=== PATIENT | female | born 1960 | race Caucasian/White ===

== ENCOUNTER → 2017-12-05 15:37 | Outpatient (CLI) | payer BC, SELFPAY ==
[2017-09-27 12:54] VITALS: BP 111/77; BMI 26.2
[2017-12-05 18:41] LABS: T3 Total - Triiodothyronine 1.01 ng/mL (0.6-1.81); Vitamin D,25 Hydroxy 21.2 ng/mL (19.95-100.01)
[2017-12-05 18:43] LABS: T4 Total, Thyroxin 11.2 ug/dL (4.8-13.9); Thyroid Stim Hormone (TSH) 2.17 uIU/mL (0.358-3.74)
== END ==
PROVIDERS: Family Provider Family Medicine; PCP Family Medicine; Visit Provider Family Medicine
DX: E03.9 Hypothyroidism, unspecified (principal); E55.9 Vitamin D deficiency, unspecified
CPT/HCPCS: 36415; 82306; 84436; 84443; 84480

== ENCOUNTER 2018-09-22 09:37 | Inpatient (IN) | payer BC, SELFPAY ==
[2018-09-22] VITALS (10 sets, daily range): BP systolic 108–120; BP diastolic 68–74; PULSE 106–125; RESP 16–23; TEMP 36.6–37.1; O2SAT 93–98; BMI 26.5; BMI 26.9
--- NOTE | 2018-09-22 09:51 | EKG12_ITS ---
Test Reason : SOB Blood Pressure : / mmHG Vent. Rate : 116 BPM Atrial Rate : 116 BPM P-R Int : 156 ms QRS Dur : 080 ms QT Int : 310 ms P-R-T Axes : 063 077 057 degrees QTc Int : 430 ms Sinus tachycardia Otherwise normal ECG Confirmed by LORENZA RAY, GUERRERO ([id number]), digital editor HERRERA DAVENPORT ([id number]) on 09/24/2018 4:19:20 PM Referred By: CHANTEL Confirmed By:GUERRERO BRITT MD
--- NOTE | 2018-09-22 09:55 | NURSING ---
NO OLD EKGS
--- NOTE | 2018-09-22 10:01 | ED.DCSUM_ITS ---
- ER Visit Summary Date of Service: 09/22/18 Chief Complaint: Cough shortness of breath and chest pain History of Present Illness: The patient is a 58 F presenting for evaluation secondary to cough shortness of breath and chest pain. Patient reports that over the course of the last 2 weeks she has been dealing with respiratory symptoms. She reports that she has had a nonproductive cough, and subjective fevers and chills. Patient states that over the course of the last 2 days however she has been chest pain associated with this. She states that it is a sharp type pain worse with taking a deep breath located in her chest and her back. It is caused her to have some shortness of breath. She denies any hemoptysis. She denies any nausea vomiting or diarrhea. Patient denies any history of DVT or PE, she did recently travel to and from [facility] which is a [address] She denies any leg pain or swelling associated with this. She is not on any sort of hormones, she is not a smoker. Physical Examination: Vital signs are notable for a heart rate of 125. Well-nou rished female no acute distress. No conjunctival pallor or scleral icterus. Moist mucous membranes. Neck supple. Heart tachycardic and regular no murmurs normal S1 and S2. Lungs sounds showed evidence of abnormally increased lung sounds at the left lower lung field without obvious rhonchi rales or wheezes. No respiratory distress or retractions. Abdomen soft nontender. No peripheral edema, peripheral pulses 2+ and symmetric x4. Skin normal color no rash. Remainder of physical otherwise unremarkable. Test Results: EKG shows sinus tachycardia with a rate of 116 no evidence of ischemic changes. CBC shows a leukocytosis of 20 with a neutrophilic predominance, chemistry negative troponin negative d-dimer positive lactic acid 2 chest x-ray shows left lower lobe infiltrate Emergency Department Course and Treatment: Patient presented with chest pain and subjective feelings of fever cough and shortness of breath. Patient's workup ends up showing her to have sepsis with a left lower lobe pneumonia. She did have positive d-dimer which I believe likely is secondary to the patient's infection and not secondary to a pulmonary embolism. I do not believe that CT angiogram is indicated. Patient does meet sepsis criteria, her heart rate is persistently fast, I believe that she would benefit from admission. Patient was given a dose of IV Levaquin after blood cultures were obtained and the patient will be admitted under the hospitalist. Disposition: Admission Impression: 1. Community-acquired pneumonia 2. Sepsis This note was generated with [employer] dictation software. It may contain incorrect words, spelling, and punctuation that were not noted in review of the chart prior to signing ED Disposition - Plan for ED Patient: Chief Complaint: Shortness of Breath Referrals: Eldon Proctor MD [Primary Care Provider] -
[2018-09-22 10:27] LABS: Absolute Lymphocyte Count 0.72 X10^3/ul (0.83-4.51); Absolute Neutrophil Count 18.8 X10^3/uL (2.0-7.7); Basophil# 0.03 X10^3/uL; Basophil% 0.1 % (0-1); Eosinophil# 0.01 X10^3/uL; Hematocrit 44.2 % (37-47); Hemoglobin 14.8 g/dl (12.0-15.0); Lymphocyte # 0.72 X10^3/ul (4.0); Lymphocyte % 3.5 % (19-41); Mean Corp Hgb Conc 33.5 g/gl (32-36); Mean Corpuscular Hgb 30.5 pg (27.0-32.0); Mean Corpuscular Volume 91.1 fL (81-99); Mean Platelet Vol. 9.4 fl (6.2-12.0); Monocyte% 4.4 % (0-10); Neutrophil # 18.77 X10^3/uL (2.7-7.7); Neutrophil % 91.5 % (47-70); POSITIVE COUNT NO; POSITIVE DIFFERENTIAL NO; POSITIVE MORPHOLOGY NO; Platelet Count 266 K/mm3 (150-450); RBC Distribution Width CV 13.9 % (11.6-14.6); RBC Distribution Width SD 46.1 fl (35.1-43.9); Red Blood Count 4.85 M/mm3 (4.2-5.4); White Blood Count 20.5 K/mm3 (4.4-11.0)
[2018-09-22 10:37] LABS: D-Dimer Quantitative (DVT/PE) 1.44 FEU/ug/m (0.27-0.49)
[2018-09-22] MEDS: Acetaminophen 500 MG Tablet 1000 MG PO (10:41)
[2018-09-22] MEDS: 0.9% Normal Saline 1,000 ML 999 ML IV (10:42)
[2018-09-22 10:46] LABS: Anion Gap 10 (5-15); BUN 17 mg/dL (7-18); BUN/Creat Ratio 15.2 RATIO (10-20); Calcium,Total 9.3 mg/dL (8.5-10.1); Chloride 104 mmol/L (98-107); Creatinine, Serum 1.12 mg/dL (0.55-1.02); EST Glomerular Filtration Rate 53 mL/min (>60); Est Glom Filt Rate - Afr Amer 64 mL/min (>60); Estimated Creatinine Clearance 45.29 ml/min; Glucose 165 mg/dL (74-106); Potassium 3.5 mmol/L (3.5-5.1); Sodium Level 138 mmol/L (136-145)
--- NOTE | 2018-09-22 10:55 | RAD_ITS ---
STUDY: X-RAY CHEST REASON FOR EXAM: Female, 58 years old. Cough TECHNIQUE: PA and lateral views of the chest. COMPARISON: None. FINDINGS: There is a patchy consolidation within the left lower lobe. There is no demonstrated pleural abnormality. Normal size heart. Normal mediastinum and kiya. Normal visualized pulmonary arteries. Normal visualized aortic arch and descending thoracic aorta. Normal visualized thoracic spine. Normal visualized ribs, clavicles, and shoulders. There is no demonstrated abnormality of the visualized soft tissue structures of the upper abdomen. RAD/Chest PA and Lateral IMPRESSION: Left lower lobe pneumonia. N.B. : The above information has been verbally conveyed by Fani Valente MD to Dr. Maravilla; [phone], on 09/22/2018 11:25:18 (ET). Electronically Signed: Fani Valente MD at 11:15 EST Tel , Service support ,
--- NOTE | 2018-09-22 11:20 | NURSING ---
DR HAMLET MCCABE
--- NOTE | 2018-09-22 11:21 | PCM.PN.HOSP ---
Vitals/I&O's: Vital Signs Temp Pulse Resp BP Pulse Ox 98 F 116 H 23 H 111/73 95 09/22/18 09:38 09/22/18 11:00 09/22/18 11:00 09/22/18 11:00 09/22/18 11:00 Oxygen Delivery Method Room Air Weight: 150 lb Body Mass Index (BMI) 26.5 Microbiology Past 72 Hours 09/22/18 10:30 Mucosa - Nasopharyngeal Influenza Types A,B Direct FA (ED) - Final Laboratory Results 09/22/18 10:15: WBC 20.5 H, RBC 4.85, Hgb 14.8, Hct 44.2, MCV 91.1, MCH 30.5, MCHC 33.5, RDW 13.9, RDW Differential 46.1 H, Plt Count 266, MPV 9.4, Immature Gran % (Auto) 0.500, Neut % (Auto) 91.5 H, Lymph % (Auto) 3.5 L, [place] % (Auto) 4.4, Eos % (Auto) 0.0, Baso % (Auto) 0.1, Absolute Neuts (auto) 18.8 H, Absolute Lymphs (auto) 0.72 L, Total Counted Not Reportable 09/22/18 10:15: D-Dimer Quant (PE/DVT) 1.44 H* 09/22/18 10:15: Sodium 138, Potassium 3.5, Chloride 104, Carbon Dioxide 24.0, Anion Gap 10, BUN 17, Creatinine 1.12 H, Estim Creat Clear Calc 45.29, Est GFR (MDRD) Af Amer 64, Est GFR (MDRD) Non-Af 53 L, BUN/Creatinine Ratio 15.2, Glucose 165 H, Calcium 9.3, Troponin I < 0.015 09/22/18 10:15: Lactic Acid 2.0 Current Medications Levofloxacin (Levaquin Iv) 750 mg in 150 mls @ 100 mls/hr IV X1 ONE Stop: 09/22/18 12:46 Medical Necessity - Tobacco Use Smoking Status: Never smoker
--- NOTE | 2018-09-22 11:25 | NURSING ---
PCU SEPSIS DUE TO CAP KORAM
[2018-09-22] MEDS: levoFLOXacin IV 750 MG/150 ML BAG 100 MG IV (11:26)
--- NOTE | 2018-09-22 12:01 | HP.PCM_ITS ---
History of Present Illness Date of Admission: 09/22/18 Chief Complaint: cough, fever The patient is a 58 year old F with a past medical history as listed below. She was admitted through the ED on 09/22/2018 with a complaint of left-sided chest pain and cough as well as subjective fever and chills. Symptoms have been going on for a few days but that the cough has been for over a week. She had previously gotten a cold and thought call for the result once the cold resolved. However symptoms persisted so she decided to come to the ED today. Left-sided chest pain was pleuritic in nature and was worsened by taking a deep breath and. She has no associated palpitations, abdominal pain, diarrhea vomiting. She did have any history of PE and on only had a recent long distance drive to which occurred about 3 hours. She had no assisted lower extremity swelling or pain. In the ED, vitals were significant for heart rate of 125, respiratory rate of 23 and temperature was 98 Fahrenheit. Chemistry was significant for creatinine of 1.12 and CBC showed white cell count of 20.5. Chest x-ray showed a left lower lobe infiltrate. She is been admitted to be managed for sepsis due to community acquired pneumonia. Past Medical History Past Medical History (Chronic Problems): Chronic Problems History of right breast cancer (Chronic) Allergies No Known Allergies Allergy (Verified 09/22/18 09:40) Home Medications: Ambulatory Orders Medication Instructions Recorded Acetaminophen [Tylenol] 325 mg PO TID PRN 03/28/17 Ibuprofen [Advil] 200 mg PO Q6H PRN 03/28/17 Levothyroxine [Synthroid] 100 mcg PO DAILY 03/28/17 Cholecalciferol (Vitamin D3) 2,000 unit PO DAILY 09/27/17 [Vitamin D3] Surgical History: - - right breast mastectomy Psychiatric History: No pertinent psych hx SITE MEDICAL DIRECTOR History: No pertinent SITE MEDICAL DIRECTOR history Smoking Status: Former smoker - quit 17 years ago Alcohol: None - *Family History Maternal History Items: Cancer, Diabetes, Heart Disease, Hypertension Paternal History Items: High Cholesterol, Heart Disease, Hypertension Review of Systems Constitutional: Reports: Chills, Fever, Malaise, Weakness, Fatigue. Denies: Anorexia, Night Sweats Eyes: Denies: Blurred vision HEENT: Denies: Head Aches, Sinus Congestion, Sinus Drainage Cardiovascular: Reports: Chest Pain - left sided pleuritic chest pain. Denies: Chest Tightness, Heaviness, Palpitations, Paroxysmal Noc. Dyspnea, Syncope Respiratory: Reports: Cough, Pleuritic Pain, Shortness of Breath, Sputum production. Denies: Shortness of breath at rest, Shortness of breath upon exertion, Wheezing Gastrointestinal: Denies: Abdominal Pain, Nausea, Vomiting Genitourinary: Denies: Dysuria Musculoskeletal: Denies: Joint Pain, Joint Tenderness Skin: Denies: Rash, Wounds Neurological: Denies: Numbness, Tingling, Focal weakness Psychiatric: Denies: Anxiety, Depression, Homicidal Ideations, Suicidal Ideat ions Hematologic/ Lymphatic: Denies: Easy Bruising, Easy Bleeding VTE Information - Inpt Only VTE Present on Admission: No VTE Pharm Prophylaxis ordered?: Yes - Physical Exam General: Alert, Oriented x3, Cooperative, - - mild distress HEENT: Atraumatic, PERRLA, EOMI, Normocephalic Neck: Supple, No JVD, Negative Carotid Bruits Lungs: - - Reduced breath sounds in left lower lung field with few fine crackles auscultated. Cardiovascular: Regular rate, Regular Rhythm, Normal S1, Normal S2, No murmurs Abdomen: Bowel Sounds Present, Soft, Non Tender, Non-Distended, No Hepato- splenomegaly Extremities: No clubbing, No cyanosis, No edema, Capillary Refill Less than 3 Seconds Skin: No rashes, No breakdown Musculoskeletal: No Tenderness to Palpation of Joints or Extremities Lymphatic: No Cervical, Supraclavicular, or Inguinal Adenopathy Neurological: Cranial nerves II-XII grossly intact, Neuro grossly intact, Motor Exam 5/5 strength throughout Psych/Mental Status: Normal Affect, Appropriate, Alert and oriented to time, place, person, mood and affect Vital Signs Temp Pulse Resp BP Pulse Ox 98 F 116 H 23 H 111/73 95 09/22/18 09:38 09/22/18 11:00 09/22/18 11:00 09/22/18 11:00 09/22/18 11:00 Oxygen Delivery Method Room Air Weight: 150 lb Body Mass Index (BMI) 26.5 Microbiology Past 72 Hours 09/22/18 10:30 Influenza Types A,B Direct FA (ED) - Final Mucosa - Nasopharyngeal Laboratory Tests Past 24 Hrs 09/22/18 09/22/18 09/22/18 10:15 10:15 10:15 WBC 20.5 H RBC 4.85 Hgb 14.8 Hct 44.2 MCV 91.1 MCH 30.5 MCHC 33.5 RDW 13.9 RDW Differential 46.1 H Plt Count 266 MPV 9.4 Immature Gran % (Auto) 0.500 Neut % (Auto) 91.5 H Lymph % (Auto) 3.5 L [place] % (Auto) 4.4 Eos % (Auto) 0.0 Baso % (Auto) 0.1 Absolute Neuts (auto) 18.8 H Absolute Lymphs (auto) 0.72 L Total Counted Not Reportable D-Dimer Quant (PE/DVT) 1.44 H* Sodium 138 Potassium 3.5 Chloride 104 Carbon Dioxide 24.0 Anion Gap 10 BUN 17 Creatinine 1.12 H Estim Creat Clear Calc 45.29 Est GFR (MDRD) Af Amer 64 Est GFR (MDRD) Non-Af 53 L BUN/Creatinine Ratio 15.2 Glucose 165 H Lactic Acid Calcium 9.3 Troponin I < 0.015 09/22/18 10:15 WBC RBC Hgb Hct MCV MCH MCHC RDW RDW Differential Plt Count MPV Immature Gran % (Auto) Neut % (Auto) Lymph % (Auto) [place] % (Auto) Eos % (Auto) Baso % (Auto) Absolute Neuts (auto) Absolute Lymphs (auto) Total Counted D-Dimer Quant (PE/DVT) Sodium Potassium Chloride Carbon Dioxide Anion Gap BUN Creatinine Estim Creat Clear Calc Est GFR (MDRD) Af Amer Est GFR (MDRD) Non-Af BUN/Creatinine Ratio Glucose Lactic Acid 2.0 Calcium Troponin I Diagnostic Data Chest X-Ray 09/22/18 10:55 IMPRESSION: Left lower lobe pneumonia. N.B. : The above information has been verbally conveyed by Fani Valente MD to Dr. Maravilla; [phone], on 09/22/2018 11:25:18 (ET). Electronically Signed: Fani Valente MD at 11:15 EST Tel , Service support , Assessment/Plan 58-year-old female admitted to the ED on 09/22/2018 with a complaint of left- sided pleuritic chest pain and subjective fever and chills as well as a productive cough. 1. Sepsis due to community acquired pneumonia * SIRS - 3/4 (tachyardia, tachypnea, leucocytosis) on admission. * CXR showed left lower lobe infiltrate * admit to PCU with telemetry * EKG showed sinus tachycardia * blood cultures x 2; urine for strep and legionella antigen * was give IV levaquin in the ED; will stop and give IV ceftriaxone and IV azithromycin * tyelenol for fever and pain * hydrate with IVF NS @ 150cc/hr * 2. ELevated Cr: Cr is 1.12; but doent meet criteria for NATHALY. Will hydrate and monitor 3.Hypothyroidism: on synthroid 4. Sinus tachycardia: likely due to sepsis. WIll monitor HR 5. History of breast ca s/p right mastectomy: stable. DVT prophylaxis: heparin Code Visit Inpatient E&M: 53533 Init Hosp L3
[2018-09-22] MEDS: Ceftriaxone 1 GM/50 ML BAG IV ×2 (13:00→21:36)
[2018-09-22] MEDS: 0.9% Normal Saline 1,000 ML 150 ML IV (13:53)
[2018-09-22 14:22] LABS: Reflex Lactate? Y
[2018-09-22 15:47] LABS: Lactic Acid 3.2 mmol/L (0.4-2.0)
[2018-09-22] MEDS: 0.9% Normal Saline 1,000 ML 250 ML IV (19:40)
[2018-09-22] MEDS: Acetaminophen 325 MG Tablet 650 MG PO (21:37)
[2018-09-23] MEDS: 0.9% Normal Saline 1,000 ML 250 ML IV (00:20)
[2018-09-23 02:18] LABS: Lactic Acid 1.1 mmol/L (0.4-2.0)
[2018-09-23 03:02] VITALS: PULSE 105
[2018-09-23 03:30] VITALS: BP 111/65; PULSE 106; RESP 16; TEMP 37; O2SAT 97
[2018-09-23 06:00] LABS: Absolute Neutrophil Count 10.7 X10^3/uL (2.0-7.7); Basophil# 0.02 X10^3/uL; Basophil% 0.2 % (0-1); Eosinophil# 0.13 X10^3/uL; Hemoglobin 12.3 g/dl (12.0-15.0); Lymphocyte % 10.7 % (19-41); Mean Corp Hgb Conc 33.2 g/gl (32-36); Mean Corpuscular Hgb 30.8 pg (27.0-32.0); Mean Corpuscular Volume 92.5 fL (81-99); Monocyte# 0.82 X10^3/uL; Monocyte% 6.2 % (0-10); Neutrophil # 10.72 X10^3/uL (2.7-7.7); Neutrophil % 81.6 % (47-70); Platelet Count 254 K/mm3 (150-450); RBC Distribution Width SD 46.4 fl (35.1-43.9); White Blood Count 13.1 K/mm3 (4.4-11.0)
[2018-09-23] MEDS: Levothyroxine 100 MCG Tablet PO (06:07)
[2018-09-23 06:35] LABS: Anion Gap 9 (5-15); BUN 10 mg/dL (7-18); BUN/Creat Ratio 11.5 RATIO (10-20); Calcium,Total 7.9 mg/dL (8.5-10.1); Chloride 114 mmol/L (98-107); Creatinine, Serum 0.87 mg/dL (0.55-1.02); EST Glomerular Filtration Rate 71 mL/min (>60); Est Glom Filt Rate - Afr Amer 86 mL/min (>60); Estimated Creatinine Clearance 58.31 ml/min; Glucose 98 mg/dL (74-106); Potassium 3.6 mmol/L (3.5-5.1); Sodium Level 144 mmol/L (136-145)
[2018-09-23 06:38] LABS: POSITIVE COUNT NO; POSITIVE DIFFERENTIAL NO; POSITIVE MORPHOLOGY NO
[2018-09-23] MEDS: Diphenoxylate/Atrop 1 Tablet 2 TABLET PO ×2 (06:50→12:49)
[2018-09-23 07:00] VITALS: PULSE 104
[2018-09-23 07:59] VITALS: BP 111/67; PULSE 104; RESP 16; TEMP 37; O2SAT 96
[2018-09-23] MEDS: Enoxaparin 40 MG/0.4 ML Syringe SC (09:23)
[2018-09-23] MEDS: Ceftriaxone 1 GM/50 ML BAG IV (09:24)
[2018-09-23] MEDS: 0.9% NaCl Peripheral Flush Adult/Peds IV ×2 (09:24→12:49)
[2018-09-23 10:59] VITALS: PULSE 121
--- NOTE | 2018-09-23 11:57 | CASEMGMT ---
Face to Face with patient for initial transition planning/care coordination assessment. RN CM introduced self and role at [facility], voices understanding. Care providers, pharmacy, and demographics verified. PCP: Dr. Proctor Preferred Pharmacy: [facility] Insurance: [employer] Living Will/HPOA: No. Is not interested in further information LNOK: Mother Dionne Cerna Living Arrangements: Pt lives alone in a two story home. Pt denies any difficulty with the stairs. Pt is independent with ADLs, driving, etc. States her son would be able to assist her if needed. Transportation: Drives independently DME/HHC: None Plan: Return home independently. No needs identified at this time (PT/OT evaluations pending). Pt without concerns.
--- NOTE | 2018-09-23 12:57 | DCINST_ITS ---
You will use the following diet at home:: Regular Your food should be the consistency of: Regular Your liquids should be the consistency of: Regular/Thin Discharge Activity: No Restrictions Call your doctor if you observe: Fever of 101 or Higher, Shortness of breath, Dizziness Allergies/Adverse Reactions: Allergies No Known Allergies Allergy (Verified 09/22/18 09:40) Medications to take at Discharge Acetaminophen [Tylenol] 325 mg PO TID PRN 03/28/17 Ibuprofen [Motrin] 200 mg PO Q6H PRN 03/28/17 Levothyroxine [Synthroid] 100 mcg PO DAILY 03/28/17 Cholecalciferol (Vitamin D3) [Vitamin D3] 2,000 unit PO DAILY 09/27/17 Amoxicillin/Potassium Clav [Augmentin 875-125 Tablet] 1 each PO BID #14 tablet 09/23/18 Azithromycin 500 mg PO DAILY #3 tablet 09/23/18 The following prescriptions were given: Azithromycin 500 mg PO DAILY #3 tablet Amoxicillin/Potassium Clav [Augmentin 875-125 Tablet] 1 each PO BID #14 tablet Primary Care Physician: Eldon Proctor MD [Primary Care Provider] - Please follow up with your Primary Care Physician in: In 3-5 days Test Results: Test results from this visit will be discussed in further detail at your follow- up appointment, if applicable.
--- NOTE | 2018-09-23 13:05 | DS.PCM_ITS ---
Discharge Date and Diagnosis Date of Admission: 09/22/18 Date of Discharge: 09/23/18 - Secondary Discharge Diagnosis Chronic Problems History of right breast cancer (Chronic) Hospital Course and Treatment Imaging Results: CXR: IMPRESSION: Left lower lobe pneumonia. Operations: None Procedures: None Summary of Care Provided: Per HPI: The patient is a 58 year old F with a past medical history as listed below. She was admitted through the ED on 09/22/2018 with a complaint of left- sided chest pain and cough as well as subjective fever and chills. Symptoms have been going on for a few days but that the cough has been for over a week. She had previously gotten a cold and thought call for the result once the cold resolved. However symptoms persisted so she decided to come to the ED today. Left-sided chest pain was pleuritic in nature and was worsened by taking a deep breath and. She has no associated palpitations, abdominal pain, diarrhea vomiting. She did have any history of PE and on only had a recent long distance drive to which occurred about 3 hours. She had no assisted lower extremity swelling or pain. In the ED, vitals were significant for heart rate of 125, respiratory rate of 23 and temperature was 98 Fahrenheit. Chemistry was significant for creatinine of 1.12 and CBC showed white cell count of 20.5. Chest x-ray showed a left lower lobe infiltrate. She is been admitted to be managed for sepsis due to community acquired pneumonia. Vital Signs - 24 hr Temp Pulse Resp BP Pulse Ox 09/23/18 07:59 98.6 F 104 H 16 111/67 96 09/23/18 07:00 104 H 09/23/18 03:30 98.6 F 106 H 16 111/65 97 09/23/18 03:02 105 H 09/22/18 23:00 112 H 09/22/18 21:39 98.3 F 117 H 18 114/68 97 09/22/18 19:00 120 H 09/22/18 17:09 98.1 F 113 H 18 120/69 96 09/22/18 15:48 106 H 09/22/18 13:12 119 H General: Alert, Oriented x3, Cooperative, No apparent distress HEENT: Atraumatic, PERRLA, EOMI, Normocephalic Oral: Moist Mucosa Neck: Supple, No JVD Lungs: Clear to auscultation, Normal air movement, No rhonchi, No wheeze, No rales, decreased LLL Cardiovascular: Regular rate, Regular Rhythm, Normal S1, Normal S2, No murmurs Abdomen: Soft, Non Tender, Non-Distended, No Hepato-splenomegaly Extremities: No edema, Capillary Refill Less than 3 Seconds Skin: No rashes, No breakdown Hospital Course: 1. Sepsis 2/2 LLL CAP - She was admitted with pneumonia and started on fluid and rocephin/azithromycin. She feels much better and her leukocytosis decreased from 20,000 to 13,000 and she has remained afebrile. She would like to go home today and continued with PO abx therapy with augmentin and azithromycin. Her heart rate was also improved this afternoon on exam. She will need outpatient monitoring with her PCP 2. Her other medical diagnoses were evaluated and her home medication regimen was continued where appropriate. - Physical Exam Vital Signs Temp Pulse Resp BP Pulse Ox 98.6 F 104 H 16 111/67 96 09/23/18 07:59 09/23/18 07:59 09/23/18 07:59 09/23/18 07:59 09/23/18 07:59 Oxygen Delivery Method Room Air Weight: 151 lb 10.848 oz Body Mass Index (BMI) 26.9 Intake and Output for Last 24 Hours 09/21/18 09/22/18 09/23/18 23:59 23:59 23:59 Intake Total 1281 / 1281 3066 / 3066 Balance 1281 / 1281 3066 / 3066 Microbiology Past 72 Hours 09/22/18 22:30 C. difficile DNA Amplification - Final Stool 09/22/18 10:30 Influenza Types A,B Direct FA (ED) - Final Mucosa - Nasopharyngeal Laboratory Tests Past 24 Hrs 09/22/18 09/23/18 09/23/18 14:55 01:41 05:12 WBC 13.1 H RBC 4.00 L Hgb 12.3 Hct 37.0 MCV 92.5 MCH 30.8 MCHC 33.2 RDW 14.0 RDW Differential 46.4 H Plt Count 254 MPV 10.0 Immature Gran % (Auto) 0.300 Neut % (Auto) 81.6 H Lymph % (Auto) 10.7 L [place] % (Auto) 6.2 Eos % (Auto) 1.0 Baso % (Auto) 0.2 Absolute Neuts (auto) 10.7 H Absolute Lymphs (auto) 1.40 Total Counted Not Reportable Sodium Potassium Chloride Carbon Dioxide Anion Gap BUN Creatinine Estim Creat Clear Calc Est GFR (MDRD) Af Amer Est GFR (MDRD) Non-Af BUN/Creatinine Ratio Glucose Lactic Acid 3.2 H 1.1 Calcium 09/23/18 09/23/18 05:12 05:12 WBC RBC Hgb Hct MCV MCH MCHC RDW RDW Differential Plt Count MPV Immature Gran % (Auto) Neut % (Auto) Lymph % (Auto) [place] % (Auto) Eos % (Auto) Baso % (Auto) Absolute Neuts (auto) Absolute Lymphs (auto) Total Counted Sodium 144 Potassium 3.6 Chloride 114 H Carbon Dioxide 21.0 Anion Gap 9 BUN 10 Creatinine 0.87 Estim Creat Clear Calc 58.31 Est GFR (MDRD) Af Amer 86 Est GFR (MDRD) Non-Af 71 BUN/Creatinine Ratio 11.5 Glucose 98 Lactic Acid 1.0 Calcium 7.9 L Discharge Activity: No Restrictions Call your doctor if you observe: Fever of 101 or Higher, Shortness of breath, Dizziness Home Medications: Medications to take at Discharge Acetaminophen [Tylenol] 325 mg PO TID PRN 03/28/17 Ibuprofen [Motrin] 200 mg PO Q6H PRN 03/28/17 Levothyroxine [Synthroid] 100 mcg PO DAILY 03/28/17 Cholecalciferol (Vitamin D3) [Vitamin D3] 2,000 unit PO DAILY 09/27/17 Amoxicillin/Potassium Clav [Augmentin 875-125 Tablet] 1 each PO BID #14 tablet 09/23/18 Azithromycin 500 mg PO DAILY #3 tablet 09/23/18 Following Prescrptions Were Given to Patient: Azithromycin 500 mg PO DAILY #3 tablet Amoxicillin/Potassium Clav [Augmentin 875-125 Tablet] 1 each PO BID #14 tablet Primary Care Physician: Eldon Proctor MD [Primary Care Provider] - Please follow up with your Primary Care Physician in: In 3-5 days Disposition: Home Minutes spent on discharge:: 35 Patient Condition:: Good Medical Necessity - Tobacco Use Smoking Status: Former smoker - quit 17 years ago Meaningful Use Info Meaningful Use Diagnoses (Choose all that apply): None applicable Code Visit Inpatient E&M: 81921 Disch Hosp
[2018-09-23 13:50] VITALS: BP 105/57; PULSE 108; RESP 18; TEMP 37.3; O2SAT 95
--- NOTE | 2018-09-25 10:19 | CASEMGMT ---
RN CM Discharge Follow-up Phone Call: BINA: Ricardo Strata: 3 Call Date: 09/25/18 Discharge Date: 09/23/18 Time of Call: 1019 Duration: 0 ? Admitting Diagnosis: Sepsis secondary to pneumonia This RN MELISSA attempted to contact pt via telephone for discharge follow-up. Voicemail received and message left requesting a return call if pt had any questions or concerns. Gigi Snyder RN
== END 2018-09-23 15:00 | disposition home or self-care (01) | DRG 871 ==
LOC: ED 11:02 → PCU 11:57
PROVIDERS: Family Medicine; Admitting Provider Student in an Organized Health Care Education/Training Program; Emergency Provider Emergency Medicine; Family Provider Family Medicine; PCP Family Medicine; Visit Provider Family Medicine
DX: A41.9 Sepsis, unspecified organism (principal); J18.9 Pneumonia, unspecified organism; E03.9 Hypothyroidism, unspecified; Z87.891 Personal history of nicotine dependence; Z85.3 Personal history of malignant neoplasm of breast; Z90.11 Acquired absence of right breast and nipple
CPT/HCPCS: 36415; 71046; 80048; 83605; 84484; 85025; 85379; 87040; 87493; 87804; 93005; 99285; J7030; A4216

== ENCOUNTER → 2018-11-18 08:01 | Outpatient (CLI) | payer BC, SELFPAY ==
[2018-09-30 12:58] VITALS: BMI 26.1
--- NOTE | 2018-11-18 08:03 | BI_ITS ---
MAMMOGRAPHY - UNILATERAL SCREENING: LEFT BREAST REASON FOR EXAM: Female, 58 years old. Routine annual screening examination (unilateral). PERTINENT HISTORY: Personal history of breast cancer. Prior right mastectomy with radiation and chemotherapy. TECHNIQUE: Digital unilateral breast soraya (3D mammographic acquisition) in the CC and MLO projections. 2-D mediolateral oblique (MLO) and craniocaudad (CC) views of both breasts were obtained. CAD: Full Field Digital Mammography with Computer Added Detection was performed. COMPARISON: Comparison is made with prior study dated March 21, 2017 and March 16, 2016. FINDINGS: Breast Composition: The breasts are heterogeneously dense, which may obscure small masses. There are no dominant masses or suspicious calcifications. Stable left axillary lymph nodes. No other significant abnormalities are identified. There has been no significant change since the prior study. BI/UNILAT LT SCRN W/CAD IMPRESSION: Stable unilateral screening mammogram. Yearly follow-up mammogram recommended. (A) ASSESSMENT CATEGORY: BIRADS Category 2: Benign. A letter regarding these results will be sent to the patient by the facility within 30 days. Approximately 10% of breast cancers are not detected by mammography. A normal mammogram should not delay biopsy of a clinically suspicious abnormality. [id number] Electronically Signed: Akshat Haro MD at 9:36 EST Tel [phone], Service support ,
--- OUTSIDE RECORDS SUMMARY | 2019-01-20 15:31 | XMS RPT_ITS ---
:1960 Author Organization OH[facility] Care Team Providers Name Role Phone MARYBETH YAP (SECURITIES ANALYST) Referring Unavailable Prah, Nahid Attending Unavailable Prah, Nahid Referring Unavailable Proctor, Eldon Primary Care Unavailable Shayy, Kim Attending Unavailable Eyad Silva Referring Unavailable Proctor, Eldon Primary Care Unavailable Proctor, Eldon Attending Unavailable Proctor, Eldon Referring Unavailable Proctor, Eldon Primary Care Unavailable ASSESSMENT, HEALTH RISK Attending Unavailable Proctor, Eldon Primary Care Unavailable Proctor, Eldon Primary Care Unavailable Koram, Sherita Hyun Admitting Unavailable KotsoniSonya youngs F Attending Unavailable Koram, Sherita Hyun Admitting Unavailable Koram, Sherita Hyun Attending Unavailable Proctor, Eldon Primary Care Unavailable Koram, Sherita Hyun Consulting Unavailable Koram, Sherita Hyun Admitting Unavailable KotsoniSonya youngs F Attending Unavailable Proctor, Eldon Primary Care Unavailable Harley Ford F Consulting Unavailable Prah, Nahid Attending Unavailable Proctor, Eldon Primary Care Unavailable Shayy, Kim Consulting Unavailable PROBLEMS PROBLEMS DATE TYPE CONDITION / CODE ATTENDING STATUS SOURCE 09/30/2018 Unknown D75.1 - Secondary Shayy, Kim Active [facility] polycythemia / Community D75.1(ICD-10) Hospital Repository 09/30/2018 Unknown Z85.3 - Personal Shayy, Kim Active [facility] history of Community malignant neoplasm Hospital of breast / Repository Z85.3(ICD-10) 09/30/2018 Unknown Z90.11 - Acquired Shayy, Kim Active [facility] absence of right Community breast and nipple Hospital / Z90.11(ICD-10) Repository 09/30/2018 Unknown Z12.31 - Encounter Shayy, Kim Active [facility] for screening Community mammogram for Hospital malignant neoplasm Repository of breast / Z12.31(ICD-10) 09/10/2018 Active Cough / NA Active [facility] R05(ICD-10) Main [place] Repository 12/05/2017 Unknown E03.9 - Eldon Proctor Active [facility] Hypothyroidism, Community unspecified / Hospital E03.9(ICD-10) Repository 12/05/2017 Unknown E55.9 - Vitamin D Eldon Proctor Active [facility] deficiency, Community unspecified / Hospital E55.9(ICD-10) Repository PROCEDURES PROCEDURES No Procedure Records FoundRESULTS RESULTS UNILAT LT SCRN Observed: 11/18/2018 Status: F Source: [facility] W/CAD 8:03 AM [facility] Imaging Services [address] [place] [address] UNILAT LT SCRN W/CAD MR#: [id number] Acct: [id number] Name: FARIBA GORE Rep #: [id number] : 1960 F 58 From: Akshat Haro MD PCP: Eldon Proctor MD Status: REG CLI Study: UNILAT LT SCRN W/CAD Date of Exam: 11/18/18 Exam# [id number] Ordering Dr: Nahid Salinas MD MAMMOGRAPHY - UNILATERAL SCREENING: LEFT BREAST REASON FOR EXAM: Female, 58 years old. Routine annual screening examination (unilateral). PERTINENT HISTORY: Personal history of breast cancer. Prior right mastectomy with radiation and chemotherapy. TECHNIQUE: Digital unilateral breast soraya (3D mammographic acquisition) in the CC and MLO projections. 2-D mediolateral oblique (MLO) and craniocaudad (CC) views of both breasts were obtained. CAD: Full Field Digital Mammography with Computer Added Detection was performed. COMPARISON: Comparison is made with prior study dated March 21, 2017 and March 16, 2016. FINDINGS: Breast Composition: The breasts are heterogeneously dense, which may obscure small masses. There are no dominant masses or suspicious calcifications. Stable left axillary lymph nodes. No other significant abnormalities are identified. There has been no significant change since the prior study. BI/UNILAT LT SCRN W/CAD IMPRESSION: Stable unilateral screening mammogram. Yearly follow-up mammogram recommended. (A) ASSESSMENT CATEGORY: BIRADS Category 2: Benign. A letter regarding these results will be sent to the patient by the facility within 30 days. Approximately 10% of breast cancers are not detected by mammography. A normal mammogram should not delay biopsy of a clinically suspicious abnormality. [id number] Electronically Signed: Akshat Haro MD at 9:36 EST Tel [phone], Service support , CC: Nahid Salinas MD; Eldon Proctor MD [employer] Erector: Signed ONCOLOGY VISIT REPORT Observed: 09/30/2018 Status: F Source: [place] 1:34 PM [facility] [place] [address] OFFICE VISIT Date of Service: 09/30/18 1330 MR#: [id number] Acct: [id number] Name: FARIBA GORE Rep #: [id number] : 1960 From: Nahid Salinas MD Age/Sex: 58/F Location: OMD Status: Signed Subjective - Date of Service Date of Service:: 09/30/18 - Chief Complaint F/u for breast cancer. - History of Present Illness Ms. Fariba Gore is a very pleasant 58 year old woman diagnosed with stage III (T3, N1, M0) ER MT positive, HER2 negative infiltrating lobular carcinoma of the right breast 10/18/2001. She received 4 cycles of AC followed by 4 cycles of Taxotere in the neoadjuvant setting completed 03/2002, followed by right MRM, followed by XRT to the mastectomy site. On tamoxifen May 2002 through 01/03/2005. On and off tamoxifen and Aromasin based on hormone levels 01/03/2005 to 07/16/2007. Back on Aromasin 07/16/2007 to 10/10/2008. On MURILLO from 10/28/2008 to 11/17/2009. On Aromasin 04/27/2010 through 04/27/2012. Noted to have mild erythrocytosis thus underwent BM BX 12/29/2015. Found to exhibit normocellular marrow, normal cytogenetics and negative for JAK2 V617F mutation. She is on observation, comes in for follow up. Was admitted for pneumonia last week. - Past Medical/Social History Past Medical History Other Past Medical History: polycythemia MINOR MITRAL VALVE PROLAPSE Cancer: Breast cancer Past Surgical History Other Surgical History: R modified radical Mastectomy Family History Paternal Past Medical History: Unknown Paternal History of Cancer Esophageal cancer Maternal Past Medical History: Unknown Social History Smoking Status Former smoker Review of Systems Constitutional:: Denies: Fever, Sweats, Weight loss, Appetite change, Chills Cardiovascular:: Denies: Chest pain, Palpitations, Dyspnea on exertion, Orthopnea, PND, Shortness of breath Respiratory: Denies: Cough, Hemoptysis, Shortness of Breath, Wheezing Gastrointestinal:: Denies: Abdominal pain, Nausea, Vomiting, Diarrhea, Constipation, Hematochezia Genitourinary: Denies: Dysuria, Hematuria, 15, Flank pain Musculoskeletal:: Denies: Back pain, Myalgia, Arthralgia Skin: Denies: Rash, Skin Changes, Wounds Neurological:: Denies: Headache, Dizziness, Visual changes, Tinnitus, Hearing loss Psychiatric: Denies: Anxiety, Depression, Homicidal Ideations, Suicidal Ideations Vital Signs Height 5 ft 4 in Weight: 68.946 kg Weight in Pounds 152.0 lbs Pulse Ox 97 - Physical Exam General: Alert, Oriented x3, No apparent distress HEENT: Atraumatic, PERRLA, EOMI, Normocephalic Oropharynx:: Dry mucosa Neck:: Supple, Trachea midline. Negative for: JVD, bilateral Cardiac:: Regular rate, Regular rhythm, Normal S1, Normal S2. Negative for: Murmur Lungs: Clear to auscultation, Excusion symmetrical. Negative for: Rhonchi, Wheezes Abdomen:: Bowel sounds x 4, Soft, Non-tender, Non-distended. Negative for: Hepatosplenomegaly Extremities:: Negative for: Cyanosis, Edema Neurological: Neuro grossly intact Skin:: Negative for: Lesions, Rash, Petechiae, Ecchymosis Psychiatric:: Appropriate affect, Euthymic Lymphatics:: Negative for: Cervical lymphadenopathy, Supraclavicular lymphadenopathy, Axillary lymphadenopathy Breast:: - - R MRM scar, L breast-no masses. Laboratory Data: Laboratory Tests WBC 8.1 (4.4-11.0) K/mm3 RBC 5.10 (4.2-5.4) M/mm3 Hgb 15.7 H (12.0-15.0) g/dl Assessment and Plan Right Breast Cancer III, no evidence of disease clinically. Discussed disease status with Pt. Pneumonia 1 wk ago. Plan is to continue observation. Mammogram in February 2019. RTC 9 wks with cxr. Medications: Prescriptions This Visit Medication Instructions Recorded Acetaminophen [Tylenol] 325 mg PO TID PRN 03/28/17 Primary Care Provider: Eyad Silva MD Referring Provider: - Problem List (1) History of right breast cancer Status: Chronic Code Visit Office Visits / Consults: [id number] OV L3 Est 09/30/18 1334 <Electronically signed by Nahid Salinas MD> Date Nahid Salinas MD Cosigner Signature: Date (if applicable) CC: CBC W/DIFF, AUTOMATED Collected: 09/30/2018 Status: F Source: [place] 12:39 PM [facility] Order Comment: Reason for Laboratory Test . TYPE CODE TESTS RESULT OUT OF RANGE REFERENCE UNITS LAB L100.1000 4.4-11.0 K/mm3 Normal WBC 8.1 LAB L100.1200 4.2-5.4 M/mm3 Normal RBC 5.10 LAB L100.1300 12.0-15.0 g/dl High HGB 15.7 LAB L100.1400 37-47 % Normal HCT 46.6 LAB L100.1500 81-99 fL Normal MCV 91.4 LAB L100.1600 27.0-32.0 pg Normal MCH 30.8 LAB L100.1700 32-36 g/gl Normal MCHC 33.7 LAB L100.1810 11.6-14.6 % Normal RDW CV 13.9 LAB L100.1820 35.1-43.9 fl High RDW SD 45.5 LAB L100.1900 150-450 K/mm3 Normal PLT 432 LAB L100.2000 6.2-12.0 fl Normal MPV 9.1 LAB L100.2100 47-70 % High NEUT% 70.3 LAB L100.2200 19-41 % Normal LY% 20.1 LAB L100.2300 0-10 % Normal MONO% 5.6 LAB L100.2400 0-5 % Normal EO% 2.4 LAB L100.2500 0-1 % Normal BASO% 0.7 LAB L100.2550 0.0-0.9 % Normal IM GRAN % 0.900 Result Comment: IG% - Immature Granulocytes (promyelocytes, myelocytes and metamyelocytes) > 1% indicates that a LEFT SHIFT is Present. LAB L100.2620 2.0-7.7 X10 3/uL Normal Absolute Neut 5.7 LAB L100.2720 0.83-4.51 X10 3/ul Normal Absolute Lymph 1.62 Performed By: #### L100.0100 #### [facility] [address] [place], [place], [address] COMPREHENSIVE METABOLIC Collected: 09/30/2018 Status: F Source: [facility] 12:39 PM [facility] Order Comment: Reason for Laboratory Test . TYPE CODE TESTS RESULT OUT OF RANGE REFERENCE UNITS LAB L501.0100 74-106 mg/dL Normal GLU 102 Result Comment: Fasting Glucose result from 100 to 125 mg/dL suggests IMPAIRED HOMEOSTASIS per A.D.A. criteria. Please note revised GLUCOSE reference range effective 2017. LAB L501.1000 7-18 mg/dL Normal BUN 14 LAB L501.1100 0.55-1.02 mg/dL Normal CREAT,SERUM 1.00 Result Comment: The validity of the calculated GFR AND GFRAA in patients over 70 years has not been determined. Clinical correlation is essential. LAB L501.1110 >60 mL/min Normal EST GFR 61 Result Comment: Non- GFR Calc LAB L501.1115 >60 mL/min Normal EST GFR - AA 73 Result Comment: GFR Calc LAB L501.1255 ml/min Normal Estimated CRCL 52.95 LAB L501.1300 10-20 RATIO Normal BUN/CRE 14.0 LAB L501.1500 6.4-8. g/dL Normal 2 T PROT 7.9 LAB L501.1800 3.2-5. g/dL Normal 0 ALB 3.6 LAB L501.1950 2.2-4. g/dL High 2 GLOB 4.3 LAB L501.2000 0.9-2. RATIO Low 4 A/G 0.8 LAB L501.2200 8.5-10 mg/dL Normal .1 CA 9.0 LAB L501.4100 15-37 U/L Normal AST 19 LAB L501.4305 45-117 U/L Normal ALK P 88 LAB L501.4405 13-56 U/L Normal ALT 30 LAB L501.4600 0.20-1 mg/dL Normal .00 T BILI 0.30 LAB L501.5300 136-14 mmol/L Normal 5 NA 140 LAB L501.5600 3.5-5. mmol/L Normal 1 K 4.2 LAB L501.5900 98-107 mmol/L Normal CL 105 LAB L501.6100 21.0-3 mmol/L Normal 2.0 CO2 30.0 LAB L501.6200 5-15 Normal GAP 5 Performed By: #### L500.4050 #### [facility] [address] [place], [address] 12 LEAD ELECTROCARDIOGRAM Observed: 09/27/2018 Status: F Source: [place] 9:25 AM [facility] Cardiovascular Services [address] [place] [address] 12 Lead EKG 09/22/18 0959 MR#: [id number] Acct: [id number] Name: FARIBA GORE Rep #: [id number] : 1960 58 From: Ed Schaefer MD Attending Dr: Harley Ford MD Status: DIS IN Ordering Dr: Kam Maravilla MD Date: 09/22/18 Location: [facility] Sex: F C Admitted: 09/22/18 Test Reason : SOB Blood Pressure : / mmHG Vent. Rate : 116 BPM Atrial Rate : 116 BPM P-R Int : 156 ms QRS Dur : 080 ms QT Int : 310 ms P-R-T Axes : 063 077 057 degrees QTc Int : 430 ms Sinus tachycardia Otherwise normal ECG Confirmed by LORENZA RAY, ED ([id number]), dictionary editor HERRERA DAVENPORT ([id number]) on 09/24/2018 4:19:20 PM Referred By: CHANTEL Confirmed By:ED SCHAEFER MD 09/24/18 4732 Date Ed Schaefer MD CC: Kam Maravilla; Harley Ford MD; Eldon Proctor MD Signed DISCHARGE SUMMARY Observed: 09/23/2018 Status: F Source: [place] 1:05 PM [facility] Medical Records Department [address] [place] [address] Discharge Summary 09/23/18 1257 MR#: [id number] Acct: [id number] Name: FARIBA GORE Rep #: [id number] : 1960 58 From: Harley Ford MD PCP: Eldon Proctor MD Status: ADM IN Y Location: [place] [address] Discharge Date and Diagnosis Date of Admission: 09/22/18 Date of Discharge: 09/23/18 - Secondary Discharge Diagnosis Chronic Problems History of right breast cancer (Chronic) Hospital Course and Treatment Imaging Results: CXR: IMPRESSION: Left lower lobe pneumonia. Operations: None Procedures: None Summary of Care Provided: Per HPI: The patient is a 58 year old F with a past medical history as listed below. She was admitted through the ED on 09/22/2018 with a complaint of left-sided chest pain and cough as well as subjective fever and chills. Symptoms have been going on for a few days but that the cough has been for over a week. She had previously gotten a cold and thought call for the result once the cold resolved. However symptoms persisted so she decided to come to the ED today. Left-sided chest pain was pleuritic in nature and was worsened by taking a deep breath and. She has no associated palpitations, abdominal pain, diarrhea vomiting. She did have any history of PE and on only had a recent long distance drive to which occurred about 3 hours. She had no assisted lower extremity swelling or pain. In the ED, vitals were significant for heart rate of 125, respiratory rate of 23 and temperature was 98 Fahrenheit. Chemistry was significant for creatinine of 1.12 and CBC showed white cell count of 20.5. Chest x-ray showed a left lower lobe infiltrate. She is been admitted to be managed for sepsis due to community acquired pneumonia. Vital Signs - 24 hr General: Alert, Oriented x3, Cooperative, No apparent distress HEENT: Atraumatic, PERRLA, EOMI, Normocephalic Oral: Moist Mucosa Neck: Supple, No JVD Lungs: Clear to auscultation, Normal air movement, No rhonchi, No wheeze, No rales, decreased LLL Cardiovascular: Regular rate, Regular Rhythm, Normal S1, Normal S2, No murmurs Abdomen: Soft, Non Tender, Non-Distended, No Hepato-splenomegaly Extremities: No edema, Capillary Refill Less than 3 Seconds Skin: No rashes, No breakdown Hospital Course: 1. Sepsis 2/2 LLL CAP - She was admitted with pneumonia and started on fluid and rocephin/azithromycin. She feels much better and her leukocytosis decreased from 20,000 to 13,000 and she has remained afebrile. She would like to go home today and continued with PO abx therapy with augmentin and azithromycin. Her heart rate was also improved this afternoon on exam. She will need outpatient monitoring with her PCP 2. Her other medical diagnoses were evaluated and her home medication regimen was continued where appropriate. - Physical Exam Vital Signs Temp Pulse Resp BP Pulse Ox 98.6 F 104 H 16 111/67 96 09/23/18 07:59 09/23/18 07:59 09/23/18 07:59 09/23/18 07:59 09/23/18 07:59 Oxygen Delivery Method Room Air Weight: 151 lb 10.848 oz Body Mass Index (BMI) 26.9 Intake and Output for Last 24 Hours Intake Total 1281 / 1281 3066 / 3066 Balance 1281 / 1281 3066 / 3066 Microbiology Past 72 Hours 09/22/18 22:30 C. difficile DNA Amplification - Final Stool 09/22/18 10:30 Influenza Types A,B Direct FA (ED) - Final Mucosa - Nasopharyngeal Laboratory Tests Past 24 Hrs WBC 13.1 H RBC 4.00 L Hgb 12.3 Hct 37.0 MCV 92.5 MCH 30.8 MCHC 33.2 Discharge Activity: No Restrictions Call your doctor if you observe: Fever of 101 or Higher, Shortness of breath, Dizziness Home Medications: Medications to take at Discharge Acetaminophen [Tylenol] 325 mg PO TID PRN 03/28/17 Ibuprofen [Motrin] 200 mg PO Q6H PRN 03/28/17 Levothyroxine [Synthroid] 100 mcg PO DAILY 03/28/17 Cholecalciferol (Vitamin D3) [Vitamin D3] 2,000 unit PO DAILY 09/27/17 Amoxicillin/Potassium Clav [Augmentin 875-125 Tablet] 1 each PO BID #14 tablet 09/23/18 Azithromycin 500 mg PO DAILY #3 tablet 09/23/18 Following Prescrptions Were Given to Patient: Azithromycin 500 mg PO DAILY #3 tablet Amoxicillin/Potassium Clav [Augmentin 875-125 Tablet] 1 each PO BID #14 tablet Primary Care Physician: Eldon Proctor MD [Primary Care Provider] - Please follow up with your Primary Care Physician in: In 3- 5 days Disposition: Home Minutes spent on discharge:: 35 Patient Condition:: Good Medical Necessity - Tobacco Use Smoking Status: Former smoker - quit 17 years ago Meaningful Use Info Meaningful Use Diagnoses (Choose all that apply): None applicable Code Visit Inpatient E AND M: 63376 Disch Hosp 09/23/18 1305 <Electronically signed by Harley Ford MD> Date Harley Ford MD Cosigner Signature (if applicable): Date CC: Harley Ford MD; Eldon Proctor MD Signed DISCHARGE INSTRUCTION Observed: 09/23/2018 Status: F Source: [place] 12:57 PM [facility] Medical Records Department [address] [place] [address] Instructions for Home/Discharge Instructions 09/23/18 1256 MR#: [id number] Acct: [id number] Name: FARIBA GORE Rep #: [id number] : 1960 58 From: Harley Ford MD PCP: Esthela RAY,Eldon Status: ADM IN You will use the following diet at home:: Regular Your food should be the consistency of: Regular Your liquids should be the consistency of: Regular/Thin Discharge Activity: No Restrictions Call your doctor if you observe: Fever of 101 or Higher, Shortness of breath, Dizziness Allergies/Adverse Reactions: Allergies No Known Allergies Allergy (Verified 09/22/18 09:40) Medications to take at Discharge Acetaminophen [Tylenol] 325 mg PO TID PRN 03/28/17 Ibuprofen [Motrin] 200 mg PO Q6H PRN 03/28/17 Levothyroxine [Synthroid] 100 mcg PO DAILY 03/28/17 Cholecalciferol (Vitamin D3) [Vitamin D3] 2,000 unit PO DAILY 09/27/17 Amoxicillin/Potassium Clav [Augmentin 875-125 Tablet] 1 each PO BID #14 tablet 09/23/18 Azithromycin 500 mg PO DAILY #3 tablet 09/23/18 The following prescriptions were given: Azithromycin 500 mg PO DAILY #3 tablet Amoxicillin/Potassium Clav [Augmentin 875-125 Tablet] 1 each PO BID #14 tablet Primary Care Physician: Eldon Proctor MD [Primary Care Provider] - Please follow up with your Primary Care Physician in: In 3- 5 days Test Results: Test results from this visit will be discussed in further detail at your follow-up appointment, if applicable. 09/23/18 1257 <Electronically signed by Harley Ford MD> Date Harley Ford MD CC: Eldon Proctor MD LACTIC ACID Collected: 09/23/2018 Status: F Source: [place] 5:12 AM [facility] Order Comment: Yes/No query for Sepsis Lactate Rule Y TYPE CODE TESTS RESULT OUT OF RANGE REFERENCE UNITS LAB L503.6005 0.4-2.0 mmol/L Normal LACTIC ACID 1.0 Performed By: #### L503.6005 #### [facility] [address] [place], [address] BASIC METABOLIC Collected: 09/23/2018 Status: F Source: [place] PROFILE (BMP) 5:12 AM [facility] TYPE CODE TESTS RESULT OUT OF RANGE REFERENCE UNITS LAB L501.0100 74-106 mg/dL Normal GLU 98 Result Comment: Please note revised GLUCOSE reference range effective 2017. LAB L501.1000 7-18 mg/dL Normal BUN 10 LAB L501.1100 0.55-1.02 mg/dL Normal CREAT,SERUM 0.87 Result Comment: The validity of the calculated GFR AND GFRAA in patients over 70 years has not been determined. Clinical correlation is essential. LAB L501.1110 >60 mL/min Normal EST GFR 71 Result Comment: Non- GFR Calc LAB L501.1115 >60 mL/min Normal EST GFR - AA 86 Result Comment: GFR Calc LAB L501.1255 ml/min Normal Estimated CRCL 58.31 LAB L501.1300 10-20 RATIO Normal BUN/CRE 11.5 LAB L501.2200 8.5-10 mg/dL Low .1 CA 7.9 LAB L501.5300 136-14 mmol/L Normal 5 NA 144 LAB L501.5600 3.5-5. mmol/L Normal 1 K 3.6 LAB L501.5900 98-107 mmol/L High CL 114 LAB L501.6100 21.0-3 mmol/L Normal 2.0 CO2 21.0 LAB L501.6200 5-15 Normal GAP 9 Performed By: #### L500.2500 #### [facility] [address] [place], [address] CBC W/DIFF, AUTOMATED Collected: 09/23/2018 Status: F Source: [place] 5:12 AM [facility] TYPE CODE TESTS RESULT OUT OF RANGE REFERENCE UNITS LAB L100.1000 4.4-11.0 K/mm3 High WBC 13.1 LAB L100.1200 4.2-5.4 M/mm3 Low RBC 4.00 LAB L100.1300 12.0-15.0 g/dl Normal HGB 12.3 LAB L100.1400 37-47 % Normal HCT 37.0 LAB L100.1500 81-99 fL Normal MCV 92.5 LAB L100.1600 27.0-32.0 pg Normal MCH 30.8 LAB L100.1700 32-36 g/gl Normal MCHC 33.2 LAB L100.1810 11.6-14.6 % Normal RDW CV 14.0 LAB L100.1820 35.1-43.9 fl High RDW SD 46.4 LAB L100.1900 150-450 K/mm3 Normal PLT 254 LAB L100.2000 6.2-12.0 fl Normal MPV 10.0 LAB L100.2100 47-70 % High NEUT% 81.6 LAB L100.2200 19-41 % Low LY% 10.7 LAB L100.2300 0-10 % Normal MONO% 6.2 LAB L100.2400 0-5 % Normal EO% 1.0 LAB L100.2500 0-1 % Normal BASO% 0.2 LAB L100.2550 0.0-0.9 % Normal IM GRAN % 0.300 Result Comment: IG% - Immature Granulocytes (promyelocytes, myelocytes and metamyelocytes) > 1% indicates that a LEFT SHIFT is Present. LAB L100.2620 2.0-7.7 X10 3/uL High Absolute Neut 10.7 LAB L100.2720 0.83-4.51 X10 3/ul Normal Absolute Lymph 1.40 Performed By: #### L100.0100 #### [facility] [address] LACTIC ACID Collected: 09/23/2018 Status: F Source: [place] 1:41 AM [facility] Order Comment: Yes/No query for Sepsis Lactate Rule Y TYPE CODE TESTS RESULT OUT OF RANGE REFERENCE UNITS LAB L503.6005 0.4-2.0 mmol/L Normal LACTIC ACID 1.1 Performed By: #### L503.6005 #### [facility] [address] Observed: 09/22/2018 Status: F Source: [place] CDIFF (MOLECULAR) 10:30 PM [facility] Is the patient receiving laxatives? N New/unexplained onset of 3 or more stools in past 24 hrs? Y Cdiff-Molecular Normal Reference Range = Negative C. Diff DNA Negative- No toxigenic C. Diff DNA Detected NAAT METHOD Testing was performed using nucleic acid amplification Performed By: #### M100.6796 #### [facility] [address] EMERGENCY DEPARTMENT Observed: 09/22/2018 Status: F Source: [place] SUMMARY 4:49 PM [facility] Medical Records Department [address] [place] [address] Emergency Department Summary 09/22/18 0959 MR#: [id number] Acct: [id number] Name: FARIBA GORE Rep #: [id number] : 1960 58 From: Kam Maravilla MD PCP: Eldon Proctor MD Status: ADM IN - ER Visit Summary Date of Service: 09/22/18 Chief Complaint: Cough shortness of breath and chest pain History of Present Illness: The patient is a 58 F presenting for evaluation secondary to cough shortness of breath and chest pain. Patient reports that over the course of the last 2 weeks she has been dealing with respiratory symptoms. She reports that she has had a nonproductive cough, and subjective fevers and chills. Patient states that over the course of the last 2 days however she has been chest pain associated with this. She states that it is a sharp type pain worse with taking a deep breath located in her chest and her back. It is caused her to have some shortness of breath. She denies any hemoptysis. She denies any nausea vomiting or diarrhea. Patient denies any history of DVT or PE, she did recently travel to and from [facility] which is a [address] She denies any leg pain or swelling associated with this. She is not on any sort of hormones, she is not a smoker. Physical Examination: Vital signs are notable for a heart rate of 125. Well-nourished female no acute distress. No conjunctival pallor or scleral icterus. Moist mucous membranes. Neck supple. Heart tachycardic and regular no murmurs normal S1 and S2. Lungs sounds showed evidence of abnormally increased lung sounds at the left lower lung field without obvious rhonchi rales or wheezes. No respiratory distress or retractions. Abdomen soft nontender. No peripheral edema, peripheral pulses 2+ and symmetric x4. Skin normal color no rash. Remainder of physical otherwise unremarkable. Test Results: EKG shows sinus tachycardia with a rate of 116 no evidence of ischemic changes. CBC shows a leukocytosis of 20 with a neutrophilic predominance, chemistry negative troponin negative d-dimer positive lactic acid 2 chest x-ray shows left lower lobe infiltrate Emergency Department Course and Treatment: Patient presented with chest pain and subjective feelings of fever cough and shortness of breath. Patient's workup ends up showing her to have sepsis with a left lower lobe pneumonia. She did have positive d-dimer which I believe likely is secondary to the patient's infection and not secondary to a pulmonary embolism. I do not believe that CT angiogram is indicated. Patient does meet sepsis criteria, her heart rate is persistently fast, I believe that she would benefit from admission. Patient was given a dose of IV Levaquin after blood cultures were obtained and the patient will be admitted under the hospitalist. Disposition: Admission Impression: 1. Community-acquired pneumonia 2. Sepsis This note was generated with [employer] dictation software. It may contain incorrect words, spelling, and punctuation that were not noted in review of the chart prior to signing ED Disposition - Plan for ED Patient: Chief Complaint: Shortness of Breath Referrals: Eldon Proctor MD [Primary Care Provider] - What to do if you have Problems For any increased pain, shortness of breath, bleeding, nausea or vomiting, chest pain, or any unexpected problems, contact your Primary Care Provider. Call [facility] ([phone]) or report to the closest Emergency Room. Call 911 if necessary. 09/22/18 1649 <Electronically signed by Kam Maravilla MD> Date Kam Maravilla MD Cosigner Signature (If Indicated): Date CC: Eldon Proctor MD LACTIC ACID Collected: 09/22/2018 Status: F Source: [place] 2:55 PM [facility] REPOSITORY TYPE CODE TESTS RESULT OUT OF REFERENCE UNITS RANGE LAB L503.6005 0.4-2.0 mmol/L High LACTIC ACID 3.2 Result Comment: Critical Result(s) Called Dilip CAVANAUGH at: 15:47:56 09/22/2018 by: FERNANDEZ TROY Performed By: #### L503.6005 #### [facility] [address] [place], [address] HISTORY AND PHYSICAL Observed: 09/22/2018 Status: F Source: [place] EXAM 1:11 PM [facility] REPOSITORY [facility] Medical Records Department [address] [place] [address] History and Physical 09/22/18 1201 MR#: [id number] Acct: [id number] Name: FARIBA GORE Rep #: [id number] : 1960 58 From: Sherita Martin MD PCP: Eldon Proctor MD Status: ADM IN Y Location: [place] [address] History of Present Illness Date of Admission: 09/22/18 Chief Complaint: cough, fever The patient is a 58 year old F with a past medical history as listed below. She was admitted through the ED on 09/22/2018 with a complaint of left-sided chest pain and cough as well as subjective fever and chills. Symptoms have been going on for a few days but that the cough has been for over a week. She had previously gotten a cold and thought call for the result once the cold resolved. However symptoms persisted so she decided to come to the ED today. Left-sided chest pain was pleuritic in nature and was worsened by taking a deep breath and. She has no associated palpitations, abdominal pain, diarrhea vomiting. She did have any history of PE and on only had a recent long distance drive to which occurred about 3 hours. She had no assisted lower extremity swelling or pain. In the ED, vitals were significant for heart rate of 125, respiratory rate of 23 and temperature was 98 Fahrenheit. Chemistry was significant for creatinine of 1.12 and CBC showed white cell count of 20.5. Chest x-ray showed a left lower lobe infiltrate. She is been admitted to be managed for sepsis due to community acquired pneumonia. Past Medical History Past Medical History (Chronic Problems): Chronic Problems History of right breast cancer (Chronic) Allergies No Known Allergies Allergy (Verified 09/22/18 09:40) Home Medications: Ambulatory Orders Medication Instructions Recorded Acetaminophen [Tylenol] 325 mg PO TID PRN 03/28/17 Surgical History: - - right breast mastectomy Psychiatric History: No pertinent psych hx TECHNICAL ASSOCIATE History: No pertinent TECHNICAL ASSOCIATE history Smoking Status: Former smoker - quit 17 years ago Alcohol: None - *Family History Maternal History Items: Cancer, Diabetes, Heart Disease, Hypertension Paternal History Items: High Cholesterol, Heart Disease, Hypertension Review of Systems Constitutional: Reports: Chills, Fever, Malaise, Weakness, Fatigue. Denies: Anorexia, Night Sweats Eyes: Denies: Blurred vision HEENT: Denies: Head Aches, Sinus Congestion, Sinus Drainage Cardiovascular: Reports: Chest Pain - left sided pleuritic chest pain. Denies: Chest Tightness, Heaviness, Palpitations, Paroxysmal Noc. Dyspnea, Syncope Respiratory: Reports: Cough, Pleuritic Pain, Shortness of Breath, Sputum production. Denies: Shortness of breath at rest, Shortness of breath upon exertion, Wheezing Gastrointestinal: Denies: Abdominal Pain, Nausea, Vomiting Genitourinary: Denies: Dysuria Musculoskeletal: Denies: Joint Pain, Joint Tenderness Skin: Denies: Rash, Wounds Neurological: Denies: Numbness, Tingling, Focal weakness Psychiatric: Denies: Anxiety, Depression, Homicidal Ideations, Suicidal Ideations Hematologic/ Lymphatic: Denies: Easy Bruising, Easy Bleeding VTE Information - Inpt Only VTE Present on Admission: No VTE Pharm Prophylaxis ordered?: Yes - Physical Exam General: Alert, Oriented x3, Cooperative, - - mild distress HEENT: Atraumatic, PERRLA, EOMI, Normocephalic Neck: Supple, No JVD, Negative Carotid Bruits Lungs: - - Reduced breath sounds in left lower lung field with few fine crackles auscultated. Cardiovascular: Regular rate, Regular Rhythm, Normal S1, Normal S2, No murmurs Abdomen: Bowel Sounds Present, Soft, Non Tender, Non-Distended, No Hepato-splenomegaly Extremities: No clubbing, No cyanosis, No edema, Capillary Refill Less than 3 Seconds Skin: No rashes, No breakdown Musculoskeletal: No Tenderness to Palpation of Joints or Extremities Lymphatic: No Cervical, Supraclavicular, or Inguinal Adenopathy Neurological: Cranial nerves II-XII grossly intact, Neuro grossly intact, Motor Exam 5/5 strength throughout Psych/Mental Status: Normal Affect, Appropriate, Alert and oriented to time, place, person, mood and affect Vital Signs Temp Pulse Resp BP Pulse Ox 98 F 116 H 23 H 111/73 95 09/22/18 09:38 09/22/18 11:00 09/22/18 11:00 09/22/18 11:00 09/22/18 11:00 Oxygen Delivery Method Room Air Weight: 150 lb Body Mass Index (BMI) 26.5 Microbiology Past 72 Hours 09/22/18 10:30 Influenza Types A,B Direct FA (ED) - Final Mucosa - Nasopharyngeal Laboratory Tests Past 24 Hrs WBC 20.5 H WBC RBC Hgb Hct MCV MCH MCHC RDW RDW Differential Plt Count MPV Immature Gran % (Auto) Neut % (Auto) Lymph % (Auto) Diagnostic Data Chest X-Ray 09/22/18 10:55 IMPRESSION: Left lower lobe pneumonia. N.B. : The above information has been verbally conveyed by Fani Valente MD to Dr. Maravilla; [phone], on 09/22/2018 11:25:18 (ET). Electronically Signed: Fani Valente MD at 11:15 EST Tel , Service support , Assessment/Plan 58-year-old female admitted to the ED on 09/22/2018 with a complaint of left-sided pleuritic chest pain and subjective fever and chills as well as a productive cough. 1. Sepsis due to community acquired pneumonia * SIRS - 3/4 (tachyardia, tachypnea, leucocytosis) on admission. * CXR showed left lower lobe infiltrate * admit to PCU with telemetry * EKG showed sinus tachycardia * blood cultures x 2; urine for strep and legionella antigen * was give IV levaquin in the ED; will stop and give IV ceftriaxone and IV azithromycin * tyelenol for fever and pain * hydrate with IVF NS @ 150cc/hr * 2. ELevated Cr: Cr is 1.12; but doent meet criteria for NATHALY. Will hydrate and monitor 3.Hypothyroidism: on synthroid 4. Sinus tachycardia: likely due to sepsis. WIll monitor HR 5. History of breast ca s/p right mastectomy: stable. DVT prophylaxis: heparin Code Visit Inpatient E AND M: [id number] Init Hosp L3 09/22/18 1311 <Electronically signed by Sherita Martin MD> Date Sherita Martin MD Cosigner Signature: Date (if applicable) CC: Sherita Martin MD; Eldon Proctor MD Signed Observed: 09/22/2018 Status: F Source: [place] CULTURE, BLOOD (WB) 11:20 AM [facility] REPOSITORY BC No growth in 5 days. Performed By: #### M200.1000 #### [facility] [address] [place], [place], [address] Observed: 09/22/2018 Status: F Source: [place] CULTURE, BLOOD (WB) 11:15 AM [facility] REPOSITORY BC No growth in 5 days. Performed By: #### M200.1000 #### [facility] [address] [place], [place], [address] Observed: 09/22/2018 Status: F Source: [place] INFLUENZA A+B (RAPID 10:30 AM [facility] REPOSITORY Order Date: 09/22/18 Has pt arrived? Y FLU A/B Rapid Negative test results should be confirmed by culture. Order Rapid Viral Culture for Influenzae A+B ([id number]) if clinically indicated. Influenza Ag, Direct Presumptive NEGATIVE for Influenza A/B Antigen (See Note) Performed By: #### M101.0101 #### [facility] [address] [place], [address] CBC W/DIFF, AUTOMATED Collected: 09/22/2018 Status: F Source: [place] 10:15 AM [facility] REPOSITORY TYPE CODE TESTS RESULT OUT OF RANGE REFERENCE UNITS LAB L100.1000 4.4-11.0 K/mm3 High WBC 20.5 LAB L100.1200 4.2-5.4 M/mm3 Normal RBC 4.85 LAB L100.1300 12.0-15.0 g/dl Normal HGB 14.8 LAB L100.1400 37-47 % Normal HCT 44.2 LAB L100.1500 81-99 fL Normal MCV 91.1 LAB L100.1600 27.0-32.0 pg Normal MCH 30.5 LAB L100.1700 32-36 g/gl Normal MCHC 33.5 LAB L100.1810 11.6-14.6 % Normal RDW CV 13.9 LAB L100.1820 35.1-43.9 fl High RDW SD 46.1 LAB L100.1900 150-450 K/mm3 Normal PLT 266 LAB L100.2000 6.2-12.0 fl Normal MPV 9.4 LAB L100.2100 47-70 % High NEUT% 91.5 LAB L100.2200 19-41 % Low LY% 3.5 LAB L100.2300 0-10 % Normal MONO% 4.4 LAB L100.2400 0-5 % Normal EO% 0.0 LAB L100.2500 0-1 % Normal BASO% 0.1 LAB L100.2550 0.0-0.9 % Normal IM GRAN % 0.500 Result Comment: IG% - Immature Granulocytes (promyelocytes, myelocytes and metamyelocytes) > 1% indicates that a LEFT SHIFT is Present. LAB L100.2620 2.0-7.7 X10 3/uL High Absolute Neut 18.8 LAB L100.2720 0.83-4.51 X10 3/ul Low Absolute Lymph 0.72 Performed By: #### L100.0100 #### [facility] [address] [place], [address] D-DIMER QUANTITATIVE Collected: 09/22/2018 Status: F Source: [place] (DVT/PE) 10:15 AM [facility] REPOSITORY TYPE CODE TESTS RESULT OUT OF RANGE REFERENCE UNITS LAB L300.8000 0.27-0.49 FEU/ug/m High alert D-DIMER 1.44 QUANT Result Comment: D-Dimer ELEVATED (>0.49): Additional studies and clinical assessments are indicated to conclude diagnosis of: Deep Vein Thrombosis (DVT) or Pulmonary Embolism (PE) CRITICAL VALUE VERIFIED. CALLED TO JOHN KIM 09/22/18 1037 Inga Gomez. RESULTS READ BACK BY SAME . Performed By: #### L300.8000 #### [facility] [address] [facility] [address] [place], [place], [address] BASIC METABOLIC Collected: 09/22/2018 Status: F Source: [place] PROFILE (BMP) 10:15 AM [facility] REPOSITORY TYPE CODE TESTS RESULT OUT OF RANGE REFERENCE UNITS LAB L501.0100 74-106 mg/dL High GLU 165 Result Comment: Fasting Glucose result greater than or equal to 126 mg/dL suggests DIABETES MELLITUS per A.D.A. criteria. Please note revised GLUCOSE reference range effective 2017. LAB L501.1000 7-18 mg/dL Normal BUN 17 LAB L501.1100 0.55-1.02 mg/dL High CREAT,SERUM 1.12 Result Comment: The validity of the calculated GFR AND GFRAA in patients over 70 years has not been determined. Clinical correlation is essential. LAB L501.1110 >60 mL/min Low EST GFR 53 Result Comment: Non- GFR Calc LAB L501.1115 >60 mL/min Normal EST GFR - AA 64 Result Comment: GFR Calc LAB L501.1255 ml/min Normal Estimated CRCL 45.29 LAB L501.1300 10-20 RATIO Normal BUN/CRE 15.2 LAB L501.2200 8.5-10 mg/dL Normal .1 CA 9.3 LAB L501.5300 136-14 mmol/L Normal 5 NA 138 LAB L501.5600 3.5-5. mmol/L Normal 1 K 3.5 LAB L501.5900 98-107 mmol/L Normal CL 104 LAB L501.6100 21.0-3 mmol/L Normal 2.0 CO2 24.0 LAB L501.6200 5-15 Normal GAP 10 Performed By: #### L500.2500, L501.4010 #### [facility] [address] [place], [place], [address] TROPONIN-I Collected: 09/22/2018 Status: F Source: [place] 10:15 AM [facility] REPOSITORY TYPE CODE TESTS RESULT OUT OF RANGE REFERENCE UNITS LAB L501.4010 <0.045 ng/mL Normal < 0.015 TROPONIN-I Result Comment: TROPONIN-I EXPECTED VALUES <0.045 Negative 0.045 - 0.590 Consistent with Cardiac Damage > OR = 0.600 Critical Value Not every elevated troponin is indicative of MT. These values should be used with clinical judgement in examining the patient's clinical picture for diagnosis. To establish a diagnosis of MT versus myocardial injury, there must be a demonstrated rise and/or fall in the troponin values, in addition to ischemic symptoms, EKG changes, new regional wall motion abnormality, and/or angiographical evidence. PLEASE NOTE: REFERENCE RANGES EDITED 18 Performed By: #### L500.2500, L501.4010 #### [facility] [address] [place], [address] LACTIC ACID Collected: 09/22/2018 Status: F Source: [place] 10:15 AM [facility] REPOSITORY Order Comment: Yes/No query for Sepsis Lactate Rule Y TYPE CODE TESTS RESULT OUT OF RANGE REFERENCE UNITS LAB L503.6005 0.4-2.0 mmol/L Normal LACTIC ACID 2.0 Result Comment: Critical Result(s) Called at: 11:07:30 09/22/2018 by: Christiano Mujica RN (ER). Performed By: #### L503.6005 #### [facility] [address] [place], [address] CHEST PA AND LATERAL Observed: 09/22/2018 Status: F Source: [place] 9:53 AM [facility] REPOSITORY [facility] Imaging Services [address] [address] Chest PA and Lateral MR#: [id number] Acct: [id number] Name: BAOFARIBA Maria Del Carmen Rep #: [id number] : 1960 F 58 From: Fani Valente MD PCP: Eldon Proctor MD Status: REG ER Study: Chest PA and Lateral Date of Exam: 09/22/18 Exam# [id number] Ordering Dr: Kam Maravilla MD STUDY: X-RAY CHEST REASON FOR EXAM: Female, 58 years old. Cough TECHNIQUE: PA and lateral views of the chest. COMPARISON: None. FINDINGS: There is a patchy consolidation within the left lower lobe. There is no demonstrated pleural abnormality. Normal size heart. Normal mediastinum and kiya. Normal visualized pulmonary arteries. Normal visualized aortic arch and descending thoracic aorta. Normal visualized thoracic spine. Normal visualized ribs, clavicles, and shoulders. There is no demonstrated abnormality of the visualized soft tissue structures of the upper abdomen. RAD/Chest PA and Lateral IMPRESSION: Left lower lobe pneumonia. N.B. : The above information has been verbally conveyed by Fani Valente MD to Dr. Maravilla; [phone], on 09/22/2018 11:25:18 (ET). Electronically Signed: Fani Valente MD at 11:15 EST Tel , Service support , CC: Kam Maravilla; Eldon Proctor MD Wooden Fence Erector: Signed PROGRESS Observed: 09/22/2018 Status: COMPLETED Source: [place] 9:31 AM [facility] REPOSITORY O ID: [id number] Author: Jennifer Aguilar Service: (none) Author Type: Nurse Practitioner Type: Progress Notes Filed: 09/22/2018 9:36 AM Note Text: ANIBAL Fariba Gore is a 58 year old female who presents today for CC of worsening cough and chest discomfort. [facility] with 24 hour onset of symptoms. She states that the cough and chest discomfort is worsening. Slightly short of breath and doesn't feel right. Advised due to previous xray and worsening symptoms with chest discomfort patient needs to be evaluated at the ER. Patient declines squad, appears stable for transporting self, will go to [place] [facility], report called., snapshot and xray report given to patient. ASSESSMENT/PLAN: 1. Chest discomfort - ICD9: 786.59, ICD10: R07.89 Jennifer Aguilar, TRAINING DIRECTOR.SECURITIES ANALYST CNOV Observed: 09/22/2018 Status: COMPLETED Source: [place] 9:15 AM [facility] REPOSITORY Office Visit (WSTR) FARIBA GORE ([id number]) 1960 F Date Time Provider Department 09/22/18 9:15 AM JENNIFER AGUILAR (DEZ) [facility] During your visit today, we recorded the following information about you: Temperature Pulse Respiration Blood pressure 98.2 degrees 128/minute 24/minute 100/64 Weight 68.2 kg Jennifer Aguilar APRN.CNP 09/22/2018 9:36 AM Signed HPI Fariba Joyce Bao is a 58 year old female who presents today for CC of worsening cough and chest discomfort. [facility] with 24 hour onset of symptoms. She states that the cough and chest discomfort is worsening. Slightly short of breath and doesn't feel right. Advised due to previous xray and worsening symptoms with chest discomfort patient needs to be evaluated at the ER. Patient declines squad, appears stable for transporting self, will go to [place] [facility], report called., snapshot and xray report given to patient. ASSESSMENT/PLAN: 1. Chest discomfort - ICD9: 786.59, ICD10: R07.89 Jennifer Aguilar APRN.CNP Referring Provider: SELF [200] Allergies As of Date: 09/22/2018 (No Known Allergies) Date Reviewed: 09/22/2018 Reviewed by: Bridget Cox Ma - Fully Assessed Reason for Visit: Cough [28] Cmt: with pain on left side of torso AND middle back AND SOB Primary Visit Diagnosis:Chest discomfort [R07.89] Prescriptions as of 09/22/2018 Sig: BROMPHENIRAMINE-PSEUDOEPHEDRI* Take 5 mL by mouth four times* LEVOTHYROXINE 100 MCG TABLET Take 1 tablet by mouth once d* AMMONIUM LACTATE 12 % TOPICAL* Apply to entire body to hydra* CALCIUM CARBONATE-VITAMIN D3 * Take by mouth. one daily THERAPEUTIC MULTIVITAMIN TABL* Take 1 tablet by mouth once d* Problem List As Of Date 09/22/2018 Noted Resolved Hypothyroidism [E03.9] INVALID FOR* Encounter Status:Closed by JENNIFER AGUILAR CNP on 09/22/18 XR CHEST 2V FRONTAL/LAT Observed: 09/10/2018 Status: F Source: [place] 6:44 PM [facility] REPOSITORY * * *Final Report* * * DATE OF EXAM: Sep 10 2018 6:44PM WOX [id number] - XR CHEST 2V FRONTAL/LAT / PROCEDURE REASON: Cough * * * * Physician Interpretation * * * * EXAMINATION: CHEST RADIOGRAPH (2 VIEW FRONTAL and LATERAL) CLINICAL HISTORY: Cough MQ: XC2_5 Comparison: None RESULT: Lines, tubes, and devices: None. Lungs and pleura: Relative lucency of the right lung compared to the left is felt to be related to prior right mastectomy. There is no focal pulmonary consolidation identified. No pleural effusion or pneumothorax. Cardiomediastinal silhouette: Normal cardiomediastinal silhouette. Other: Remote healed right sixth rib fracture deformity. There seems to also be mild deformity right fourth rib suspected to be related to remote healed fracture. IMPRESSION: No acute disease. If there are continued symptoms and need for better evaluation of the lungs CT could be used for further evaluation Wooden Fence Erector: JOHN Transcribe Date/Time: Sep 10 2018 6:47P Dictated by : JAIME MARIE MD This examination was interpreted and the report reviewed and electronically signed by: JAIME MARIE MD on Sep 10 2018 6:50PM EST [id number] PROGRESS Observed: 09/10/2018 Status: COMPLETED Source: [place] 6:38 PM [facility] REPOSITORY HNO ID: [id number] Author: [place] (Rt) Ad [place] Service: (none) Author Type: Trauma Doctor Type: Progress Notes Filed: 09/10/2018 6:44 PM Note Text: Radiology Service Progress Note PATIENT NAME: Fariba Gore DATE OF SERVICE: September 10, 2018 TIME: 6:38 PM PATIENT IDENTITY VERIFICATION COMPLETED USING TWO (2) METHODS: Patient confirmed name verbally and Date of . PATIENT GENDER DATA: Female. status: : No status: NO. PATIENT RELEVANT IMPLANT DATA REVIEWED: Not Applicable RADIOLOGY DEPARTMENT: General X-ray: Exam(s) Completed: Chest X-Ray PERIPHERAL IV DATA: Not applicable SIGNED BY: RT Dennise September 10, 2018 6:38 PM PROGRESS Observed: 09/10/2018 Status: COMPLETED Source: [place] 6:13 PM [facility] [place] REPOSITORY HNO ID: [id number] Author: Marybeth Yap Service: (none) Author Type: Nurse Practitioner Type: Progress Notes Filed: 09/10/2018 7:22 PM Note Text: Subjective The history is provided by the patient. Fariba Gore is a 58 year old female who presents with sinus and chest congestion and body aches for the past 24 hours. She has taken nasal decongestant and tylenol at home with minimal relief. Last dose 4 hours ago. No known sick contacts. Review of Systems Constitutional: Positive for malaise/fatigue. Negative for fever. HENT: Positive for congestion and sinus pain. Negative for sore throat. Respiratory: Positive for cough. Negative for sputum production and shortness of breath. Cardiovascular: Negative. Negative for chest pain. Gastrointestinal: Negative. Negative for nausea and vomiting. Musculoskeletal: Positive for myalgias. Neurological: Positive for headaches. BP 138/82 Pulse 77 Temp 37.6 ?C (99.7 ?F) (Tympanic) Resp 18 Wt 69.6 kg (153 lb 6.4 oz) LMP 08/01/2008 SpO2 98% BMI 26.96 kg/m? 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 Jewell ALLERGIES Patient has no known allergies. MEDICATIONS levothyroxine (SYNTHROID) 100 mcg tablet Take 1 tablet by mouth once daily. ammonium lactate (LAC-HYDRIN) 12 % cream Apply to entire body to hydrate and prevent symptoms of keratosis pilaris; dispense three tubes for 90 day supply Calcium-Cholecalciferol, D3, (CALCIUM 600 + D) 600-125 mg- unit ORAL Tab Take by mouth. one daily therapeutic multivitamin ORAL tablet Take 1 tablet by mouth once daily. FAMILY HISTORY Problem Relation Age of Onset - Breast Cancer Maternal Grandmother and also lung cancer - Diabetes Paternal Grandmother - Diabetes Paternal Grandfather - other (esophageal cancer [Other]) Father - Diabetes Mother Social History Substance Use Topics - Smoking status: Former Smoker - Smokeless tobacco: Never Used Comment: Quit Smoking in 2000 - Alcohol use No Objective Physical Exam Constitutional: She is well-developed, well-nourished, and in no distress. Cardiovascular: Normal rate, regular rhythm and normal heart sounds. Pulmonary/Chest: Effort normal. No respiratory distress. She has decreased breath sounds in the right lower field. She has no wheezes. She has no rales. Neurological: She is alert. Skin: Skin is warm and dry. No rash noted. Nursing note and vitals reviewed. ASSESSMENT/PLAN: 1. Cough - ICD9: 786.2, ICD10: R05 - XR CHEST 2V FRONTAL/LAT. My reading: negative. Radiologist RESULT: Lines, tubes, and devices: ?None. Lungs and pleura: ?Relative lucency of the right lung compared to the left is felt to be related to prior right mastectomy. ?There is no focal pulmonary consolidation identified. ?No pleural effusion or pneumothorax. Cardiomediastinal silhouette: ?Normal cardiomediastinal silhouette. Other: ?Remote healed right sixth rib fracture deformity. ?There seems to also be mild deformity right fourth rib suspected to be related to remote healed fracture. IMPRESSION: No acute disease. ?If there are continued symptoms and need for better evaluation of the lungs CT could be used for further evaluation Dictated by : JAIME MARIE MD This examination was interpreted and the report reviewed and electronically signed by: JAIME MARIE MD on Sep 10 2018 ?6:50PM ?EST - DSLMQXEQWPLYBQE-IKFEGZNGLDRRPDN-EW 2 MG-30 MG-10 MG/5 ML SYRUP - Follow-up with your PCP in 3-5 days if symptoms have not improved or sooner if symptoms worsen - Discussed red flags and need for immediate medical evaluation if any occur. - Discussed supportive care treatment with fluids, rest and analgesia. - Discussed expected course of illness Marybeth Yap APRN.CNP CNOV Observed: 09/10/2018 Status: COMPLETED Source: [place] 6:00 PM [facility] REPOSITORY Office Visit (WSTR) FARIBA GORE ([id number]) 1960 F Date Time Provider Department 09/10/18 6:00 PM MARYBETH YAP (DEZ) [facility] During your visit today, we recorded the following information about you: Temperature Pulse Respiration Blood pressure 99.7 degrees 112/minute 18/minute 138/82 Weight 69.6 kg Marybeth Yap APRN.CNP 09/10/2018 7:22 PM Signed Subjective The history is provided by the patient. Fariba Gore is a 58 year old female who presents with sinus and chest congestion and body aches for the past 24 hours. She has taken nasal decongestant and tylenol at home with minimal relief. Last dose 4 hours ago. No known sick contacts. Review of Systems Constitutional: Positive for malaise/fatigue. Negative for fever. HENT: Positive for congestion and sinus pain. Negative for sore throat. Respiratory: Positive for cough. Negative for sputum production and shortness of breath. Cardiovascular: Negative. Negative for chest pain. Gastrointestinal: Negative. Negative for nausea and vomiting. Musculoskeletal: Positive for myalgias. Neurological: Positive for headaches. BP 138/82 Pulse 77 Temp 37.6 ?C (99.7 ?F) (Tympanic) Resp 18 Wt 69.6 kg (153 lb 6.4 oz) LMP 08/01/2008 SpO2 98% BMI 26.96 kg/m? 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 Jewell ALLERGIES Patient has no known allergies. MEDICATIONS levothyroxine (SYNTHROID) 100 mcg tablet Take 1 tablet by mouth once daily. ammonium lactate (LAC-HYDRIN) 12 % cream Apply to entire body to hydrate and prevent symptoms of keratosis pilaris; dispense three tubes for 90 day supply Calcium-Cholecalciferol, D3, (CALCIUM 600 + D) 600-125 mg- unit ORAL Tab Take by mouth. one daily therapeutic multivitamin ORAL tablet Take 1 tablet by mouth once daily. FAMILY HISTORY Problem Relation Age of Onset - Breast Cancer Maternal Grandmother and also lung cancer - Diabetes Paternal Grandmother - Diabetes Paternal Grandfather - other (esophageal cancer [Other]) Father - Diabetes Mother Social History Substance Use Topics - Smoking status: Former Smoker - Smokeless tobacco: Never Used Comment: Quit Smoking in 2000 - Alcohol use No Objective Physical Exam Constitutional: She is well-developed, well-nourished, and in no distress. Cardiovascular: Normal rate, regular rhythm and normal heart sounds. Pulmonary/Chest: Effort normal. No respiratory distress. She has decreased breath sounds in the right lower field. She has no wheezes. She has no rales. Neurological: She is alert. Skin: Skin is warm and dry. No rash noted. Nursing note and vitals reviewed. ASSESSMENT/PLAN: 1. Cough - ICD9: 786.2, ICD10: R05 - XR CHEST 2V FRONTAL/LAT. My reading: negative. Radiologist RESULT: Lines, tubes, and devices: ?None. Lungs and pleura: ?Relative lucency of the right lung compared to the left is felt to be related to prior right mastectomy. ?There is no focal pulmonary consolidation identified. ?No pleural effusion or pneumothorax. Cardiomediastinal silhouette: ?Normal cardiomediastinal silhouette. Other: ?Remote healed right sixth rib fracture deformity. ?There seems to also be mild deformity right fourth rib suspected to be related to remote healed fracture. IMPRESSION: No acute disease. ?If there are continued symptoms and need for better evaluation of the lungs CT could be used for further evaluation Dictated by : JAIME MARIE MD This examination was interpreted and the report reviewed and electronically signed by: JAIME MARIE MD on Sep 10 2018 ?6:50PM ?EST - JLSHAULCKOTHCAA-MOCJDVSVYTPZZHG-HB 2 MG-30 MG-10 MG/5 ML SYRUP - Follow-up with your PCP in 3-5 days if symptoms have not improved or sooner if symptoms worsen - Discussed red flags and need for immediate medical evaluation if any occur. - Discussed supportive care treatment with fluids, rest and analgesia. - Discussed expected course of illness GILBERT Serra APRN.CNP 09/10/2018 7:08 PM Signed ASSESSMENT/PLAN: 1. Cough - ICD9: 786.2, ICD10: R05 - XR CHEST 2V FRONTAL/LAT. My reading: negative. Radiologist RESULT: Lines, tubes, and devices: ?None. Lungs and pleura: ?Relative lucency of the right lung compared to the left is felt to be related to prior right mastectomy. ?There is no focal pulmonary consolidation identified. ?No pleural effusion or pneumothorax. Cardiomediastinal silhouette: ?Normal cardiomediastinal silhouette. Other: ?Remote healed right sixth rib fracture deformity. ?There seems to also be mild deformity right fourth rib suspected to be related to remote healed fracture. IMPRESSION: No acute disease. ?If there are continued symptoms and need for better evaluation of the lungs CT could be used for further evaluation Dictated by : JAIME MARIE MD This examination was interpreted and the report reviewed and electronically signed by: JAIME MARIE MD on Sep 10 2018 ?6:50PM ?EST - VSKNAEQVWKYGICN-HQUWWFMIXMLCRUU-UP 2 MG-30 MG-10 MG/5 ML SYRUP Marybeth Yap APRN.CNP Referring Provider: SELF [200] Allergies As of Date: 09/10/2018 (No Known Allergies) Date Reviewed: 09/10/2018 Reviewed by: Marybeth (Dez) Fracisco - Fully Assessed Reason for Visit: sinus and chest congestion and body aches [Other] Cmt: x 2 days Primary Visit Diagnosis:Cough [R05] Order(s):XR CHEST 2V FRONTAL/LAT [[id number]] Order #: [id number] FUTURE Lulfzusxsmgipmr-Bmdcnfmby-YA (BROMFED DM) 2-30-10 mg/5 mL syrupTake 5 mL by mouth four times daily as needed.Disp: 118 mLRfl: 0 Prescriptions as of 09/10/2018 Sig: LEVOTHYROXINE 100 MCG TABLET Take 1 tablet by mouth once d* AMMONIUM LACTATE 12 % TOPICAL* Apply to entire body to hydra* CALCIUM CARBONATE-VITAMIN D3 * Take by mouth. one daily THERAPEUTIC MULTIVITAMIN TABL* Take 1 tablet by mouth once d* BROMPHENIRAMINE-PSEUDOEPHEDRI* Take 5 mL by mouth four times* Problem List As Of Date 09/10/2018 Noted Resolved Hypothyroidism [E03.9] INVALID FOR* Other instructions from your clinician: ASSESSMENT/PLAN: 1. Cough - ICD9: 786.2, ICD10: R05 - XR CHEST 2V FRONTAL/LAT. My reading: negative. Radiologist RESULT: Lines, tubes, and devices: ?None. Lungs and pleura: ?Relative lucency of the right lung compared to the left is felt to be related to prior right mastectomy. ?There is no focal pulmonary consolidation identified. ?No pleural effusion or pneumothorax. Cardiomediastinal silhouette: ?Normal cardiomediastinal silhouette. Other: ?Remote healed right sixth rib fracture deformity. ?There seems to also be mild deformity right fourth rib suspected to be related to remote healed fracture. IMPRESSION: No acute disease. ?If there are continued symptoms and need for better evaluation of the lungs CT could be used for further evaluation Dictated by : JAIME MARIE MD This examination was interpreted and the report reviewed and electronically signed by: JAIME MARIE MD on Sep 10 2018 ?6:50PM ?EST - AVUDKXRWWCYLWTU-VVOPPXUBWCWVJDI-SQ 2 MG-30 MG-10 MG/5 ML SYRUP Marybeth Yap APRN.SECURITIES ANALYST Prescriptions ordered this encounter Disp Refills Start End QPTVPFOBSZXFWLS-MMWJMRZMFBDAGZX-GQ 2* 118 * 0 09/10/2018 Route: ORAL Sig: Take 5 mL by mouth four times daily as needed. Encounter Status:Closed by MARYBETH YAP on 09/10/18 LIPID PROFILE Collected: 08/13/2018 Status: F Source: [place] 9:35 AM [facility] REPOSITORY TYPE CODE TESTS RESULT OUT OF RANGE REFERENCE UNITS LAB L501.4900 200 mg/dL Normal CHOL 182 Result Comment: <200 mg/dL Desirable 200-240 mg/dL Borderline >240 mg/dL High Risk LAB L501.5000 mg/dL Normal TRIG 140 Result Comment: The drugs N-Acetylcysteine and Metamizole may falsely depress this assay. Serum Triglycerides Reference Interval Normal <150 mg/dL Borderline high 150 - 199 mg/dL High 200 - 499 mg/dL Very High > or = 500 mg/dL LAB L501.6400 mg/dL Normal HDL 40 Result Comment: The drugs N-Acetylcysteine and Metamizole may falsely depress this assay. Reference Range HDL <40 mg/dL Low HDL Cholesterol HDL >or= 60 mg/dL High HDL Cholesterol LAB L501.6500 0-130 mg/dL Normal LDL 114 LAB L501.6600 5-40 mg/dL Normal VLDL 28 Performed By: #### L500.4100, L501.0100 #### [facility] [address] [place], [address] GLUCOSE Collected: 08/13/2018 Status: F Source: [place] 9:35 AM [facility] REPOSITORY TYPE CODE TESTS RESULT OUT OF RANGE REFERENCE UNITS LAB L501.0100 74-106 mg/dL Normal GLU 87 Result Comment: Please note revised GLUCOSE reference range effective 2017. Performed By: #### L500.4100, L501.0100 #### [facility] [address] [place], [address] T3 TOTAL - TRIIODOTHYRONINE Collected: 12/05/2017 Status: F Source: [place] 3:48 PM [facility] REPOSITORY TYPE CODE TESTS RESULT OUT OF RANGE REFERENCE UNITS LAB L501.9186 0.6-1.81 ng/mL Normal T3 Total 1.01 Performed By: #### L501.9186, L506.1000 #### [facility] [address] [place], [address] VITAMIN D,25 HYDROXY Collected: 12/05/2017 Status: F Source: [place] 3:48 PM [facility] REPOSITORY TYPE CODE TESTS RESULT OUT OF RANGE REFERENCE UNITS LAB L506.1000 19.95-100.01 ng/mL Normal Vitamin D 21.2 25-OH Result Comment: Vitamin D 25(OH) Status Range Deficiency <20 ng/mL (50nmol/L) Insuffciency 20 - 30 ng/mL (50 - 75 nmol/L) Sufficiency 30 - 100 ng/mL (75 - 250 nmol/L) Toxicity >100 ng/mL (>250 nmol/L) Performed By: #### L501.9186, L506.1000 #### [facility] [address] [place], [address] T4 TOTAL, THYROXIN Collected: 12/05/2017 Status: F Source: [place] 3:48 PM [facility] REPOSITORY TYPE CODE TESTS RESULT OUT OF RANGE REFERENCE UNITS LAB L501.9310 4.8-13.9 ug/dL T4 Normal THYROXIN 11.2 Performed By: #### L501.9310, L501.9520 #### [facility] [address] [place], [address] THYROID STIM HORMONE Collected: 12/05/2017 Status: F Source: [place] (TSH) 3:48 PM [facility] REPOSITORY TYPE CODE TESTS RESULT OUT OF RANGE REFERENCE UNITS LAB L501.9520 0.358-3.74 uIU/mL Normal TSH 2.17 Performed By: #### L501.9310, L501.9520 #### [facility] [address] [place], [address] ALLERGIES ALLERGIES DATE TYPE / CODE NAME / CODE REACTION SEVERITY SOURCE 09/22/2018 Drug No Known Unknown [facility] Allergy/416 Allergies/A87382 Hospital 034471(SNOM 0388(RXNORM) Repository ED CT) Drug NO KNOWN [facility] Class/83691 ALLERGIES Main [place] 1003(SNOMED Repository CT) ENCOUNTERS ENCOUNTERS ADMIT/DISCHARGE ACCOUNT ADMITTING ENCOUNTER LOCATION SOURCE NUMBER CLASS 11/18/2018 [id number] Ambulatory [facility] Hospital ing:OPBI Repository 09/30/2018 [id number] Ambulatory BMSBuilding:Renzo Patterson MS.CF.[facility] Repository 09/30/2018 [id number] Ambulatory [facility] ing:OMD Repository 09/22/2018/09/23/20 [id number] Sherita Martin Inpatient [facility] ing:PCURoom: Repository [id number]: 1 09/22/2018 [id number] Sherita Martin Ambulatory BMSBuilding:Renzo Purvis MS.[facility] Repository 09/22/2018 [id number] Sherita Martin Ambulatory BMSBuilding:Renzo Purvis MS.[facility] Repository 09/22/2018/09/22/20 [id number] Ambulatory [address] Repository 09/10/2018/09/10/20 [id number] Ambulatory [address] Repository 09/10/2018/09/11/20 [id number] Ambulatory [address] Repository 08/13/2018 [id number] Ambulatory [facility] ing:HW Repository 12/05/2017 [id number] Ambulatory [facility] ing:MTLAB Repository PAYERS PAYERS ENCOUNTER GUARANTOR PAYER SUBSCRIBER SOURCE 11/18/2018 FARIBA D Primary FARIBA D [place] [id number] Insurance:ANTHEMPolic MITCHELLDOB: [facility] y [place]: [id number] [id number] Repository 98834Yty: (330) Date:2311-43-02Su [phone] () [address] [place] [address]KV: 11/18/2018 Secondary NOT GIVENUNK [place] Insurance:SELF PAY [facility] Number: Effective Repository Date:2018-09-30 09/30/2018 FARIBA D Primary FARIBA D [place] [id number] Insurance:ANTHEMPolic MITCHELLDOB: [facility] y Number: [id number], [place] [id number] Repository [address]Fvb: (330) Date:6165-81-09Xc [phone] () 855564Xlcegyv, [place] [address]LS: 09/30/2018 Secondary NOT GIVENUNK [place] Insurance:SELF PAY [facility] Number: Effective Repository Date:2018-09-30 09/30/2018 FARIBA D Primary FARIBA D [place] [id number] Insurance:ANTHEMPolic MITCHELLDOB: [facility] DEE ortiz Number: [id number], [place] [id number] Repository [address]Auc: (330) Date:2747-54-23Bc [phone] () 8919[address]dem, [place] [address]DV: 09/30/2018 Secondary NOT GIVENUNK [place] Insurance:SELF PAY [facility] Number: Effective Repository Date:2017-02-21 09/22/2018 FARIBA D Primary FARIBA D [place] [id number] Insurance:ANTHEMPolic MITCHELLDOB: [facility] DEE ortiz Number: [id number], [place] [id number] Repository [address]Ika: (330) Date:5973-28-21LK [phone] () [id number] [place] [address]NL: 09/22/2018 Secondary NOT GIVENUNK [place] Insurance:SELF PAY [facility] Number: Effective Repository Date:2018-09-22 09/22/2018 FARIBA D Primary FARIBA D [place] [id number] Insurance:ANTHEMPolic MITCHELLDOB: [facility] DEE y Number: [id number], [place] [id number] Repository [address]Jho: (330) Date:3984-69-50EE [phone] () [address]62[address]BDWWAYA, [place] [address]OE: 09/22/2018 Secondary NOT GIVENUNK [place] Insurance:SELF PAY [facility] Number: Effective Repository Date:2018-09-22 09/22/2018 FARIBA D Primary FARIBA D [place] [id number] Insurance:ANTHEMPolic MITCHELLDOB: [facility] DEE ortiz Number: [id number], [place] [id number] Repository [address]Xcf: (330) Date:3518-94-94OE [phone] () 847508JRCGBRJ, [place] [address]IG: 09/22/2018 Secondary NOT GIVENUNK [place] Insurance:SELF PAY [facility] Number: Effective Repository Date:2018-09-22 08/13/2018 Fariba D Primary NOT GIVENUNK [place] [id number] Insurance:SELF PAY [place] Number: Effective Repository [id number]: (330) Date:2018-08-06 [phone] () 12/05/2017 Fariba D Primary Fariba D [place] [id number] Insurance:ANTHEMPolic MitchellDOB: [facility] Number: [id number] [id number] Repository [address]Nub: (330) Date:5382-09-26FL [phone] () 409[address]ZYFZTBQ, [place] [address]TW: 12/05/2017 Secondary NOT GIVENUNK [place] Insurance:SELF PAY [facility] Number: Effective Repository Date:2017-12-05
== END ==
PROVIDERS: Family Provider Family Medicine; PCP Family Medicine; Referring Provider Internal Medicine Medical Oncology; Visit Provider Internal Medicine Medical Oncology
DX: Z12.31 Encounter for screening mammogram for malignant neoplasm of breast (principal); Z85.3 Personal history of malignant neoplasm of breast
CPT/HCPCS: 77061; 77063; 77067; G0279

== ENCOUNTER → 2018-12-02 16:16 | Outpatient (CLI) | payer BC, SELFPAY ==
[2018-12-02 15:23] VITALS: BMI 25.4
--- NOTE | 2018-12-02 16:20 | RAD_ITS ---
STUDY: X-RAY CHEST REASON FOR EXAM: Female, 58 years old. History of pneumonia. History of right breast cancer. TECHNIQUE: PA and lateral views of the chest. COMPARISON: Comparison is made with prior study dated September 22, 2018. FINDINGS: The patient is status post right mastectomy and right axillary fab dissection. Stable elevation of the right hemidiaphragm. The previously seen left lower lobe consolidation has cleared. Minimal residual scarring persists. There is no demonstrated pleural abnormality. Normal size heart. Normal mediastinum and kiya. Normal visualized pulmonary arteries. Normal visualized aortic arch and descending thoracic aorta. Normal visualized thoracic spine. Normal visualized ribs, clavicles, and shoulders. There is no demonstrated abnormality of the visualized soft tissue structures of the upper abdomen. RAD/Chest PA and Lateral IMPRESSION: The left lower lobe pneumonia has cleared. Minimal residual scarring is present. Electronically Signed: Akshat Haro MD at 8:37 EST , Service support ,
== END ==
PROVIDERS: Family Provider Family Medicine; PCP Family Medicine; Referring Provider Internal Medicine Medical Oncology; Visit Provider Internal Medicine Medical Oncology
DX: Z85.3 Personal history of malignant neoplasm of breast (principal); Z87.01 Personal history of pneumonia (recurrent)
CPT/HCPCS: 71046

== ENCOUNTER → 2018-12-09 16:19 | Outpatient (CLI) | payer BC, SELFPAY ==
[2018-12-02 15:23] VITALS: BMI 25.4
[2018-12-09 18:01] LABS: Vitamin D,25 Hydroxy 36.4 ng/mL (29.95-100.01)
[2018-12-09 18:10] LABS: Cholesterol 167 mg/dL (200); High Density Lipoprotein 36 mg/dL; Thyroid Stim Hormone (TSH) 0.36 uIU/mL (0.358-3.74); Triglycerides 154 mg/dL; Very Low Density Lipoprotein 31 mg/dL (5-40)
== END ==
PROVIDERS: Family Provider Family Medicine; PCP Family Medicine; Referring Provider Family Medicine; Visit Provider Family Medicine
DX: Z00.00 Encounter for general adult medical examination without abnormal findings (principal); E03.9 Hypothyroidism, unspecified; E55.9 Vitamin D deficiency, unspecified
CPT/HCPCS: 36415; 80061; 82306; 84443

== ENCOUNTER → 2019-11-19 07:00 | Outpatient (CLI) | payer BC, SELFPAY ==
[2018-12-02 15:23] VITALS: BMI 25.4
--- NOTE | 2019-11-19 07:00 | BI_ITS ---
MAMMOGRAPHY - UNILATERAL SCREENING: LEFT BREAST REASON FOR EXAM: Female, 59 years old. Routine annual screening examination (unilateral). PERTINENT HISTORY: Personal history of breast cancer. Prior right mastectomy. Grandmother with breast cancer. TECHNIQUE: Digital unilateral breast brian (3D mammographic acquisition) in the CC and MLO projections. 2-D mediolateral oblique (MLO) and craniocaudad (CC) views of both breasts were obtained. CAD: Full Field Digital Mammography with Computer Added Detection was performed. COMPARISON: Comparison is made with prior study dated November 18, 2018 and March 21, 2017. FINDINGS: Breast Composition: The breasts are heterogeneously dense, which may obscure small masses. There are no dominant masses or suspicious calcifications. Stable benign-appearing left axillary lymph node. No other significant abnormalities are identified. There has been no significant change since the prior study. BI/SCREEN MAMM (CAD) W/BRIAN UNI L IMPRESSION: Stable unilateral screening mammogram. Yearly follow-up mammogram recommended. (A) ASSESSMENT CATEGORY: BIRADS Category 2: Benign. A letter regarding these results will be sent to the patient by the facility within 30 days. Approximately 10% of breast cancers are not detected by mammography. A normal mammogram should not delay biopsy of a clinically suspicious abnormality. [id number] Electronically Signed: Akshta Haro, at 8:48 EST , Service support ,
== END ==
PROVIDERS: Family Provider Family Medicine; PCP Family Medicine; Referring Provider Internal Medicine Medical Oncology; Visit Provider Internal Medicine Medical Oncology
DX: Z12.31 Encounter for screening mammogram for malignant neoplasm of breast (principal); Z85.3 Personal history of malignant neoplasm of breast
CPT/HCPCS: 77063; 77067

== ENCOUNTER → 2019-12-10 16:10 | Outpatient (CLI) | payer BC, SELFPAY ==
[2019-11-26 15:14] VITALS: BMI 26.9
[2019-12-10 17:49] LABS: Free T3 2.7 pg/mL (2.18-3.98); T4 Total, Thyroxin 13.8 ug/dL (4.8-13.9); Thyroid Stim Hormone (TSH) 0.31 uIU/mL (0.358-3.74)
== END ==
PROVIDERS: PCP Family Medicine; Referring Provider Family Medicine; Visit Provider Family Medicine
DX: E03.9 Hypothyroidism, unspecified (principal)
CPT/HCPCS: 36415; 84436; 84443; 84481

== ENCOUNTER → 2020-07-06 15:55 | Outpatient (CLI) | payer BC, SELFPAY ==
[2019-11-26 15:14] VITALS: BMI 26.9
--- NOTE | 2020-07-06 16:00 | BD_ITS ---
STUDY: DUAL ENERGY X-RAY ABSORPTIOMETRY / DXA REASON FOR EXAM: Female, 60 years old. 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 COMPARISON: Comparison is made with prior study dated 03/16/2016. FINDINGS: Lumbar Spine (L1-L4): g/cm2 (1.303) / T-score (1.1) / Z-score (2.3) Findings are suggestive of normal bone density with a low fracture risk. Left Femur Total: g/cm2 (1.079) / T-score (0.6) / Z-score (1.5) Left Femoral Neck: g/cm2 (1.074) / T-score (0.3) / Z-score (1.5) Right Femur Total: g/cm2 (1.017) / T-score (0.1) / Z-score (1.0) Right Femoral Neck: g/cm2 (0.976) / T-score (-0.4) / Z-score (0.8) The T-Scores on the most recent prior examination were: Lumbar Spine (L1-L4): There has been worsening of bone density since the previous examination. Left Femur Total: which represents a worsening of 2.1%. Right Femur Total: which represents a worsening of 2.7%. BD/Dexa Bone Density Study IMPRESSION: The patient is considered normal as outlined below according to World Charles Organization (WHO) criteria with a low fracture risk. There has been worsening of bone density since the previous examination. Reference Information: The T-score is the number of standard deviations above or below the standard which is normal for young adults at their peak bone mineral density. The World Health Organization (WHO) interprets the T-scores as follows: Above -1 Normal bone density Between -1 and -2.5 Osteopenia Equal to / or below -2.5 Osteoporosis As a practical clinical guideline, osteopenia may be graded as follows: Mild -1 through -1.5 Moderate -1.6 through -2.0 Severe -2.1 through -2.4 The Z-score is the number of standard deviations above or below age-matched controls. A Z-score of less than -1.5 would be considered abnormal. References: 1. NIH Osteoporosis and Related Bone Diseases http://www.osteo.org 2. International Society for Clinical Densitometry http://www.iscd.org 3. National Osteoporosis Foundation http://www.nof.org Electronically Signed: Akshta Haro, at 9:20 EDT , Service support ,
== END ==
PROVIDERS: PCP Family Medicine; Referring Provider Family Medicine; Visit Provider Family Medicine
DX: Z00.00 Encounter for general adult medical examination without abnormal findings (principal); Z78.0 Asymptomatic menopausal state
CPT/HCPCS: 77080

== ENCOUNTER → 2020-11-22 07:09 | Outpatient (CLI) | payer BC, SELFPAY ==
[2019-11-26 15:14] VITALS: BMI 26.9
--- NOTE | 2020-11-22 07:11 | BI_ITS ---
MAMMOGRAPHY - UNILATERAL SCREENING: LEFT BREAST REASON FOR EXAM: Female, 60 years old. Routine annual screening examination (unilateral). PERTINENT HISTORY: Personal history of breast cancer. Prior right mastectomy. Grandmother with breast cancer. TECHNIQUE: Digital unilateral breast brian (3D mammographic acquisition) in the CC and MLO projections. 2-D mediolateral oblique (MLO) and craniocaudad (CC) views of both breasts were obtained. CAD: Full Field Digital Mammography with Computer Added Detection was performed. COMPARISON: Comparison is made with prior study dated 11/19/2019 and 05/18/2019. FINDINGS: Breast Composition: The breasts are heterogeneously dense, which may obscure small masses. There are no dominant masses or suspicious calcifications. Stable small benign-appearing axillary lymph nodes. No other significant abnormalities are identified. There has been no significant change since the prior study. BI/SCREEN MAMM (CAD) W/BRIAN UNI L IMPRESSION: Stable unilateral screening mammogram. Yearly follow-up mammogram recommended. (A) ASSESSMENT CATEGORY: BIRADS Category 2: Benign. A letter regarding these results will be sent to the patient by the facility within 30 days. Approximately 10% of breast cancers are not detected by mammography. A normal mammogram should not delay biopsy of a clinically suspicious abnormality. [id number] Electronically Signed: Akshat Haro MD at 8:45 EST , Service support ,
== END ==
PROVIDERS: PCP Family Medicine; Referring Provider Internal Medicine Medical Oncology; Visit Provider Internal Medicine Medical Oncology
DX: Z12.31 Encounter for screening mammogram for malignant neoplasm of breast (principal); Z85.3 Personal history of malignant neoplasm of breast
CPT/HCPCS: 77063; 77067

== ENCOUNTER → 2021-04-18 15:20 | Outpatient (CLI) | payer BC, SELFPAY ==
[2019-11-26 15:14] VITALS: BMI 26.9
[2021-04-18 18:29] LABS: Vitamin D,25 Hydroxy 40.7 ng/mL
[2021-04-18 18:32] LABS: Thyroid Stim Hormone (TSH) 0.17 uIU/mL (0.358-3.74)
[2021-04-24 10:33] LABS: HPV APTIMA, High Risk Negative (Negative)
[2021-04-24 10:34] LABS: HPV Reflexed? YES, CHARGE PATIENT
== END ==
PROVIDERS: Nurse Practitioner Family; PCP Family Medicine; Visit Provider Family Medicine
DX: E03.9 Hypothyroidism, unspecified (principal); E55.9 Vitamin D deficiency, unspecified; Z01.419 Encounter for gynecological examination (general) (routine) without abnormal findings
CPT/HCPCS: 36415; 82306; 84443; 87624; 88175; G0145

== ENCOUNTER → 2021-06-13 09:42 | Outpatient (CLI) | payer BC, SELFPAY ==
[2019-11-26 15:14] VITALS: BMI 26.9
[2021-06-13 12:30] LABS: Thyroid Stim Hormone (TSH) 1.09 uIU/mL (0.358-3.74)
== END ==
PROVIDERS: PCP Family Medicine; Referring Provider Family Medicine; Visit Provider Nurse Practitioner Family
DX: E03.9 Hypothyroidism, unspecified (principal)
CPT/HCPCS: 36415; 84443

== ENCOUNTER → 2021-09-20 | Outpatient (CLI) | payer BC, SELFPAY | END | disposition home or self-care (01) | LOC: LABSPEC 13:20 | PROVIDERS: PCP Family Medicine; Referring Provider Physician Assistant Surgical; Visit Provider Physician Assistant Surgical | DX: U07.1 COVID-19 (principal) | CPT/HCPCS: 87635; U0005; U0003 ==

== ENCOUNTER 2021-11-10 06:40 | Outpatient (CLI) | payer BC, SELFPAY ==
[2021-11-10 07:11] LABS: Absolute Lymphocyte Count 1.63 X10^3/uL (0.83-4.51); Basophil# 0.07 X10^3/uL; Basophil% 1.1 % (0-1); Eosinophil# 0.22 X10^3/uL; Eosinophils% 3.4 % (0-5); Hematocrit 48.7 % (37-47); Lymphocyte # 1.63 X10^3/ul (0.83-4.51); Lymphocyte % 25.3 % (19-41); Mean Corp Hgb Conc 32.9 g/dL (32-36); Mean Corpuscular Hgb 30.3 pg (27.0-32.0); Mean Corpuscular Volume 92.2 fL (81-99); Monocyte# 0.54 X10^3/uL; Monocyte% 8.4 % (0-10); NRBC Flagged by Analyzer 0 % (0-5); Neutrophil # 3.96 X10^3/uL (2.7-7.7); Neutrophil % 61.6 % (47-70); Platelet Count 253 K/mm3 (150-450); RBC Distribution Width SD 47.4 fl (35.1-43.9); Red Blood Count 5.28 M/mm3 (4.2-5.4); White Blood Count 6.4 K/mm3 (4.4-11.0)
[2021-11-10 07:15] LABS: Carboxyhemoglobin Frac (CO) 2.2 % (0.0-1.5)
[2021-11-10 07:47] LABS: AST(SGOT) 24 U/L (15-37); Alanine Aminotransfer ALT/SGPT 54 U/L (13-56); Albumin, Serum 3.9 g/dL (3.2-5.0); Alkaline Phosphatase 90 U/L (45-117); Anion Gap 7 (5-15); BUN 18 mg/dL (7-18); BUN/Creat Ratio 17.8 RATIO (10-20); Calcium,Total 9.3 mg/dL (8.5-10.1); Chloride 104 mmol/L (98-107); Creatinine, Serum 1.01 mg/dL (0.55-1.02); EST Glomerular Filtration Rate 59 mL/min (>60); Est Glom Filt Rate - Afr Amer 72 mL/min (>60); Globulin 3.8 g/dL (2.2-4.2); Glucose 114 mg/dL (74-106); LDH 198 U/L (84-246); Potassium 4.5 mmol/L (3.5-5.1); Protein, Total 7.7 g/dL (6.4-8.2); Sodium Level 139 mmol/L (136-145)
[2021-11-10 07:51] LABS: Cholesterol 211 mg/dL (200); Free T3 2.5 pg/mL (2.18-3.98); High Density Lipoprotein 34 mg/dL; T4 Free Direct 1.24 ng/dL (0.76-1.46); Thyroid Stim Hormone (TSH) 7.25 uIU/mL (0.358-3.74); Triglycerides 165 mg/dL; Very Low Density Lipoprotein 33 mg/dL (5-40)
== END 2021-11-10 23:59 | disposition short-term general hospital (02) ==
LOC: LAB 06:42
PROVIDERS: Internal Medicine Medical Oncology; PCP Family Medicine; Referring Provider Family Medicine; Visit Provider Family Medicine
DX: D75.1 Secondary polycythemia (principal); E03.9 Hypothyroidism, unspecified; E78.5 Hyperlipidemia, unspecified; Z85.3 Personal history of malignant neoplasm of breast
CPT/HCPCS: 36415; 80053; 80061; 82375; 83615; 84439; 84443; 84481; 85025

== ENCOUNTER 2021-12-08 07:06 | Outpatient (CLI) | payer BC, SELFPAY ==
--- NOTE | 2021-12-08 07:13 | BI_ITS ---
MAMMOGRAPHY - UNILATERAL SCREENING: LEFT BREAST REASON FOR EXAM: Female, 61 years old. Routine annual screening examination (unilateral). PERTINENT HISTORY: Personal history of breast cancer. Prior right mastectomy with radiation and chemotherapy. Grandmother with breast cancer. TECHNIQUE: Digital unilateral breast brian (3D mammographic acquisition) in the CC and MLO projections. 2-D mediolateral oblique (MLO) and craniocaudad (CC) views of both breasts were obtained. CAD: Full Field Digital Mammography with Computer Added Detection was performed. COMPARISON: Comparison is made with prior study dated 05/22/2021 and 11/19/2019. FINDINGS: Breast Composition: The breasts are heterogeneously dense, which may obscure small masses. There are no dominant masses or suspicious calcifications. Stable benign-appearing left axillary lymph nodes. No other significant abnormalities are identified. There has been no significant change since the prior study. BI/SCREEN MAMM (CAD) W/BRIAN UNI L IMPRESSION: Stable unilateral screening mammogram. Yearly follow-up mammogram recommended. (A) ASSESSMENT CATEGORY: BIRADS Category 2: Benign. A letter regarding these results will be sent to the patient by the facility within 30 days. Approximately 10% of breast cancers are not detected by mammography. A normal mammogram should not delay biopsy of a clinically suspicious abnormality. [id number] Electronically Signed: Akshat Haro MD at 8:27 EST ,
== END 2021-12-08 23:59 | disposition home or self-care (01) ==
LOC: OPBI 07:06
PROVIDERS: PCP Family Medicine; Referring Provider Internal Medicine Medical Oncology; Visit Provider Internal Medicine Medical Oncology
DX: Z12.31 Encounter for screening mammogram for malignant neoplasm of breast (principal); Z90.11 Acquired absence of right breast and nipple; Z85.3 Personal history of malignant neoplasm of breast
CPT/HCPCS: 77063; 77067

== ENCOUNTER → 2022-02-23 | Outpatient (CLI) | payer BC, SELFPAY | END | disposition home or self-care (01) | LOC: LAB 07:09 | PROVIDERS: PCP Family Medicine; Referring Provider Family Medicine; Visit Provider Family Medicine | DX: E03.9 Hypothyroidism, unspecified (principal) | CPT/HCPCS: 36415; 84443 ==

== ENCOUNTER → 2022-08-25 | Outpatient (CLI) | payer BC, SELFPAY ==
[2022-08-25 08:50] LABS: Free T3 3.1 pg/mL (2.18-3.98); T4 Free Direct 1.43 ng/dL (0.76-1.46); Thyroid Stim Hormone (TSH) 0.26 uIU/mL (0.358-3.74)
== END | disposition home or self-care (01) ==
LOC: LAB 07:03
PROVIDERS: PCP Family Medicine; Referring Provider Family Medicine; Visit Provider Family Medicine
DX: E03.9 Hypothyroidism, unspecified (principal)
CPT/HCPCS: 36415; 84439; 84443; 84481

== ENCOUNTER → 2022-11-08 | Outpatient (CLI) | payer BC, SELFPAY ==
[2022-11-08 11:10] LABS: ALB/GLOB Ratio 1.1 RATIO (0.9-2.4); AST(SGOT) 20 U/L (15-37); Alanine Aminotransfer ALT/SGPT 36 U/L (13-56); Albumin, Serum 3.7 g/dL (3.2-5.0); Alkaline Phosphatase 85 U/L (45-117); Anion Gap 7 (5-15); BUN 16 mg/dL (7-18); BUN/Creat Ratio 16.9 RATIO (10-20); Calcium,Total 8.9 mg/dL (8.5-10.1); Chloride 106 mmol/L (98-107); Cholesterol 185 mg/dL (200); Creatinine, Serum 0.95 mg/dL (0.55-1.02); EST Glomerular Filtration Rate 64 mL/min (>60); Est Glom Filt Rate - Afr Amer 77 mL/min (>60); Free T3 2.6 pg/mL (2.18-3.98); Globulin 3.4 g/dL (2.2-4.2); Glucose 90 mg/dL (74-106); High Density Lipoprotein 37 mg/dL; Potassium 4.3 mmol/L (3.5-5.1); Protein, Total 7.1 g/dL (6.4-8.2); Sodium Level 140 mmol/L (136-145); T4 Free Direct 1.42 ng/dL (0.76-1.46); Triglycerides 105 mg/dL; Very Low Density Lipoprotein 21 mg/dL (5-40)
== END | disposition home or self-care (01) ==
LOC: MFPLAB 08:47
PROVIDERS: PCP Family Medicine; Visit Provider Family Medicine
DX: E03.9 Hypothyroidism, unspecified (principal); E78.5 Hyperlipidemia, unspecified
CPT/HCPCS: 36415; 80053; 80061; 84439; 84443; 84481

== ENCOUNTER → 2022-12-14 | Outpatient (CLI) | payer BC, SELFPAY ==
--- NOTE | 2022-12-14 07:45 | BI_ITS ---
MAMMOGRAPHY - UNILATERAL SCREENING: LEFT BREAST REASON FOR EXAM: Female, 62 years old. Routine annual screening examination (unilateral). PERTINENT HISTORY: Personal history of breast cancer. Prior right mastectomy with radiation treatment. Grandmother with breast cancer. TECHNIQUE: Digital unilateral breast brian (3D mammographic acquisition) in the CC and MLO projections. 2-D mediolateral oblique (MLO) and craniocaudad (CC) views of both breasts were obtained. CAD: Full Field Digital Mammography with Computer Added Detection was performed. COMPARISON: Comparison is made with prior study of 12/08/2021 and 11/22/2020. FINDINGS: Breast Composition: The breasts are heterogeneously dense, which may obscure small masses. There are no dominant masses or suspicious calcifications. Stable benign-appearing left axillary lymph node. No other significant abnormalities are identified. There has been no significant change since the prior study. BI/SCREEN MAMM (CAD) W/BRIAN UNI L IMPRESSION: Stable unilateral screening mammogram. Yearly follow-up mammogram recommended. (A) ASSESSMENT CATEGORY: BIRADS Category 2: Benign. A letter regarding these results will be sent to the patient by the facility within 30 days. Approximately 10% of breast cancers are not detected by mammography. A normal mammogram should not delay biopsy of a clinically suspicious abnormality. [id number] Electronically Signed: Akshat Haro MD at 8:50 EST ,
== END | disposition home or self-care (01) ==
LOC: OPBI 07:44
PROVIDERS: PCP Family Medicine; Visit Provider Internal Medicine Medical Oncology
DX: Z12.31 Encounter for screening mammogram for malignant neoplasm of breast (principal); Z85.3 Personal history of malignant neoplasm of breast; Z90.11 Acquired absence of right breast and nipple; Z80.3 Family history of malignant neoplasm of breast
CPT/HCPCS: 77063; 77067

== ENCOUNTER → 2023-05-09 | Outpatient (CLI) | payer BC, SELFPAY ==
[2023-05-09 10:40] LABS: Free T3 2.5 pg/mL (2.18-3.98); T4 Free Direct 1.47 ng/dL (0.76-1.46); Thyroid Stim Hormone (TSH) 2.37 uIU/mL (0.358-3.74)
== END | disposition home or self-care (01) ==
LOC: MTLAB 08:39
PROVIDERS: PCP Family Medicine; Referring Provider Family Medicine; Visit Provider Family Medicine
DX: E03.9 Hypothyroidism, unspecified (principal)
CPT/HCPCS: 36415; 84439; 84443; 84481

== ENCOUNTER → 2023-11-08 | Outpatient (CLI) | payer BC, SELFPAY ==
--- OUTSIDE RECORDS SUMMARY | 2023-11-08 08:49 | XMS RPT_ITS | CCD ---
Author Name Unknown Address [address] [place] [address] Organization [facility] Results Test Name Value Interpretation Reference Range Facil ity Summary Purpose Family History No Family History Records Found Advance Directives No Advanced Directives Records Found Additional Source Comments INFORMATION SOURCE (unrecogn ized section and content) FOR RECORDS PERTAINING TO PATIENTS WHO ARE OR HAVE BEEN ENROLLED IN A CHEMICAL DEPENDENCY/SUBSTANCEABUSE PROGRAM, SOME INFORMATION MAY BE OMITTED. This clinical summary was aggregated from multiple sources. Caution should be exercised in using it in the provision of clinical care. This summary normalizes information from multiple sources, and as a consequence, information in this document may materially change the coding, format and clinical context of patient data. In addition, data may be omitted in some cases. CLINICAL DECISIONS SHOULD BE BASED ON THE PRIMARY CLINICAL RECORDS. [employer] provides no warranty or guarantee of the accuracy or completeness of information in this document.
[2023-11-08 11:02] LABS: AST(SGOT) 33 U/L (15-37); Alanine Aminotransfer ALT/SGPT 52 U/L (13-56); Albumin, Serum 3.7 g/dL (3.2-5.0); Alkaline Phosphatase 86 U/L (45-117); Anion Gap 4 (5-15); BUN 25 mg/dL (7-18); BUN/Creat Ratio 23.8 RATIO (10-20); Calcium,Total 8.9 mg/dL (8.5-10.1); Chloride 108 mmol/L (98-107); Cholesterol 195 mg/dL (200); Creatinine, Serum 1.05 mg/dL (0.55-1.02); EST Glomerular Filtration Rate 56 mL/min (>60); Est Glom Filt Rate - Afr Amer 68 mL/min (>60); Free T3 2.5 pg/mL (2.18-3.98); Globulin 3.8 g/dL (2.2-4.2); Glucose 100 mg/dL (74-106); High Density Lipoprotein 38 mg/dL; Potassium 4.5 mmol/L (3.5-5.1); Protein, Total 7.5 g/dL (6.4-8.2); Sodium Level 138 mmol/L (136-145); T4 Free Direct 1.32 ng/dL (0.76-1.46); Thyroid Stim Hormone (TSH) 2.96 uIU/mL (0.358-3.74); Triglycerides 118 mg/dL; Very Low Density Lipoprotein 24 mg/dL (5-40)
== END | disposition home or self-care (01) ==
LOC: MFPLAB 08:26
PROVIDERS: PCP Family Medicine; Visit Provider Family Medicine
DX: E78.5 Hyperlipidemia, unspecified (principal); E03.9 Hypothyroidism, unspecified
CPT/HCPCS: 36415; 80053; 80061; 84439; 84443; 84481

== ENCOUNTER → 2023-12-17 | Outpatient (CLI) | payer BC, SELFPAY ==
--- NOTE | 2023-12-17 10:24 | BI_ITS ---
MAMMOGRAPHY - UNILATERAL SCREENING: LEFT BREAST REASON FOR EXAM: Female, 63 years old. Routine annual screening examination (unilateral). PERTINENT HISTORY: Personal history of breast cancer. Prior right mastectomy with radiation treatment. Grandmother with breast cancer. TECHNIQUE: Digital unilateral breast brian (3D mammographic acquisition) in the CC and MLO projections. 2-D mediolateral oblique (MLO) and craniocaudad (CC) views of both breasts were obtained. CAD: Full Field Digital Mammography with Computer Added Detection was performed. COMPARISON: Comparison is made with prior study dated December 14, 2022 and December 08, 2021. FINDINGS: Breast Composition: The breasts are heterogeneously dense, which may obscure small masses. There are no dominant masses or suspicious calcifications. No other significant abnormalities are identified. There has been no significant change since the prior study. BI/SCREEN MAMM (CAD) W/BRIAN UNI L IMPRESSION: Stable unilateral screening mammogram. Yearly follow-up mammogram recommended. (A) ASSESSMENT CATEGORY: BIRADS Category 1: Negative. A letter regarding these results will be sent to the patient by the facility within 30 days. Approximately 10% of breast cancers are not detected by mammography. A normal mammogram should not delay biopsy of a clinically suspicious abnormality. [id number] Electronically Signed: Akshat Haro MD at 11:17 EST ,
--- OUTSIDE RECORDS SUMMARY | 2023-12-17 10:57 | XMS RPT_ITS | CCD ---
Author Name Unknown Address [address] [place] [address] Organization [facility] Results Test Name Value Interpretation [...] BE BASED ON THE PRIMARY CLINICAL RECORDS. [employer] provides no warranty or guarantee of the accuracy or completeness of information in this document.
== END | disposition home or self-care (01) ==
LOC: OPBI 10:24
PROVIDERS: PCP Family Medicine; Referring Provider Internal Medicine Medical Oncology; Visit Provider Internal Medicine Medical Oncology
DX: Z12.31 Encounter for screening mammogram for malignant neoplasm of breast (principal); Z90.11 Acquired absence of right breast and nipple; Z85.3 Personal history of malignant neoplasm of breast
CPT/HCPCS: 77063; 77067

== ENCOUNTER 2024-02-18 08:29 | Day surgery (SDC) | payer BC, SELFPAY ==
[2024-02-18 08:47] VITALS: BP 133/77; PULSE 114; RESP 16; TEMP 36.1; O2SAT 98; BMI 28.7
[2024-02-18] MEDS: Lactated Ringers 1,000 ML 15 ML IV (08:54)
--- NOTE | 2024-02-18 09:29 | PCM.HP.STD ---
HPI - General General Date of Admission: 02/18/24 Date of Service: 02/18/24 Chief Complaint: Screening colonoscopy HPI Narrative RADHA VAZQUEZ, is a 63 F who presents today for screening colonoscopy. She has a past medical care of breast cancer, polycythemia. She is in remission. She also has a past medical history hypothyroidism. She denies any abdominal pain, cramping, bloating or bleeding. FOR[facility]LY [facility], [facility] Medical History (Updated 02/12/24 @ 14:23 by Ziggy Gonzalez) Cancer screening Former smoker History of echocardiogram History of stress test MVP (mitral valve prolapse) Polycythemia Screening for breast cancer Thyroid disease Wears glasses Home Medications acetaminophen 325 mg tablet (Tylenol) 325 mg PO TID PRN Headache 03/28/17 [History Last Taken Unknown] ibuprofen 200 mg tablet 200 mg PO Q6H PRN Fever 03/28/17 [History Last Taken Unknown] cholecalciferol (vitamin D3) 50 mcg (2,000 unit) capsule (Vitamin D3) 2,000 unit PO DAILY Supplement 09/27/17 [History Last Taken Unknown] multivitamin 1 tab PO DAILY 01/03/24 [History Last Taken Unknown] omega-3 fatty acids-fish oil 360 mg-1,200 mg capsule (Fish Oil) 1 cap PO DAILY 01/03/24 [History Last Taken 02/12/24] levothyroxine 50 mcg tablet 50 mcg PO DAILY 02/12/24 [History Last Taken 02/18/24 06:00] Allergy/AdvReac Type Severity Reaction Status Date / Time No Known Allergies Allergy Verified 02/18/24 08:46 Family History Father Esophageal cancer Surgical History History of bone marrow biopsy History of right mastectomy Hx of colonoscopy Social History Smoking Status: Former smoker ROS ROS Narrative Negative except as documented in the interval HPI Review of Systems ROS Unobtainable: other Constitutional Constitutional: Denies fatigue, fever(s), poor appetite, weight gain or weight loss ENT HEENT: Denies mouth lesions Cardiovascular Cardiovascular: Denies abdominal bloating, abdominal edema or abdominal pain Respiratory/Chest Respiratory/Chest: Denies change in mental status, change in phlegm color, chest congestion or chest tightness Gastrointestinal Gastrointestinal: Denies belching, bloating, change in bowel habits, change in stool character, chewing difficulty, coffee ground emesis, constipation, cramping, diarrhea, dyspepsia, dysphagia, early satiety, excessive flatus, fecal incontinence, heartburn, hematemesis, hematochezia, hemorrhoids, loose stools, melena, nausea, odynophagia, rectal bleeding, tenesmus, vomiting or weight changes Genitourinary Genitourinary: Denies abdominal discomfort, burning urination or itching Musculoskeletal Musculoskeletal: Reports as per HPI; Denies muscle weakness or myalgias Integumentary Integumentary: Denies jaundice Neurologic Neurologic: Denies lack of coordination or weakness Psychiatric Psychiatric: Denies confusion, depression, memory loss, mood swings, paranoia or suicidal ideation Endocrine Endocrinology: Denies systems reviewed and no addt'l complaints, except as documented Hematologic/Lymphatic Hematologic/Lymphatic: Denies anemia, easy bleeding, easy bruising or lymphadenopathy Allergic/Immunologic Allergic/Immunologic: Denies systems reviewed and no addt'l complaints, except as documented Vital Signs Vital Signs Vital Signs: 02/18/24 08:47 02/18/24 08:47 Temperature 97 F L Temperature Source Temporal Pulse Rate 114 H Respiratory Rate 16 Respiratory Pattern Normal Blood Pressure 133/77 H Blood Pressure Mean 95 Blood Pressure Source Monitor Blood Pressure Position Sitting Blood Pressure Location Left Arm Pulse Ox 98 Oxygen Delivery Method Room Air Weight Weight: 162 lb Body Mass Index (BMI) 28.7 Physical Exam Const alert General Appearance: cooperative Orientation / Consciousness: oriented to person HEENT hearing grossly normal bilaterally Head and Scalp: normal to inspection Face and Sinus: face symmetric Nose: external nose normal Mouth: oral and palatal mucosa normal Eyes conjunctivae normal General Eye: normal appearance of both eyes Neck full ROM General: normal visual inspection Lymph Lymphatic: no lymphadenopathy noted Chest inspection of chest normal and palpation of chest normal Chest: symmetrical chest wall rise Resp normal respiratory effort Effort and Inspection: able to speak in complete sentences Cardio regular rate GI non-distended Percussion: normal to percussion Rectal Exam: deferred Neuro Speech: speech normal Gait (Neuro): normal gait Assessment & Plan Assessment/Plan (1) Encounter for screening for malignant neoplasm of colon: PLAN: She was Splane alternatives, risk, benefits including not withstanding bleeding, infection, sepsis, perforation, need for emergent surgery and . She will have an ASA of 3.
--- NOTE | 2024-02-18 10:05 | COL_PTH ---
PATIENT: RADHA VAZQUEZ LOC: EN U#:[id number] AGE/SX: 63/F ROOM: RE02/18/[address]: Dr. Lincoln Rodriguez DO : 1960 BED: DIS: 02/18/2024 SPEC #: [id number] RECD: 02/18/24 13:16 STATUS: BONITA TOM #: [id number] ANTONIA: 02/18/24 10:[address]: Lincoln Rodriguez DEPT: SURGICAL PATHOLOGY RECD BY: Paulette Tolliver ENTERED: 02/18/24 13:41 SP TYPE: COLON OTHR DR: Dr. Eldon Proctor MD Tissues: Colon, NOS Procedures: Surgery Specimen Level V HEADER OPERATION: Colonoscopy PRE-OP DIAGNOSIS: Screening for malignant neoplasm of colon TISSUE SUBMITTED: Sigmoid colon polyp biopsy MICROSCOPIC DIAGNOSIS Sigmoid colon polyp, biopsy: Fragments of colonic mucosa, no pathologic diagnosis. ANITA/ 02/19/2024 MICROSCOPIC DESCRIPTION Slides are reviewed. GROSS DESCRIPTION Received in fixative is one container labeled with the patient's name and designated Sigmoid colon polyp biopsy. The specimen consists of two irregular fragments of light corbett soft tissue that in aggregate measure 0.6 x 0.3 x 0.1 cm. The specimen is totally submitted in one cassette. ANITA/ 02/18/2024 TC:4 CPT:01302
--- NOTE | 2024-02-18 10:29 | OP.COLON_ITS ---
Patient Name: Fariba Gore Procedure Date: 02/18/2024 9:57 AM Date of : 1960 Age: 63 Procedure: Colonoscopy Indications: Screening for colorectal malignant neoplasm Providers: Lincoln Rodriguez DO Medicines: Monitored Anesthesia Care Patient Profile: This is a 63 year old female. Refer to note in patient chart for documentation of history and physical. Last Colonoscopy: 10 years ago. Complications: No immediate complications. Procedure: Pre-Anesthesia Assessment: - Prior to the procedure, a History and Physical was performed, and patient medications and allergies were reviewed. The patient is competent. The risks and benefits of the procedure and the sedation options and risks were discussed with the patient. All questions were answered and informed consent was obtained. Patient identification and proposed procedure were verified by the physician in the pre-procedure area. Mental Status Examination: alert and oriented. Airway Examination: normal oropharyngeal airway and neck mobility. Respiratory Examination: clear to auscultation. CV Examination: normal. Prophylactic Antibiotics: The patient does not require prophylactic antibiotics. Prior Anticoagulants: The patient has taken no anticoagulant or antiplatelet agents. ASA Grade Assessment: II - A patient with mild systemic disease. After reviewing the risks and benefits, the patient was deemed in satisfactory condition to undergo the procedure. The anesthesia plan was to use monitored anesthesia care (MAC). Immediately prior to administration of medications, the patient was re-assessed for adequacy to receive sedatives. The heart rate, respiratory rate, oxygen saturations, blood pressure, adequacy of pulmonary ventilation, and response to care were monitored throughout the procedure. The physical status of the patient was re-assessed after the procedure. After I obtained informed consent, the scope was passed under direct vision. Throughout the procedure, the patient's blood pressure, pulse, and oxygen saturations were monitored continuously. The pediatric colonoscope was introduced through the anus and advanced to the cecum, identified by appendiceal orifice and ileocecal valve. The colonoscopy was performed without difficulty. The patient tolerated the procedure well. The quality of the bowel preparation was adequate. The ileocecal valve, appendiceal orifice, and rectum were photographed. Scope In: 10:10:19 AM Scope Withdrawal Time 0 hours 8 minutes 49 seconds Scope Out: 10:24:15 AM Total Procedure Duration Time 0 hours 13 minutes 56 seconds Findings: The perianal and digital rectal examinations were normal. A few small-mouthed diverticula were found in the recto-sigmoid colon and sigmoid colon. A 5 mm polyp was found in the sigmoid colon. The polyp was sessile. The polyp was removed with a jumbo cold forceps. Resection and retrieval were complete. Verification of patient identification for the specimen was done. Estimated blood loss was minimal. Impression: - Diverticulosis in the recto-sigmoid colon and in the sigmoid colon. - One 5 mm polyp in the sigmoid colon, removed with a jumbo cold forceps. Resected and retrieved. Recommendation: - Repeat colonoscopy in 5 years for surveillance. - Continue present medications. Procedure Code(s): --- Professional --- 08694, Colonoscopy, flexible; with biopsy, single or multiple CPT copyright 2021 [employer]. All rights reserved. The codes documented in this report are preliminary and upon medical coder review may be revised to meet current compliance requirements. Lincoln Rodriguez DO 02/18/2024 10:28:41 AM This report has been signed electronically. Number of Addenda: 0 Note Initiated On: 02/18/2024 9:57 AM
--- NOTE | 2024-02-18 10:29 | OP.CCLET_ITS ---
02/18/2024 Eldon Proctor MD [address] [id number] Re : Colonoscopy procedure for Fariba Bao Dear Dr. Proctor This procedure was performed on Sunday, February 18, 2024. My impressions and recommendations are as follows: Impressions : - Diverticulosis in the recto-sigmoid colon and in the sigmoid colon. - One 5 mm polyp in the sigmoid colon, removed with a jumbo cold forceps. Resected and retrieved. Recommendations : - Repeat colonoscopy in 5 years for surveillance. - Continue present medications. My findings are described in the full procedure note, which is enclosed. If I can be of further assistance, please feel free to contact me at . Sincerely, Lincoln Rodriguez, 02/18/2024 10:28:41 AM This report has been signed electronically.
[2024-02-18 10:30] VITALS: BP 125/80; BP 133/77; PULSE 98; RESP 18; TEMP 36.3; O2SAT 95
[2024-02-18 10:35] VITALS: BP 133/77; BP 140/72; PULSE 98; RESP 16; O2SAT 96
[2024-02-18 10:40] VITALS: BP 130/84; BP 133/77; PULSE 96; RESP 16; O2SAT 97
[2024-02-18 10:45] VITALS: BP 133/77; BP 137/82; PULSE 91; RESP 16; TEMP 36.5; O2SAT 98
[2024-02-18 11:03] VITALS: BP 133/77
== END 2024-02-18 11:48 | disposition home or self-care (01) ==
LOC: EN 08:30 → AC 08:31
PROVIDERS: PCP Family Medicine; Referring Provider Family Medicine; Visit Provider Internal Medicine Gastroenterology
PROC: 0DJD8ZZ Inspection of Lower Intestinal Tract, Via Natural or Artificial Opening Endoscopic (ICD-10-PCS; CPT 45378; principal; 2024-02-18 10:00)
DX: Z12.11 Encounter for screening for malignant neoplasm of colon (principal); K57.30 Diverticulosis of large intestine without perforation or abscess without bleeding; K63.5 Polyp of colon; E03.9 Hypothyroidism, unspecified; Z79.899 Other long term (current) drug therapy; Z87.891 Personal history of nicotine dependence
CPT/HCPCS: 45380; 88307; J7120; J2405

== ENCOUNTER → 2024-04-03 | Outpatient (CLI) | payer BC, SELFPAY ==
[2024-04-03 17:52] LABS: Absolute Lymphocyte Count 1.51 X10^3/uL (0.83-4.51); Absolute Neutrophil Count 4.9 X10^3/uL (2.0-7.7); Basophil# 0.12 X10^3/uL; Basophil% 1.5 % (0-1); Eosinophil# 0.71 X10^3/uL; Eosinophils% 8.8 % (0-5); Hematocrit 46.5 % (37-47); Hemoglobin 14.8 g/dL (12.0-15.0); Lymphocyte # 1.51 X10^3/ul (0.83-4.51); Lymphocyte % 18.6 % (19-41); Mean Corp Hgb Conc 31.8 g/dL (32-36); Mean Corpuscular Hgb 29.5 pg (27.0-32.0); Mean Corpuscular Volume 92.8 fL (81-99); Mean Platelet Vol. 10.4 fl (6.2-12.0); Monocyte# 0.84 X10^3/uL; Monocyte% 10.4 % (0-10); NRBC Flagged by Analyzer 0 % (0-5); Neutrophil # 4.91 X10^3/uL (2.7-7.7); Neutrophil % 60.5 % (47-70); Platelet Count 352 K/mm3 (150-450); RBC Distribution Width CV 13.4 % (11.6-14.6); RBC Distribution Width SD 45.1 fl (35.1-43.9); Red Blood Count 5.01 M/mm3 (4.2-5.4); White Blood Count 8.1 K/mm3 (4.4-11.0)
[2024-04-03 18:18] LABS: ALB/GLOB Ratio 0.9 RATIO (0.9-2.4); AST(SGOT) 30 U/L (15-37); Alanine Aminotransfer ALT/SGPT 37 U/L (13-56); Albumin, Serum 3.6 g/dL (3.2-5.0); Alkaline Phosphatase 110 U/L (45-117); Anion Gap 5 (5-15); BUN 14 mg/dL (7-18); BUN/Creat Ratio 12.1 RATIO (10-20); Calcium,Total 9.4 mg/dL (8.5-10.1); Chloride 104 mmol/L (98-107); Creatinine, Serum 1.16 mg/dL (0.55-1.02); EST Glomerular Filtration Rate 50 mL/min (>60); Est Glom Filt Rate - Afr Amer 61 mL/min (>60); Globulin 3.9 g/dL (2.2-4.2); Glucose 84 mg/dL (74-106); Lipase 53 U/L (13-75); Potassium 4.8 mmol/L (3.5-5.1); Protein, Total 7.5 g/dL (6.4-8.2); Sodium Level 136 mmol/L (136-145)
== END | disposition home or self-care (01) ==
LOC: MFPLAB 15:39
PROVIDERS: PCP Family Medicine; Visit Provider Family Medicine
DX: R10.9 Unspecified abdominal pain (principal)
CPT/HCPCS: 36415; 80053; 83690; 85025

== ENCOUNTER → 2024-04-04 | Outpatient (CLI) | payer BC, SELFPAY ==
--- NOTE | 2024-04-04 07:13 | US_ITS ---
STUDY: ABDOMINAL ULTRASOUND - RIGHT UPPER QUADRANT REASON FOR VISIT: Female, 63 years old ABD PAIN TECHNIQUE: Ultrasound evaluation of the right upper quadrant was performed with real-time and static serra-scale imaging. TECHNICAL QUALITY: Adequate. COMPARISON: None. FINDINGS: Liver: The liver measures 13.6 cm. There is increased echogenicity consistent with fatty infiltration. The bile ducts are within normal limits. There is hepatic color flow. The direction of portal flow is hepatopetal. There are 1.0 x 0.9 and 1.1 x 0.9 cm hypoechoic masses in the right lobe. There is adjacent right pleural effusion seen. Gallbladder: There is a contracted gallbladder. The gallbladder wall measures 2 mm. There is a negative sonographic Julian''s sign. There is no pericholecystic fluid. There are no gallstones. Common Bile Duct (C.B.D.): The common bile duct measures 5 mm. Pancreas: Normal size of the head, body and tail of the pancreas. There is normal echogenicity of the pancreas. There is no demonstrated pancreatic mass or cyst. Right Kidney: Normal size of the right kidney. The right kidney measures 9.7 cm. Normal renal cortex. The right cortex measures 1.0 cm. There is no demonstrated renal mass or cyst. There is no right hydronephrosis. US/Abdomen Limited IMPRESSION: Fatty infiltration of the liver. Small nonspecific masses in the right lobe. Recommend pre and postcontrast CT and/or MRI for further characterization. No gallstones or biliary dilatation. Electronically Signed: Reinaldo Webb MD at 9:36 EDT ,
--- NOTE | 2024-04-04 12:05 | CT_ITS ---
STUDY: CT ABDOMEN WITH AND WITHOUT CONTRAST REASON FOR EXAM: Female, 63 years old. Abd pain, history of breast cancer. Abnormal ultrasound. RADIATION DOSAGE (If Supplied By Facility): CTDIvol = ( 11.66 ) mGy, DLP = ( 1118.31 ) mGycm TECHNIQUE: Transaxial images were obtained pre and post I.V. administration of IV 100mL Isovue-300, and without oral contrast. Sagittal and coronal images were reconstructed. Individualized dose optimization techniques were used for this CT. COMPARISON: None. FINDINGS: The visualized lung bases are unremarkable. There is small right pleural effusion. The visualized portions of the heart are within normal limits. There is right mastectomy. There are 1.1 and 1.0 cm nodular mass at the periphery of the right lobe of the liver. There are multiple abdominal masses in the right upper quadrant measuring up to 1.6 cm consistent with peritoneal implants. Normal gallbladder and extrahepatic biliary system. Normal spleen. Normal pancreas. Normal bilateral adrenal glands. Normal right kidney. Normal left kidney. Normal visualized stomach. Normal small intestine. Normal colon. There is non-visualization of the appendix. Normal abdominal aorta. Normal inferior vena cava. Normal retroperitoneum. There is no free fluid in the abdomen. Normal abdominal wall. There is healing right anterior fourth rib fracture. CT/Abdomen W/WO IV Contrast IMPRESSION: Right upper abdominal masses including at the periphery of the liver compatible with peritoneal implants and progression of malignancy. Right pleural effusion. Electronically Signed: Reinaldo Webb MD at 13:45 EDT ,
== END | disposition home or self-care (01) ==
PROVIDERS: PCP Family Medicine; Referring Provider Family Medicine; Visit Provider Family Medicine
DX: R10.9 Unspecified abdominal pain (principal)
CPT/HCPCS: 74170; 76705; Q9967

== ENCOUNTER → 2024-04-15 | Outpatient (CLI) | payer BC, SELFPAY ==
[2024-04-15] VITALS (11 sets, daily range): BP systolic 89–136; BP diastolic 59–75; PULSE 81–92; RESP 15–18; TEMP 36.4; O2SAT 92–98; BMI 28.3
--- NOTE | 2024-04-15 | IMM_PTH ---
PATIENT: RADHA VAZQUEZ LOC: CT U#:[id number] AGE/SX: 63/F ROOM: RE04/15/[address]: Dr. Eldon Proctor MD : 1960 BED: DIS: 04/15/2024 SPEC #: [id number] RECD: 04/16/24 12:36 STATUS: BONITA REQ #: [id number] ANTONIA: 04/15/24 00:[address]: Eldon Proctor DEPT: IMMUNOHISTOCHEMISTRY RECD BY: Brady Ibrahim ENTERED: 04/16/24 12:38 SP TYPE: IMMUNO OTHR DR: Sandi Gross, SPEAR FISHER-C Tissues: Mesentery, NOS Procedures: RCC (add) NAPSIN A (add) CK20 (add) CK5-6 (add) CK7 (add) CK8 (add) E-CAD (add) HEP PAR (add) HER2 BAR (add) KI-67 (add) MAMM (add) P53 (add) TN (add) TTF1 (add) Pankeratin (add) GATA3 (add) P40 (add) ER (initial) S-100 (add) PHYSICIAN & INSTITUTION [place] [id number] SPECIMEN INFORMATION: Tissue Source: Mesenteric biopsy Clinical Info: Mass- mesenteric - right side Specimen Number: [id number] CPT code: 20836,[id number] METHODOLOGY: Deparaffinized sections of prefer/formalin-fixed tissue or PAP/DQ stained slides are incubated with monoclonal/polyclonal antibodies/oligonucleotide probes. Localization is made via biotin free immunoperoxidase method. Appropriate controls are performed and reacted as expected. Results on target cell population are indicated in the following table: RESULTS: ANTIBODY / CLONE RESULT E-Cad (ECH-6) positive Mammaglobin (31A5) negative GATA3 (L50-823) negative AE1-3 (AE1/AE3/PCK26) positive CK7 (OV-TL12/30) positive CK8 (63yautL94) positive CK20 (KS20.8) negative S-100 (4C4.9) negative TTF-1 (8G7G3/1) negative Napsin A (Rabbit Polyclonal) negative HepPar (OCh1E5) negative RCC (PN-15) negative CK5-6 (D5 & 1684) negative P40 (BC28) negative P53 (DO-7) positive, missense pattern Ki-67 (30-9) positive, >90% MORPHOMETRIC ANALYSIS ER (clone 6F11) 90%, strong intensity TN (clone 16/1E2) 0% Her-2Neu (clone CB11) 0-1+ INTERPRETATION: Mesenteric, CT guided core biopsy: Metastatic non-small cell carcinoma. Positive for estrogen receptors (favorable prognostic indicator). Negative for progesterone receptors (favorable prognostic indicator). Negative for overexpression of FOV6zgs. COMMENT: A breast primary is favored. RJ/ 04/17/2024
--- NOTE | 2024-04-15 08:50 | CT_ITS ---
PROCEDURE: CT GUIDED biopsy of the right upper quadrant peritoneal metastasis. DATE: April 15, 2024. INDICATION: Female, 63 years old. Omental metastasis. PHYSICIAN: Akshat Haro M.D. RADIATION DOSAGE (If Supplied By Facility): CTDIvol = ( 16 ) mGy, DLP = ( 781.71 ) mGycm. Individualized dose optimization techniques were utilized. PROCEDURE: The risks, benefits, and alternatives to the procedure were explained to the patient. The specific risk of hemorrhage requiring further treatment or intervention was detailed and accepted. Follow-up instructions were discussed with the patient as well. Written informed consent was obtained. The patient was brought into the CT suite and placed in the right side up.. . An appropriate entry site was identified. The overlying skin was prepped and draped in the usual sterile fashion. 1% lidocaine was administered subcutaneously for local anesthesia. Conscious sedation was performed. The patient received 2 mg of Versed and 50 mcg of fentanyl intravenously. Conscious sedation was started at 9:45 AM and terminated at 10:00 AM. The patient was independently monitored by the department nurse. Under CT guidance, a total of 5 passes were performed utilizing an 18-gauge core biopsy needle The specimens were then placed in the appropriate fluid and transported to the laboratory for analysis. Hemostasis was obtained. The patient tolerated the procedure well without immediate complications. CT/Biopsy/Inj or Needle Placement IMPRESSION: Successful CT guided core biopsies of the right upper quadrant omental metastasis, as described above. The conscious sedation protocol was followed. The patient tolerated the procedure well. Electronically Signed: Akshat Haro MD at 10:30 EDT ,
[2024-04-15 09:02] LABS: Platelet Count 320 K/mm3 (150-450)
[2024-04-15 09:10] LABS: International Normalized Ratio 1.1; Prothrombin Time (Protime)PT. 14.2 SECONDS (11.7-14.9)
[2024-04-15 09:11] LABS: Partial Thromboplast Time 27.6 Seconds (24.1-36.2)
[2024-04-15] MEDS: 0.9% Normal Saline (250mL Bag) 250 ML 15 ML IV (09:35)
[2024-04-15] MEDS: fentaNYL 100 MCG/2 ML Ampul IV (09:45)
[2024-04-15] MEDS: Midazolam 2 MG/2 ML Syringe IV (09:45)
[2024-04-15] MEDS: Lidocaine 2% (20 ml mdv) 20 ML Vial INFILT (09:48)
--- NOTE | 2024-04-15 09:55 | TISS_PTH ---
PATIENT: RADHA VAZQUEZ LOC: CT U#:[id number] AGE/SX: 63/F ROOM: RE04/15/[address]: Dr. Eldon Proctor MD : 1960 BED: DIS: 04/15/2024 SPEC #: [id number] RECD: 04/15/24 10:10 STATUS: BONITA TOM #: [id number] ANTONIA: 04/15/24 09:[address]: Eldon Proctor DEPT: SURGICAL PATHOLOGY RECD BY: Paulette Tolliver ENTERED: 04/15/24 10:11 SP TYPE: Tissue Bx EDITH DR: Sandi Gross, HELP DESK ASSISTANT-C Tissues: Mesentery, NOS Procedures: Surgery Specimen Level IV HEADER OPERATION: CT guided mesenteric biopsy PRE-OP DIAGNOSIS: Mass-mesenteric- right side TISSUE SUBMITTED: 18 gauge core x5 MICROSCOPIC DIAGNOSIS Mesenteric mass, CT guided biopsy: Metastatic non-small cell carcinoma. See comment. RJ/ 04/16/2024 COMMENT Immunohistochemistry ([id number]) supports the above diagnosis and favors a breast primary. Small portion of hepatic paranchyma is present showing macrovesicular and microvesicular steatosis. Clinical correlation is suggested. MICROSCOPIC DESCRIPTION Slides are reviewed. GROSS DESCRIPTION Received in fixative is one container labeled with the patient's name and designated Mesenteric biopsy. The specimen consists of multiple irregular and elongated fragments of corbett tissue measuring in aggregate 1.2 x <0.1 x <0.1cm. The specimen is submitted in its entirety in one cassette. AM/mr 04/15/2024 TC:0 CPT:18356
== END | disposition home or self-care (01) ==
PROVIDERS: Nurse Practitioner Acute Care; PCP Family Medicine; Referring Provider Family Medicine; Visit Provider Family Medicine
DX: Z01.818 Encounter for other preprocedural examination (principal); R16.0 Hepatomegaly, not elsewhere classified; R10.9 Unspecified abdominal pain
CPT/HCPCS: 49180; 36415; 77012; 85049; 85610; 85730; 88305; 88341; 88342; 99156

== ENCOUNTER → 2024-05-07 | Outpatient (CLI) | payer BC, SELFPAY ==
[2024-05-07 10:42] LABS: ALB/GLOB Ratio 0.9 RATIO (0.9-2.4); AST(SGOT) 28 U/L (15-37); Alanine Aminotransfer ALT/SGPT 38 U/L (13-56); Albumin, Serum 3.4 g/dL (3.2-5.0); Alkaline Phosphatase 116 U/L (45-117); Anion Gap 7 (5-15); BUN 20 mg/dL (7-18); BUN/Creat Ratio 18.2 RATIO (10-20); Calcium,Total 9.1 mg/dL (8.5-10.1); Chloride 106 mmol/L (98-107); Cholesterol 172 mg/dL (200); EST Glomerular Filtration Rate 53 mL/min (>60); Est Glom Filt Rate - Afr Amer 64 mL/min (>60); Globulin 3.9 g/dL (2.2-4.2); Glucose 102 mg/dL (74-106); High Density Lipoprotein 32 mg/dL; Potassium 4.3 mmol/L (3.5-5.1); Protein, Total 7.3 g/dL (6.4-8.2); Sodium Level 138 mmol/L (136-145); T4 Free Direct 1.12 ng/dL (0.76-1.46); Triglycerides 120 mg/dL; Very Low Density Lipoprotein 24 mg/dL (5-40)
== END | disposition home or self-care (01) ==
LOC: MFPLAB 08:23
PROVIDERS: PCP Family Medicine; Visit Provider Family Medicine
DX: E03.9 Hypothyroidism, unspecified (principal); E78.5 Hyperlipidemia, unspecified
CPT/HCPCS: 36415; 80053; 80061; 84439; 84443; 84481

== ENCOUNTER → 2024-05-12 | Outpatient (CLI) | payer BC, SELFPAY ==
--- NOTE | 2024-05-12 07:19 | MRI_ITS ---
STUDY: MRI BRAIN WITH AND WITHOUT CONTRAST REASON FOR EXAM: Female, 63 years old. RECURRENT BREAST CANCER RESTAGE TECHNIQUE: Standardized multiplanar fat and water weighted pulse sequences were obtained. IV 14ml Clariscan was administered for the contrast portion of the examination. COMPARISON: None. FINDINGS: Normal size of the ventricles and extra-axial spaces for the patient''s age. Normal white matter tracts of the supratentorial brain. There is no evidence for recent intracranial ischemia or other cause of cytotoxic edema on diffusion weighted imaging (DWI). Normal T2* images of the brain without demonstrated susceptibility artifact. There is no demonstrated hemosiderin stain. Normal bilateral basal ganglia. Normal thalami. There is no extra-axial fluid accumulation. Normal flow voids within the major intracranial circulation suggesting patency by spin echo criteria. Normal venous enhancement. There is no enhancing intra-axial or extra-axial abnormality. Normal sella turcica, pituitary gland, infundibular stalk, optic chiasm and hypothalamus. Normal tectal plate and pineal gland. Normal midbrain, venancio and medulla. Normal cerebellum. Normal basal cisterns. Normal bilateral temporal bones. Normal bilateral internal auditory canals. There are bilateral ocular lens implants with otherwise normal intraorbital contents. Normal visualized paranasal sinuses. Normal calvarium and skull base. Normal visualized soft tissue structures. Normal visualized upper cervical spine. MRI/Brain W/WO Contrast IMPRESSION: Normal unenhanced and enhanced MRI of the brain. No MR evidence of metastatic disease. Electronically Signed: Codey Bernabe MD at 8:48 EDT ,
== END | disposition home or self-care (01) ==
LOC: MRI 07:16
PROVIDERS: PCP Family Medicine; Referring Provider Internal Medicine Hematology & Oncology; Visit Provider Internal Medicine Hematology & Oncology
DX: C50.911 Malignant neoplasm of unspecified site of right female breast (principal); C78.6 Secondary malignant neoplasm of retroperitoneum and peritoneum; C78.7 Secondary malignant neoplasm of liver and intrahepatic bile duct; Z17.0 Estrogen receptor positive status [ER+]
CPT/HCPCS: 70553; A9575

== ENCOUNTER → 2024-05-15 | Outpatient (CLI) | payer BC, SELFPAY ==
--- NOTE | 2024-05-15 07:29 | NM_ITS ---
CLINICAL: C3-year-old female with history of primary breast carcinoma. WHOLE BODY 99m Tc MDP RADIONUCLIDE BONE SCINTIGRAPHY COMPARISON: None available FINDINGS: Following the intravenous administration of 26.7 mCi of 99m Tc MDP, whole body bone images reveal: 1. Increased radiopharmaceutical is defined in the right posterior 10th rib. 2. Facilitated uptake is noted in the acromioclavicular compartments of both shoulders, sternoclavicular compartment of the left shoulder, the bilateral knees, the posterior compartment of the right ankle, posterior midline sacrum. 3. The remaining skeletal structures are scintigraphically unremarkable with normal-appearing renal images and urinary bladder activity identified. NM/Bone Scan Whole Body IMPRESSION: 1. The increase in radiopharmaceutical concentration identified in the right posterior 10th rib is commensurate with trauma-fracture. Plain film radiography correlation may be of benefit in the setting of known breast carcinoma. 2. 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 3. There is no definitive typical scintigraphic evidence of diffuse skeletal metastatic disease on the present examination. Electronically Signed: Codey Harvey DO at 10:39 EDT ,
== END | disposition home or self-care (01) ==
LOC: NM 07:29
PROVIDERS: PCP Family Medicine; Referring Provider Internal Medicine Hematology & Oncology; Visit Provider Internal Medicine Hematology & Oncology
DX: C50.911 Malignant neoplasm of unspecified site of right female breast (principal); C78.6 Secondary malignant neoplasm of retroperitoneum and peritoneum; C78.7 Secondary malignant neoplasm of liver and intrahepatic bile duct; Z17.0 Estrogen receptor positive status [ER+]
CPT/HCPCS: 78306; A9503

== ENCOUNTER → 2024-05-19 | Outpatient (CLI) | payer BC, SELFPAY ==
--- NOTE | 2024-05-19 06:49 | CT_ITS ---
STUDY: CT CHEST, ABDOMEN T PELVIS WITH CONTRAST REASON FOR EXAM: Female, 63 years old. Remote history of right breast cancer with right mastectomy and radiation treatment. History of omental metastasis. RADIATION DOSAGE (If Supplied By Facility): CTDIvol = ( 9.7 ) mGy, DLP = ( 1117.32 ) mGycm TECHNIQUE: Transaxial imaging was performed following intravenous administration of IV 100mL Isovue-300. Multiplanar coronal and sagittal images were reformatted. Individualized dose optimization techniques were used for this CT. COMPARISON: Comparison is made with prior CT scan of the abdomen dated April 04, 2024. FINDINGS: CHEST The patient is status post right mastectomy. Small right pleural effusion with bibasilar atelectasis. Mild increased markings in the anterior lateral aspect of the right lower lobe suggestive of a atelectasis. Normal heart and pericardium. No significant coronary artery calcification is seen. Normal mediastinum. Normal hilar regions. Normal unenhanced pulmonary arteries. Normal aorta arch and descending thoracic aorta. There are multi-level degenerative changes of the thoracic spine. ABDOMEN Since prior study, there has been progressive soft tissue density in the subcutaneous diaphragmatic fat on the right side overlying the liver. Small amount of fluid is seen in the superior aspect of the liver. There is elevation of the right hemidiaphragm. There is decreased attenuation of the liver consistent with steatosis. Normal gallbladder and extrahepatic biliary system. Normal spleen. Small amount of perisplenic fluid. Normal pancreas. Normal bilateral adrenal glands. Normal right kidney. Normal left kidney. There is a small hiatal hernia. Normal small intestine. Normal colon. The appendix is visualized and appears normal. There is scattered atherosclerotic calcification of the abdominal aorta, without a demonstrated aneurysm. Normal inferior vena cava. Since prior study, there has been a progression of multiple nodular densities within the mesenteric fat as well as the root of the mesentery and omentum. There has been a progression of omental metastasis. Normal abdominal wall. There are mild degenerative changes of the visualized lumbar spine. PELVIS Normal urinary bladder. There is thickening of the endometrium for the patient''s postmenopausal state. There is evidence of fluid in the pelvis in keeping with the ascites. Normal visualized pelvic arteries. CT/CT Chest, Abd, Pel w/Contrast IMPRESSION: Small right pleural effusion with mild increased markings in the right lower lobe suggestive of atelectasis. Progressive omental metastasis with the ascites. Electronically Signed: Akshat Haro MD at 10:24 EDT ,
== END | disposition home or self-care (01) ==
LOC: CT 06:48
PROVIDERS: PCP Family Medicine; Referring Provider Internal Medicine Hematology & Oncology; Visit Provider Internal Medicine Hematology & Oncology
DX: C50.911 Malignant neoplasm of unspecified site of right female breast (principal); C78.6 Secondary malignant neoplasm of retroperitoneum and peritoneum; C78.7 Secondary malignant neoplasm of liver and intrahepatic bile duct; Z17.0 Estrogen receptor positive status [ER+]
CPT/HCPCS: 71260; 74177; Q9967

== ENCOUNTER → 2024-06-05 | Outpatient (CLI) | payer BC, SELFPAY ==
--- NOTE | 2024-06-05 10:19 | BD_ITS ---
STUDY: DUAL ENERGY X-RAY ABSORPTIOMETRY / DXA REASON FOR EXAM: Female, 64 years old. Osteoporosis screening TECHNIQUE: Bone Mineral Density (BMD) measurements of lumbar spine and bilateral hips were obtained. COMPARISON: Comparison is made with prior study of July 06, 2020. FINDINGS: Lumbar Spine (L1-L4): g/cm2 (1.044) / T-score (0.2) / Z-score (1.9) Findings are suggestive of normal bone density with a fracture risk. Left Femur Total: g/cm2 (0.975) / T-score (0.3) / Z-score (1.4) Left Femoral Neck: g/cm2 (0.804) / T-score (-0.4) / Z-score (1.1) Right Femur Total: g/cm2 (0.974) / T-score (0.3) / Z-score (1.4) Right Femoral Neck: g/cm2 (0.832) / T-score (-0.2) / Z-score (1.3) The T-Scores on the most recent prior examination were: Lumbar Spine (L1-L4): There has been worsening of bone density since the previous examination. Left Femur Total: which represents a worsening of 3.5%. Right Femur Total: which represents an improvement of 2.5%. BD/Dexa Bone Density Study IMPRESSION: The patient is considered normal as outlined below according to World Charles Organization (WHO) criteria with a low fracture risk. Reference Information: The T-score is the number of standard deviations above or below the standard which is normal for young adults at their peak bone mineral density. The World Health Organization (WHO) interprets the T-scores as follows: Above -1 Normal bone density Between -1 and -2.5 Osteopenia Equal to / or below -2.5 Osteoporosis As a practical clinical guideline, osteopenia may be graded as follows: Mild -1 through -1.5 Moderate -1.6 through -2.0 Severe -2.1 through -2.4 The Z-score is the number of standard deviations above or below age-matched controls. A Z-score of less than -1.5 would be considered abnormal. References: 1. NIH Osteoporosis and Related Bone Diseases www osteo.org 2. International Society for Clinical Densitometry www iscd.org 3. National Osteoporosis Foundation www nof.org Electronically Signed: Akshat Haro MD at 9:00 EDT ,
== END | disposition home or self-care (01) ==
LOC: OPBD 10:18
PROVIDERS: PCP Family Medicine; Referring Provider Nurse Practitioner Family; Visit Provider Nurse Practitioner Family
DX: Z78.0 Asymptomatic menopausal state (principal)
CPT/HCPCS: 77080

== ENCOUNTER → 2024-08-22 | Outpatient (CLI) | payer BC, SELFPAY ==
--- OUTSIDE RECORDS SUMMARY | 2024-08-22 17:42 | XMS RPT_ITS | CCD ---
Author Organization [place] [employer] [facility] [employer]ING [employer] Results Test Name Value Interpretation Reference Range Facil ity CNOVon 10-29-2019 CNOV Office Visit (UCWSTR ) RADHA GORE ([id number]) 1960 F Date Time Provider Department 10/29/19 8:45 AM STEF FINCH [facility] During your visit today, we recorded the following information about you: Temperature Pulse Respiration Blood pressure 97.1 degrees 88/minute 16/minute 110/66 Weight 68.5 kg Stef Finch MD 10/29/2019 9:29 AM Signed Patient presents with: Cough: chills and fever x couple weeks HPI: Feeling sick for a couple weeks. Most URI symptoms are improved but cough is persistent and felt chilled yesterday. Positive symptoms: fever, chills, Cough, Chest tightness, Nasal Congestion, Negative symptoms: Resolved headache and scratchy throat OTC: Mucinex, Cold Medicine Had pneumonia last August, current symptoms concern her. MEDICATIONS: Current Outpatient Medications Medication Sig - levothyroxine (SYNTHROID) 100 mcg tablet Take 1 tablet by mouth once daily. - ammonium lactate (LAC-HYDRIN) 12 % cream Apply to entire body to hydrate and prevent symptoms of keratosis pilaris; dispense three tubes for 90 day supply - Calcium-Cholecalciferol , D3, (CALCIUM 600 + D) 600-125 mg-unit ORAL Tab Take by mouth. one daily - therapeutic multivitamin ORAL tablet Take 1 tablet by mouth once daily. No current facility-administered medications for this visit. ALLERGIES: ALLERGIES No Known Allergies VITALS: BP 110/66 Pulse 88 Temp 36.2 ?C (97.1 ?F) (Tympanic) Resp 16 Wt 68.5 kg (151 lb) LMP 08/01/2008 SpO2 95% BMI 26.54 kg/m? PHYSICAL EXAM: GEN: mildly ill appearing HEENT: PERRL, EOMI, conjunctiva clear Ears: canals clear. TMs without erythema, bulge, or effusion Sinuses: non-tender frontal sinus, non-tender maxillary sinuses Throat: moist mucous membranes, no erythema, no exudate Neck: supple, no thyromegaly, no lymphadenopathy HEART: regular rate and rhythm, no murmurs LUNGS: clear to auscultation, no wheezes or crackles, no increased WOB ASSESSMENT/PLAN: 1. Cough - ICD9: 786.2, ICD10: R05 - XR CHEST 2V FRONTAL/LAT- BENZONATATE 100 MG CAPSULE Stef Finch MD ASSESSMENT/PLAN: 1. Left lower lobe consolidation (HCC) - ICD9: 481, ICD10: J18.1 (primary diagnosis) 2. Cough - ICD9: 786.2, ICD10: R05 - XR CHEST 2V FRONTAL/LAT - right hemidiaphragm elevation and mastectomy present on 09/10/18. Radiology interpretation is retrocardiac left lower lobe consolidation suggesting pneumonia. - BENZONATATE 100 MG CAPSULE - DOXYCYCLINE MONOHYDRATE 100 MG CAPSULE F/u with PCP in a few weeks. Stef Finch MD Referring Provider: SELF [[id number]] Allergies As of Date: 10/29/2019 (No Known Allergies) Date Reviewed: 10/29/2019 Reviewed by: Bonnie Romo Ma - Fully Assessed Reason for Visit: Cough [28] Cmt: chills and fever x couple weeks Primary Visit Diagnosis:Left lower lobe consolidation (HCC) [J18.1] Other Visit Diagnosis:Cough [R05] Order(s):XR CHEST 2V FRONTAL/LAT [[id number]] Order #: [id number] FUTURE benzonatate (TESSALON PERLE) 100 mg capsuleTake 1 capsule by mouth every 8 hours as needed for Cough for up to 15 days.Disp: 30 capsuleRfl: 0 doxycycline monohydrate (MONODOX) 100 mg capsuleTake 1 capsule by mouth twice daily for 7 days.Disp: 14 capsuleRfl: 0 Prescriptions as of 10/29/2019 Sig: LEVOTHYROXINE 100 MCG TABLET Take 1 tablet by mouth once d* AMMONIUM LACTATE 12 % TOPICAL* Apply to entire body to hydra* CALCIUM CARBONATE-VITAMIN D3 * Take by mouth. one daily THERAPEUTIC MULTIVITAMIN TABL* Take 1 tablet by mouth once d* BENZONATATE 100 MG CAPSULE Take 1 capsule by mouth every* DOXYCYCLINE MONOHYDRATE 100 M* Take 1 capsule by mouth twice* Problem List As Of Date 10/29/2019 Noted Resolved Hypothyroidism [E03.9] 01/17/2006 Prescriptions ordered this encounter Disp Refills Start End BENZONATATE 100 MG CAPSULE 30 c* 0 10/29/2019 11/13/2019 Route: ORAL Sig: Take 1 capsule by mouth every 8 hours as needed for Cough for up to 15 days. DOXYCYCLINE MONOHYDRATE 100 MG CAPSU* 14 c* 0 10/29/2019 11/05/2019 Route: ORAL Sig: Take 1 capsule by mouth twice daily for 7 days. Medications Discontinued During This Encounter Brompheniramine-Pseudoe ph-DM (BROMFE* 118 * 0 09/10/2018 10/29/2019 Route: ORAL Sig: Take 5 mL by mouth four times daily as needed. Patient not taking: Reported on 10/29/2019 Disc: Reason for discontinue is not on file. Encounter Status:Closed by STEF FINCH MD on 10/29/19 [facility] PROGRESSon 10-29-2019 PROGRESS HNO ID: [id number] Author: Ad Zimmer (Rt) Service: ? Author Type: Physical Sciences Instructor Type: Progress Notes Filed: 10/29/2019 9:06 AM Note Text: Radiology Service Progress Note PATIENT NAME: Radha Gore DATE OF SERVICE: October 29, 2019 TIME: 9:01 AM PATIENT IDENTITY VERIFICATION COMPLETED USING TWO (2) IDENTIFIERS: Name and Date of confirmed by patient verbally. PATIENT GENDER DATA: Female. status: : No status: NO. PATIENT RELEVANT IMPLANT DATA REVIEWED: Not Applicable RADIOLOGY DEPARTMENT: General X-ray: Exam(s) Completed: Chest X-Ray PERIPHERAL IV DATA: Not applicable SIGNED BY: RT Goran October 29, 2019 9:01 AM Normal [facility] PROGRESS HNO ID: [id number] Author: Stef Finch Service: ? Author Type: Physician Type: Progress Notes Filed: 10/29/2019 9:29 AM Note Text: Patient presents with: Cough: chills and fever x couple weeks HPI: Feeling sick for a couple weeks. Most URI symptoms are improved but cough is persistent and felt chilled yesterday. Positive symptoms: fever, chills, Cough, Chest tightness, Nasal Congestion, Negative symptoms: Resolved headache and scratchy throat OTC: Mucinex, Cold Medicine Had pneumonia last August, current symptoms concern her. MEDICATIONS: Current Outpatient Medications Medication Sig - levothyroxine (SYNTHROID) 100 mcg tablet Take 1 tablet by mouth once daily. - ammonium lactate (LAC-HYDRIN) 12 % cream Apply to entire body to hydrate and prevent symptoms of keratosis pilaris; dispense three tubes for 90 day supply - Calcium-Cholecalciferol , D3, (CALCIUM 600 + D) 600-125 mg-unit ORAL Tab Take by mouth. one daily - therapeutic multivitamin ORAL tablet Take 1 tablet by mouth once daily. No current facility-administered medications for this visit. ALLERGIES: ALLERGIES No Known Allergies VITALS: BP 110/66 Pulse 88 Temp 36.2 ?C (97.1 ?F) (Tympanic) Resp 16 Wt 68.5 kg (151 lb) LMP 08/01/2008 SpO2 95% BMI 26.54 kg/m? PHYSICAL EXAM: GEN: mildly ill appearing HEENT: PERRL, EOMI, conjunctiva clear Ears: canals clear. TMs without erythema, bulge, or effusion Sinuses: non-tender frontal sinus, non-tender maxillary sinuses Throat: moist mucous membranes, no erythema, no exudate Neck: supple, no thyromegaly, no lymphadenopathy HEART: regular rate and rhythm, no murmurs LUNGS: clear to auscultation, no wheezes or crackles, no increased WOB ASSESSMENT/PLAN: 1. Cough - ICD9: 786.2, ICD10: R05 - XR CHEST 2V FRONTAL/LAT- BENZONATATE 100 MG CAPSULE Stef Finch MD ASSESSMENT/PLAN: 1. Left lower lobe consolidation (HCC) - ICD9: 481, ICD10: J18.1 (primary diagnosis) 2. Cough - ICD9: 786.2, ICD10: R05 - XR CHEST 2V FRONTAL/LAT - right hemidiaphragm elevation and mastectomy present on 09/10/18. Radiology interpretation is retrocardiac left lower lobe consolidation suggesting pneumonia. - BENZONATATE 100 MG CAPSULE - DOXYCYCLINE MONOHYDRATE 100 MG CAPSULE F/u with PCP in a few weeks. Stef Finch MD Normal [facility] XR CHEST 2V FRONTAL/LATon XR CHEST 2V FRONTAL/LAT * * *Final Report* * * DATE OF EXAM: Oct 29 2019 9:06AM WOX [id number] - XR CHEST 2V FRONTAL/LAT / PROCEDURE REASON: Cough * * * * Physician Interpretation * * * * EXAMINATION: CHEST RADIOGRAPH (2 VIEW FRONTAL and LATERAL) CLINICAL HISTORY: Cough MQ: XC2_5 Comparison: 09/10/2018 RESULT: Lines, tubes, and devices: None. Lungs and pleura: Left lower lobe, retrocardiac consolidation suggesting pneumonia. No pleural effusion or pneumothorax. Cardiomediastinal silhouette: Normal cardiomediastinal silhouette. Other: Right mastectomy. Healed anterior right 4th rib fracture. IMPRESSION: Left lower lobe infiltrate Ironworker Apprentice: PSCRenzo Transcribe Date/Time: Oct 29 2019 9:14A Dictated by : NICOLE SHARPE MD This examination was interpreted and the report reviewed and electronically signed by: NICOLE SHARPE MD on Oct 29 2019 9:16AM EST [id number] Normal [facility] Summary Purpose Family History No Family History Records Found Advance Directives No Advanced Directives Records Found Additional Source Comments INFORMATION SOURCE (unrecogn ized section and content) DATE CREATED AUTHOR 10/29/2019 [facility] FOR RECORDS PERTAINING TO PATIENTS WHO ARE [...] BE BASED ON THE PRIMARY CLINICAL RECORDS. [employer] [facility]. provides no warranty or guarantee of the accuracy or completeness of information in this document.
[2024-08-22 18:01] LABS: T3 Total - Triiodothyronine 1.54 ng/mL (0.6-1.81)
[2024-08-22 18:08] LABS: AST(SGOT) 39 U/L (15-37); Alanine Aminotransfer ALT/SGPT 61 U/L (13-56); Albumin, Serum 3.5 g/dL (3.2-5.0); Alkaline Phosphatase 63 U/L (45-117); Anion Gap 5 (5-15); BUN 17 mg/dL (7-18); BUN/Creat Ratio 14.4 RATIO (10-20); Calcium,Total 8.9 mg/dL (8.5-10.1); Chloride 110 mmol/L (98-107); Cholesterol 146 mg/dL (200); Creatinine, Serum 1.18 mg/dL (0.55-1.02); EST Glomerular Filtration Rate 49 mL/min (>60); Est Glom Filt Rate - Afr Amer 59 mL/min (>60); Globulin 3.5 g/dL (2.2-4.2); Glucose 69 mg/dL (74-106); High Density Lipoprotein 41 mg/dL; Potassium 3.4 mmol/L (3.5-5.1); Sodium Level 142 mmol/L (136-145); T4 Total, Thyroxin 21.5 ug/dL (4.8-13.9); Thyroid Stim Hormone (TSH) 0.039 uIU/mL (0.358-3.740); Triglycerides 142 mg/dL; Very Low Density Lipoprotein 28 mg/dL (5-40)
[2024-08-22 19:47] LABS: T4 Free Direct 1.83 ng/dL (0.76-1.46)
== END | disposition home or self-care (01) ==
LOC: MFPLAB 16:47
PROVIDERS: PCP Family Medicine; Referring Provider Family Medicine; Visit Provider Family Medicine
DX: E03.9 Hypothyroidism, unspecified (principal); E78.5 Hyperlipidemia, unspecified
CPT/HCPCS: 36415; 80053; 80061; 84436; 84439; 84443; 84480; 84481

== ENCOUNTER → 2024-10-06 | Outpatient (CLI) | payer BC, SELFPAY ==
--- NOTE | 2024-10-06 17:52 | CT_ITS ---
INDICATION: metastatic breast ca; assess response to treatment EXAMINATION: CT Chest Abdomen And Pelvis W/ Contrast Injection TECHNIQUE: Helically acquired axial images were obtained of the chest, abdomen, and pelvis with sagittal and coronal reconstructed images. Individualized dose optimization techniques were used for this CT. IV contrast dosage and agent: 100 mL of Isovue-370. Oral contrast: None. COMPARISON: 05/19/2024 CT. FINDINGS: ---Chest: LUNGS, PLEURA AND LARGE AIRWAYS: No consolidation or edema. No pulmonary nodule. Stable small right pleural effusion. No pneumothorax. THYROID: Unremarkable. HEART AND PERICARDIUM: No evidence of coronary artery calcification. No pericardial effusion. MEDIASTINUM AND PEDRO LUIS: No mediastinal or hilar adenopathy. Esophagus is unremarkable. No hiatal hernia. VESSELS: No thoracic aortic aneurysm or dissection. No obvious central pulmonary embolism although this study was not performed with pulmonary embolism protocol. BONES: No acute abnormality. ---Abdomen/Pelvis: VESSELS: No abdominal aortic aneurysm or dissection. LIVER: No evidence of a mass. No intrahepatic or extrahepatic biliary duct dilation. GALLBLADDER: No calcified stones. No evidence of cholecystitis. PANCREAS: No focal solid or cystic mass. No evidence of pancreatitis. SPLEEN: Normal. ADRENAL GLANDS: Normal. KIDNEYS AND URETERS: No urinary tract stone. No hydronephrosis or hydroureter. No significant asymmetric perinephric stranding. URINARY BLADDER: Unremarkable. BOWEL: Diverticulosis. Appendix not identified. No evidence of bowel obstruction. REPRODUCTIVE ORGANS: No evidence of a pelvic mass. PERITONEUM: There appears to be a slight decrease in the amount of nodular mesenteric densities compared to the prior CT. There is diffuse mesenteric stranding with a large amount of ascites, increased as compared to the prior exam. No free air. LYMPH NODES: No pathologically enlarged mesenteric or retroperitoneal lymph nodes. ABDOMINAL WALL: No abdominal or pelvic wall hernia. BONES: No acute abnormality. CT/CT Chest, Abd, Pel w/Contrast IMPRESSION: 1. Large amount ascites, increased as compared to the prior exam. 2. Again seen is mesenteric stranding and multiple scattered nodular mesenteric densities which overall appear improved in number and size, however direct comparison is difficult secondary to the the increase in ascites. 3. Stable small right pleural effusion. Electronically Signed: Guille Alvarez DO at 2:02 EST ,
== END | disposition home or self-care (01) ==
LOC: CT 17:50
PROVIDERS: PCP Family Medicine; Visit Provider Nurse Practitioner Family
DX: C50.911 Malignant neoplasm of unspecified site of right female breast (principal); C78.6 Secondary malignant neoplasm of retroperitoneum and peritoneum; C78.7 Secondary malignant neoplasm of liver and intrahepatic bile duct; Z17.0 Estrogen receptor positive status [ER+]
CPT/HCPCS: 71260; 74177; Q9967; A4216

== ENCOUNTER → 2024-10-23 | Outpatient (CLI) | payer BC, SELFPAY ==
[2024-10-23 08:00] VITALS: BP 122/82; PULSE 90; RESP 16; TEMP 36.3; O2SAT 100
[2024-10-23] MEDS: Lidocaine 2% (20 ml mdv) 20 ML Vial INFILT (08:07)
[2024-10-23 08:15] VITALS: BP 124/79; PULSE 86; RESP 16; O2SAT 100
[2024-10-23 08:28] VITALS: BP 110/70; PULSE 92; RESP 16; O2SAT 100
--- NOTE | 2024-10-23 09:03 | OP.PCM_ITS ---
Problems Associated Problem List Diagnoses (1) Malignant ascites: Operative Report (Standard) Operative Information Date of Procedure: 10/23/24 Pre-Operative Diagnosis: malignant ascites Post-Operative Diagnosis: malignant ascites Surgery/Procedure Performed: ultrasound guided paracentesis research program manager: No Type of Anesthesia: Local Procedure Start Time: 08:10 Procedure Stop Time: 08:40 Select all DRAINS/GRAFTS/IMPLANTS that apply: None Estimated Blood Loss: minimal Specimen collected: No Surgical Findings: successful paracentesis Complications Complications: No
--- NOTE | 2024-10-23 09:03 | PCM.OPRPT ---
Problems Associated Problem List Diagnoses (1) Malignant ascites: Procedures Radiology Radiology US Procedures: 38709 Paracentesis Operative Report (Standard) Operative Information Date of Procedure: 10/23/24 Pre-Operative Diagnosis: malignant ascites Post-Operative Diagnosis: malignant ascites Surgery/Procedure Performed: ultrasound guided paracentesis pumpman: No Type of Anesthesia: Local Procedure Start Time: 08:10 Procedure Stop Time: 08:40 Select all DRAINS/GRAFTS/IMPLANTS that apply: None Estimated Blood Loss: minimal Specimen collected: No Description of surgery: PROCEDURE: Ultrasound guided paracentesis ORDERING PROVIDER: Dr. Hyde INDICATION: Female, 64 years old. Malignant ascites. PROVIDER: DENISE Mullins TECHNIQUE: The risks, benefits, and alternatives to the procedure were explained to the patient. The specific risks of bleeding, infection, and damage to bowel were detailed and accepted. Witnessed informed consent was obtained. The abdomen was ultrasonographically surveyed. An appropriate pocket of fluid was identified in the right upper quadrant. The skin was prepped with chlorhexidine and sterile field established. 2% lidocaine was used for local anesthetic. Using ultrasound guidance, the peritoneal cavity was accessed with a 5-Jamaican paracentesis needle/catheter system. The trocar was removed. A total of 4150 ml of clear yellow colored fluid was removed from the peritoneal cavity. The catheter was removed and a sterile dressing was applied. The procedure was well tolerated. IMPRESSION: Successful ultrasound guided paracentesis with right upper quadrant access site. Surgical Findings: successful paracentesis Complications Complications: No
== END | disposition home or self-care (01) ==
LOC: US 07:48
PROVIDERS: PCP Family Medicine; Referring Provider Internal Medicine Hematology & Oncology; Visit Provider Internal Medicine Hematology & Oncology
DX: R18.8 Other ascites (principal)
CPT/HCPCS: 49083

== ENCOUNTER → 2024-11-05 | Outpatient (CLI) | payer BC, SELFPAY ==
[2024-11-05 11:00] LABS: ALB/GLOB Ratio 0.7 RATIO (0.9-2.4); AST(SGOT) 27 U/L (15-37); Alanine Aminotransfer ALT/SGPT 20 U/L (13-56); Albumin, Serum 2.7 g/dL (3.2-5.0); Alkaline Phosphatase 72 U/L (45-117); Anion Gap 6 (5-15); BUN 20 mg/dL (7-18); BUN/Creat Ratio 16.3 RATIO (10-20); Calcium,Total 8.7 mg/dL (8.5-10.1); Chloride 105 mmol/L (98-107); Cholesterol 166 mg/dL (200); Creatinine, Serum 1.23 mg/dL (0.55-1.02); EST Glomerular Filtration Rate 47 mL/min (>60); Est Glom Filt Rate - Afr Amer 57 mL/min (>60); Free T3 2.1 pg/mL (2.18-3.98); Globulin 3.9 g/dL (2.2-4.2); Glucose 97 mg/dL (74-106); High Density Lipoprotein 50 mg/dL; Potassium 4.1 mmol/L (3.5-5.1); Protein, Total 6.6 g/dL (6.4-8.2); Sodium Level 137 mmol/L (136-145); Triglycerides 118 mg/dL; Very Low Density Lipoprotein 24 mg/dL (5-40)
== END | disposition home or self-care (01) ==
LOC: MFPLAB 08:51
PROVIDERS: PCP Family Medicine; Referring Provider Family Medicine; Visit Provider Family Medicine
DX: E03.9 Hypothyroidism, unspecified (principal); E78.5 Hyperlipidemia, unspecified
CPT/HCPCS: 36415; 80053; 80061; 84439; 84443; 84481

== ENCOUNTER 2024-11-14 07:51 | Outpatient (CLI) | payer BC, SELFPAY ==
--- NOTE | 2024-11-14 | IMM_PTH ---
PATIENT: RADHA VAZQUEZ LOC: U#:[id number] AGE/SX: 64/F ROOM: RE11/14/[address]: Dr. Dilan Hyde MD : 1960 BED: DIS: 11/14/2024 SPEC #: [id number] RECD: 11/17/24 10:38 STATUS: SOUFortunato REQ #: [id number] ANTONIA: 11/14/24 00:[address]: Dilan Hyde DEPT: IMMUNOHISTOCHEMISTRY RECD BY: Brady Ibrahim ENTERED: 11/17/24 10:39 SP TYPE: IMMUNO OTHR DR: Dr. Eldon Proctor MD Tissues: PARACENTESIS FLUID Procedures: RCC (add) NAPSIN A (add) CA-125 (add) Ritesh Ret (add) CK20 (add) CK7 (add) E-CAD (add) HBME (add) HEP PAR (add) MAMM (add) TTF1 (add) GATA3 (add) CD68 (ADD) MOC-31 (add) ER (initial) PHYSICIAN & INSTITUTION [address] [address] SPECIMEN INFORMATION: Tissue Source: Paracentesis fluid Clinical Info: Ascites Specimen Number: [id number] CPT code: 00684,24266y74 METHODOLOGY: Deparaffinized sections of prefer/formalin-fixed tissue or PAP/DQ stained slides are incubated with monoclonal/polyclonal antibodies/oligonucleotide probes. Localization is made via biotin free immunoperoxidase method. Appropriate controls are performed and reacted as expected. Results on target cell population are indicated in the following table: RESULTS: ANTIBODY / CLONE RESULT ER (6F11) negative E-Cad (ECH-6) positive GATA3 (L50-823) negative CD68 (KP-1) histocytes positive CALRET (polyclonal) rare mesothelial cell, positive Mammaglobin (31A5) negative CK7 (OV-TL12/30) positive CK20 (KS20.8) negative MOC-31 (4561) positive HBME1 (HBME-1) rare mesothelial cells, positive TTF-1 (8G7G3/1) negative CA125 (OC125) positive Napsin A (Rabbit Polyclonal) negative HepPar (OCh1E5) negative RCC (PN-15) negative These tests were developed and their performance characteristics determined by [facility]. They may not have been cleared or approved by the U.S. Food and Drug Administration. The FDA has determined that such clearance or approval is not necessary. The above immunohistochemical/dualISH markers are ordered and reviewed by the Pathologist. INTERPRETATION: Paracentesis fluid for cytology (cytospin and cellblock): Malignant cells present, staining pattern not suggestive of primary site. Clinical correlation and follow up recommended. Case has been reviewed in consultation with Dr. Byrnes who concurs with the above diagnosis. IDC:[email or web address] 11/19/2024
--- NOTE | 2024-11-14 | FLU_PTH ---
PATIENT: RADHA VAZQUEZ LOC: [facility]#:[id number] AGE/SX: 64/F ROOM: RE11/14/[address]: Dr. Dilan Hyde MD : 1960 BED: DIS: 11/14/2024 SPEC #: [id number] RECD: 11/14/24 08:59 STATUS: BONITA TOM #: [id number] ANTONIA: 11/14/24 00:[address]: Dilan Hyde DEPT: CYTOLOGY RECD BY: Chaparrita Jaffe ENTERED: 11/14/24 11:29 SP TYPE: Fluid OTHR DR: Dr. Eldon Proctor MD Tissues: PARACENTESIS FLUID Procedures: Special Stain Group II Surgery Specimen Level IV Cytospin Fluid HEADER OPERATION: Ultrasound guided paracentesis PRE-OP DIAGNOSIS: Ascites TISSUE SUBMITTED: Paracentesis fluid for cytology DIAGNOSIS CYTOLOGY Paracentesis fluid for cytology (cytospins and cellblock): Positive for malignant cells. See comment. [email or web address].mr 11/19/2024 COMMENT Immunohistochemistry ([id number]) supports the above diagnosis. Special studies not indicative of definitive primary site. Clinical history reviewed. Clinical correlation and appropriate follow up is recommened. Case has been reviewed in consultation with Dr. Byrnes who concurs with the above diagnosis. IDC:SJ CYTOLOGY STUDY Slides are reviewed. CYTOLOGY GROSS Received is 100 ml of hazy-yellow fluid labeled with the patient's name and and designated per the requisition as Paracentesis fluid. Submitted for cytology preparation including cell block. Mr 11/14/2024 TC:0 CPT: 93189,38470
[2024-11-14 08:18] VITALS: BP 130/75; PULSE 89; RESP 18; TEMP 36.4; O2SAT 100
[2024-11-14] MEDS: Lidocaine 2% (20 ml mdv) 20 ML Vial INFILT (08:28)
[2024-11-14 08:30] VITALS: BP 137/94; PULSE 92; RESP 18; O2SAT 100
[2024-11-14 08:45] VITALS: BP 139/86; PULSE 89; RESP 18; O2SAT 100
--- NOTE | 2024-11-14 09:04 | OP.PCM_ITS ---
Problems Associated Problem List Diagnoses (1) Abdominal ascites: Multi Select Codes Radiology Radiology US Procedures: 24801 Paracentesis Operative Report (Standard) Operative Information Date of Procedure: 11/14/24 Pre-Operative Diagnosis: Abdominal ascites Post-Operative Diagnosis: Abdominal ascites Surgery/Procedure Performed: Ultrasound-guided paracentesis cross tie turner: No Type of Anesthesia: Local Procedure Start Time: 08:20 Procedure Stop Time: 08:43 Select all DRAINS/GRAFTS/IMPLANTS that apply: None Estimated Blood Loss: 0 Specimen collected: Yes Description of specimen(s) removed: 100 cc sent to lab Description of surgery: PROCEDURE: Ultrasound guided paracentesis ORDERING PROVIDER: Dr. Hyde INDICATION: Female, 64 years old. Abdominal ascites. PROVIDER: Michelle Smith CNP TECHNIQUE: The risks, benefits, and alternatives to the procedure were explained to the patient. The specific risks of bleeding, infection, and damage to bowel were detailed and accepted. Witnessed informed consent was obtained. The abdomen was ultrasonographically surveyed. An appropriate pocket of fluid was identified in the left lower quadrant. The skin was prepped with chlorhexidine and sterile field established. 2% lidocaine was used for local anesthetic. Using ultrasound guidance, the peritoneal cavity was accessed with a 5-Upper Sorbian paracentesis needle/catheter system. The trocar was removed. A total of 4400 ml of clear yellow colored fluid was removed from the peritoneal cavity. The catheter was removed and a sterile dressing was applied. The procedure was well tolerated. IMPRESSION: Successful ultrasound guided paracentesis with left access site. Surgical Findings: none Complications Complications: No
== END 2024-11-14 23:59 | disposition home or self-care (01) ==
LOC: US 07:52
PROVIDERS: PCP Family Medicine; Referring Provider Internal Medicine Hematology & Oncology; Visit Provider Internal Medicine Hematology & Oncology
DX: C50.911 Malignant neoplasm of unspecified site of right female breast (principal); C78.7 Secondary malignant neoplasm of liver and intrahepatic bile duct; R18.0 Malignant ascites; C79.89 Secondary malignant neoplasm of other specified sites
CPT/HCPCS: 49083; 81002; 88108; 88305; 88313; 88341; 88342

== ENCOUNTER → 2024-12-02 | Outpatient (CLI) | payer BC, SELFPAY ==
--- NOTE | 2024-12-02 07:54 | US_ITS ---
PROCEDURE: PARACENTESIS WITH US REASON FOR EXAM: Ascites. TECHNIQUE: The procedure as well as the benefits and possible complications including infection and bleeding were explained to the patient. Informed consent was obtained. The overlying skin in the left lower quadrant was prepped and draped in usual sterile fashion. Following local anesthetic application, a 5 Gambian catheter was placed into the abdomen. Fluid was drained. A total of 4400 mL of marc colored fluid was aspirated. The catheter was removed. The patient tolerated the procedure well. The procedure was performed with the nurse practitioner Prashanth GARCES COMPARISON: Comparison is made with prior study dated November 14, 2024. FINDINGS: Successful ultrasound-guided paracentesis. US/Paracentesis with US IMPRESSION: Successful ultrasound-guided paracentesis. The patient tolerated the procedure well. Reading Location: [place] [address]
[2024-12-02 08:11] VITALS: BP 147/91; PULSE 106; RESP 18; TEMP 36.3; O2SAT 98
[2024-12-02] MEDS: Lidocaine 2% (20 ml mdv) 20 ML Vial INFILT (08:13)
[2024-12-02 08:16] VITALS: BP 142/86; PULSE 107; RESP 18; O2SAT 99
[2024-12-02 08:29] VITALS: BP 135/91; PULSE 102; RESP 18; O2SAT 100
[2024-12-02 08:32] VITALS: BP 147/78; PULSE 103; RESP 18; O2SAT 100
== END | disposition home or self-care (01) ==
PROVIDERS: PCP Family Medicine; Referring Provider Internal Medicine Hematology & Oncology; Visit Provider Internal Medicine Hematology & Oncology
DX: C79.81 Secondary malignant neoplasm of breast (principal); R18.0 Malignant ascites
CPT/HCPCS: 49083

== ENCOUNTER → 2024-12-08 | Outpatient (CLI) | payer BC, SELFPAY ==
--- NOTE | 2024-12-08 12:29 | CT_ITS ---
EXAM: CT Chest, Abdomen and Pelvis With Intravenous Contrast CLINICAL INDICATION: TECHNIQUE: Axial computed tomography images of the chest, abdomen and pelvis with intravenous contrast. This CT exam was performed using one or more of the following dose reduction techniques: automated exposure control, adjustment of the mA and/or kV according to patient size, and/or use of iterative reconstruction technique. COMPARISON: CT Chest Abdomen Pelvis dated 10/06/2024 FINDINGS: CHEST: LUNGS AND PLEURAL SPACES: Lung emphysema. Bilateral apical scarring. No consolidation. No significant effusion. No pneumothorax. HEART: Unremarkable. No cardiomegaly. No significant pericardial effusion. No significant coronary artery calcifications. MEDIASTINUM: A few prominent mediastinal lymph nodes measuring up to 5 mm. ABDOMEN: LIVER: Fatty liver with irregular hepatic surface could be early cirrhosis. Ascites. These are unchanged from the prior exam. GALLBLADDER AND BILE DUCTS: Unremarkable. No calcified stones. No ductal dilation. PANCREAS: Unremarkable. No ductal dilation. No mass. SPLEEN: Unremarkable. No splenomegaly. ADRENALS: Unremarkable. No mass. KIDNEYS AND URETERS: Unremarkable. No hydronephrosis. No solid mass. STOMACH AND BOWEL: Unremarkable. No obstruction. No mucosal thickening. PELVIS: APPENDIX: No findings to suggest acute appendicitis. BLADDER: Unremarkable. No mass. REPRODUCTIVE: Unremarkable as visualized. CHEST, ABDOMEN and PELVIS: INTRAPERITONEAL SPACE: See above. BONES/JOINTS: Unremarkable. No acute fracture. No dislocation. SOFT TISSUES: Status post right mastectomy. VASCULATURE: Unremarkable. No aortic aneurysm. LYMPH NODES: See above. CT/CT Chest, Abd, Pel w/Contrast IMPRESSION: 1. Status post right mastectomy. 2. No significant change from the prior exam. Reading Location: [facility]
== END | disposition home or self-care (01) ==
LOC: CT 12:29
PROVIDERS: PCP Family Medicine; Referring Provider Internal Medicine Hematology & Oncology; Visit Provider Internal Medicine Hematology & Oncology
DX: C50.911 Malignant neoplasm of unspecified site of right female breast (principal); C78.7 Secondary malignant neoplasm of liver and intrahepatic bile duct; C78.6 Secondary malignant neoplasm of retroperitoneum and peritoneum; Z17.0 Estrogen receptor positive status [ER+]
CPT/HCPCS: 71260; 74177; Q9967

== ENCOUNTER → 2024-12-16 | Outpatient (CLI) | payer BC, SELFPAY ==
[2024-12-16 14:30] VITALS: BP 122/82; PULSE 110; RESP 16; TEMP 36.2; O2SAT 100
[2024-12-16] MEDS: Lidocaine 2% (20 ml mdv) 20 ML Vial INFILT (14:35)
[2024-12-16 14:45] VITALS: BP 122/83; PULSE 110; RESP 16; O2SAT 100
[2024-12-16 14:52] VITALS: BP 114/78; PULSE 106; RESP 16; O2SAT 100
--- NOTE | 2024-12-16 14:58 | PCM.OPRPT ---
Problems Associated Problem List Diagnoses (1) Malignant ascites: Procedures Radiology Radiology US Procedures: 04825 Paracentesis Operative Report (Standard) Operative Information Date of Procedure: 12/16/24 Pre-Operative Diagnosis: Abdominal ascites Post-Operative Diagnosis: Abdominal ascites Surgery/Procedure Performed: Ultrasound-guided paracentesis pharmacy technician program director: No Type of Anesthesia: Local Procedure Start Time: 14:35 Procedure Stop Time: 14:52 Select all DRAINS/GRAFTS/IMPLANTS that apply: None Estimated Blood Loss: 0 Specimen collected: No Description of surgery: PROCEDURE: Ultrasound guided paracentesis ORDERING PROVIDER: : Dr. Hyde INDICATION: Female, 64 years old. Abdominal ascites. PROVIDER: DENIES Kurtz TECHNIQUE: The risks, benefits, and alternatives to the procedure were explained to the patient. The specific risks of bleeding, infection, and damage to bowel were detailed and accepted. Witnessed informed consent was obtained. The abdomen was ultrasonographically surveyed. An appropriate pocket of fluid was identified in the left lower quadrant. The skin was prepped with chlorhexidine and sterile field established. 2% lidocaine was used for local anesthetic. Using ultrasound guidance, the peritoneal cavity was accessed with a 5-Peruvian paracentesis needle/catheter system. The trocar was removed. A total of 3650 ml of clear yellow colored fluid was removed from the peritoneal cavity. The catheter was removed and a sterile dressing was applied. The procedure was well tolerated. IMPRESSION: Successful ultrasound guided paracentesis with a left lower quadrant access site. Surgical Findings: None Complications Complications: No
== END | disposition home or self-care (01) ==
LOC: US 14:10
PROVIDERS: PCP Family Medicine; Referring Provider Internal Medicine Hematology & Oncology; Visit Provider Internal Medicine Hematology & Oncology
DX: C50.919 Malignant neoplasm of unspecified site of unspecified female breast (principal); R18.0 Malignant ascites; C79.9 Secondary malignant neoplasm of unspecified site
CPT/HCPCS: 49083

== ENCOUNTER → 2024-12-30 | Outpatient (CLI) | payer BC, SELFPAY ==
[2024-12-30] MEDS: Lidocaine 2% (20 ml mdv) 20 ML Vial INFILT (14:40)
--- NOTE | 2024-12-30 15:02 | PCM.OPRPT ---
Problems Associated Problem List Diagnoses (1) Malignant ascites: Multi Select Codes Radiology Radiology US Procedures: 61220 Paracentesis Operative Report (Standard) Operative Information Date of Procedure: 12/30/24 Pre-Operative Diagnosis: Abdominal ascites Post-Operative Diagnosis: Abdominal ascites Surgery/Procedure Performed: Ultrasound-guided paracentesis scholastic aptitude test grader: No Type of Anesthesia: Local Procedure Start Time: 14:36 Procedure Stop Time: 15:05 Select all DRAINS/GRAFTS/IMPLANTS that apply: None Estimated Blood Loss: 0 Specimen collected: No Description of surgery: PROCEDURE: Ultrasound guided Paracentesis ORDERING PROVIDER: Dr. Hyde INDICATION: Female, 64 years old. Abdominal ascites. PROVIDER: DENISE Kurtz TECHNIQUE: The risks, benefits, and alternatives to the procedure were explained to the patient. The specific risks of bleeding, infection, and damage to bowel were detailed and accepted. Witnessed informed consent was obtained. The abdomen was ultrasonographically surveyed. An appropriate pocket of fluid was identified in the left lower quadrant of the abdomen. The skin was prepped with chlorhexidine and sterile field established. 2% lidocaine was used for local anesthetic. Using ultrasound guidance, the peritoneal cavity was accessed with a 5-Mohawk paracentesis needle/catheter system. The trocar was removed. A total of 3500 ml of clear yellow colored fluid was removed from the peritoneal cavity. The catheter was removed and a sterile dressing was applied. The procedure was well tolerated. IMPRESSION: Successful ultrasound guided paracentesis with left lower quadrant access site. Surgical Findings: None Complications Complications: No
[2024-12-30 15:10] VITALS: BP 116/68; PULSE 94; RESP 18; O2SAT 95
[2024-12-30 15:11] VITALS: BP 121/76; PULSE 94; RESP 18; O2SAT 100
[2024-12-30 15:12] VITALS: BP 114/72; PULSE 103; RESP 18; O2SAT 100
== END | disposition home or self-care (01) ==
PROVIDERS: PCP Family Medicine; Referring Provider Internal Medicine Hematology & Oncology; Visit Provider Internal Medicine Hematology & Oncology
DX: C50.919 Malignant neoplasm of unspecified site of unspecified female breast (principal); R18.0 Malignant ascites; C79.9 Secondary malignant neoplasm of unspecified site
CPT/HCPCS: 49083

== ENCOUNTER → 2025-01-01 | Outpatient (CLI) | payer BC, SELFPAY ==
--- NOTE | 2025-01-01 11:19 | VDLE_ITS ---
Reason For Study Reason For Study: Bilateral leg swelling RIGHT LEFT GSV is normal. GSV is normal. CFV is compressible, spontaneous, phasic, competent CFV is compressible, spontaneous, phasic, competent, and demonstrates normal augmentation. and demonstrates normal augmentation. FV is compressible, spontaneous, phasic, competent FV is compressible, spontaneous, phasic, competent and demonstrates normal augmentation. and demonstrates normal augmentation. POP V is compressible, spontaneous, phasic, competent POP V is compressible, spontaneous, phasic, competent and demonstrates normal augmentation. and demonstrates normal augmentation. T/P Trunk is compressible. T/P Trunk is compressible. PTV is compressible. PTV is compressible. RT PerV is compressible. LT PerV is compressible. Procedure This is a venous duplex using B-mode, color flow and spectral Doppler. Exam performed in department. A preliminary report was called and/or faxed to [facility]. VL/Venous Duplex US - Kelechi Extrem Interpretation Summary Deep veins of the bilateral lower extremities are patent and compressible segme ntally. There is no evidence of bilateral lower extremity deep vein thrombosis. The bilateral great saphenous veins appea r patent and compressible segmentally. Ordering Physician: Kim Lucas Referring Physician: Eldon Proctor Performed By: Lauryn Weaver RVT
== END | disposition home or self-care (01) ==
LOC: CVS 11:18
PROVIDERS: PCP Family Medicine; Referring Provider Nurse Practitioner Family; Visit Provider Nurse Practitioner Family
DX: R60.0 Localized edema (principal); Z91.89 Other specified personal risk factors, not elsewhere classified
CPT/HCPCS: 93970

== ENCOUNTER 2025-01-12 21:11 | Emergency (ER) | payer BC, SELFPAY ==
[2025-01-12 21:12] VITALS: BP 98/62; PULSE 122; RESP 18; TEMP 36.6; O2SAT 100
[2025-01-12 21:15] VITALS: BP 98/62; PULSE 122; RESP 18; TEMP 36.6; O2SAT 100
[2025-01-12 22:12] VITALS: BP 126/81
[2025-01-12 22:15] VITALS: BP 126/81; PULSE 115; RESP 19; TEMP 36.6; O2SAT 100
--- NOTE | 2025-01-12 22:41 | ED.VIS.GI ---
HPI HPI - GI History of Present Illness Chief Complaint: Nausea/Vomiting/Diarrhea Narrative Narrative: 64-year-old female past medical history of peritoneal carcinoma presents with nausea, vomiting, and diarrhea. She states that she has had weeks worth of diarrhea. She had a checkup by her oncologist and was sent to the infusion center last and Sunday where she received a liter of fluids each day. Over the weekend, she was doing okay, but yesterday evening developed nausea and vomiting. She vomited twice within the last 24 hours, then once again on arrival. Feels weak and dehydrated. She denies any recent fevers or chills. The diarrhea has not improved and now she feels constipated. She is supposed to have paracentesis and fluid drained from her abdomen tomorrow. She states she gets a special procedure every 2 weeks. She presents because she feels more like she is dehydrated with her generalized weakness. 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 Breast cancer Wears glasses Thyroid disease Former smoker History of stress test History of echocardiogram Cancer screening MVP (mitral valve prolapse) Polycythemia Home Medications ?Medication ?Instructions ?Recorded ?Last Taken ?Type acetaminophen 325 mg tablet 325 mg PO TID PRN Headache 03/28/17 Unknown History (Tylenol) ibuprofen 200 mg tablet 200 mg PO Q6H PRN Fever 03/28/17 Unknown History cholecalciferol (vitamin D3) 50 2,000 unit PO DAILY Supplement 09/27/17 Unknown History mcg (2,000 unit) capsule (Vitamin D3) multivitamin 1 tab PO DAILY 01/03/24 Unknown History omega-3 fatty acids-fish oil 360 1 cap PO DAILY 01/03/24 04/13/24 History mg-1,200 mg capsule (Fish Oil) ondansetron 4 mg disintegrating 4 mg PO Q8H PRN nausea and 05/28/24 Unknown Rx tablet vomiting #30 tabs abemaciclib 150 mg tablet 150 mg PO BID 30 days #60 tabs 06/17/24 Unknown Rx levothyroxine 125 mcg tablet 125 mcg PO QDAY 09/16/24 Unknown History fulvestrant 250 mg/5 mL 500 mg (10 mL) IM .COMPLEX #10 mL 12/29/24 Unknown Rx intramuscular syringe (Faslodex) Allergy/AdvReac Type Severity Reaction Status Date / Time No Known Allergies Allergy Verified 01/08/25 11:55 Family History Father Esophageal cancer Surgical History Hx of colonoscopy History of right mastectomy History of bone marrow biopsy Social History Smoking Status: Former smoker ROS ROS ED ROS Narrative Constitutional: No fever, no chills. Generalized weakness. HEENT: No sore throat. No neck pain. No loss of vision. No rhinorrhea. Cardiovascular: No chest pain. No palpitations. No pedal edema. Respiratory: No cough, no shortness of breath. Abdominal: No abdominal pain. Positive nausea and vomiting. No gross hematemesis. Diarrhea has resolved and turned to constipation. Genitourinary: No dysuria. Makes little urine. Musculoskeletal: No myalgias. No arthralgias. Neurologic: No headaches. No dizziness. No lightheadedness. Skin: No rash. No change in color. EXAM Physical Exam Narrative Exam Narrative: Afebrile. Vital signs noted. Nontoxic-appearing. HEENT examination grossly unremarkable with moist mucous membranes, tacky. Cardiovascular examination reveals mild tachycardia. Lungs are clear to auscultation bilaterally. Abdomen is soft, but distended without guarding or rebound. No peritoneal signs. Positive bowel sounds. Neurological examination is nonfocal, nonlateralizing. Const Vital Signs: 01/12/25 21:12 01/12/25 21:15 01/12/25 22:12 Temperature 97.9 F 97.9 F Temperature Source Temporal Oral Pulse Rate 122 H 122 H Respiratory Rate 18 18 Blood Pressure 98/62 98/62 126/81 H Blood Pressure Mean 74 74 96 Pulse Ox 100 100 Oxygen Delivery Method Room Air Room Air 01/12/25 22:15 01/12/25 22:53 01/12/25 22:53 Temperature 97.9 F 97.9 F Temperature Source Oral Oral Pulse Rate 115 H 103 H 103 H Respiratory Rate 19 H 18 Blood Pressure 126/81 H 107/81 H Blood Pressure Mean 96 89 Pulse Ox 100 100 100 Oxygen Delivery Method Room Air Room Air Room Air 01/13/25 00:00 01/13/25 01:00 Temperature 98 F Temperature Source Pulse Rate 75 68 Respiratory Rate 12 12 Blood Pressure 111/60 112/80 Blood Pressure Mean 77 90 Pulse Ox 100 99 Oxygen Delivery Method Room Air MDM MDM MDM Narrative Medical decision making narrative: I reviewed her problem list. She has had prerenal acute renal failure as well as hypokalemia in the past. She has had elevated serum creatinine as well. She has breast cancer listed as primary source with malignant ascites and metastasis to the peritoneal cavity into the liver. With a concern for dehydration or electrolyte imbalance versus intravascular volume depletion given her tachycardia, she was bolused normal saline 1 L intravenously and administered Zofran. CBC, BMP were checked as well as magnesium. I reviewed her laboratory work and she has normal white count of 5.4 with hemoglobin stable 11.5, platelet count 197. Electrolyte panel is significant for chloride low at 97 with a BUN of 69 and creatinine 2.94. This is slightly higher than what it was a few days ago. Glucose elevated at 115 with normal anion gap of 14. Magnesium normal at 2.0. After one half a liter, she is feeling mildly improved. She will be bolused the rest of her 1 L, and discharged to follow-up with special procedures for her paracentesis tomorrow. She states she has antinausea medication at home. Return instructions to the emergency department reviewed. Disposition is discharged home in stable condition. History & Record Review Discussion w/independent historian: Patient Lab Data Attestation: I reviewed the patient's lab results. Labs: Laboratory Results - last 24 hr 01/12/25 20:40 WBC 5.4 RBC 3.25 L Hgb 11.5 L Hct 32.5 L MCV 100.0 H MCH 35.4 H MCHC 35.4 RDW Std Deviation 62.2 H RDW Coeff of Dominic 17.5 H Plt Count 197 MPV 9.7 Immature Gran % (Auto) 0.700 Neut % (Auto) 87.0 H Lymph % (Auto) 7.9 L [place] % (Auto) 4.0 Eos % (Auto) 0.2 Baso % (Auto) 0.2 Absolute Neuts (auto) 4.7 Absolute Lymphs (auto) 0.43 L Nucleated RBC % 0 Sodium 133 Potassium 3.5 Chloride 97 L Carbon Dioxide 22.9 Anion Gap 14 BUN 69 H Creatinine 2.94 H Est GFR (MDRD) Non-Af 17 L BUN/Creatinine Ratio 23.4 H Glucose 115 H Calcium 9.0 Magnesium 2.0 Discharge Plan Triage Chief Complaint: Nausea/Vomiting/Diarrhea Other Complaint: Edema ED Provider: Wallace Griffin Dx/Rx/DC Orders Clinical Impression: Nausea and vomiting, 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, Elevated serum creatinine, Dehydration Instructions: ED Dehydration (Adult), ED Vomiting (Adult) Prescriptions: No Action omega-3 fatty acids-fish oil [Fish Oil] 360-1,200 mg capsule 1 cap PO DAILY multivitamin Tablet 1 tab PO DAILY ondansetron 4 mg tablet,disintegrating 4 mg PO Q8H PRN (Reason: nausea and vomiting) Qty: 30 1RF levothyroxine 125 mcg tablet 125 mcg PO QDAY fulvestrant [Faslodex] 250 mg/5 mL syringe 500 mg IM .COMPLEX Qty: 10 12RF Rx Instructions: 500 mg intramuscularly; may divide dose into 2 equally divided injections; one into each buttock, days 1, 15 (cycle 1 loading) then every 4 weeks acetaminophen [Tylenol] 325 MG tablet 325 mg PO TID PRN (Reason: Headache) ibuprofen 200 MG tablet 200 mg PO Q6H PRN (Reason: Fever) cholecalciferol (vitamin D3) [Vitamin D3] 2,000 UNIT capsule 2,000 unit PO DAILY abemaciclib 150 mg tablet 150 mg PO BID 30 Days Qty: 60 12RF Primary Care Provider: Eldon Proctor Referrals: Eldon Proctor MD [Primary Care Provider] - Activity Restrictions/Additional Instructions: Continue to drink plenty of oral fluids. Take your antinausea medication at home. Follow-up tomorrow for your paracentesis and fluid removal from your abdomen. Return to the emergency department with new or worsening symptoms. Print Language: Brazilian Disposition Disposition: Home, Self Care Discharge Date/Time: 01/13/25 01:00
[2025-01-12] MEDS: Ondansetron 4 MG/2 ML Vial IV (22:52)
[2025-01-12] MEDS: 0.9% Normal Saline (1000mL) 1,000 ML 1000 ML IV (22:52)
[2025-01-12 22:53] VITALS: BP 107/81; PULSE 103; RESP 18; TEMP 36.6; O2SAT 100
[2025-01-12 22:57] LABS: Absolute Lymphocyte Count 0.43 X10^3/uL (0.83-4.51); Absolute Neutrophil Count 4.7 X10^3/uL (2.0-7.7); Basophil# 0.01 X10^3/uL; Basophil% 0.2 % (0-1); Eosinophil# 0.01 X10^3/uL; Eosinophils% 0.2 % (0-5); Hematocrit 32.5 % (37-47); Hemoglobin 11.5 g/dL (12.0-15.0); Lymphocyte # 0.43 X10^3/ul (0.83-4.51); Lymphocyte % 7.9 % (19-41); Mean Corp Hgb Conc 35.4 g/dL (32-36); Mean Corpuscular Hgb 35.4 pg (27.0-32.0); Mean Platelet Vol. 9.7 fl (6.2-12.0); Monocyte# 0.22 X10^3/uL; NRBC Flagged by Analyzer 0 % (0-5); Neutrophil # 4.73 X10^3/uL (2.7-7.7); POSITIVE DIFFERENTIAL YES; Platelet Count 197 K/mm3 (150-450); RBC Distribution Width CV 17.5 % (11.6-14.6); RBC Distribution Width SD 62.2 fl (35.1-43.9); Red Blood Count 3.25 M/mm3 (4.2-5.4); White Blood Count 5.4 K/mm3 (4.4-11.0)
[2025-01-12 23:14] LABS: Anion Gap 14 (5-15); BUN 69 mg/dL (4-19); BUN/Creat Ratio 23.4 RATIO (10-20); Carbon Dioxide 22.9 mmol/L (21.0-32.0); Chloride 97 mmol/L (98-108); Creatinine, Serum 2.94 mg/dL (0.70-1.20); EST Glomerular Filtration Rate 17 (>60); Glucose 115 mg/dL (70-99); Potassium 3.5 mmol/L (3.3-5.1); Sodium Level 133 mmol/L (133-145)
[2025-01-13] VITALS: BP 111/60; PULSE 75; RESP 12; TEMP 36.6; O2SAT 100
[2025-01-13 01:00] VITALS: BP 112/80; PULSE 68; RESP 12; O2SAT 99
== END 2025-01-13 01:00 | disposition home or self-care (01) ==
PROVIDERS: Emergency Provider Emergency Medicine; PCP Family Medicine; Visit Provider Emergency Medicine
DX: R11.2 Nausea with vomiting, unspecified (principal); C78.6 Secondary malignant neoplasm of retroperitoneum and peritoneum; R19.7 Diarrhea, unspecified; E86.0 Dehydration; Z87.891 Personal history of nicotine dependence; R79.89 Other specified abnormal findings of blood chemistry; Z85.3 Personal history of malignant neoplasm of breast; Z85.05 Personal history of malignant neoplasm of liver; Z90.11 Acquired absence of right breast and nipple
CPT/HCPCS: 80048; 83735; 85025; 96361; 96374; 99283; A4216; J2405

== ENCOUNTER 2025-01-14 10:18 | Inpatient (IN) | payer BC, SELFPAY ==
[2025-01-14] VITALS (10 sets, daily range): BP systolic 83–108; BP diastolic 55–77; PULSE 94–106; RESP 14–17; TEMP 36.3–37.1; O2SAT 92–100; BMI 24.7; BMI 22.0
--- NOTE | 2025-01-14 10:41 | EKG12_ITS ---
Test Reason : Blood Pressure : */* mmHG Vent. Rate : 94 BPM Atrial Rate : 94 BPM P-R Int : 186 ms QRS Dur : 68 ms QT Int : 354 ms P-R-T Axes : 65 81 65 degrees QTcB Int : 442 ms Normal sinus rhythm Septal infarct , age undetermined Abnormal ECG When compared with ECG of 22-Sep-2018 09:59, No significant change was found Confirmed by LORENZA RAY, GUERRERO ([id number]), subeditor MERLINE GUERRA ([id number]) on 01/19/2025 7:35:41 AM Referred By: Confirmed By: GUERRERO BRITT MD
[2025-01-14] MEDS: 0.9% Normal Saline (1000mL) 1,000 ML 999 ML IV ×2 (10:54→12:14)
--- NOTE | 2025-01-14 11:00 | EDS_ITS ---
HPI History of Present Illness Chief Complaint: Abn Labs Narrative Narrative: Patient is a 64-year-old female past medical history of peritoneal cancer with metastases, polycythemia, mitral valve prolapse, thyroid disease who presented to the emergency department the chief complaint of abnormal blood work by her oncologist. States that she was followed up with her oncologist today and was ultimately sent here for further evaluation management. Patient states that she feels extremely weak but has no other complaints at this point time. 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 Metastasis to liver Breast cancer Wears glasses Thyroid disease Former smoker History of stress test History of echocardiogram Cancer screening MVP (mitral valve prolapse) Polycythemia Home Medications ?Medication ?Instructions ?Recorded ?Last Taken ?Type acetaminophen 325 mg tablet 325 mg PO TID PRN Headache 03/28/17 Unknown History (Tylenol) ibuprofen 200 mg tablet 200 mg PO Q6H PRN Fever 02/28 11/14 Unknown History cholecalciferol (vitamin D3) 50 2,000 unit PO DAILY Lopez pplement 09/27/17 Unknown History mcg (2,000 unit) capsule (Vitamin D3) multivitamin 1 tab PO DAILY 01/03/24 Unkn own History omega-3 fatty acids-fish oil 360 1 cap PO DAILY 04/13/24 History mg-1,200 mg capsule (Fish Oil) ondansetron 4 mg disintegrating 4 mg PO Q8H PRN nausea and 05/28/24 Unknown Rx tablet vomiting #30 tabs abemaciclib 150 mg tablet 150 mg PO BID 30 days #60 ta bs 06/17/24 01/13/25 Rx levothyroxine 125 mcg tablet 125 mcg PO DAILY 09/16/24 01/14/25 History fulvestrant 250 mg/5 mL 500 mg (10 mL) IM .COMPLEX # 10 mL 12/29/24 01/08/25 Rx intramuscular syringe (Faslodex) Allergy/AdvReac Type Severity Reaction Status Date / Time No Known Allergies Allergy Verified 01/08/25 11:55 Family History Father Esophageal cancer Surgical History Hx of colonoscopy History of right mastectomy History of bone marrow biopsy Social History Smoking Status: Former smoker ROS ROS ED ROS Narrative Constitutional: Denies any fevers, chills, headaches Eyes: Denies changes double vision blurry vision Cardiovascular: Denies chest pain or palpitations Respiratory: Complains of shortness of breath Abdomen: Complains of abdominal tension states that she is due for paracentesis today, denies nausea vomit diarrhea : Denies urinary symptoms Neurological: Denies numbness, weakness, tingling Musculoskeletal: Complains of bilateral lower extremity swelling up to her knees states this has been going on for few weeks now has been getting worse Skin: Denies rashes or lesions EXAM Physical Exam Narrative Exam Narrative: General: Patient was lying in bed rest comfortably did not appear to be in acute distress Head: Atraumatic, normocephalic Eyes: PERRL bilaterally, EOMI bladder, no conjunctival injection noted Neck: Soft, supple and trachea midline Cardiovascular: Patient tachycardic with a regular rhythm no murmurs gallops rubs noted Respiratory: Clear to auscultation bilaterally Abdomen: Soft, distended, mild tenderness palpation throughout her entire abdomen no rebound or guarding on exam Extremities: Patient has 2+ pitting edema in the bilateral lower extremities, +4/5 strength noted in the bilateral upper and lower extremities Neurological: Patient following commands and that she was at [facility] year is 2024 Skin: Warm, dry, intact Const Vital Signs: 01/14/25 10:19 01/14/25 10:23 01/14/25 11:46 Temperature 97.4 F L 97.4 F L Temperature Source Oral Oral Pulse Rate 106 H 106 H Respiratory Rate 15 15 Blood Pressure 83/61 L 83/61 L Blood Pressure Mean 68 68 Pulse Ox 92 92 Oxygen Delivery Method Room Air Room Air Room Air 01/14/25 11:56 Temperature 97.6 F L Temperature Source Oral Pulse Rate 99 Respiratory Rate 14 Blood Pressure 108/77 Blood Pressure Mean 87 Pulse Ox Oxygen Delivery Method MDM MDM MDM Narrative Medical decision making narrative: Patient is a 64-year-old female who presented to the emerged part with a chief complaint of abnormal blood work obtained by her oncologist today. On the differential diagnose includes but not limited to CHF, worsening metastatic disease,, UTI, pneumonia. Once workup is obtained reviewed she will be reevaluated. Will not give the patient a full 30 cc/kg bolus of IV fluids based on concern for hypervolemic state with pitting edema in the bilateral extremities as well as dyspnea on exertion. Patient's CBC was reviewed showed no evidence leukocytosis white blood count normal 5.3, hemoglobin 0.8, plate count was noted be 179. Patient's absolute l neutrophil count was noted be normal at 4.6. Patient INR normal at 1.1, PT of 14.4. Patient sodium was 135, potassium normal at 4, creatinine was noted to be 3.48 which is elevated from her baseline but she does have underlying chronic kidney disease noted based on previous blood draws patient does have an anion gap of 18 as well but glucose noted be 92. Patient AST and ALT are 48 and 41 respectively with a alk phosphatase of 116 these have been chronically elevated in the past. Patient proBNP elevated 1191. Patient's chest x-ray reviewed by myself by radiology which showed no acute cardiopulmonary processes. Patient CT abdomen pelvis without contrast showed redemonstration of peritoneal carcinomatosis including increasing large volume presumed malignant ascites with redemonstrated omental nodularity/caking, poorly delineated notable in the absence of IV contrast. Notable ill-defined soft tissue prominence in the bilateral adnexa difficult to delineate from adjacent bowel loops. Recommended clinical/oncological follow-up. Similar slitlike appearance of the IVC could relate to relative and persistent hypovolemia. Patient has scattered tiny bony sclerotic foci grossly similar and may reflect bone islands however recommend clinical follow-up. Will discuss case with hospitalist for admission for her worsening renal function, increasing bilateral lower extremity swelling with dyspnea on exertion, need for paracentesis Discussed case with hospitalist Dr. Szymanski who accept patient for admission. We will hold off on any diuretics right now as she is likely intravascular depleted with evidence of third spacing. Did discuss the results with the patient and family at bedside they are agreeable spinal cord concerns answered. Lab Data Labs: Laboratory Results - last 24 hr 01/14/25 10:45 WBC 5.3 RBC 3.31 L Hgb 11.8 L Hct 33.7 L MCV 101.8 H MCH 35.6 H MCHC 35.0 RDW Std Deviation 66.4 H RDW Coeff of Dominic 18.3 H Plt Count 179 MPV 9.8 Immature Gran % (Auto) 0.400 Neut % (Auto) 85.3 H Lymph % (Auto) 9.0 L [place] % (Auto) 4.7 Eos % (Auto) 0.4 Baso % (Auto) 0.2 Absolute Neuts (auto) 4.6 Absolute Lymphs (auto) 0.48 L Nucleated RBC % 0 Anisocytosis RARE PT 14.4 INR 1.1 APTT 24.4 Lactic Acid 2.0 Total Bilirubin 0.48 Direct Bilirubin 0.27 AST 48 H ALT 41 H Alkaline Phosphatase 116 H NT pro BNP II 1191 H Total Protein 5.9 Albumin 2.6 L Globulin 3.3 Radiography Diagnostic Testing: Clinical Impression(s) from Imaging Studies Chest X-Ray 01/14/25 11:15 IMPRESSION: No acute cardiopulmonary process. Reading Location: [facility] Abdomen/Pelvis CT 01/14/25 11:37 IMPRESSION: 1. Redemonstrated peritoneal carcinomatosis including increasing large volume presumed malignant ascites with redemonstrated omental nodularity/caking, poorly delineated notably in the absence of IV contrast. Notably, ill-defined soft tissue prominence in the bilateral adnexa is difficult to delineate from adjacent bowel loops. Recommend clinical/oncologic follow-up. 2. Similar slit-like appearance of the IVC. Although this could be related to relative and persistent hypovolemia, correlate for clinical evidence of abdominal compartment syndrome as can occur with large volu me free fluid. 3. Scattered tiny bony sclerotic foci are grossly similar and may reflect bone islands however recommend clinical follow-up to ensure stability, given the context. 4. Additional description as above. Reading Location: [facility] Discharge Plan Triage Chief Complaint: Abn Labs ED Provider: Isai Eli Dx/Rx/DC Orders Clinical Impression: Dyspnea on exertion, Localized swelling of both lower legs, Abdominal ascites, Carcinoma of peritoneum Prescriptions: No Action omega-3 fatty acids-fish oil [Fish Oil] 360-1,200 mg capsule 1 cap PO DAILY multivitamin Tablet 1 tab PO DAILY ondansetron 4 mg tablet,disintegrating 4 mg PO Q8H PRN (Reason: nausea and vomiting) Qty: 30 1RF levothyroxine 125 mcg tablet 125 mcg PO DAILY fulvestrant [Faslodex] 250 mg/5 mL syringe 500 mg IM .COMPLEX Qty: 10 12RF Patient Comments: pt takes on Rx Instructions: 500 mg intramuscularly; may divide dose into 2 equally divided injections; one into each buttock, days 1, 15 (cycle 1 loading) then every 4 weeks acetaminophen [Tylenol] 325 MG tablet 325 mg PO TID PRN (Reason: Headache) ibuprofen 200 MG tablet 200 mg PO Q6H PRN (Reason: Fever) cholecalciferol (vitamin D3) [Vitamin D3] 2,000 UNIT capsule 2,000 unit PO DAILY abemaciclib 150 mg tablet 150 mg PO BID 30 Days Qty: 60 12RF Primary Care Provider: Eldon Proctor Referrals: Eldon Proctor MD [Primary Care Provider] - Print Language: Palauan Disposition Disposition: Acute Care Hospital [facility]
[2025-01-14 11:08] LABS: Absolute Lymphocyte Count 0.48 X10^3/uL (0.83-4.51); Absolute Neutrophil Count 4.6 X10^3/uL (2.0-7.7); Basophil# 0.01 X10^3/uL; Basophil% 0.2 % (0-1); Eosinophil# 0.02 X10^3/uL; Eosinophils% 0.4 % (0-5); Hematocrit 33.7 % (37-47); Hemoglobin 11.8 g/dL (12.0-15.0); Lymphocyte # 0.48 X10^3/ul (0.83-4.51); Mean Corpuscular Hgb 35.6 pg (27.0-32.0); Mean Corpuscular Volume 101.8 fL (81-99); Mean Platelet Vol. 9.8 fl (6.2-12.0); Monocyte# 0.25 X10^3/uL; Monocyte% 4.7 % (0-10); NRBC Flagged by Analyzer 0 % (0-5); Neutrophil # 4.55 X10^3/uL (2.7-7.7); Neutrophil % 85.3 % (47-70); POSITIVE DIFFERENTIAL YES; POSITIVE MORPHOLOGY YES; Platelet Count 179 K/mm3 (150-450); RBC Distribution Width CV 18.3 % (11.6-14.6); RBC Distribution Width SD 66.4 fl (35.1-43.9); Red Blood Count 3.31 M/mm3 (4.2-5.4); White Blood Count 5.3 K/mm3 (4.4-11.0)
--- NOTE | 2025-01-14 11:15 | RAD_ITS ---
EXAM: XR Chest, 2 Views CLINICAL INDICATION: COUGH TECHNIQUE: Frontal and lateral views of the chest. COMPARISON: No relevant prior studies available. FINDINGS: LUNGS AND PLEURAL SPACES: Unremarkable. No consolidation. No pneumothorax. HEART: Unremarkable. No cardiomegaly. MEDIASTINUM: Unremarkable. Normal mediastinal contour. BONES/JOINTS: Unremarkable. No acute fracture. RAD/Chest PA and Lateral IMPRESSION: No acute cardiopulmonary process. Reading Location: [facility]
[2025-01-14 11:17] LABS: Differential Indicated SCAN CRITERIA MET
[2025-01-14 11:22] LABS: International Normalized Ratio 1.1; Prothrombin Time (Protime)PT. 14.4 SECONDS (11.7-14.9)
[2025-01-14 11:27] LABS: Partial Thromboplast Time 24.4 Seconds (24.1-36.2)
[2025-01-14 11:37] LABS: AST(SGOT) 48 U/L (<=31); Alanine Aminotransfer ALT/SGPT 41 U/L (<=34); Albumin, Serum 2.6 g/dL (3.4-4.8); Alkaline Phosphatase 116 U/L (35-104); Bilirubin, Direct 0.27 mg/dL (0.00-0.30); Globulin 3.3 g/dL (2.2-4.2); Protein, Total 5.9 g/dL (5.9-8.4); Total Bilirubin 0.48 mg/dL (0.00-1.30)
--- NOTE | 2025-01-14 11:37 | CT_ITS ---
PROCEDURE: ABDOMEN/PELVIS WITHOUT CONT 01/14/2025 REASON FOR EXAM: ABD PAIN , HX OF ASCITES AND PERITONEAL CANCER TECHNIQUE: CT abdomen and pelvis was performed without IV contrast. Multiplanar reformats were generated. PATIENT PREPARATION: Per protocol ORAL CONTRAST TYPE: None. CONTRAST: None. One or more dose reduction techniques were used (e.g., Automated exposure control, adjustment of the mA and/or kV according to patient size, use of iterative reconstruction technique. RADIATION DOSE SUMMARY: CTDlvol: 6.52 mGy DLP: 334.13 mGycm COMPARISON: 12/08/2024 FINDINGS: Note that evaluation of the abdominopelvic viscera, vasculature, and remaining soft tissues is limited in the absence of IV contrast. Lung bases: RIGHT mastectomy. At least trace aortic annular calcification. Small hiatal hernia. Similar slight elevation of the RIGHT hemidiaphragm. Liver: Mild scalloping of the surface of the liver, presumably related to peritoneal carcinomatosis, slightly increased along the posterior RIGHT lobe. Spleen: Unremarkable. Gallbladder: Grossly unremarkable, poorly visualized due to surrounding free fluid. Pancreas: Unremarkable. Adrenals: Unremarkable. Kidneys: Slightly increased RIGHT and new LEFT fullness of the largely extrarenal pelvis without dimas caliectasis/hydronephrosis. Bowel: Suboptimally evaluated given surrounding free fluid in the absence of IV contrast. No bowel dilatation. The sigmoid and some distal ileal loops are difficult to delineate from bilateral adnexal soft tissue prominence as below. Diverticulosis. Appendix is not identified. Lymph nodes: Grossly unremarkable. Vasculature: Atherosclerosis. Similar slit-like appearance of the IVC. Peritoneum: Increasing large volume free intraperitoneal fluid. Redemonstrated omental nodularity/caking. Bladder: Underdistended and suboptimally evaluated particularly in the absence of IV contrast, grossly unremarkable. Reproductive Organs: Poorly delineated in the absence of IV contrast and given surrounding free fluid. Grossly similar ill-defined adnexal soft tissue prominence which is difficult to delineate from adjacent bowel loops. Body Wall: Mild body wall edema has increased. Tiny fat containing umbilical/periumbilical hernia. Bones: Demineralization. Multilevel spondylosis. Scattered tiny bony sclerotic foci are grossly similar.. CT/Abdomen/Pelvis without Cont IMPRESSION: 1. Redemonstrated peritoneal carcinomatosis including increasing large volume p resumed malignant ascites with redemonstrated omental nodularity/caking, poorly delineated notably in the absence of IV contr ast. Notably, ill-defined soft tissue prominence in the bilateral adnexa is difficult to delineate from adjacent bowel loops. R ecommend clinical/oncologic follow-up. 2. Similar slit-like appearance of the IVC. Although this could be related to relative and persistent hypovolemia, correlate for clinical evidence of abdominal compartment syndrome as can occur with large vol ume free fluid. 3. Scattered tiny bony sclerotic foci are grossly similar and may reflect bone islands however recommend clinical follow-up to ensure stability, given the context. 4. Additional description as above. Reading Location: [facility]
[2025-01-14 11:42] LABS: Anisocytosis RARE
[2025-01-14 12:11] LABS: Pro- Brain NATRIURETIC PEPTIDE 1191 pg/mL (<=900)
[2025-01-14 12:40] LABS: Mucous, Urine 0 SEEN /hpf (<or=2+); Squamous Epithelial Cells - UA 0 SEEN /hpf (5-10)
--- NOTE | 2025-01-14 12:53 | US_ITS ---
PROCEDURE: KIDNEY AND BLADDER (USKI), 01/14/2025 REASON FOR EXAM: ELEVATED CREATININE TECHNIQUE: Grayscale and color/spectral doppler ultrasound of the kidneys and bladder was performed. COMPARISON: None FINDINGS: Exam reportedly limited by patient condition. Right kidney: 9.4 cm in length. Fullness of the extrarenal pelvis without dimas caliectasis/hydronephrosis. No visualized mass or calculus.. Left kidney: 9.1 cm in length. Fullness of the extrarenal pelvis without dimas caliectasis/hydronephrosis. No visualized mass or calculus.. Bladder: Underdistended and suboptimally evaluated; grossly unremarkable. Estimated volume 87 mL. Other: None. US/Kidney and Bladder IMPRESSION: 1. Fullness of the renal pelvis bilaterally, [id number], without c onvincing/dimas hydronephrosis. This has again new/increased from a prior CT 12/08/2024. If concern persists, consider a foll ow-up exam. 2. Additional description as above. Reading Location: [id number]
--- NOTE | 2025-01-14 12:53 | US_ITS ---
PROCEDURE: PARACENTESIS WITH US REASON FOR EXAM: MALIGNANT ASCITES Paracentesis. TECHNIQUE: The procedure as well as the benefits and possible complications including infection and bleeding were explained to the patient. Informed consent was obtained. The patient was in the supine position. The skin overlying the left lower quadrant was prepped and draped in the usual sterile fashion. Following local anesthetic application, a 5 [place] catheter was placed into the peritoneal cavity. Marc colored fluid was removed. A total of 3650 mL of fluid was withdrawn. The patient tolerated the procedure well. COMPARISON: None. FINDINGS: Successful paracentesis in the left lower quadrant as described. US/Paracentesis with US IMPRESSION: Successful paracentesis with removal of 3650 mL of marc colored fluid. The patient tolerated the procedure well. Reading Location: [place] [id number]
[2025-01-14 12:59] LABS: Color, Urine Yellow (Yellow); Glucose, Dipstick Normal (Normal); Ketone-Dipstick Negative (Negative); Leukocyte Esterase-Dipstick 25 /ul (Negative); Nitrite-Dipstick Negative (Negative); Occult Blood-Urine 10 /ul (Negative); Protein-Dipstick 30 mg/dl (Negative); Urine Bilirubin Dipstick Negative (Negative); Urine Clarity Sl. Cloudy (Clear); Urine Urobilinogen Normal (Normal)
[2025-01-14 13:08] LABS: Red Blood Cells-Urine 0 SEEN /hpf (0-5); White Blood Cells 0-5 SEEN /hpf (0-5)
[2025-01-14 13:09] LABS: Fine Granular Cast- Urine 0-5 SEEN /lpf (0-5)
[2025-01-14 13:10] LABS: Hyaline Cast 0-5 SEEN /lpf (0-5)
[2025-01-14 13:11] LABS: Bacteria 1+ /hpf (None Seen); Transitional Epithelial - Ur 0-5 SEEN /hpf (0-5)
[2025-01-14] MEDS: Lidocaine 2% (20 ml mdv) 20 ML Vial INFILT (14:03)
[2025-01-14] MEDS: Ondansetron 4 MG/2 ML Vial IV (14:52)
[2025-01-14] MEDS: 0.9% Saline Lock 10 ML Syringe IV ×2 (15:57→21:17)
[2025-01-14] MEDS: 0.9% Normal Saline (1000mL) 1,000 ML 125 ML IV (15:57)
--- NOTE | 2025-01-14 16:02 | PCM.HP.STD ---
HPI - General General Date of Admission: 01/14/25 Date of Service: 01/14/25 Chief Complaint: Abnormal outpatient lab HPI Narrative RADHA VAZQUEZ, is a 64 F who presents to the emergency room at [facility] after having labs drawn today which were abnormal showing an elevated creatinine and BUN. Patient had diarrhea over the weekend probably secondary to her medication for her breast cancer, her creatinine was noted to be elevated at 3.48 and BUN was 80. Patient's beta natruretic peptide was elevated at 1191, chest x-ray however did not show any evidence of congestive heart failure and the patient was not hypoxic. CBC showed a slightly low hemoglobin at 11.8, white blood cell count and platelet count were normal. Urinalysis was unremarkable. Patient had a CT of the abdomen and pelvis which showed peritoneal carcinomatosis including an increasing large volume presumed to be malignant ascites. Patient will be admitted to [place] [id number] for acute kidney injury and ascites from metastatic breast cancer, she will undergo a paracentesis today, I have also written for a renal ultrasound to make sure that the patient has no hydronephrosis. 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 Breast cancer Wears glasses Thyroid disease Former smoker History of stress test History of echocardiogram Cancer screening MVP (mitral valve prolapse) Polycythemia Home Medications ?Medication ?Instructions ?Recorded ?Last Taken ?Type acetaminophen 325 mg tablet 325 mg PO TID PRN Headache 03/28/17 Unknown History (Tylenol) ibuprofen 200 mg tablet 200 mg PO Q6H PRN Fever 03/28/17 Unknown History cholecalciferol (vitamin D3) 50 2,000 unit PO DAILY Supplement 09/27/17 Unknown History mcg (2,000 unit) capsule (Vitamin D3) multivitamin 1 tab PO DAILY 01/03/24 Unknown History omega-3 fatty acids-fish oil 360 1 cap PO DAILY 01/03/24 04/13/24 History mg-1,200 mg capsule (Fish Oil) ondansetron 4 mg disintegrating 4 mg PO Q8H PRN nausea and 05/28/24 Unknown Rx tablet vomiting #30 tabs abemaciclib 150 mg tablet 150 mg PO BID 30 days #60 tabs 06/17/24 01/13/25 Rx levothyroxine 125 mcg tablet 125 mcg PO DAILY 09/16/24 01/14/25 History fulvestrant 250 mg/5 mL 500 mg (10 mL) IM .COMPLEX #10 mL 12/29/24 01/08/25 Rx intramuscular syringe (Faslodex) Allergy/AdvReac Type Severity Reaction Status Date / Time No Known Allergies Allergy Verified 01/14/25 13:29 Family History Father Esophageal cancer Surgical History Hx of colonoscopy History of right mastectomy History of bone marrow biopsy Social History Smoking Status: Former smoker ROS Constitutional Constitutional: Denies anorexia, change in weight, chills, fatigue, fever(s), night sweats or weakness Eyes Eyes: Denies blurry vision, change in vision, discharge from eye(s) or eye pain Cardiovascular Cardiovascular: Denies chest pain, claudication, edema or palpitations Respiratory/Chest Respiratory/Chest: Denies cough, dyspnea, excessive phlegm production, hemoptysis, shortness of breath at rest or shortness of breath with exertion Gastrointestinal Gastrointestinal: Denies abdominal pain, coffee ground emesis, constipation, diarrhea, dyspepsia, hematemesis, hematochezia, melena, nausea or vomiting Genitourinary Genitourinary: Denies dysuria, hematuria, urinary frequency, urinary hesitancy, urinary incontinence or urinary urgency Musculoskeletal Musculoskeletal: Denies back pain, joint pain, joint stiffness, joint swelling, myalgias or neck pain Neurologic Neurologic: Denies abnormal gait, abnormal speech, dizziness, focal weakness, headache(s), loss of vision, numbness, other visual disturbances, paresthesias, syncope or tingling Psychiatric Psychiatric: Denies anxiety, cognitive impairment, depression, irritability, mood swings or suicidal ideation Endocrine Endocrinology: Denies change in body appearance, cold intolerance, excessive sweating, heat intolerance, polydipsia or polyuria Hematologic/Lymphatic Hematologic/Lymphatic: Denies none, anemia, easy bleeding, easy bruising or lymphadenopathy Allergic/Immunologic Allergic/Immunologic: Denies rhinitis, urticaria, eczemia or asthma Vital Signs Vital Signs Vital Signs: 01/14/25 10:19 01/14/25 10:23 01/14/25 11:46 Temperature 97.4 F L 97.4 F L Temperature Source Oral Oral Pulse Rate 106 H 106 H Respiratory Rate 15 15 Respiratory Effort Respiratory Depth Respiratory Pattern Blood Pressure 83/61 L 83/61 L Blood Pressure Mean 68 68 Blood Pressure Source Blood Pressure Position Blood Pressure Location Pulse Ox 92 92 Oxygen Delivery Method Room Air Room Air Room Air 01/14/25 11:56 01/14/25 13:29 01/14/25 14:00 Temperature 97.6 F L Temperature Source Oral Pulse Rate 99 101 H 97 Respiratory Rate 14 17 16 Respiratory Effort Respiratory Depth Respiratory Pattern Blood Pressure 108/77 103/72 107/76 Blood Pressure Mean 87 82 Blood Pressure Source Blood Pressure Position Blood Pressure Location Pulse Ox Oxygen Delivery Method Room Air 01/14/25 14:15 01/14/25 14:22 01/14/25 14:54 Temperature 98.7 F Temperature Source Pulse Rate 98 99 101 H Respiratory Rate 16 15 16 Respiratory Effort Respiratory Depth Respiratory Pattern Blood Pressure 98/63 92/67 99/77 Blood Pressure Mean 84 Blood Pressure Source Blood Pressure Position Blood Pressure Location Pulse Ox 94 Oxygen Delivery Method Room Air Room Air 01/14/25 15:23 01/14/25 15:37 Temperature 97.5 F L Temperature Source Oral Pulse Rate 94 Respiratory Rate 16 Respiratory Effort Normal Respiratory Depth Normal Respiratory Pattern Normal Blood Pressure 92/55 L Blood Pressure Mean 67 Blood Pressure Source Monitor Blood Pressure Position Semi-Fowlers Blood Pressure Location Left Arm Pulse Ox 98 Oxygen Delivery Method Room Air Room Air Weight Weight: 54.658 kg Body Mass Index (BMI) 22.0 Physical Exam Const alert, oriented x3 and no apparent distress Constitutional Narrative: Patient appears frail and tired General Appearance: cooperative, well kempt and well developed Orientation / Consciousness: awake, oriented to person, oriented to place and oriented to time HEENT normocephalic, head/scalp atraumatic, hearing grossly normal bilaterally and moist oral mucous membranes Eyes PERRL, EOMs intact bilaterally and conjunctivae normal Neck supple, no JVD, thyroid normal and no carotid bruits General: trachea midline Resp normal respiratory effort, no retractions, no use of accessory muscles and clear to auscultation bilaterally Auscultation: Negative for rales, rhonchi or wheezes Cardio regular rate, regular rhythm, S1 normal heart sound, S2 normal heart sound, no murmurs, no rub and no gallops GI normal to inspection, nondistended, normoactive bowel sounds, soft to palpation, non-tender and non-distended Extremity Extremity Narrative: Pitting edema is noted to be present in the lower legs bilaterally Skin no rashes or lesions noted General Skin Exam: no breakdown Neuro oriented x3, CN's II-XII intact bilaterally, no focal motor deficits and no sensory deficits noted Sensorium / Orientation: awake and alert Speech: speech normal Psych affect normal Results Lab / Micro Data 01/14/25 10:45 Labs: Laboratory Results - last 24 hr 01/14/25 10:45: WBC 5.3, RBC 3.31 L, Hgb 11.8 L, Hct 33.7 L, MCV 101.8 H, MCH 35.6 H, MCHC 35.0, RDW Std Deviation 66.4 H, RDW Coeff of Dominic 18.3 H, Plt Count 179, MPV 9.8, Immature Gran % (Auto) 0.400, Neut % (Auto) 85.3 H, Lymph % (Auto) 9.0 L, [place] % (Auto) 4.7, Eos % (Auto) 0.4, Baso % (Auto) 0.2, Absolute Neuts (auto) 4.6, Absolute Lymphs (auto) 0.48 L, Nucleated RBC % 0, Anisocytosis RARE, PT 14.4, INR 1.1, APTT 24.4, Lactic Acid 2.0, Total Bilirubin 0.48, Direct Bilirubin 0.27, AST 48 H, ALT 41 H, Alkaline Phosphatase 116 H, NT pro BNP II 1191 H, Total Protein 5.9, Albumin 2.6 L, Globulin 3.3 01/14/25 12:35: Urine Color Yellow, Urine Clarity Sl. Cloudy, Urine pH 5.0, Ur Specific [place] 1.020, Urine Protein 30 H, Urine Glucose (UA) Normal, Urine Ketones Negative, Urine Occult Blood 10 H, Urine Nitrite Negative, Urine Bilirubin Negative, Urine Urobilinogen Normal, Ur Leukocyte Esterase 25 H, Urine RBC 0 SEEN, Urine WBC 0-5 SEEN, Ur Squamous Epith Cells 0 SEEN, Ur Transition Epith Cell 0-5 SEEN, Urine Bacteria 1+, Hyaline Casts 0-5 SEEN, Fine Granular Casts 0-5 SEEN, Urine Mucus 0 SEEN Micro: Microbiology 01/14/25 11:04 Mucosa - Nose SARS-CoV-2, Influenza & RSV (PCR) - Final Imaging Radiology Impression Chest X-Ray 01/14/25 11:15 IMPRESSION: No acute cardiopulmonary process. Reading Location: [facility] Abdomen/Pelvis CT 01/14/25 11:37 IMPRESSION: 1. Redemonstrated peritoneal carcinomatosis including increasing large volume presumed malignant ascites with redemonstrated omental nodularity/caking, poorly delineated notably in the absence of IV contrast. Notably, ill-defined soft tissue prominence in the bilateral adnexa is difficult to delineate from adjacent bowel loops. Recommend clinical/oncologic follow-up. 2. Similar slit-like appearance of the IVC. Although this could be related to relative and persistent hypovolemia, correlate for clinical evidence of abdominal compartment syndrome as can occur with large volume free fluid. 3. Scattered tiny bony sclerotic foci are grossly similar and may reflect bone islands however recommend clinical follow-up to ensure stability, given the context. 4. Additional description as above. Reading Location: [id number] Paracentesis Ultrasound 01/14/25 12:53 IMPRESSION: Successful paracentesis with removal of 3650 mL of marc colored fluid. The patient tolerated the procedure well. Reading Location: [facility] Renal Ultrasound 01/14/25 12:53 IMPRESSION: 1. Fullness of the renal pelvis bilaterally, [id number], without convincing/dimas hydronephrosis. This has again new/increased from a prior CT 12/08/2024. If concern persists, consider a follow-up exam. 2. Additional description as above. Reading Location: [id number] Assessment & Plan Assessment/Plan (1) Prerenal acute renal failure: PLAN: Plan 1. Acute kidney injury-secondary to diarrhea from patient's antineoplastic medication (kinase inhibitor) and also secondary to poor oral intake at home-patient will will be admitted to [facility] 3, she will receive IV fluids and labs will be monitored. Patient will have an ultrasound of her kidneys to rule out hydronephrosis. #2 metastatic breast cancer with malignant ascites-patient will undergo a paracentesis today, her oncologist told me that she undergoes a paracentesis about every 2 weeks. #3 hypothyroidism-patient is on Synthroid Total clinical time spent by myself addressing the patient's medical issues, reviewing all of her data, and collaborating with patient's care team: 75 minutes Charges/Coding Visit Charges Inpatient E&M: 04054 Init Hosp L3
[2025-01-14] MEDS: Heparin Injection (Vial) 5,000 UNIT/ML VIAL 5000 UNIT SC (21:17)
[2025-01-15] MEDS: 0.9% Normal Saline (1000mL) 1,000 ML 125 ML IV ×2 (00:03→08:17)
[2025-01-15 02:10] VITALS: BP 98/58; PULSE 92; RESP 16; TEMP 36.6; O2SAT 100
[2025-01-15] MEDS: Levothyroxine 125 MCG Tablet PO (06:12)
[2025-01-15] MEDS: Menthol/Lanolin/Calamine/Znox 113 GM Tube 1 APPLIC TOPICAL ×3 (06:12→19:55)
[2025-01-15] MEDS: Phenylephrine 0.25%/Cocoa Btr 1 Rectal Supp 1 SUPP RC ×3 (06:12→22:03)
[2025-01-15 07:00] LABS: Anion Gap 14 (5-15); BUN 69 mg/dL (4-19); BUN/Creat Ratio 24.1 RATIO (10-20); Calcium,Total 7.4 mg/dL (7.6-11.0); Chloride 107 mmol/L (98-108); Creatinine, Serum 2.88 mg/dL (0.70-1.20); EST Glomerular Filtration Rate 18 (>60); Estimated Creatinine Clearance 15.61 ml/min (50-250); Glucose 91 mg/dL (70-99); Sodium Level 137 mmol/L (133-145)
[2025-01-15] MEDS: Heparin Injection (Vial) 5,000 UNIT/ML VIAL 5000 UNIT SC ×2 (08:17→22:03)
[2025-01-15] MEDS: Potassium Chloride Oral Tablet 20 MEQ 40 MEQ PO (08:17)
[2025-01-15 08:26] VITALS: BP 90/61; PULSE 96; RESP 16; TEMP 36.8; O2SAT 99
--- NOTE | 2025-01-15 09:15 | PCM.PN.HOSP ---
Reason for Visit Reason for Visit: Diagnoses Acute kidney failure, unspecified (01/14/25) Subjective Subjective Patient was seen and examined today, she has no complaints to this examiner, patient's creatinine today was 2.88 and BUN was 69, patient's potassium was low at 3. Objective Data Objective Data Vital Signs: Vital Signs Temp Pulse Resp BP Pulse Ox O2 Del Method 98.2 F 96 16 90/61 99 Room Air 01/15/25 08:26 01/15/25 08:26 01/15/25 08:26 01/15/25 08:26 01/15/25 08:26 01/15/25 08:26 Oxygen Delivery Method Room Air Weight: 54.658 kg Body Mass Index (BMI) 22.0 Intake & Output: Intake and Output for Last 24 Hours 01/13/25 01/14/25 01/15/25 23:59 23:59 23:59 Intake Total 3000 / 3000 1000 / 1000 Output Total 3650 / 3650 Balance -650 / -650 1000 / 1000 Lab / Micro Data 01/14/25 10:45 01/15/25 04:45 Labs: Laboratory Results - last 24 hr 01/14/25 10:45: WBC 5.3, RBC 3.31 L, Hgb 11.8 L, Hct 33.7 L, MCV 101.8 H, MCH 35.6 H, MCHC 35.0, RDW Std Deviation 66.4 H, RDW Coeff of Dominic 18.3 H, Plt Count 179, MPV 9.8, Immature Gran % (Auto) 0.400, Neut % (Auto) 85.3 H, Lymph % (Auto) 9.0 L, [place] % (Auto) 4.7, Eos % (Auto) 0.4, Baso % (Auto) 0.2, Absolute Neuts (auto) 4.6, Absolute Lymphs (auto) 0.48 L, Nucleated RBC % 0, Anisocytosis RARE, PT 14.4, INR 1.1, APTT 24.4, Lactic Acid 2.0, Total Bilirubin 0.48, Direct Bilirubin 0.27, AST 48 H, ALT 41 H, Alkaline Phosphatase 116 H, NT pro BNP II 1191 H, Total Protein 5.9, Albumin 2.6 L, Globulin 3.3 01/14/25 12:35: Urine Color Yellow, Urine Clarity Sl. Cloudy, Urine pH 5.0, Ur Specific [place] 1.020, Urine Protein 30 H, Urine Glucose (UA) Normal, Urine Ketones Negative, Urine Occult Blood 10 H, Urine Nitrite Negative, Urine Bilirubin Negative, Urine Urobilinogen Normal, Ur Leukocyte Esterase 25 H, Urine RBC 0 SEEN, Urine WBC 0-5 SEEN, Ur Squamous Epith Cells 0 SEEN, Ur Transition Epith Cell 0-5 SEEN, Urine Bacteria 1+, Hyaline Casts 0-5 SEEN, Fine Granular Casts 0-5 SEEN, Urine Mucus 0 SEEN 01/15/25 04:45: Sodium 137, Potassium 3.0 L, Chloride 107, Carbon Dioxide 16.0 L, Anion Gap 14, BUN 69 H, Creatinine 2.88 H, Estim Creat Clear Calc 15.61 L, Est GFR (MDRD) Non-Af 18 L, BUN/Creatinine Ratio 24.1 H, Glucose 91, Calcium 7.4 L Micro: Microbiology 01/14/25 11:04 Mucosa - Nose SARS-CoV-2, Influenza & RSV (PCR) - Final Radiography Diagnostic Testing: Radiology Impression Chest X-Ray 01/14/25 11:15 IMPRESSION: No acute cardiopulmonary process. Reading Location: [facility] Abdomen/Pelvis CT 01/14/25 11:37 IMPRESSION: 1. Redemonstrated peritoneal carcinomatosis including increasing large volume presumed malignant ascites with redemonstrated omental nodularity/caking, poorly delineated notably in the absence of IV contrast. Notably, ill-defined soft tissue prominence in the bilateral adnexa is difficult to delineate from adjacent bowel loops. Recommend clinical/oncologic follow-up. 2. Similar slit-like appearance of the IVC. Although this could be related to relative and persistent hypovolemia, correlate for clinical evidence of abdominal compartment syndrome as can occur with large volume free fluid. 3. Scattered tiny bony sclerotic foci are grossly similar and may reflect bone islands however recommend clinical follow-up to ensure stability, given the context. 4. Additional description as above. Reading Location: [id number] Paracentesis Ultrasound 01/14/25 12:53 IMPRESSION: Successful paracentesis with removal of 3650 mL of marc colored fluid. The patient tolerated the procedure well. [facility] 01/14/25 12:53 IMPRESSION: 1. Fullness of the renal pelvis bilaterally, [id number], without convincing/dimas hydronephrosis. This has again new/increased from a prior CT 12/08/2024. If concern persists, consider a follow-up exam. 2. Additional description as above. Reading Location: [facility] Physical Exam Narrative alert, oriented x3 and no apparent distress Constitutional Narrative: Patient appears frail and tired General Appearance: cooperative, well kempt and well developed Orientation / Consciousness: awake, oriented to person, oriented to place and oriented to time HEENT normocephalic, head/scalp atraumatic, hearing grossly normal bilaterally and moist oral mucous membranes Eyes PERRL, EOMs intact bilaterally and conjunctivae normal Neck supple, no JVD, thyroid normal and no carotid bruits General: trachea midline Resp normal respiratory effort, no retractions, no use of accessory muscles and clear to auscultation bilaterally Auscultation: Negative for rales, rhonchi or wheezes Cardio regular rate, regular rhythm, S1 normal heart sound, S2 normal heart sound, no murmurs, no rub and no gallops GI normal to inspection, nondistended, normoactive bowel sounds, soft to palpation, non-tender and non-distended Extremity Extremity Narrative: Pitting edema is noted to be present in the lower legs bilaterally Skin no rashes or lesions noted General Skin Exam: no breakdown Neuro oriented x3, CN's II-XII intact bilaterally, no focal motor deficits and no sensory deficits noted Sensorium / Orientation: awake and alert Speech: speech normal Psych affect normal Assessment & Plan Assessment/Plan (1) Elevated serum creatinine: (2) Prerenal acute renal failure: PLAN: Plan 1. Acute kidney injury-secondary to diarrhea from patient's antineoplastic medication (kinase inhibitor) and also secondary to poor oral intake at home-patient's creatinine is improved, I will continue IV fluids and repeat labs tomorrow #2 metastatic breast cancer with malignant ascites-patient will undergo a paracentesis today, her oncologist told me that she undergoes a paracentesis about every 2 weeks. #3 hypothyroidism-patient is on Synthroid #4 hypokalemia-patient was given oral potassium chloride, BMP will be repeated tomorrow Total clinical time spent by myself addressing the patient's medical issues, reviewing all of her data, and collaborating with patient's care team: 35 minutes Charges/Coding Visit Charges Inpatient E&M: 49470 Subs Hosp L2
[2025-01-15 11:05] VITALS: BP 92/53; PULSE 90; RESP 16; TEMP 36.8; O2SAT 99
--- NOTE | 2025-01-15 12:24 | CASEMGMT ---
RN CM NOTE: RN CM to room to complete initial RN CM assessment. Introduced self. Pt sitting up in chair. 3 visitors in room, pt requests RN CM to return @ a later time. Aren LOPEZ CM
--- NOTE | 2025-01-15 12:39 | CASEMGMT ---
Discharge Planning A list of?SNF providers including quality and resource use data and consistent with the patient's preferred geographic region, medical needs, and insurance network was created in [employer] Guide.? This list was provided to the SW. Jana Downs Discharge Planning Asst.
--- NOTE | 2025-01-15 15:23 | CASEMGMT ---
Addendum entered by Tyler Cox 01/15/25 16:25: Per pt, [facility] is her 1st choice. 2nd choice is [facility]. 3rd choice is [facility]. FRANTZ Bates dam tender assistant, to send referrals. Per Dr Szymanski, he anticipates pt will be medically ready to dc tomorrow. Original Note: RN CM GEOTHERMAL OPERATIONS ENGINEER CM?to room to meet with patient for initial transition planning/care coordination assessment. RN CM?introduced self and role at [facility]. Pt voices understanding and consents to assessment?at this time. Pt resting in bed in no distress at this time. Pt is A/O at this time and answers all questions appropriately. Care providers, pharmacy, and demographics verified/updated at this time. Strata:?3 PCP: Dr Proctor Specialists: Dr Hyde and Kim Lucas, T[facility]NER--oncology [facility]acy: [facility] Insurance: [place] Prescription Benefit: Yes LNOK: 2 sons, Colin and Steven Living Arrangements: Lives alone in 2-story home w/3 steps to enter. Bedroom is upstairs. No bathroom upstairs. Bathroom is on main floor. Pt states has had to mostly sleep on the couch since Sat/Sun d/t weakness/difficulty navigating stairs. States also started having difficulty managing @ home the past couple weeks d/t weakness and poor appetite/intake. Transportation:?Pt drives. DME: Denies using any DME. Does not have a walker @ home. HHC/SNF: No hx of either. Discussed discharge planning. Pt states would like to go to SNF @ dc to regain her strength before returning home. SNF list that was prepared by frantz Bates dam tender assistant, provided to pt. She would like to review the list w/her son. JOHN TORRES will f/u with pt for preferences. Pt voices no further concerns/needs at this time. Advised pt to ask for CM?if any further questions/concerns/needs arise. Voices understanding. PLAN: SNF Aren PATELN [facility]
[2025-01-15] MEDS: KCL 20MEQ in D5.45NS 20 MEQ/1,000 ML IV.SOLN. 100 MEQ IV (16:18)
[2025-01-15 16:40] VITALS: BP 88/60; PULSE 90; RESP 16; TEMP 36.6; O2SAT 97
[2025-01-15] MEDS: Diphenoxylate/Atrop 1 Tablet 2 TABLET PO (19:51)
[2025-01-15 20:00] VITALS: BP 100/60; PULSE 95; RESP 16; TEMP 36.7; O2SAT 98
[2025-01-16] MEDS: KCL 20MEQ in D5.45NS 20 MEQ/1,000 ML IV.SOLN. 100 MEQ IV (02:25)
[2025-01-16] MEDS: Diphenoxylate/Atrop 1 Tablet 2 TABLET PO (02:30)
[2025-01-16 02:43] VITALS: BP 98/56; PULSE 83; RESP 16; TEMP 37.1; O2SAT 100
[2025-01-16 05:07] LABS: Anion Gap 9 (5-15); BUN 53 mg/dL (4-19); BUN/Creat Ratio 22.5 RATIO (10-20); Calcium,Total 7.2 mg/dL (7.6-11.0); Carbon Dioxide 15.6 mmol/L (21.0-32.0); Chloride 111 mmol/L (98-108); Creatinine, Serum 2.35 mg/dL (0.70-1.20); EST Glomerular Filtration Rate 23 (>60); Estimated Creatinine Clearance 19.13 ml/min (50-250); Glucose 128 mg/dL (70-99); Potassium 3.8 mmol/L (3.3-5.1); Sodium Level 136 mmol/L (133-145)
[2025-01-16] MEDS: Menthol/Lanolin/Calamine/Znox 113 GM Tube 1 APPLIC TOPICAL ×3 (05:56→21:46)
[2025-01-16] MEDS: Levothyroxine 125 MCG Tablet PO (05:56)
[2025-01-16 10:00] VITALS: BP 101/65; PULSE 85; PULSE 86; RESP 18; TEMP 36.9; O2SAT 100
[2025-01-16] MEDS: Heparin Injection (Vial) 5,000 UNIT/ML VIAL 5000 UNIT SC ×2 (10:11→21:44)
--- NOTE | 2025-01-16 12:40 | CASEMGMT ---
JOHN TORRES NOTE: Per pt, she takes oral abemaciclib 2 x's/day (currently on hold) and she has that @ home and can take them to the SNF, if it is resumed. She states she is due to get her next Faslodex injection [facility] and after that it will be due monthly. margarette Bates geriatric assistant, made aware. Aren CAUSEY RN CM
--- NOTE | 2025-01-16 13:52 | CASEMGMT ---
Discharge Planning Referral sent to [facility], and [facility]. [facility] and [facility] declined. [facility] has accepted. SW updated. Jana Downs DC Planning Asst.
[2025-01-16] MEDS: KCL 20MEQ in D5.45NS 20 MEQ/1,000 ML IV.SOLN. 75 MEQ IV (13:56)
--- NOTE | 2025-01-16 14:04 | CASEMGMT ---
[facility] has accepted and will submit for precert. Jana Downs DC Planning Asst.
[2025-01-16 14:11] VITALS: PULSE 94; RESP 18; O2SAT 96
--- NOTE | 2025-01-16 14:19 | CASEMGMT ---
Social Work [facility] are not able to accept pt but [facility] is. SW met with pt and informed of this. Pt is agreeable to discharge to [facility]. Precert will be needed and pt will be here through the weekend until this is obtained. Precert started at this time. Plan: [facility], pending precert JANETTE Huang
[2025-01-16 14:33] VITALS: BP 101/60; PULSE 94; RESP 18; TEMP 36.7; O2SAT 96
--- NOTE | 2025-01-16 15:13 | PN.HOSP_ITS ---
Reason for Visit Reason for Visit: Diagnoses Acute kidney failure, unspecified (01/14/25) Other specified abnormal findings of blood chemistry (01/14/25) Subjective Subjective Patient was seen and examined today, she has decided to go to residential facility for short-term rehab. Patient's creatinine today was 2.35 and BUN was 53. Potassium was normal. I have elected to give the patient fluids for 1 more day. BMP will be rechecked tomorrow Objective Data Objective Data Vital Signs: Vital Signs Temp Pulse Resp BP Pulse Ox O2 Del Method 98.1 F 94 18 101/60 96 Room Air 01/16/25 14:33 01/16/25 14:33 01/16/25 14:33 01/16/25 14:33 01/16/25 14:33 01/16/25 14:33 Oxygen Delivery Method Room Air Weight: 54.658 kg Body Mass Index (BMI) 22.0 Intake & Output: Intake and Output for Last 24 Hours 01/14/25 01/15/25 01/16/25 23:59 23:59 23:59 Intake Total 3000 / 3000 1999 1854 / 1854 Output Total 3650 / 3650 Balance -650 / -650 1999 Medical Nutrition Assessment Dietitian: Malnutrition Criteria Met Start: 01/15/25 10:53 Freq: Status: Active Protocol: Document 01/15/25 10:53 LO (Rec: 01/15/25 10:53 LO [id number]) Nutrition Malnutrition Evidence of Yes Malnutrition Exists Malnutrition (severe Chronic ): Evidenced By Suboptimal Energy Intake (Severe),Weight Loss (Severe) Clinical Problem Chronic Disease or Condition Related Malnutrition Etiology relate to breast cancer with mets to peritoneium and liver Signs/Symptoms as evidenced by PO intakes <75% of estimated nutrition needs for >1 month and 46.1lbs (27.6%) unintentional weight loss in 1 year Status Active Problem Recommendation Dietitian Continue Regular diet to optimize oral intakes. Recommendations/ Will order orange cream magic cup TID with meals to Changes provide supplemental energy Lab / Micro Data 01/14/25 10:45 01/16/25 03:55 Labs: Laboratory Results - last 24 hr 01/16/25 03:55: Sodium 136, Potassium 3.8, Chloride 111 H, Carbon Dioxide 15.6 L , Anion Gap 9, BUN 53 H, Creatinine 2.35 H, Estim Creat Clear Calc 19.13 L, Est GFR (MDRD) Non-Af 23 L, BUN/Creatinine Ratio 22.5 H, Glucose 128 H, Calcium 7.2 L Micro: Microbiology 01/14/25 11:53 Blood Culture (Wb) - Arm Left Blood Culture - Preliminary No growth in 48 hours. 01/14/25 10:45 Blood Culture (Wb) - Anticubital Left Blood Culture - Preliminary No growth in 48 hours. 01/14/25 12:35 Urine, Clean Catch Urine Culture - Final Streptococcus group B 01/14/25 11:04 Mucosa - Nose SARS-CoV-2, Influenza & RSV (PCR) - Final Physical Exam Narrative alert, oriented x3 and no apparent distress Constitutional Narrative: Patient appears frail and tired General Appearance: cooperative, well kempt and well developed Orientation / Consciousness: awake, oriented to person, oriented to place and oriented to time HEENT normocephalic, head/scalp atraumatic, hearing grossly normal bilaterally and moist oral mucous membranes Eyes PERRL, EOMs intact bilaterally and conjunctivae normal Neck supple, no JVD, thyroid normal and no carotid bruits General: trachea midline Resp normal respiratory effort, no retractions, no use of accessory muscles and clear to auscultation bilaterally Auscultation: Negative for rales, rhonchi or wheezes Cardio regular rate, regular rhythm, S1 normal heart sound, S2 normal heart sound, no murmurs, no rub and no gallops GI normal to inspection, nondistended, normoactive bowel sounds, soft to palpation, non-tender and non-distended Extremity Extremity Narrative: Pitting edema is noted to be present in the lower legs bilaterally Skin no rashes or lesions noted General Skin Exam: no breakdown Neuro oriented x3, CN's II-XII intact bilaterally, no focal motor deficits and no sensory deficits noted Sensorium / Orientation: awake and alert Speech: speech normal Psych affect normal Assessment & Plan Assessment/Plan (1) Elevated serum creatinine: (2) Prerenal acute renal failure: PLAN: Plan 1. Acute kidney injury-secondary to diarrhea from patient's antineoplastic medication (kinase inhibitor) and also secondary to poor oral intake at home- patient's creatinine is improved, I will continue IV fluids and repeat labs tomorrow #2 metastatic breast cancer with malignant ascites-patient had 3650 mL of ascites removed by paracentesis on 01/15/2025 #3 hypothyroidism-patient is on Synthroid #4 hypokalemia-resolved at this time, BMP will be rechecked tomorrow Total clinical time spent by myself addressing the patient's medical issues, reviewing all of her data, and collaborating with patient's care team: 35 minutes Charges/Coding Visit Charges Inpatient E&M: 63145 Subs Hosp L2
--- NOTE | 2025-01-16 15:14 | CASEMGMT ---
RN MELISSA NOTE: Call placed to Bridget, Oncology Nurse Patient Navigator @ [facility], to provide update on pt and dc plan. No answer. VM left. She was made aware to f/u with MS3 RN MELISSA on Sunday w/any questions. Aren PATELN RN CM
[2025-01-16] MEDS: Phenylephrine 0.25%/Cocoa Btr 1 Rectal Supp 1 SUPP RC (21:46)
[2025-01-16 21:51] VITALS: BP 98/58; PULSE 90; RESP 16; TEMP 36.7; O2SAT 100
[2025-01-16 21:53] VITALS: O2SAT 100
[2025-01-17] MEDS: Ondansetron 4 MG/2 ML Vial IV ×2 (03:40→15:26)
[2025-01-17] MEDS: Menthol/Lanolin/Calamine/Znox 113 GM Tube 1 APPLIC TOPICAL ×3 (03:43→22:26)
[2025-01-17] MEDS: KCL 20MEQ in D5.45NS 20 MEQ/1,000 ML IV.SOLN. 75 MEQ IV (03:45)
[2025-01-17 03:50] VITALS: BP 110/78; PULSE 107; RESP 16; TEMP 36.7; O2SAT 100
[2025-01-17] MEDS: Levothyroxine 125 MCG Tablet PO (05:46)
[2025-01-17 06:18] LABS: Anion Gap 9 (5-15); BUN 48 mg/dL (4-19); BUN/Creat Ratio 22.1 RATIO (10-20); Calcium,Total 7.4 mg/dL (7.6-11.0); Carbon Dioxide 15.7 mmol/L (21.0-32.0); Chloride 109 mmol/L (98-108); Creatinine, Serum 2.19 mg/dL (0.70-1.20); EST Glomerular Filtration Rate 25 (>60); Estimated Creatinine Clearance 20.53 ml/min (50-250); Glucose 111 mg/dL (70-99); Potassium 4.4 mmol/L (3.3-5.1); Sodium Level 134 mmol/L (133-145)
[2025-01-17 08:15] VITALS: BP 80/55; PULSE 95; RESP 16; TEMP 36.9; O2SAT 99
--- NOTE | 2025-01-17 09:53 | PN.HOSP_ITS ---
Reason for Visit Reason for Visit: Diagnoses Acute kidney failure, unspecified (01/14/25) Other specified abnormal findings of blood chemistry (01/14/25) Subjective Subjective Patient was seen and examined today, creatinine is marginally better, I have decided not to give the patient any more fluid at this time. Objective Data Objective Data Vital Signs: Vital Signs Temp Pulse Resp BP Pulse Ox O2 Del Method 98.5 F 95 16 80/55 L 99 Room Air 01/17/25 08:15 01/17/25 08:15 01/17/25 08:15 01/17/25 08:15 01/17/25 08:15 01/17/25 08:15 Oxygen Delivery Method Room Air Weight: 54.658 kg Body Mass Index (BMI) 22.0 Intake & Output: Intake and Output for Last 24 Hours 01/15/25 01/16/25 01/17/25 23:59 23:59 23:59 Intake Total 1999 1854 / 1854 2400 / 2400 Balance 1999 1854 / 1854 2400 / 2400 Medical Nutrition Assessment Dietitian: Malnutrition Criteria Met Start: 01/15/25 10:53 Freq: Status: Active Protocol: Document 01/15/25 10:53 LO (Rec: 01/15/25 10:53 LO [id number]) Nutrition Malnutrition Evidence of Yes Malnutrition Exists Malnutrition (severe Chronic ): Evidenced By Suboptimal Energy Intake (Severe),Weight Loss (Severe) Clinical Problem Chronic Disease or Condition Related Malnutrition Etiology relate to breast cancer with mets to peritoneium and liver Signs/Symptoms as evidenced by PO intakes <75% of estimated nutrition needs for >1 month and 46.1lbs (27.6%) unintentional weight loss in 1 year Status Active Problem Recommendation Dietitian Continue Regular diet to optimize oral intakes. Recommendations/ Will order orange cream magic cup TID with meals to Changes provide supplemental energy Lab / Micro Data 01/14/25 10:45 01/17/25 05:41 Labs: Laboratory Results - last 24 hr 01/17/25 05:41: Sodium 134, Potassium 4.4, Chloride 109 H, Carbon Dioxide 15.7 L , Anion Gap 9, BUN 48 H, Creatinine 2.19 H, Estim Creat Clear Calc 20.53 L, Est GFR (MDRD) Non-Af 25 L, BUN/Creatinine Ratio 22.1 H, Glucose 111 H, Calcium 7.4 L Micro: Microbiology 01/14/25 11:53 Blood Culture (Wb) - Arm Left Blood Culture - Preliminary No growth in 48 hours. 01/14/25 10:45 Blood Culture (Wb) - Anticubital Left Blood Culture - Preliminary No growth in 48 hours. 01/14/25 12:35 Urine, Clean Catch Urine Culture - Final Streptococcus group B 01/14/25 11:04 Mucosa - Nose SARS-CoV-2, Influenza & RSV (PCR) - Final Physical Exam Narrative alert, oriented x3 and no apparent distress Constitutional Narrative: Patient appears frail and tired General Appearance: cooperative, well kempt and well developed Orientation / Consciousness: awake, oriented to person, oriented to place and oriented to time HEENT normocephalic, head/scalp atraumatic, hearing grossly normal bilaterally and moist oral mucous membranes Eyes PERRL, EOMs intact bilaterally and conjunctivae normal Neck supple, no JVD, thyroid normal and no carotid bruits General: trachea midline Resp normal respiratory effort, no retractions, no use of accessory muscles and clear to auscultation bilaterally Auscultation: Negative for rales, rhonchi or wheezes Cardio regular rate, regular rhythm, S1 normal heart sound, S2 normal heart sound, no murmurs, no rub and no gallops GI normal to inspection, nondistended, normoactive bowel sounds, soft to palpation, non-tender and non-distended Extremity Extremity Narrative: Pitting edema is noted to be present in the lower legs bilaterally Skin no rashes or lesions noted General Skin Exam: no breakdown Neuro oriented x3, CN's II-XII intact bilaterally, no focal motor deficits and no sensory deficits noted Sensorium / Orientation: awake and alert Speech: speech normal Psych affect normal Assessment & Plan Assessment/Plan (1) Prerenal acute renal failure: (2) Elevated serum creatinine: PLAN: Plan 1. Acute kidney injury-secondary to diarrhea from patient's antineoplastic medication (kinase inhibitor) and also secondary to poor oral intake at home- patient's creatinine is improved #2 metastatic breast cancer with malignant ascites-patient had 3650 mL of ascites removed by paracentesis on 01/15/2025 #3 hypothyroidism-patient is on Synthroid #4 hypokalemia-resolved at this time Total clinical time spent by myself addressing the patient's medical issues, reviewing all of her data, and collaborating with patient's care team: 35 minutes Charges/Coding Visit Charges Inpatient E&M: 99820 Subs Hosp L2
[2025-01-17 14:37] VITALS: BP 95/60; PULSE 98; RESP 18; TEMP 37.2; O2SAT 99
[2025-01-17] MEDS: 0.9% Saline Lock 10 ML Syringe IV ×2 (15:25→22:27)
[2025-01-17] MEDS: Phenylephrine 0.25%/Cocoa Btr 1 Rectal Supp 1 SUPP RC ×2 (15:27→22:28)
[2025-01-17 19:45] VITALS: BP 104/66; PULSE 102; RESP 16; TEMP 36.6; O2SAT 99
[2025-01-17] MEDS: Diphenoxylate/Atrop 1 Tablet 2 TABLET PO (19:47)
[2025-01-17 22:19] VITALS: BP 98/62; PULSE 98; RESP 16; TEMP 36.8; O2SAT 96
[2025-01-17] MEDS: proCHLORPERazine 10 MG/2 ML Vial 5 MG IV (22:21)
[2025-01-17] MEDS: Heparin Injection (Vial) 5,000 UNIT/ML VIAL 5000 UNIT SC (22:28)
[2025-01-18 04:14] VITALS: BP 96/60; PULSE 94; RESP 16; TEMP 36.9; O2SAT 100
[2025-01-18] MEDS: Menthol/Lanolin/Calamine/Znox 113 GM Tube 1 APPLIC TOPICAL ×3 (06:40→21:43)
[2025-01-18] MEDS: Levothyroxine 125 MCG Tablet PO (06:40)
[2025-01-18] MEDS: Heparin Injection (Vial) 5,000 UNIT/ML VIAL 5000 UNIT SC (08:44)
[2025-01-18 08:50] VITALS: BP 98/67; PULSE 91; RESP 16; TEMP 36.3; O2SAT 99
--- NOTE | 2025-01-18 10:27 | PN.HOSP_ITS ---
Reason for Visit Reason for Visit: Diagnoses Acute kidney failure, unspecified (01/14/25) Other specified abnormal findings of blood chemistry (01/14/25) Subjective Subjective Patient was seen and examined today, she voices no complaints to this examiner. Objective Data Objective Data Vital Signs: Vital Signs Temp Pulse Resp BP Pulse Ox O2 Del Method 97.4 F L 91 16 98/67 99 Room Air 01/18/25 08:50 01/18/25 08:50 01/18/25 08:50 01/18/25 08:50 01/18/25 08:50 01/18/25 08:50 Oxygen Delivery Method Room Air Weight: 54.658 kg Body Mass Index (BMI) 22.0 Intake & Output: Intake and Output for Last 24 Hours 01/16/25 01/17/25 01/18/25 23:59 23:59 23:59 Intake Total 1854 / 1854 4550 / 4550 400 / 400 Output Total 3970 / 3970 Balance 1854 / 1854 580 / 580 400 / 400 Medical Nutrition Assessment Dietitian: Malnutrition Criteria Met Start: 01/15/25 10:53 Freq: Status: Active Protocol: Document 01/15/25 10:53 LO (Rec: 01/15/25 10:53 LO [id number]) Nutrition Malnutrition Evidence of Yes Malnutrition Exists Malnutrition (severe Chronic ): Evidenced By Suboptimal Energy Intake (Severe),Weight Loss (Severe) Clinical Problem Chronic Disease or Condition Related Malnutrition Etiology relate to breast cancer with mets to peritoneium and liver Signs/Symptoms as evidenced by PO intakes <75% of estimated nutrition needs for >1 month and 46.1lbs (27.6%) unintentional weight loss in 1 year Status Active Problem Recommendation Dietitian Continue Regular diet to optimize oral intakes. Recommendations/ Will order orange cream magic cup TID with meals to Changes provide supplemental energy Lab / Micro Data 01/14/25 10:45 01/17/25 05:41 Micro: Microbiology 01/14/25 11:53 Blood Culture (Wb) - Arm Left Blood Culture - Preliminary No growth in 48 hours. 01/14/25 10:45 Blood Culture (Wb) - Anticubital Left Blood Culture - Preliminary No growth in 48 hours. 01/14/25 12:35 Urine, Clean Catch Urine Culture - Final Streptococcus group B 01/14/25 11:04 Mucosa - Nose SARS-CoV-2, Influenza & RSV (PCR) - Final Physical Exam Narrative alert, oriented x3 and no apparent distress Constitutional Narrative: Patient appears frail and tired General Appearance: cooperative, well kempt and well developed Orientation / Consciousness: awake, oriented to person, oriented to place and oriented to time HEENT normocephalic, head/scalp atraumatic, hearing grossly normal bilaterally and moist oral mucous membranes Eyes PERRL, EOMs intact bilaterally and conjunctivae normal Neck supple, no JVD, thyroid normal and no carotid bruits General: trachea midline Resp normal respiratory effort, no retractions, no use of accessory muscles and clear to auscultation bilaterally Auscultation: Negative for rales, rhonchi or wheezes Cardio regular rate, regular rhythm, S1 normal heart sound, S2 normal heart sound, no murmurs, no rub and no gallops GI normal to inspection, nondistended, normoactive bowel sounds, soft to palpation, non-tender and non-distended Extremity Extremity Narrative: Pitting edema is noted to be present in the lower legs bilaterally Skin no rashes or lesions noted General Skin Exam: no breakdown Neuro oriented x3, CN's II-XII intact bilaterally, no focal motor deficits and no sensory deficits noted Sensorium / Orientation: awake and alert Speech: speech normal Psych affect normal Assessment & Plan Assessment/Plan (1) Elevated serum creatinine: (2) Prerenal acute renal failure: PLAN: Plan 1. Acute kidney injury-secondary to diarrhea from patient's antineoplastic medication (kinase inhibitor) and also secondary to poor oral intake at home- patient's creatinine is improved #2 metastatic breast cancer with malignant ascites-patient had 3650 mL of ascites removed by paracentesis on 01/15/2025 #3 hypothyroidism-patient is on Synthroid #4 hypokalemia-resolved at this time #5 severe chronic protein and caloric malnutrition-as evidenced by p.o. intake less than 75% of estimated nutritional needs for more than a month and a 46.1 pound unintentional weight loss x 1 year-regular diet will be continued, Magic cup 3 times daily with meals will be provided, nutritional services will follow patient Total clinical time spent by myself addressing the patient's medical issues, reviewing all of her data, and collaborating with patient's care team: 35 minutes Charges/Coding Visit Charges Inpatient E&M: 55443 Subs Hosp L2
[2025-01-18 21:37] VITALS: BP 98/64; PULSE 97; RESP 16; TEMP 37.1; O2SAT 100
[2025-01-19] MEDS: 0.9% Saline Lock 10 ML Syringe IV ×2 (00:18→11:50)
[2025-01-19] MEDS: Ondansetron 4 MG/2 ML Vial IV (00:18)
[2025-01-19 03:34] VITALS: BP 98/67; PULSE 84; RESP 14; TEMP 36.9; O2SAT 100
[2025-01-19] MEDS: Levothyroxine 125 MCG Tablet PO (06:19)
[2025-01-19] MEDS: Menthol/Lanolin/Calamine/Znox 113 GM Tube 1 APPLIC TOPICAL (06:20)
[2025-01-19 07:50] LABS: Anion Gap 11 (5-15); BUN 52 mg/dL (4-19); BUN/Creat Ratio 21.1 RATIO (10-20); Carbon Dioxide 16.9 mmol/L (21.0-32.0); Chloride 107 mmol/L (98-108); Creatinine, Serum 2.47 mg/dL (0.70-1.20); EST Glomerular Filtration Rate 21 (>60); Glucose 95 mg/dL (70-99); Potassium 4.8 mmol/L (3.3-5.1); Sodium Level 135 mmol/L (133-145)
[2025-01-19 09:20] VITALS: BP 109/69; PULSE 81; RESP 18; TEMP 36.5; O2SAT 96
[2025-01-19] MEDS: Heparin Injection (Vial) 5,000 UNIT/ML VIAL 5000 UNIT SC (09:24)
[2025-01-19] MEDS: proCHLORPERazine 10 MG/2 ML Vial 5 MG IV (11:50)
--- NOTE | 2025-01-19 11:58 | CASEMGMT ---
Yennifer has obtained auth to admit. SW updated. Jana Downs DC Planning Asst.
--- NOTE | 2025-01-19 12:56 | CON.PCM.RE_ITS ---
Assessment & Plan Assessment/Plan (1) NATHALY (acute kidney injury): (2) Breast cancer: QUALIFIERS: Breast location: unspecified site of breast Estrogen receptor status: positive Patient sex: female Laterality: right Qualified Code(s): C50.911 - Malignant neoplasm of unspecified site of right female breast; Z17.0 - Estrogen receptor positive status [ER+] PLAN: Plan This is a pleasant 64-year-old female with past medical history significant for breast cancer with metastasis who was admitted to the hospital for NATHALY. Baseline creatinine is around 1.3 mg/dL. Creatinine peak was on January 14, her creatinine is 3.48 mg/dL. On January 17 creatinine 2.19 and today creatinine 2.47 mg/dL. Likely NATHALY multifactorial from poor renal perfusion from hypotension (patient has had low blood pressure since admission), likely component from intravascular volume depletion with poor oral solute intake. With IV fluids serum creatinine improved. The patient is also having diarrhea. She does have some significant lower extremity edema, third spacing of fluids, albumin is 2.6. Renal ultrasound no visualized mass or calculus, fullness of extrarenal pelvis without dimas hydronephrosis. Patient has not had any JODY inhibitors, ARBs or diuretics. 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 Encouraged patient to try and increase solute and fluid intake as best as she can. No recent NSAIDs and reviewed with patient importance of avoiding NSAIDs in outpatient setting. Quite possibly patient to be discharged to ECF. We can monitor labs on outpatient basis and follow-up in office. Nephrology plan reviewed with Dr. Szymanski. Assessment and plan reviewed with Dr. Nicolas. Thank you for allowing us to participate in the care of Ms. Gore. HPI Consult Data Date of Consult: 01/19/25 HPI Narrative HPI Narrative: RADHA GORE, is a 64 F who presented emergency room due to abnormal lab work, elevated BUN and creatinine on January 14. Patient was admitted for NATHALY. Patient has history of metastatic breast cancer with malignant ascites. Nephrology consulted in view of NAHTALY. Today patient states that appetite is poor, she has been having diarrhea. Not much of an appetite as food taste like sawdust. Denies any issues with urinating. On admission 01/14 creatinine was 3.48, since then creatinine has slowly been improving, on 01/17 creatinine 2.19, today creatinine is 2.47 mg/dL. 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 Metastasis to liver Breast cancer Wears glasses Thyroid disease Former smoker History of stress test History of echocardiogram Cancer screening MVP (mitral valve prolapse) Polycythemia Home Medications ?Medication ?Instructions ?Recorded ?Last Taken ?Type acetaminophen 325 mg tablet 325 mg PO TID PRN Headache 03/28/17 Unknown History (Tylenol) ibuprofen 200 mg tablet 200 mg PO Q6H PRN Fever 02/28 11/14 Unknown History cholecalciferol (vitamin D3) 50 2,000 unit PO DAILY Lopez pplement 09/27/17 Unknown History mcg (2,000 unit) capsule (Vitamin D3) multivitamin 1 tab PO DAILY 01/03/24 Unkn own History omega-3 fatty acids-fish oil 360 1 cap PO DAILY 04/13/24 History mg-1,200 mg capsule (Fish Oil) ondansetron 4 mg disintegrating 4 mg PO Q8H PRN nausea and 05/28/24 Unknown Rx tablet vomiting #30 tabs abemaciclib 150 mg tablet 150 mg PO BID 30 days #60 ta bs 06/17/24 01/13/25 Rx levothyroxine 125 mcg tablet 125 mcg PO DAILY 09/16/24 01/14/25 History fulvestrant 250 mg/5 mL 500 mg (10 mL) IM .COMPLEX # 10 mL 12/29/24 01/08/25 Rx intramuscular syringe (Faslodex) Allergy/AdvReac Type Severity Reaction Status Date / Time No Known Allergies Allergy Verified 01/14/25 13:29 Family History Father Esophageal cancer Surgical History Hx of colonoscopy History of right mastectomy History of bone marrow biopsy Social History Smoking Status: Former smoker ROS ROS Narrative As in HPI Physical Exam Narrative Alert and oriented x 3, no apparent distress S1, S2, RRR Lung sounds clear anteriorly and posteriorly. No wheezes, rhonchi or rales. On room air Abdomen soft, nontender Pitting edema bilateral lower legs Medical Records Data Medical Nutrition Assessment Dietitian: Malnutrition Criteria Met Start: 01/15/25 10:53 Freq: Status: Active Protocol: Document 01/19/25 12:28 SLA (Rec: 01/19/25 12:28 SLA [id number]) Nutrition Malnutrition Evidence of Yes Malnutrition Exists Malnutrition (severe Chronic ): Evidenced By Suboptimal Energy Intake (Severe),Weight Loss (Severe) Clinical Problem Chronic Disease or Condition Related Malnutrition Etiology relate to breast cancer with mets to peritoneium and liver Signs/Symptoms as evidenced by PO intakes <75% of estimated nutrition needs for >1 month and 46.1lbs (27.6%) unintentional weight loss in 1 year Status Active Problem Recommendation Dietitian Continue Regular diet to optimize oral intakes. Recommendations/ Will change magic cup to 4 oz varghese ensure clear TID Changes with meals to provide supplemental energy if consumed. Lab / Micro Data 01/14/25 10:45 01/19/25 06:41 Labs: Laboratory Results - last 24 hr 01/19/25 06:41: Sodium 135, Potassium 4.8, Chloride 107, Carbon Dioxide 16.9 L, Anion Gap 11, BUN 52 H, Creatinine 2.47 H, Estim Creat Clear Calc 18.20 L, Est GFR (MDRD) Non-Af 21 L, BUN/Creatinine Ratio 21.1 H, Glucose 95, Calcium 8.0 Micro: Microbiology 01/14/25 11:53 Blood Culture (Wb) - Arm Left Blood Culture - Final No growth in 5 days. 01/14/25 10:45 Blood Culture (Wb) - Anticubital Left Blood Culture - Final No growth in 5 days.
--- NOTE | 2025-01-19 13:33 | PCM.TXEXTCAR ---
Diet Diet Order/Speech Therapy: 01/14/25 15:22 Diet: Regular - General Food consistency:: Regular Liquid Consistency:: Regular/Thin Type of Dietary Supplement:: Ensure Clear Diet Comments: 120 ml ensure clear TID Routine Orders/Code Status Routine Lab Work: BMP (on 01/22/25) Code Status: Full Code DC O2, CPAP, BIPAP needs Home O2 Discharge instructions: No Wound(s) L abdomen: Wound Type: Puncture Therapies Weight Bearing: Full weight bearing Physical Therapy: Eval and Treat Occupational Therapy: Eval and Treat Problem/Diagnosis (1) NATHALY (acute kidney injury): Status: Acute Code(s): N17.9 - Acute kidney failure, unspecified (2) Breast cancer: Status: Chronic Code(s): C50.919 - Malignant neoplasm of unspecified site of unspecified female breast Plan 1. Acute kidney injury-secondary to diarrhea from patient's antineoplastic medication (kinase inhibitor) and also secondary to poor oral intake at home-patient's creatinine is improved #2 metastatic breast cancer with malignant ascites-patient had 3650 mL of ascites removed by paracentesis on 01/15/2025 #3 hypothyroidism-patient is on Synthroid #4 hypokalemia-resolved at this time #5 severe chronic protein and caloric malnutrition-as evidenced by p.o. intake less than 75% of estimated nutritional needs for more than a month and a 46.1 pound unintentional weight loss x 1 year-regular diet will be continued, Magic cup 3 times daily with meals will be provided, nutritional services will follow patient Total clinical time spent by myself addressing the patient's medical issues, reviewing all of her data, and collaborating with patient's care team: 35 minutes Allergies/Procedures Done in Hospital Allergies No Known Allergies Allergy (Verified 01/14/25 13:29) Procedures: None Type of Care/Length of Stay Estimated LOS: Convalescent Care Less Than 30 days Type of Care Needed: Skilled Rehab Potential: Good Prognosis: Good Additional Orders/Day of Discharge H&P will serve as current which was dated: 01/14/25 Day of Discharge: 01/19/25 Dietary and Speech Recommendations Dietitian Recommendations/Changes: Continue Regular diet to optimize oral intakes. Will change magic cup to 4 oz varghese ensure clear TID with meals to provide supplemental energy if consumed. Discharge Plan Admission Admit Date/Time: 01/14/25 12:35 Primary Reason for Your Visit: Acute kidney injury Attending Provider: James Szymanski Primary Care Provider: Eldon Proctor Consulting Providers: Cornelius Parkinson Discharge Orders/Prescriptions Prescriptions: Continued omega-3 fatty acids-fish oil [Fish Oil] 360-1,200 mg capsule 1 cap PO DAILY multivitamin Tablet 1 tab PO DAILY ondansetron 4 mg tablet,disintegrating 4 mg PO Q8H PRN (Reason: nausea and vomiting) Qty: 30 1RF levothyroxine 125 mcg tablet 125 mcg PO DAILY acetaminophen [Tylenol] 325 MG tablet 325 mg PO TID PRN (Reason: Headache) ibuprofen 200 MG tablet 200 mg PO Q6H PRN (Reason: Fever) cholecalciferol (vitamin D3) [Vitamin D3] 2,000 UNIT capsule 2,000 unit PO DAILY abemaciclib 150 mg tablet 150 mg PO BID 30 Days Qty: 60 12RF Changed fulvestrant [Faslodex] 250 mg/5 mL syringe 500 mg IM .COMPLEX Qty: 10 12RF Patient Comments: pt takes on Rx Instructions: Check with the patient's oncologist (Dr. Hyde) when the patient is to receive this medication again Referrals / Follow Up: Dilan Hyde MD [Med Staff - Active Staff] - See Referral Note (Call office for follow-up appointment-patient will need another hormonal injection) Eldon Proctor MD [Primary Care Provider] - Disposition Disposition (needs filled in before D/C Order can be placed): [facility] (2) Breast cancer Qualifiers: Breast location: unspecified site of breast Estrogen receptor status: positive Laterality: right Patient sex: female Qualified Code(s): C50.911 - Malignant neoplasm of unspecified site of right female breast; Z17.0 - Estrogen receptor positive status [ER+]
[2025-01-19 13:59] VITALS: BP 104/66; PULSE 105; RESP 16; TEMP 36.7; O2SAT 95
--- NOTE | 2025-01-19 14:28 | PCM.DC.SUM ---
Providers Date of Admission: 01/14/25 Date of Discharge: 01/19/25 Primary Care Physician: Dr. Eldon Proctor MD Consultations 01/19/25 10:29 Consult: Nephrology Routine Consulting Provider: Cornelius Parkinson Reason for Consult: Renal insufficiency EMERGENT Consult: No MD Notified: Yes Date Notified: 01/19/25 Time Notified: 10:29 Method of Notification: Verbal Reason For Visit: ACUTE KIDNEY INJURY, ASCITES Diagnosis Discharge Diagnosis (1) NATHALY (acute kidney injury): Status: Acute Code(s): N17.9 - Acute kidney failure, unspecified (2) Breast cancer: Status: Chronic Code(s): C50.919 - Malignant neoplasm of unspecified site of unspecified female breast Qualifiers: Breast location: unspecified site of breast Estrogen receptor status: positive Laterality: right Patient sex: female Qualified Code(s): C50.911 - Malignant neoplasm of unspecified site of right female breast; Z17.0 - Estrogen receptor positive status [ER+] Plan 1. Acute kidney injury-secondary to diarrhea from patient's antineoplastic medication (kinase inhibitor) and also secondary to poor oral intake at home-patient's creatinine is improved #2 metastatic breast cancer with malignant ascites-patient had 3650 mL of ascites removed by paracentesis on 01/15/2025 #3 hypothyroidism-patient is on Synthroid #4 hypokalemia-resolved at this time #5 severe chronic protein and caloric malnutrition-as evidenced by p.o. intake less than 75% of estimated nutritional needs for more than a month and a 46.1 pound unintentional weight loss x 1 year-regular diet will be continued, Magic cup 3 times daily with meals will be provided, nutritional services will follow patient Total clinical time spent by myself addressing the patient's medical issues, reviewing all of her data, and collaborating with patient's care team: 35 minutes Medications at Discharge Home Medications acetaminophen 325 mg tablet (Tylenol) 325 mg PO TID PRN Headache 03/28/17 ibuprofen 200 mg tablet 200 mg PO Q6H PRN Fever 03/28/17 cholecalciferol (vitamin D3) 50 mcg (2,000 unit) capsule (Vitamin D3) 2,000 unit PO DAILY Supplement 09/27/17 multivitamin 1 tab PO DAILY 01/03/24 omega-3 fatty acids-fish oil 360 mg-1,200 mg capsule (Fish Oil) 1 cap PO DAILY 01/03/24 ondansetron 4 mg disintegrating tablet 4 mg PO Q8H PRN nausea and vomiting #30 tabs 05/28/24 abemaciclib 150 mg tablet 150 mg PO BID 30 days #60 tabs 06/17/24 levothyroxine 125 mcg tablet 125 mcg PO DAILY 09/16/24 fulvestrant 250 mg/5 mL intramuscular syringe (Faslodex) 500 mg (10 mL) IM .COMPLEX #10 mL 01/19/25 Hospital Course Operations None Procedures None Summary of Care Provided Minutes Spent on Discharge: 32 Hospital Course: This 64-year-old white female was seen in the emergency room at [facility] after having labs drawn which showed an elevated creatinine and BUN. Patient had diarrhea over the weekend which was felt to be secondary to her breast cancer treatment. Other labs in the emergency room showed a beta natruretic peptide elevated at 1191, chest x-ray did not show any evidence of congestive heart failure and the patient was not hypoxic. CBC showed a slightly low hemoglobin at 11.8, white blood cell count and platelet count are normal. Urinalysis was unremarkable. Patient had a CT of the abdomen and pelvis which showed peritoneal carcinomatosis including an increased large volume presumed to be malignant ascites. Patient was admitted to [place] [address] for acute kidney injury, she underwent a paracentesis with removal of over 3000 cc of fluid, patient was given IV fluids and labs were monitored. Patient's creatinine dropped slowly during her hospitalization. Patient decided that she would like to go to a detention facility for inpatient short-term skilled services and arrangements were made for her to go to [facility]. On 01/19/2025, I noted that the patient's creatinine had bumped up slightly and decided to have nephrology see her, she will follow-up with nephrology as an outpatient. I also called her oncologist office to notify them that she was going to [facility] because she was due to get a hormonal injection for her breast cancer. On 01/19/2025, patient was seen and examined: On examination she appeared in good health and spirits, she does not appear to be in any distress. Vital signs as documented. Skin warm and dry and without overt rashes. Neck without JVD, thyroid appears normal, trachea is midline, neck is supple. Lungs clear, normal air movement was noted. Heart exam notable for regular rhythm, normal sounds and absence of murmurs, rubs or gallops. Abdomen unremarkable and without evidence of organomegaly, masses, or abdominal aortic enlargement, bowel sounds are present in all 4 quadrants, no abdominal tenderness was noted. Extremities nonedematous, no cyanosis was noted, no clubbing was noted. Neuro: Cranial nerves II through XII are grossly intact, no focal motor deficits were noted, sensation to light touch and pinprick is intact, motor exam 5/5 throughout. Psych: Patient is alert and oriented x3, she does not appear anxious or depressed, she does not appear agitated. Patient appears stable for discharge to her skilled facility on 01/19/2025. Medical Records Data Medical Nutrition Assessment Dietitian: Malnutrition Criteria Met Start: 01/15/25 10:53 Freq: Status: Active Protocol: Document 01/19/25 12:28 SLA (Rec: 01/19/25 12:28 SLA [id number]) Nutrition Malnutrition Evidence of Yes Malnutrition Exists Malnutrition (severe Chronic ): Evidenced By Suboptimal Energy Intake (Severe),Weight Loss (Severe) Clinical Problem Chronic Disease or Condition Related Malnutrition Etiology relate to breast cancer with mets to peritoneium and liver Signs/Symptoms as evidenced by PO intakes <75% of estimated nutrition needs for >1 month and 46.1lbs (27.6%) unintentional weight loss in 1 year Status Active Problem Recommendation Dietitian Continue Regular diet to optimize oral intakes. Recommendations/ Will change magic cup to 4 oz varghese ensure clear TID Changes with meals to provide supplemental energy if consumed. Weight / BMI Weight Weight: 54.658 kg Body Mass Index (BMI) 22.0 ABG / Lab / Microbiology Data 01/14/25 10:45 01/19/25 06:41 Laboratory: Laboratory Results - last 24 hr 01/19/25 06:41: Sodium 135, Potassium 4.8, Chloride 107, Carbon Dioxide 16.9 L, Anion Gap 11, BUN 52 H, Creatinine 2.47 H, Estim Creat Clear Calc 18.20 L, Est GFR (MDRD) Non-Af 21 L, BUN/Creatinine Ratio 21.1 H, Glucose 95, Calcium 8.0 Microbiology: Microbiology 01/14/25 11:53 Blood Culture (Wb) - Arm Left Blood Culture - Final No growth in 5 days. 01/14/25 10:45 Blood Culture (Wb) - Anticubital Left Blood Culture - Final No growth in 5 days. 01/14/25 12:35 Urine, Clean Catch Urine Culture - Final Streptococcus group B 01/14/25 11:04 Mucosa - Nose SARS-CoV-2, Influenza & RSV (PCR) - Final D/C Instructions DC O2, CPAP, BIPAP Needs Home O2 Discharge instructions: No Meaningful Use Info Meaningful Use Meaningful Use Diagnoses (Choose all that apply): None applicable Ischemic Stroke Statin Dosing Therapy Reference: STATIN DOSE THERAPY REFERENCE: * Patients > 75 years receive moderate or high dose statin therapy. * Patients 75 years or YOUNGER should receive HIGH intensity statin dose unless contraindicated. You will be required to document reason for non-treatment if statin daily dose does not meet guidelines. HIGH DOSE STATIN THERAPY DAILY Atorvastatin > than or = to 40 mg Rosuvastatin > than or = to 20 mg Amlodipine + Atorvastatin > than or = to 2.5/40 mg Ezetimibe + Simvastatin 10/80 mg Simvastatin 80mg Discharge Plan Admission Admit Date/Time: 01/14/25 12:35 Primary Reason for Your Visit: Acute kidney injury Attending Provider: James Szymanski Primary Care Provider: Eldon Proctor Consulting Providers: Cornelius Parkinson Instructions Additional Instructions / Restrictions: Additional note: Patient is set up to have scheduled paracentesis due to recurrent ascites, this paracentesis is done at [facility], patient will have to be monitored to see when she next needs a paracentesis. It is usually every 2 to 3 weeks, patient had the last paracentesis performed on 01/14/2025 Discharge Orders/Prescriptions Prescriptions: Continued omega-3 fatty acids-fish oil [Fish Oil] 360-1,200 mg capsule 1 cap PO DAILY multivitamin Tablet 1 tab PO DAILY ondansetron 4 mg tablet,disintegrating 4 mg PO Q8H PRN (Reason: nausea and vomiting) Qty: 30 1RF levothyroxine 125 mcg tablet 125 mcg PO DAILY acetaminophen [Tylenol] 325 MG tablet 325 mg PO TID PRN (Reason: Headache) ibuprofen 200 MG tablet 200 mg PO Q6H PRN (Reason: Fever) cholecalciferol (vitamin D3) [Vitamin D3] 2,000 UNIT capsule 2,000 unit PO DAILY abemaciclib 150 mg tablet 150 mg PO BID 30 Days Qty: 60 12RF Changed fulvestrant [Faslodex] 250 mg/5 mL syringe 500 mg IM .COMPLEX Qty: 10 12RF Patient Comments: pt takes on Rx Instructions: Check with the patient's oncologist (Dr. Hyde) when the patient is to receive this medication again Referrals / Follow Up: Dilan Hyde MD [Med Staff - Active Staff] - See Referral Note (Call office for follow-up appointment-patient will need another hormonal injection) Cornelius Parkinson MD [Med Staff - Consulting] - In 1 Week (Call office to schedule an appointment) Eldon Proctor MD [Primary Care Provider] - Disposition Disposition (needs filled in before D/C Order can be placed): Group Home Facility Charges/Coding Visit Charges Inpatient E&M: 52563 Disch Hosp >30min
--- NOTE | 2025-01-19 14:33 | PHA.DC.MR.R ---
Pharmacy [place] Med Reconciliation Pharmacy Service has performed discharge medication reconciliation for this patient. The patient's discharge medication list was reviewed for discrepancies and discrepancies were resolved. Medications at Discharge Home Medications acetaminophen 325 mg tablet (Tylenol) 325 mg PO TID PRN Headache 03/28/17 ibuprofen 200 mg tablet 200 mg PO Q6H PRN Fever 03/28/17 cholecalciferol (vitamin D3) 50 mcg (2,000 unit) capsule (Vitamin D3) 2,000 unit PO DAILY Supplement 09/27/17 multivitamin 1 tab PO DAILY 01/03/24 omega-3 fatty acids-fish oil 360 mg-1,200 mg capsule (Fish Oil) 1 cap PO DAILY 01/03/24 ondansetron 4 mg disintegrating tablet 4 mg PO Q8H PRN nausea and vomiting #30 tabs 05/28/24 abemaciclib 150 mg tablet 150 mg PO BID 30 days #60 tabs 06/17/24 levothyroxine 125 mcg tablet 125 mcg PO DAILY 09/16/24 fulvestrant 250 mg/5 mL intramuscular syringe (Faslodex) 500 mg (10 mL) IM .COMPLEX #10 mL 01/19/25
--- NOTE | 2025-01-19 14:34 | CASEMGMT ---
Social Work- Physician reports that pt is medically ready for discharge. SW completed PASRR and placed on chart. DCA notified of discharge. Final discharge arrangements and notification to patient/family as per discharge financial planning advisor.?Green sheet and transport placed on chart. Plan: [facility], skilled level of care JANETTE Lopez
--- NOTE | 2025-01-19 14:38 | CASEMGMT ---
Discharge Planning Discharge orders, med list, and transport time sent to [facility]. Physicians will transport pt by wheelchair at 6:30p. Nursing, SW, pt, and her son (Steven) updated. Jana Downs DC Planning Asst.
[2025-01-19] MEDS: Pantoprazole Sodium 40 MG Tablet PO (17:04)
[2025-01-19] MEDS: proCHLORPERazine 5 MG Tablet 10 MG PO (17:04)
[2025-01-19] MEDS: Acetaminophen 325 MG Tablet PO (17:04)
[2025-01-19] MEDS: oxyCODONE 5 MG Tablet PO (17:53)
== END 2025-01-19 19:00 | disposition skilled nursing facility (03) | DRG 682 ==
LOC: ED 12:33 → MS3 13:40
PROVIDERS: Admitting Provider Internal Medicine; Emergency Provider Emergency Medicine; PCP Family Medicine; Visit Provider Internal Medicine
DX: N17.9 Acute kidney failure, unspecified (principal); E43 Unspecified severe protein-calorie malnutrition; C78.6 Secondary malignant neoplasm of retroperitoneum and peritoneum; R18.0 Malignant ascites; C78.7 Secondary malignant neoplasm of liver and intrahepatic bile duct; C50.911 Malignant neoplasm of unspecified site of right female breast; D75.1 Secondary polycythemia; D72.829 Elevated white blood cell count, unspecified; E03.9 Hypothyroidism, unspecified; K76.0 Fatty (change of) liver, not elsewhere classified; E87.6 Hypokalemia; R19.7 Diarrhea, unspecified; Z80.0 Family history of malignant neoplasm of digestive organs; Z87.891 Personal history of nicotine dependence; R22.43 Localized swelling, mass and lump, lower limb, bilateral; R79.89 Other specified abnormal findings of blood chemistry; R63.4 Abnormal weight loss; T45.1X5A Adverse effect of antineoplastic and immunosuppressive drugs, initial encounter; Z68.22 Body mass index [BMI] 22.0-22.9, adult; Z17.0 Estrogen receptor positive status [ER+]; Z79.890 Hormone replacement therapy; Z79.899 Other long term (current) drug therapy; Z79.1 Long term (current) use of non-steroidal anti-inflammatories (NSAID)
CPT/HCPCS: 36415; 49083; 71046; 74176; 76770; 80048; 80076; 81001; 83605; 83880; 85025; 85610; 85730; 87040; 87086; 87088; 87631; 93005; 97116; 97162; 97166; 97530; 97535; 97802; 99285; A4216; J2405

== ENCOUNTER → 2025-01-26 | Outpatient (CLI) | payer BC, SELFPAY ==
[2025-01-26 08:03] VITALS: BP 108/63; PULSE 115; RESP 18; TEMP 36.3; O2SAT 98
[2025-01-26] MEDS: Lidocaine 2% (20 ml mdv) 20 ML Vial INFILT (08:10)
[2025-01-26 08:15] VITALS: BP 102/66; PULSE 112; RESP 18; O2SAT 100
[2025-01-26 08:30] VITALS: BP 98/63; PULSE 112; RESP 18; O2SAT 100
--- NOTE | 2025-01-26 08:33 | OP.PCM_ITS ---
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 Hyde INDICATION: Female, 64 years old. Malignant ascites. PROVIDER: DENISE Kurtz TECHNIQUE: The risks, benefits, and alternatives to the procedure were explained to the patient. The specific risks of bleeding, infection, and damage to bowel were detailed and accepted. Witnessed informed consent was obtained. Visual inspection of the abdomen revealed moderate ecchymosis throughout, predominantly on the right side. Her abdomen was distended but soft; there was no palpable hematoma. Of note, the patient was recently hospitalized and treated with systemic heparin. She was discharged 01/19/2025 to a [facility] facility. She is not currently on anticoagulation. The abdomen was then ultrasonographically surveyed. An appropriate pocket of fluid was identified in the left lower quadrant. The skin was prepped with chlorhexidine and sterile field established. 2% lidocaine was used for local anesthetic. Using ultrasound guidance, the peritoneal cavity was accessed with a 5-Cymraes paracentesis needle/catheter system. The trocar was removed. A total of 3500 ml of clear yellow colored fluid was removed from the peritoneal cavity. The catheter was removed and a sterile dressing was applied. The procedure was well tolerated. There were no immediate complications. The procedure was proctored by interventional radiologist Dr. Haro. IMPRESSION: Successful ultrasound guided paracentesis with left lower quadrant access site. Surgical Findings: None Complications Complications: No
== END | disposition home or self-care (01) ==
LOC: US 07:46
PROVIDERS: PCP Family Medicine; Referring Provider Internal Medicine Hematology & Oncology; Visit Provider Internal Medicine Hematology & Oncology
DX: C50.919 Malignant neoplasm of unspecified site of unspecified female breast (principal); R18.0 Malignant ascites; C79.9 Secondary malignant neoplasm of unspecified site
CPT/HCPCS: 49083

== ENCOUNTER 2025-02-02 16:49 | Inpatient (IN) | payer BC, SELFPAY ==
[2025-02-02] VITALS (10 sets, daily range): BP systolic 83–100; BP diastolic 55–77; PULSE 95–115; RESP 16–23; TEMP 35.9–36.7; O2SAT 95–100; BMI 25.8; BMI 22.8
[2025-02-02 17:34] LABS: Absolute Lymphocyte Count 0.47 X10^3/uL (0.83-4.51); Absolute Neutrophil Count 10.4 X10^3/uL (2.0-7.7); Basophil# 0.06 X10^3/uL; Basophil% 0.5 % (0-1); Eosinophil# 0.01 X10^3/uL; Eosinophils% 0.1 % (0-5); Hemoglobin 9.9 g/dL (12.0-15.0); Lymphocyte # 0.47 X10^3/ul (0.83-4.51); Lymphocyte % 3.9 % (19-41); Mean Corpuscular Hgb 35.6 pg (27.0-32.0); Mean Corpuscular Volume 107.9 fL (81-99); Mean Platelet Vol. 10.1 fl (6.2-12.0); Monocyte% 5.8 % (0-10); NRBC Flagged by Analyzer 0.7 % (0-5); Neutrophil # 10.41 X10^3/uL (2.7-7.7); Neutrophil % 85.5 % (47-70); POSITIVE DIFFERENTIAL YES; POSITIVE MORPHOLOGY YES; Platelet Count 144 K/mm3 (150-450); RBC Distribution Width CV 18.6 % (11.6-14.6); RBC Distribution Width SD 73.8 fl (35.1-43.9); Red Blood Count 2.78 M/mm3 (4.2-5.4); White Blood Count 12.2 K/mm3 (4.4-11.0)
[2025-02-02 17:41] LABS: Differential Indicated SCAN CRITERIA MET
--- NOTE | 2025-02-02 17:55 | EX.ED.DYSGE1 ---
HPI <JOSH Gutierrez - Last Filed: 02/02/25 21:30> History of Present Illness Chief Complaint: GI Bleed Narrative Narrative: 64-year-old female with PMH of peritoneal cancer with metastasis on estrogen luh therapy, paracentesis for metastatic ascites, polycythemia, mitral valve prolapse presents from [facility] for increased rectal bleeding. Patient states she has had frequent soft stools multiple times a day and rectal bleeding for 4 to 6 weeks. The nursing staff are concerned the bright red/dark red rectal bleeding was heavier today and her heart rate was elevated prompting them to call EMS. Patient reports feeling intermittently lightheaded and did feel lightheaded with position changes today. No syncope. No chest pain or shortness of breath. She reports chronic abdominal pain from her peritoneal cancer. PFS <JOSH Gutierrez - Last Filed: 02/02/25 21:30> [facility] Medical History NATHALY (acute kidney injury) Carcinoma of peritoneum Abdominal ascites Localized swelling of both lower legs Dyspnea on exertion Prerenal acute renal failure High risk factor score for venous thromboembolism Bilateral lower extremity edema Rash Elevated serum creatinine Post-menopausal 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 Metastasis to liver Breast cancer Wears glasses Thyroid disease Former smoker History of stress test History of echocardiogram Cancer screening MVP (mitral valve prolapse) Polycythemia Home Medications ?Medication ?Instructions ?Recorded ?Last Taken ?Type multivitamin 1 tab PO DAILY 01/03/24 02/02/25 History ondansetron 4 mg disintegrating 4 mg PO Q8H PRN nausea and 05/28/24 Unknown Rx tablet vomiting #30 tabs abemaciclib 150 mg tablet 150 mg PO BID 30 days #60 tabs 06/17/24 01/13/25 Rx Held on 02/02/25. Instructions: MD Ordered levothyroxine 125 mcg tablet 125 mcg PO DAILY 09/16/24 02/02/25 History fulvestrant 250 mg/5 mL 500 mg (10 mL) IM .COMPLEX #10 mL 01/19/25 01/08/25 Rx intramuscular syringe (Faslodex) cholecalciferol (vitamin D3) 25 2,000 unit PO DAILY 02/02/25 02/02/25 History mcg (1,000 unit) capsule hydrocortisone 1 % topical cream 1 applic topical DAILY 02/02/25 Unknown History (Preparation H Hydrocortisone) pantoprazole 40 mg tablet,delayed 40 mg PO DAILY 02/02/25 Unknown History release prochlorperazine maleate 10 mg 10 mg PO Q6H PRN anxiety 02/02/25 Unknown History tablet Allergy/AdvReac Type Severity Reaction Status Date / Time No Known Allergies Allergy Verified 02/02/25 16:58 Family History Father Esophageal cancer Surgical History Hx of colonoscopy History of right mastectomy History of bone marrow biopsy Social History Smoking Status: Former smoker ROS <JOSH Gutierrez - Last Filed: 02/02/25 21:30> ROS ED ROS Narrative Constitutional: Negative for fever, chills, malaise. CVS: Negative for chest pain. Respiratory: Negative for shortness of breath. GI: Positive for abdominal pain. EXAM <JOSH Gutierrez - Last Filed: 02/02/25 21:30> Physical Exam Narrative Exam Narrative: CONST: Cachectic female sitting in no acute distress. EYES: Normal inspection. NECK: Normal inspection. RESP: No respiratory distress, CTAB. CVS: Regular rate and rhythm, no murmur, no gallop. ABD: Soft with generalized tenderness and mild distention consistent with her history of ascites. No guarding or rebound. DONNA: Medium brown soft stool in depends. SKIN: Color normal, no rash, warm, dry, intact. EXTREMITIES: Normal appearance, no pedal edema. NEURO: Alert and answering questions appropriately. PSYCH: Normal affect. Const Vital Signs: 02/02/25 16:50 02/02/25 17:21 02/02/25 17:30 Temperature 98.1 F Temperature Source Oral Pulse Rate 109 H 115 H 108 H Respiratory Rate 18 21 H 20 H Blood Pressure 100/77 89/68 L Blood Pressure Mean 84 75 Pulse Ox 95 100 100 Oxygen Delivery Method Room Air Room Air 02/02/25 17:45 02/02/25 18:00 02/02/25 20:03 Temperature Temperature Source Pulse Rate 110 H 106 H Respiratory Rate 23 H 19 H Blood Pressure 87/56 L 86/60 L 100/69 Blood Pressure Mean 67 69 79 Pulse Ox 100 100 Oxygen Delivery Method Room Air 02/02/25 20:58 02/02/25 21:13 Temperature 97.9 F Temperature Source Pulse Rate 101 H 95 Respiratory Rate 18 16 Blood Pressure 97/60 97/60 Blood Pressure Mean 72 72 Pulse Ox 100 100 Oxygen Delivery Method Room Air <Dr. Asher Wiley DO - Last Filed: 02/03/25 00:13> Physical Exam Const Vital Signs: 02/02/25 16:50 02/02/25 17:21 02/02/25 17:30 Temperature 98.1 F Temperature Source Oral Pulse Rate 109 H 115 H 108 H Respiratory Rate 18 21 H 20 H Blood Pressure 100/77 89/68 L Blood Pressure Mean 84 75 Pulse Ox 95 100 100 Oxygen Delivery Method Room Air Room Air 02/02/25 17:45 02/02/25 18:00 02/02/25 20:03 Temperature Temperature Source Pulse Rate 110 H 106 H Respiratory Rate 23 H 19 H Blood Pressure 87/56 L 86/60 L 100/69 Blood Pressure Mean 67 69 79 Pulse Ox 100 100 Oxygen Delivery Method Room Air 02/02/25 20:58 02/02/25 21:13 Temperature 97.9 F Temperature Source Pulse Rate 101 H 95 Respiratory Rate 18 16 Blood Pressure 97/60 97/60 Blood Pressure Mean 72 72 Pulse Ox 100 100 Oxygen Delivery Method Room Air [facility] <JOSH Gutierrez - Last Filed: 02/02/25 21:30> [facility] Narrative Medical decision making narrative: History gathered from: Patient and son Differential: Upper or lower GI bleeding, anemia, infection Consults: GI, hospitalist 64-year-old female presents with 6 weeks of frequent loose stools and rectal bleeding. Today she felt weaker and was hypotensive and tachycardic and was sent in from the skilled nursing. She is awake and alert no distress. Cachectic appearing. BP was 89/68, heart rate 108, otherwise normal vital signs. MAP is 66. She has generalized abdominal tenderness with no peritoneal signs. She has a history of recurrent malignant ascites and gets paracentesis. Medium brown stool is Hemoccult positive. There is no impaction. Labs show WBC of 12.2. Hemoglobin is 9.9 (down from 11.9 recently). Sodium 129, potassium 5.4, BUN 74, creatinine 3.04 (creatinine previously 52/2.47 so this is consistent with an acute kidney injury). She has mildly elevated liver enzymes which is chronic. Lipase is 208. CT shows stable extensive abdominal pelvic ascites and peritoneal carcinomatosis similar to prior scan on 01/14/2025. There is a large amount of school with rectal wall thickening suggestive of stercoral colitis. Patient was given 2 L of IV fluids and her blood pressure improved to 97/60 with heart rate of 101 which is around her baseline. She was also given albumin. She will require admission for GI bleed and constipation and would benefit from an enema inpatient. I will discuss the case with the hospitalist for admission. Hospitalist requested a consult GI. I spoke with Dr. Rodriguez who recommended giving the patient enemas and he will evaluate tomorrow and possibly do flexible sigmoidoscopy or biopsy to rule out cancer spread. I relayed this plan to the hospitalist and she was admitted in stable condition. Lab Data Attestation: I reviewed the patient's lab results. Labs: Laboratory Results - last 24 hr 02/02/25 02/02/25 02/02/25 17:20 17:23 19:00 WBC 12.2 H RBC 2.78 L Hgb 9.9 L Hct 30.0 L MCV 107.9 H MCH 35.6 H MCHC 33.0 RDW Std Deviation 73.8 H RDW Coeff of Dominic 18.6 H Plt Count 144 L MPV 10.1 Immature Gran % (Auto) 4.200 H Neut % (Auto) 85.5 H Lymph % (Auto) 3.9 L [place] % (Auto) 5.8 Eos % (Auto) 0.1 Baso % (Auto) 0.5 Absolute Neuts (auto) 10.4 H Absolute Lymphs (auto) 0.47 L Nucleated RBC % 0.7 Differential Comment SCANNED Anisocytosis 1+ Sodium 129 L Potassium 5.4 H Chloride 102 Carbon Dioxide 15.4 L Anion Gap 12 BUN 74 H Creatinine 3.04 H Estim Creat Clear Calc 16.44 L Est GFR (MDRD) Non-Af 17 L BUN/Creatinine Ratio 24.5 H Glucose 111 H Lactic Acid 1.8 Calcium 7.7 Magnesium 2.2 Total Bilirubin 0.56 AST 60 H ALT 36 H Alkaline Phosphatase 261 H Total Protein 4.2 L Albumin 1.7 L Globulin 2.5 Albumin/Globulin Ratio 0.7 L Lipase 204 H Vitamin B12 1043 H Serum Folate 17.90 TSH 0.678 Urine Color Urine Clarity Urine pH Ur Specific [place] Urine Protein Urine Glucose (UA) Urine Ketones Urine Occult Blood Urine Nitrite Urine Bilirubin Urine Urobilinogen Ur Leukocyte Esterase Urine RBC Urine WBC Ur Squamous Epith Cells Urine Bacteria Urine Mucus Blood Type B POSITIVE Antibody Screen NEGATIVE 02/02/25 19:30 WBC RBC Hgb Hct MCV MCH MCHC RDW Std Deviation RDW Coeff of Dominic Plt Count MPV Immature Gran % (Auto) Neut % (Auto) Lymph % (Auto) [place] % (Auto) Eos % (Auto) Baso % (Auto) Absolute Neuts (auto) Absolute Lymphs (auto) Nucleated RBC % Differential Comment Anisocytosis Sodium Potassium Chloride Carbon Dioxide Anion Gap BUN Creatinine Estim Creat Clear Calc Est GFR (MDRD) Non-Af BUN/Creatinine Ratio Glucose Lactic Acid Calcium Magnesium Total Bilirubin AST ALT Alkaline Phosphatase Total Protein Albumin Globulin Albumin/Globulin Ratio Lipase Vitamin B12 Serum Folate TSH Urine Color Yellow Urine Clarity Clear Urine pH 6.0 Ur Specific [place] 1.015 Urine Protein 15 H Urine Glucose (UA) Normal Urine Ketones Negative Urine Occult Blood Negative Urine Nitrite Negative Urine Bilirubin 1 H Urine Urobilinogen Normal Ur Leukocyte Esterase Negative Urine RBC 0 SEEN Urine WBC 0 SEEN Ur Squamous Epith Cells 0 SEEN Urine Bacteria 0 SEEN Urine Mucus 0 SEEN Blood Type Antibody Screen Radiography Diagnostic Testing: Clinical Impression(s) from Imaging Studies Abdomen/Pelvis CT 02/02/25 18:35 IMPRESSION: 1. Stable extensive abdominopelvic ascites and peritoneal carcinomatosis, similar to the CT from 01/14/2025. 2. Large amount of stool within dilated rectum with circumferential wall thickening. Findings suggestive of stercoral colitis. 3. Other stable findings as described above. Reading Location: [facility] <Dr. Asher Wiley, DO - Last Filed: 02/03/25 00:13> [facility] Narrative Medical decision making narrative: History gathered from: Patient and son Differential: Upper or lower GI bleeding, anemia, infection Consults: GI, hospitalist 64-year-old female presents with 6 weeks of frequent loose stools and rectal bleeding. Today she felt weaker and was hypotensive and tachycardic and was sent in from the skilled nursing. She is awake and alert no distress. Cachectic appearing. BP was 89/68, heart rate 108, otherwise normal vital signs. MAP is 66. She has generalized abdominal tenderness with no peritoneal signs. She has a history of recurrent malignant ascites and gets paracentesis. Medium brown stool is Hemoccult positive. There is no impaction. Labs show WBC of 12.2. Hemoglobin is 9.9 (down from 11.9 recently). Sodium 129, potassium 5.4, BUN 74, creatinine 3.04 (creatinine previously 52/2.47 so this is consistent with an acute kidney injury). She has mildly elevated liver enzymes which is chronic. Lipase is 208. CT shows stable extensive abdominal pelvic ascites and peritoneal carcinomatosis similar to prior scan on 01/14/2025. There is a large amount of school with rectal wall thickening suggestive of stercoral colitis. Patient was given 2 L of IV fluids and her blood pressure improved to 97/60 with heart rate of 101 which is around her baseline. She was also given albumin. She will require admission for GI bleed and constipation and would benefit from an enema inpatient. I will discuss the case with the hospitalist for admission. Hospitalist requested a consult GI. I spoke with Dr. Rodriguez who recommended giving the patient enemas and he will evaluate tomorrow and possibly do flexible sigmoidoscopy or biopsy to rule out cancer spread. I relayed this plan to the hospitalist and she was admitted in stable condition. ED attending note: I evaluated the patient in conjunction with the [facility]. I agree with his/her statements and above findings. I have personally performed a face to face assessment of the patient and have reviewed the [facility] Note. I performed a substantive portion of the visit including all aspects of the following. I personally saw the patient performed chart review, physical exam, reviewed labs, imaging (if obtained), and formulated a treatment and management plan. This note was generated with [employer] dictation software. It may contain incorrect words, spelling, and punctuation that were not noted in review of the chart prior to signing. Lab Data Labs: Laboratory Results - last 24 hr 02/02/25 02/02/25 02/02/25 17:20 17:23 19:00 WBC 12.2 H RBC 2.78 L Hgb 9.9 L Hct 30.0 L MCV 107.9 H MCH 35.6 H MCHC 33.0 RDW Std Deviation 73.8 H RDW Coeff of Dominic 18.6 H Plt Count 144 L MPV 10.1 Immature Gran % (Auto) 4.200 H Neut % (Auto) 85.5 H Lymph % (Auto) 3.9 L [place] % (Auto) 5.8 Eos % (Auto) 0.1 Baso % (Auto) 0.5 Absolute Neuts (auto) 10.4 H Absolute Lymphs (auto) 0.47 L Nucleated RBC % 0.7 Differential Comment SCANNED Anisocytosis 1+ Sodium 129 L Potassium 5.4 H Chloride 102 Carbon Dioxide 15.4 L Anion Gap 12 BUN 74 H Creatinine 3.04 H Estim Creat Clear Calc 16.44 L Est GFR (MDRD) Non-Af 17 L BUN/Creatinine Ratio 24.5 H Glucose 111 H Lactic Acid 1.8 Calcium 7.7 Magnesium 2.2 Total Bilirubin 0.56 AST 60 H ALT 36 H Alkaline Phosphatase 261 H Total Protein 4.2 L Albumin 1.7 L Globulin 2.5 Albumin/Globulin Ratio 0.7 L Lipase 204 H Vitamin B12 1043 H Serum Folate 17.90 TSH 0.678 Urine Color Urine Clarity Urine pH Ur Specific [place] Urine Protein Urine Glucose (UA) Urine Ketones Urine Occult Blood Urine Nitrite Urine Bilirubin Urine Urobilinogen Ur Leukocyte Esterase Urine RBC Urine WBC Ur Squamous Epith Cells Urine Bacteria Urine Mucus Blood Type B POSITIVE Antibody Screen NEGATIVE 02/02/25 19:30 WBC RBC Hgb Hct MCV MCH MCHC RDW Std Deviation RDW Coeff of Dominic Plt Count MPV Immature Gran % (Auto) Neut % (Auto) Lymph % (Auto) [place] % (Auto) Eos % (Auto) Baso % (Auto) Absolute Neuts (auto) Absolute Lymphs (auto) Nucleated RBC % Differential Comment Anisocytosis Sodium Potassium Chloride Carbon Dioxide Anion Gap BUN Creatinine Estim Creat Clear Calc Est GFR (MDRD) Non-Af BUN/Creatinine Ratio Glucose Lactic Acid Calcium Magnesium Total Bilirubin AST ALT Alkaline Phosphatase Total Protein Albumin Globulin Albumin/Globulin Ratio Lipase Vitamin B12 Serum Folate TSH Urine Color Yellow Urine Clarity Clear Urine pH 6.0 Ur Specific [place] 1.015 Urine Protein 15 H Urine Glucose (UA) Normal Urine Ketones Negative Urine Occult Blood Negative Urine Nitrite Negative Urine Bilirubin 1 H Urine Urobilinogen Normal Ur Leukocyte Esterase Negative Urine RBC 0 SEEN Urine WBC 0 SEEN Ur Squamous Epith Cells 0 SEEN Urine Bacteria 0 SEEN Urine Mucus 0 SEEN Blood Type Antibody Screen Radiography Diagnostic Testing: Clinical Impression(s) from Imaging Studies Abdomen/Pelvis CT 02/02/25 18:35 IMPRESSION: 1. Stable extensive abdominopelvic ascites and peritoneal carcinomatosis, similar to the CT from 01/14/2025. 2. Large amount of stool within dilated rectum with circumferential wall thickening. Findings suggestive of stercoral colitis. 3. Other stable findings as described above. [facility] Plan Dx/Rx/DC Orders Clinical Impression: Colitis with rectal bleeding, Acute kidney injury, Anemia, Acute hypotension, Acute hyperkalemia Disposition Disposition: Acute Care Hospital [facility] Discharge Date/Time: 02/02/25 22:08
[2025-02-02] MEDS: 0.9% Normal Saline (1000mL) 1,000 ML 999 ML IV ×2 (18:05→19:14)
[2025-02-02 18:07] LABS: ALB/GLOB Ratio 0.7 RATIO (0.9-2.4); AST(SGOT) 60 U/L (<=31); Alanine Aminotransfer ALT/SGPT 36 U/L (<=34); Albumin, Serum 1.7 g/dL (3.4-4.8); Alkaline Phosphatase 261 U/L (35-104); Anion Gap 12 (5-15); BUN 74 mg/dL (4-19); BUN/Creat Ratio 24.5 RATIO (10-20); Calcium,Total 7.7 mg/dL (7.6-11.0); Carbon Dioxide 15.4 mmol/L (21.0-32.0); Chloride 102 mmol/L (98-108); Creatinine, Serum 3.04 mg/dL (0.70-1.20); EST Glomerular Filtration Rate 17 (>60); Estimated Creatinine Clearance 16.44 ml/min (50-250); Globulin 2.5 g/dL (2.2-4.2); Glucose 111 mg/dL (70-99); Lipase 204 U/L (13-75); Potassium 5.4 mmol/L (3.3-5.1); Protein, Total 4.2 g/dL (5.9-8.4); Sodium Level 129 mmol/L (133-145); Total Bilirubin 0.56 mg/dL (0.00-1.30)
[2025-02-02 18:14] LABS: Anisocytosis 1+; Differential Comment SCANNED
--- NOTE | 2025-02-02 18:35 | CT_ITS ---
PROCEDURE: ABDOMEN/PELVIS WITHOUT CONT 02/02/2025 REASON FOR EXAM: PAIN, DIARRHEA TECHNIQUE: Abdomen and pelvis CT without intravenous contrast. Noncontrast technique limits evaluation of the abdominal and pelvic viscera. Coronal and Sagittal reconstruction series were provided. One or more dose reduction techniques were used (e.g., Automated exposure control, adjustment of the mA and/or kV according to patient size, use of iterative reconstruction technique). PATIENT PREPARATION: Per protocol ORAL CONTRAST TYPE: None. AMOUNT: mL COMPARISON: CT abdomen and pelvis 01/14/2025 FINDINGS: Lung bases: No focal consolidation. Status post right mastectomy. Small hiatal hernia. Liver: Stable mild scalloping of the hepatic margins. Unchanged 24 mm posterior right hepatic lobe lesion. Gallbladder: Gallbladder is not well visualized. Spleen: No splenomegaly. Pancreas: Normal size. No surrounding inflammation. Adrenals: Unremarkable. Kidneys: [id number]-left pelvic fullness, similar to the prior examination. No calculi or dimas hydronephrosis. Bladder: Urinary bladder is unremarkable. Reproductive Organs: No pelvic mass. Bowel: Small hiatal hernia. Stomach is nondilated. No significant wall thickening. Large amount of stool within the dilated rectum, measuring up to 7.9 cm. There is mild wall thickening. Scattered colonic diverticuli. No evidence of diverticulitis. Appendix: The appendix is not identified. There is no inflammatory process identified in the right lower quadrant to suggest appendicitis. Lymph nodes: Unremarkable. Vasculature: Mild diffuse atherosclerotic calcifications are noted. Peritoneum / Retroperitoneum: Redemonstration large abdominopelvic ascites. Findings not significantly changed since prior. There is also confluence mesenteric soft tissue thickening and nodularity, compatible with known peritoneal carcinomatosis. Findings are also not significantly changed since prior. No pneumoperitoneum. Bones: Multiple punctate sclerotic lesions scattered masses scattered throughout the lumbar spine and sacrum. Soft tissue: Stable diffuse anasarca. CT/Abdomen/Pelvis without Cont IMPRESSION: 1. Stable extensive abdominopelvic ascites and peritoneal carcinomatosis, simil ar to the CT from 01/14/2025. 2. Large amount of stool within dilated rectum with circumferential wall thicke claudia. Findings suggestive of stercoral colitis. 3. Other stable findings as described above. Reading [facility]
[2025-02-02] MEDS: Albumin Human 25% (100 mL) 25 GM/100 ML BAG IV (19:14)
[2025-02-02 19:43] LABS: Bacteria 0 SEEN /hpf (None Seen); Mucous, Urine 0 SEEN /hpf (<or=2+); Red Blood Cells-Urine 0 SEEN /hpf (0-5); Squamous Epithelial Cells - UA 0 SEEN /hpf (5-10); White Blood Cells 0 SEEN /hpf (0-5)
[2025-02-02 19:46] LABS: Lactic Acid 1.8 mmol/L (0.0-2.0)
[2025-02-02] MEDS: Lidocaine 2% Viscous15 ML UDC 15 ML PO (19:52)
[2025-02-02 19:55] LABS: Color, Urine Yellow (Yellow); Glucose, Dipstick Normal (Normal); Ketone-Dipstick Negative (Negative); Leukocyte Esterase-Dipstick Negative /ul (Negative); Nitrite-Dipstick Negative (Negative); Occult Blood-Urine Negative /ul (Negative); Protein-Dipstick 15 mg/dl (Negative); Specific Gravity, Urine 1.015 (1.002-1.030); Urine Clarity Clear (Clear); Urine Urobilinogen Normal (Normal)
[2025-02-02 19:58] LABS: Urine Bilirubin Dipstick 1 mg/dL (Negative)
--- NOTE | 2025-02-02 21:15 | PCM.HP.STD ---
[facility] - General General Date of Admission: 02/02/25 Date of Service: 02/02/25 Chief Complaint: GI Bleed. 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 Ms. Vazquez reports her symptoms began ~4-6 weeks prior to admission with multiple soft stools daily and occasional rectal bleeding. The nursing staff noted bright red and dark rectal blood that was heavier today than usual accompanied by moderate generalized abdominal pain with mild distention typical of her previous ascites prompting them to activate EMS. She admits to feeling intermittently lightheaded with position changes but she denies near-syncope or syncope. She also denies associated fever, chills, nausea, vomiting, constipation, chest pain, shortness of breath or headache. In the ER she was noted to be mildly hypotensive at 89/68 mmHg noted shortly after admission consistent with mild hemorrhagic shock in the setting of GI bleed with Hemoccult positive stools noted in ER with hemoglobin of 9.9 g/dL present on admission (down from 11.8 g deciliter on January 14, 2025) with macrocytic MCV of 107.9 fL present on admission with CT abdomen/pelvis on admission revealing evidence of stercoral colitis with a large amount of stool within dilated rectum and circumferential wall thickening in addition to stable extensive abdominal pelvic ascites and peritoneal carcinomatosis similar to CT on January 14, 2025 complicated by NATHALY; with elevated serum creatinine of 3.04 mg/dL and BUN of 74 mg/dL (up from recent baseline of 2.47 mg/dL and 52 mg/dL on January 19, 2025) compounded by mild Hyponatremia of 129 mmol/L and mild Hypokalemia of 5.4 mmol/L both present on admission along with severe hypoalbuminemia of 1.7 g/dL consistent with suspected chronic severe protein-calorie malnutrition in the setting of known ER+ breast cancer with metastases causing peritoneal carcinomatosis and she was then admitted to the PCU for ongoing care for stay that is expected to extend beyond 2 midnights. [facility] Medical History NATHALY (acute kidney injury) Carcinoma of peritoneum Abdominal ascites Localized swelling of both lower legs Dyspnea on exertion Prerenal acute renal failure High risk factor score for venous thromboembolism Bilateral lower extremity edema Rash Elevated serum creatinine Post-menopausal 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 Metastasis to liver Breast cancer Wears glasses Thyroid disease Former smoker History of stress test History of echocardiogram Cancer screening MVP (mitral valve prolapse) Polycythemia Home Medications ?Medication ?Instructions ?Recorded ?Last Taken ?Type multivitamin 1 tab PO DAILY 01/03/24 02/02/25 History ondansetron 4 mg disintegrating 4 mg PO Q8H PRN nausea and 05/28/24 Unknown Rx tablet vomiting #30 tabs abemaciclib 150 mg tablet 150 mg PO BID 30 days #60 tabs 06/17/24 01/13/25 Rx Held on 02/02/25. Instructions: Ordered levothyroxine 125 mcg tablet 125 mcg PO DAILY 09/16/24 02/02/25 History fulvestrant 250 mg/5 mL 500 mg (10 mL) IM .COMPLEX #10 mL 01/19/25 01/08/25 Rx intramuscular syringe (Faslodex) cholecalciferol (vitamin D3) 25 2,000 unit PO DAILY 02/02/25 02/02/25 History mcg (1,000 unit) capsule hydrocortisone 1 % topical cream 1 applic topical DAILY 02/02/25 Unknown History (Preparation H Hydrocortisone) pantoprazole 40 mg tablet,delayed 40 mg PO DAILY 02/02/25 Unknown History release prochlorperazine maleate 10 mg 10 mg PO Q6H PRN anxiety 02/02/25 Unknown History tablet Allergy/AdvReac Type Severity Reaction Status Date / Time No Known Allergies Allergy Verified 02/02/25 16:58 Family History Father Esophageal cancer Surgical History Hx of colonoscopy History of right mastectomy History of bone marrow biopsy Social History Smoking Status: Former smoker ROS ROS Narrative Review of Systems: Constitutional: Patient denies fever or chills. Eyes: Patient denies changes in vision or discharge from eyes. ENT: Patient denies runny nose, sore throat or ear pain. Resp: Patient denies shortness of breath or cough. CV: Patient denies chest pain, palpitations, heart racing or lower extremity edema. GI: Patient admits to abdominal pain but she denies nausea, vomiting or constipation. : Patient denies dysuria, hematuria or urinary frequency. MSK: Patient denies arthralgias or myalgias. Skin: Patient denies rash, abscess, wounds or jaundice. Psych: Patient denies symptoms of uncontrolled depression or anxiety. Allergy: Patient denies lip swelling, tongue swelling or urticaria. Hematology: Patient admits to dark and bright red blood per rectum as per HPI. Endocrinology: Patient denies polyuria, polydipsia, polyphagia or heat/cold intolerance. 14 point ROS otherwise negative except for positives noted above in HPI. Vital Signs Vital Signs Vital Signs: 02/02/25 16:50 02/02/25 17:21 02/02/25 17:30 Temperature 98.1 F Temperature Source Oral Pulse Rate 109 H 115 H 108 H Respiratory Rate 18 21 H 20 H Blood Pressure 100/77 89/68 L Blood Pressure Mean 84 75 Pulse Ox 95 100 100 Oxygen Delivery Method Room Air Room Air 02/02/25 17:45 02/02/25 18:00 02/02/25 20:03 Temperature Temperature Source Pulse Rate 110 H 106 H Respiratory Rate 23 H 19 H Blood Pressure 87/56 L 86/60 L 100/69 Blood Pressure Mean 67 69 79 Pulse Ox 100 100 Oxygen Delivery Method Room Air 02/02/25 20:58 02/02/25 21:13 Temperature 97.9 F Temperature Source Pulse Rate 101 H 95 Respiratory Rate 18 16 Blood Pressure 97/60 97/60 Blood Pressure Mean 72 72 Pulse Ox 100 100 Oxygen Delivery Method Room Air Weight Weight: 141 lb 5.061 oz Body Mass Index (BMI) 25.8 Physical Exam Const alert, oriented x3, no apparent distress and average body habitus Constitutional Narrative: Patient appears cachectic and chronically ill but in no acute distress. General Appearance: cooperative HEENT normocephalic, head/scalp atraumatic, hearing grossly normal bilaterally and moist oral mucous membranes Eyes PERRL and EOMs intact bilaterally Neck no lymphadenopathy, supple and no JVD Resp normal respiratory effort, no retractions, no use of accessory muscles and clear to auscultation bilaterally Cardio regular rate and regular rhythm GI GI Narrative: Mild distention with positive fluid wave consistent with ascites in addition to generalized tenderness to palpation. There was no evidence of guarding or rebound. Extremity normal to inspection, full ROM and no clubbing, cyanosis or edema Skin Skin Narrative: Patient has no evidence of rash, abscess, wounds or jaundice. Neuro oriented x3, CN's II-XII intact bilaterally, moves all extremities and no focal motor deficits Sensorium / Orientation: awake, alert, oriented to person, oriented to place and oriented to time Speech: speech normal Psych affect normal Results Medical Records Data Attestation: I reviewed the patient's medical records Lab / Micro Data Attestation: I reviewed the patient's lab results. 02/02/25 17:20 02/02/25 17:20 Labs: Laboratory Results - last 24 hr 02/02/25 17:20: WBC 12.2 H, RBC 2.78 L, Hgb 9.9 L, Hct 30.0 L, MCV 107.9 H, MCH 35.6 H, MCHC 33.0, RDW Std Deviation 73.8 H, RDW Coeff of Dominic 18.6 H, Plt Count 144 L, MPV 10.1, Immature Gran % (Auto) 4.200 H, Neut % (Auto) 85.5 H, Lymph % (Auto) 3.9 L, [place] % (Auto) 5.8, Eos % (Auto) 0.1, Baso % (Auto) 0.5, Absolute Neuts (auto) 10.4 H, Absolute Lymphs (auto) 0.47 L, Nucleated RBC % 0.7, Differential Comment SCANNED, Anisocytosis 1+, Sodium 129 L, Potassium 5.4 H, Chloride 102, Carbon Dioxide 15.4 L, Anion Gap 12, BUN 74 H, Creatinine 3.04 H, Estim Creat Clear Calc 16.44 L, Est GFR (MDRD) Non-Af 17 L, BUN/Creatinine Ratio 24.5 H, Glucose 111 H, Calcium 7.7, Total Bilirubin 0.56, AST 60 H, ALT 36 H, Alkaline Phosphatase 261 H, Total Protein 4.2 L, Albumin 1.7 L, Globulin 2.5, Albumin/Globulin Ratio 0.7 L, Lipase 204 H, Blood Type B POSITIVE, Antibody Screen NEGATIVE 02/02/25 19:00: Lactic Acid 1.8 02/02/25 19:30: Urine Color Yellow, Urine Clarity Clear, Urine pH 6.0, Ur Specific [place] 1.015, Urine Protein 15 H, Urine Glucose (UA) Normal, Urine Ketones Negative, Urine Occult Blood Negative, Urine Nitrite Negative, Urine Bilirubin 1 H, Urine Urobilinogen Normal, Ur Leukocyte Esterase Negative, Urine RBC 0 SEEN, Urine WBC 0 SEEN, Ur Squamous Epith Cells 0 SEEN, Urine Bacteria 0 SEEN, Urine Mucus 0 SEEN Micro: Microbiology 02/02/25 19:30 Stool Stool Occult Blood (ED) - Final Occult Blood Positive Imaging Radiology Impression Abdomen/Pelvis CT 02/02/25 18:35 IMPRESSION: 1. Stable extensive abdominopelvic ascites and peritoneal carcinomatosis, similar to the CT from 01/14/2025. 2. Large amount of stool within dilated rectum with circumferential wall thickening. Findings suggestive of stercoral colitis. 3. Other stable findings as described above. Reading Location: [facility] Assessment & Plan Assessment/Plan (1) GI bleed: QUALIFIERS: GI bleed type/associated pathology: unspecified gastrointestinal hemorrhage type Qualified Code(s): K92.2 - Gastrointestinal hemorrhage, unspecified (2) Hemorrhagic shock: (3) Stercoral colitis: (4) NATHALY (acute kidney injury): (5) Hyponatremia: (6) Hyperkalemia: (7) Severe protein-calorie malnutrition: PLAN: Plan 1. GI bleed; with Hemoccult positive stools and early hemorrhagic shock noted in ER with hemoglobin of 9.9 g/dL present on admission (down from 11.8 g deciliter on January 14, 2025) with macrocytic MCV of 107.9 fL present on admission with CT abdomen/pelvis on admission revealing evidence of stercoral colitis with a large amount of stool within dilated rectum and circumferential wall thickening in addition to stable extensive abdominal pelvic ascites and peritoneal carcinomatosis similar to CT on January 14, 2025 - Admit to PCU. Keep strict NPO. Start pantoprazole infusion IV. Type and screen blood and transfuse for hemoglobin less than 7 g/dL. Finally, gastroenterology was contacted by the ER with formal consultation pending in the a.m. and appreciated in advance. 2. NATHALY; with elevated serum creatinine of 3.04 mg/dL and BUN of 74 mg/dL (up from recent baseline of 2.47 mg/dL and 52 mg/dL on January 19, 2025) complicating #1 - 3. Hyponatremia of 129 mmol/L present on admission compounding #1 & #2 - 4. Hypokalemia of 5.4 mmol/L present on admission adding to the medical complexity of #1 - #3 - 5. Severe hypoalbuminemia of 1.7 g/dL consistent with suspected chronic severe protein-calorie malnutrition in the setting of known ER+ breast cancer with metastases causing peritoneal carcinomatosis; s/p radical Right mastectomy on estrogen luh therapy (Faslodex); with recent admission here from January 14, 2025 to January 19, 2025 for treatment of abnormal labs complicated by elevated NT pro-BNP II of 1,191 pg/mL and NATHALY; with elevated serum creatinine of 3.48 mg/dL with BUN of 80 mg/dL compounded by malignant ascites; s/p paracentesis with removal of of ~3L fluid with severe chronic protein-calorie malnutrition adding to the burden of disease outlined from #1 - #4 - 6. GERD; on pantoprazole - Continue PPI IV as outlined in #1. 7. Hypothyroidism; on levothyroxine - Restart levothyroxine when patient resumes oral intake. Check TSH. 8. Former tobacco abuse - Noted. 9. History of mitral valve prolapse - Noted. 10. History of anxiety on as needed prochlorperazine - Stable. 11. DVT prophylaxis - SCD's only in light of GI bleeding outlined in #1. Total time: Approximately (but not less than) 75 minutes. Charges/Coding Visit Charges Inpatient E&M: 92858 Init Hosp L3
[2025-02-02 22:48] LABS: Magnesium 2.2 mg/dL (1.5-2.2); Thyroid Stim Hormone (TSH) 0.678 uIU/mL (0.300-4.200)
[2025-02-02] MEDS: Pantoprazole Sodium 80 MG in 0.9% Normal Saline (100mL Bag) 80 ML 10 MG CONT INF (23:16)
[2025-02-02 23:52] LABS: Vitamin B12 1043 pg/mL (180-914)
[2025-02-03] VITALS (9 sets, daily range): BP systolic 86–106; BP diastolic 49–74; PULSE 91–109; RESP 16–19; TEMP 35.7–36.7; O2SAT 95–99; BMI 24.8
[2025-02-03] MEDS: Albumin Human 25% (100 mL) 25 GM/100 ML BAG IV ×2 (02:02→23:46)
[2025-02-03] MEDS: 0.9% Normal Saline (1000mL) 1,000 ML 100 ML IV ×2 (07:52)
[2025-02-03] MEDS: Pantoprazole Sodium 80 MG in 0.9% Normal Saline (100mL Bag) 80 ML 10 MG CONT INF ×2 (07:53→18:27)
[2025-02-03] MEDS: Hydrocortisone 2.5% Ointment 20 gm tube 1 APPLIC TOPICAL (07:53)
[2025-02-03 07:58] LABS: Absolute Lymphocyte Count 0.34 X10^3/uL (0.83-4.51); Absolute Neutrophil Count 8.4 X10^3/uL (2.0-7.7); Basophil# 0.04 X10^3/uL; Basophil% 0.4 % (0-1); Eosinophil# 0.01 X10^3/uL; Eosinophils% 0.1 % (0-5); Hematocrit 25.3 % (37-47); Hemoglobin 8.4 g/dL (12.0-15.0); Lymphocyte # 0.34 X10^3/ul (0.83-4.51); Lymphocyte % 3.5 % (19-41); Mean Corp Hgb Conc 33.2 g/dL (32-36); Mean Corpuscular Hgb 36.1 pg (27.0-32.0); Mean Corpuscular Volume 108.6 fL (81-99); Monocyte# 0.44 X10^3/uL; Monocyte% 4.6 % (0-10); NRBC Flagged by Analyzer 0.3 % (0-5); Neutrophil # 8.36 X10^3/uL (2.7-7.7); POSITIVE DIFFERENTIAL YES; POSITIVE MORPHOLOGY YES; Platelet Count 115 K/mm3 (150-450); RBC Distribution Width CV 18.8 % (11.6-14.6); RBC Distribution Width SD 74.1 fl (35.1-43.9); Red Blood Count 2.33 M/mm3 (4.2-5.4); White Blood Count 9.6 K/mm3 (4.4-11.0)
[2025-02-03 07:59] LABS: Differential Indicated SCAN CRITERIA MET
[2025-02-03 08:28] LABS: Anisocytosis 2+; Differential Comment SCANNED; Polychromasia RARE
[2025-02-03 08:31] LABS: ALB/GLOB Ratio 1.7 RATIO (0.9-2.4); AST(SGOT) 44 U/L (<=31); Alanine Aminotransfer ALT/SGPT 25 U/L (<=34); Albumin, Serum 2.7 g/dL (3.4-4.8); Alkaline Phosphatase 183 U/L (35-104); Anion Gap 13 (5-15); BUN 62 mg/dL (4-19); BUN/Creat Ratio 25.2 RATIO (10-20); Calcium,Total 7.6 mg/dL (7.6-11.0); Carbon Dioxide 15.7 mmol/L (21.0-32.0); Chloride 107 mmol/L (98-108); Creatinine, Serum 2.46 mg/dL (0.70-1.20); EST Glomerular Filtration Rate 21 (>60); Estimated Creatinine Clearance 20.76 ml/min (50-250); Globulin 1.6 g/dL (2.2-4.2); Glucose 76 mg/dL (70-99); Phosphorus 3.6 mg/dL (2.7-4.5); Potassium 4.6 mmol/L (3.3-5.1); Protein, Total 4.3 g/dL (5.9-8.4); Sodium Level 135 mmol/L (133-145); Total Bilirubin 1.23 mg/dL (0.00-1.30)
[2025-02-03] MEDS: Ondansetron 4 MG/2 ML Vial IV ×2 (08:40→14:16)
[2025-02-03 08:58] LABS: Thyroid Stim Hormone (TSH) 0.678 uIU/mL (0.300-4.200)
[2025-02-03 09:06] LABS: International Normalized Ratio 1.2; Partial Thromboplast Time 31.9 Seconds (24.1-36.2); Prothrombin Time (Protime)PT. 15.9 SECONDS (11.7-14.9)
--- NOTE | 2025-02-03 09:59 | CASEMGMT ---
Patient is from [facility]. SW met with patient. Introduced self and role at [facility]. Patient said she is considering not going back to [facility]. Patient would like a SNF list. Mariela EDDY
--- NOTE | 2025-02-03 10:07 | CASEMGMT ---
Discharge Planning A list of?SNF providers including quality and resource use data and consistent with the patient's preferred geographic region, medical needs, and insurance network were printed and provided to the patient from the [employer] Guide. Pt asks that a referral be made to [facility]. SW updated. Jana Downs, Discharge Planning Asst.
[2025-02-03] MEDS: Midodrine HCl 5 MG Tablet PO ×2 (11:51→16:20)
[2025-02-03] MEDS: Menthol/Lanolin/Calamine/Znox 113 GM Tube 1 APPLIC TOPICAL ×2 (11:52→23:47)
--- NOTE | 2025-02-03 12:31 | CON.PCM.RE_ITS ---
Assessment & Plan Assessment/Plan (1) NATHALY (acute kidney injury): PLAN: baseline cr was normal previously. during last admit, cr fluctuated between 2-3 this admit came in with cr 3.0 better at 2.4 today Bp is ok UA is relatively benign CT abd without hydronephrosis. changes in cr are likely hemodynamic. Ascitis. malignant. she gets paracentesis about every 2 weeks. last one was about 10 days ago as per her. HPI Consult Data Date of Consult: 02/03/25 HPI Narrative Reason for Consultation: NATHALY HPI Narrative: RADHA VAZQUEZ, is a 64 F who presents to the hospital with suspected GI bleed. nephrology on consultation due to NATHALY. Baseline cr was normal previously. during recent admission she had NATHALY which improved by end of hospitalization. she says she has been feeling weak recently. currently has external urine catheter. has about 200-300 urine output. [facility] Medical History NATHALY (acute kidney injury) Carcinoma of peritoneum Abdominal ascites Localized swelling of both lower legs Dyspnea on exertion Prerenal acute renal failure High risk factor score for venous thromboembolism Bilateral lower extremity edema Rash Elevated serum creatinine Post-menopausal 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 Metastasis to liver Breast cancer Wears glasses Thyroid disease Former smoker History of stress test History of echocardiogram Cancer screening MVP (mitral valve prolapse) Polycythemia Home Medications ?Medication ?Instructions ?Recorded ?Last Taken ?Type multivitamin 1 tab PO DAILY 01/03/2405/22 History ondansetron 4 mg disintegrating 4 mg PO Q8H PRN nausea and 05/28/24 Unknown Rx tablet vomiting #30 tabs abemaciclib 150 mg tablet 150 mg PO BID 30 days #60 ta bs 06/17/24 01/13/25 Rx Held on 02/02/25. Instructions: MD Ordered levothyroxine 125 mcg tablet 125 mcg PO DAILY 09/16/24 02/02/25 History fulvestrant 250 mg/5 mL 500 mg (10 mL) IM .COMPLEX # 10 mL 01/19/25 01/08/25 Rx intramuscular syringe (Faslodex) cholecalciferol (vitamin D3) 25 2,000 unit PO DAILY 02/02/25 History mcg (1,000 unit) capsule hydrocortisone 1 % topical cream 1 applic topical ALTAF Y 02/02/25 Unknown History (Preparation H Hydrocortisone) pantoprazole 40 mg tablet,delayed 40 mg PO DAILY 02/02 Unknown History release prochlorperazine maleate 10 mg 10 mg PO Q6H PRN anxiet y 02/02/25 Unknown History tablet Allergy/AdvReac Type Severity Reaction Status Date / Time No Known Allergies Allergy Verified 02/02/25 16:58 Family History Father Esophageal cancer Surgical History Hx of colonoscopy History of right mastectomy History of bone marrow biopsy Social History Smoking Status: Former smoker ROS ROS Narrative negative except above Physical Exam Narrative Alert awake oriented x 3 no obvious distress no pallor no icterus no JVD s1s2 no murmurs lungs clear abdomen soft no organomegaly no edema Medical Records Data Medical Nutrition Assessment Dietitian: Malnutrition Criteria Met Start: 02/03/25 11:03 Freq: Status: Active Protocol: Document 02/03/25 11:03 LO (Rec: 02/03/25 11:03 [id number]) Nutrition Malnutrition Evidence of Yes Malnutrition Exists Malnutrition (severe Chronic ): Evidenced By Suboptimal Energy Intake (Severe),Physical Changes ( Severe) Clinical Problem Chronic Disease or Condition Related Malnutrition Etiology severe related to breast cancer with mets to peritoneum and liver Signs/Symptoms as evidenced by PO intakes <75% of estimated nutrition needs for >1 month and severe temporal/orbital fat and muscle loss Status Active Problem Recommendation Dietitian Advance diet as tolerated to Regular as medically able Recommendations/ to optimize oral intakes. Changes Recommend 120ml ensure plus high protein 4x daily when diet advances. Lab / Micro Data 02/03/25 07:36 02/03/25 07:36 Labs: Laboratory Results - last 24 hr 02/02/25 17:20: WBC 12.2 H, RBC 2.78 L, Hgb 9.9 L, Hct 30.0 L, MCV 107.9 H, MCH 35.6 H, MCHC 33.0, RDW Std Deviation 73.8 H, RDW Coeff of Dominic 18.6 H, Plt Count 144 L, MPV 10.1, Immature Gran % (Auto) 4.200 H, Neut % (Auto) 85.5 H, Lymph % (Auto) 3.9 L, [place] % (Auto) 5.8, Eos % (Auto) 0.1, Baso % (Auto) 0.5, Absolute Neuts (auto) 10.4 H, Absolute Lymphs (auto) 0.47 L, Nucleated RBC % 0.7, Differential Comment SCANNED, Anisocytosis 1+, Sodium 129 L, Potassium 5.4 H, Chloride 102, Carbon Dioxide 15.4 L, Anion Gap 12, BUN 74 H, Creatinine 3.04 H, Estim Creat Clear Calc 16.44 L, Est GFR (MDRD) Non-Af 17 L, BUN/Creatinine Ratio 24.5 H, Glucose 111 H, Calcium 7.7, Total Bilirubin 0.56, AST 60 H, ALT 36 H, A lkaline Phosphatase 261 H, Total Protein 4.2 L, Albumin 1.7 L, Globulin 2.5, A lbumin/Globulin Ratio 0.7 L, Lipase 204 H, Blood Type B POSITIVE, Antibody Screen NEGATIVE 02/02/25 17:23: Magnesium 2.2, Vitamin B12 1043 H, Serum Folate 17.90, TSH 0.678 02/02/25 19:00: Lactic Acid 1.8 02/02/25 19:30: Urine Color Yellow, Urine Clarity Clear, Urine pH 6.0, Ur Specific [place] 1.015, Urine Protein 15 H, Urine Glucose (UA) Normal, Urine Ketones Negative, Urine Occult Blood Negative, Urine Nitrite Negative, Urine Bilirubin 1 H, Urine Urobilinogen Normal, Ur Leukocyte Esterase Negative, Urine RBC 0 SEEN, Urine WBC 0 SEEN, Ur Squamous Epith Cells 0 SEEN, Urine Bacteria 0 SEEN, Urine Mucus 0 SEEN 02/03/25 07:36: WBC 9.6, RBC 2.33 L, Hgb 8.4 L, Hct 25.3 L, MCV 108.6 H, MCH 36.1 H, MCHC 33.2, RDW Std Deviation 74.1 H, RDW Coeff of Dominic 18.8 H, Plt Count 115 L, MPV 10.0, Immature Gran % (Auto) 4.400 H, Neut % (Auto) 87.0 H, Lymph % (Auto) 3.5 L, [place] % (Auto) 4.6, Eos % (Auto) 0.1, Baso % (Auto) 0.4, Absolute Neuts (auto) 8.4 H, Absolute Lymphs (auto) 0.34 L, Nucleated RBC % 0.3, Differential Comment SCANNED, Polychromasia RARE, Anisocytosis 2+, PT 15.9 H, INR 1.2, APTT 31.9, Sodium 135, Potassium 4.6, Chloride 107, Carbon Dioxide 15.7 L, Anion Gap 13, BUN 62 H, Creatinine 2.46 H, Estim Creat Clear Calc 20.76 L, E st GFR (MDRD) Non-Af 21 L, BUN/Creatinine Ratio 25.2 H, Glucose 76, Calcium 7.6, Phosphorus 3.6, Total Bilirubin 1.23, AST 44 H, ALT 25, Alkaline Phosphatase 183 H, Total Protein 4.3 L, Albumin 2.7 L, Globulin 1.6 L, Albumin/Globulin Ratio 1.7, TSH 0.678 Micro: Microbiology 02/02/25 19:30 Stool Stool Occult Blood (ED) - Final Occult Blood Positive Imaging Radiology Impression Abdomen/Pelvis CT 02/02/25 18:35 IMPRESSION: 1. Stable extensive abdominopelvic ascites and peritoneal carcinomatosis, similar to the CT from 01/14/2025. 2. Large amount of stool within dilated rectum with circumferential wall thickening. Findings suggestive of stercoral colitis. 3. Other stable findings as described above. Reading Location: [facility]
[2025-02-03 12:38] LABS: Hematocrit 23.5 % (37-47); Hemoglobin 7.7 g/dL (12.0-15.0)
--- NOTE | 2025-02-03 14:42 | US_ITS ---
EXAM: Ultrasound-guided paracentesis. CLINICAL HISTORY: Ascites. COMPARISON: Prior study dated January 26, 2025. TECHNIQUE: The procedure as well as the benefits and possible complications including bleeding and infection were explained to the patient. Informed consent was obtained. The overlying skin overlying the right lower quadrant was prepped and draped in the usual sterile fashion. Following local anesthetic application, a 5 Slovak drainage catheter was placed into the ascitic fluid. 2650 marc colored fluid was aspirated. The patient tolerated the procedure well. FINDINGS: 2650 mL of marc colored fluid was aspirated. US/Paracentesis with US IMPRESSION: Successful paracentesis. The patient tolerated the procedure well. No immediate complication was noted. Reading Location: [facility]
--- NOTE | 2025-02-03 15:28 | CASEMGMT ---
Addendum entered by Jana Downs 02/04/25 10:51: [facility] declined. SW updated. Jana Downs DC Planning Asst. Original Note: Discharge Planning Referral sent to [facility]. Jana Downs DC Planning Asst.
[2025-02-03 17:14] LABS: Albumin, Serum 2.6 g/dL (3.4-4.8)
--- NOTE | 2025-02-03 18:21 | EX.PCM.CON.G ---
HPI Consult Data Date of Consult: 02/03/25 HPI Narrative Reason for Consultation: Nausea, vomiting and diarrhea HPI Narrative: RADHA VAZQUEZ, is a 64 F who presents increased rectal bleeding. 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 She also has malignant ascites; s/p paracentesis with removal of of ~3L fluid with severe chronic protein-calorie malnutrition who was then subsequently sent to a local ECF who re-presents to [facility] ER complaining of GI bleeding. The nursing staff noted bright red and dark rectal blood that was heavier today than usual accompanied by moderate generalized abdominal pain with mild distention typical of her previous ascites prompting them to activate EMS. She admits to feeling intermittently lightheaded with position changes but she denies near-syncope or syncope. She also denies associated fever, chills, nausea, vomiting, constipation, chest pain, shortness of breath or headache. In the ER she was noted to be mildly hypotensive at 89/68 mmHg noted shortly after admission consistent with mild hemorrhagic shock in the setting of GI bleed with Hemoccult positive stools noted in ER with hemoglobin of 9.9 g/dL present on admission (down from 11.8 g deciliter on January 14, 2025). CT abdomen/pelvis on admission revealing evidence of stercoral colitis with a large amount of stool within dilated rectum and circumferential wall thickening in addition to stable extensive abdominal pelvic ascites and peritoneal carcinomatosis similar to CT on January 14, 2025 complicated by NATHALY; Elevated serum creatinine of 3.04 mg/dL and BUN of 74 mg/dL (up from recent baseline of 2.47 mg/dL and 52 mg/dL on January 19, 2025) compounded by mild Hyponatremia of 129 mmol/L and mild Hypokalemia of 5.4 mmol/L both present on admission [facility] Medical History NATHALY (acute kidney injury) Carcinoma of peritoneum Abdominal ascites Localized swelling of both lower legs Dyspnea on exertion Prerenal acute renal failure High risk factor score for venous thromboembolism Bilateral lower extremity edema Rash Elevated serum creatinine Post-menopausal 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 Metastasis to liver Breast cancer Wears glasses Thyroid disease Former smoker History of stress test History of echocardiogram Cancer screening MVP (mitral valve prolapse) Polycythemia Home Medications ?Medication ?Instructions ?Recorded ?Last Taken ?Type multivitamin 1 tab PO DAILY 01/03/24 02/02/25 History ondansetron 4 mg disintegrating 4 mg PO Q8H PRN nausea and 05/28/24 Unknown Rx tablet vomiting #30 tabs abemaciclib 150 mg tablet 150 mg PO BID 30 days #60 tabs 06/17/24 01/13/25 Rx Held on 02/02/25. Instructions: MD Ordered levothyroxine 125 mcg tablet 125 mcg PO DAILY 09/16/24 02/02/25 History fulvestrant 250 mg/5 mL 500 mg (10 mL) IM .COMPLEX #10 mL 01/19/25 01/08/25 Rx intramuscular syringe (Faslodex) cholecalciferol (vitamin D3) 25 2,000 unit PO DAILY 02/02/25 02/02/25 History mcg (1,000 unit) capsule hydrocortisone 1 % topical cream 1 applic topical DAILY 02/02/25 Unknown History (Preparation H Hydrocortisone) pantoprazole 40 mg tablet,delayed 40 mg PO DAILY 02/02/25 Unknown History release prochlorperazine maleate 10 mg 10 mg PO Q6H PRN anxiety 02/02/25 Unknown History tablet Allergy/AdvReac Type Severity Reaction Status Date / Time No Known Allergies Allergy Verified 02/02/25 16:58 Family History Father Esophageal cancer Surgical History Hx of colonoscopy History of right mastectomy History of bone marrow biopsy Social History Smoking Status: Former smoker ROS Constitutional Constitutional: Denies fatigue, fever(s), poor appetite, weight gain or weight loss Gastrointestinal Gastrointestinal: Denies belching, bloating, change in bowel habits, change in stool character, chewing difficulty, coffee ground emesis, constipation, cramping, diarrhea, dyspepsia, dysphagia, early satiety, excessive flatus, fecal incontinence, heartburn, hematemesis, hematochezia, hemorrhoids, loose stools, melena, nausea, odynophagia, rectal bleeding, tenesmus, vomiting or weight changes Physical Exam Const alert, oriented x3, no apparent distress and healthy appearing General Appearance: cooperative GI normal to inspection, nondistended, normoactive bowel sounds, soft to palpation, non-tender and non-distended Percussion: normal to percussion Rectal Exam: deferred Medical Records Data Medical Nutrition Assessment Dietitian: Malnutrition Criteria Met Start: 02/03/25 11:03 Freq: Status: Active Protocol: Document 02/03/25 11:03 (Rec: 02/03/25 11:03 [id number]) Nutrition Malnutrition Evidence of Yes Malnutrition Exists Malnutrition (severe Chronic ): Evidenced By Suboptimal Energy Intake (Severe),Physical Changes ( Severe) Clinical Problem Chronic Disease or Condition Related Malnutrition Etiology severe related to breast cancer with mets to peritoneum and liver Signs/Symptoms as evidenced by PO intakes <75% of estimated nutrition needs for >1 month and severe temporal/orbital fat and muscle loss Status Active Problem Recommendation Dietitian Advance diet as tolerated to Regular as medically able Recommendations/ to optimize oral intakes. Changes Recommend 120ml ensure plus high protein 4x daily when diet advances. Lab / Micro Data 02/03/25 12:25 02/03/25 07:36 Labs: Laboratory Results - last 24 hr 02/02/25 17:20: Antibody Screen NEGATIVE 02/02/25 17:23: Magnesium 2.2, Vitamin B12 1043 H, Serum Folate 17.90, TSH 0.678 02/02/25 19:00: Lactic Acid 1.8 02/02/25 19:30: Urine Color Yellow, Urine Clarity Clear, Urine pH 6.0, Ur Specific [place] 1.015, Urine Protein 15 H, Urine Glucose (UA) Normal, Urine Ketones Negative, Urine Occult Blood Negative, Urine Nitrite Negative, Urine Bilirubin 1 H, Urine Urobilinogen Normal, Ur Leukocyte Esterase Negative, Urine RBC 0 SEEN, Urine WBC 0 SEEN, Ur Squamous Epith Cells 0 SEEN, Urine Bacteria 0 SEEN, Urine Mucus 0 SEEN 02/03/25 07:36: WBC 9.6, RBC 2.33 L, Hgb 8.4 L, Hct 25.3 L, MCV 108.6 H, MCH 36.1 H, MCHC 33.2, RDW Std Deviation 74.1 H, RDW Coeff of Dominic 18.8 H, Plt Count 115 L, MPV 10.0, Immature Gran % (Auto) 4.400 H, Neut % (Auto) 87.0 H, Lymph % (Auto) 3.5 L, [place] % (Auto) 4.6, Eos % (Auto) 0.1, Baso % (Auto) 0.4, Absolute Neuts (auto) 8.4 H, Absolute Lymphs (auto) 0.34 L, Nucleated RBC % 0.3, Differential Comment SCANNED, Polychromasia RARE, Anisocytosis 2+, PT 15.9 H, INR 1.2, APTT 31.9, Sodium 135, Potassium 4.6, Chloride 107, Carbon Dioxide 15.7 L, Anion Gap 13, BUN 62 H, Creatinine 2.46 H, Estim Creat Clear Calc 20.76 L, Est GFR (MDRD) Non-Af 21 L, BUN/Creatinine Ratio 25.2 H, Glucose 76, Calcium 7.6, Phosphorus 3.6, Total Bilirubin 1.23, AST 44 H, ALT 25, Alkaline Phosphatase 183 H, Total Protein 4.3 L, Albumin 2.7 L, Globulin 1.6 L, Albumin/Globulin Ratio 1.7, TSH 0.678 02/03/25 12:25: Hgb 7.7 L, Hct 23.5 L 02/03/25 16:15: Albumin 2.6 L Micro: Microbiology 02/02/25 19:30 Stool Stool Occult Blood (ED) - Final Occult Blood Positive Imaging Radiology Impression Abdomen/Pelvis CT 02/02/25 18:35 IMPRESSION: 1. Stable extensive abdominopelvic ascites and peritoneal carcinomatosis, similar to the CT from 01/14/2025. 2. Large amount of stool within dilated rectum with circumferential wall thickening. Findings suggestive of stercoral colitis. 3. Other stable findings as described above. Reading Location: [facility] Assessment & Plan Assessment/Plan (1) GI bleed: QUALIFIERS: GI bleed type/associated pathology: unspecified gastrointestinal hemorrhage type Qualified Code(s): K92.2 - Gastrointestinal hemorrhage, unspecified (2) Hemorrhagic shock: (3) Stercoral colitis: (4) NATHALY (acute kidney injury): (5) Hyponatremia: (6) Hyperkalemia: (7) Severe protein-calorie malnutrition: PLAN: Plan 64-year-old female with PMH of peritoneal cancer with metastasis on estrogen luh therapy, paracentesis for metastatic ascites, polycythemia, mitral valve prolapse presents from [facility] for increased rectal bleeding. Patient states she has had frequent soft stools multiple times a day and rectal bleeding for 4 to 6 weeks. The nursing staff are concerned the bright red/dark red rectal bleeding was heavier today and her heart rate was elevated prompting them to call EMS. Patient reports feeling intermittently lightheaded and did feel lightheaded with position changes today. No syncope. No chest pain or shortness of breath. She reports chronic abdominal pain from her peritoneal cancer. GI bleed; with Hemoccult positive stools and early hemorrhagic shock noted in ER with hemoglobin of 9.9 g/dL present on admission (down from 11.8 g deciliter on January 14, 2025) with macrocytic MCV of 107.9 fL present on admission with CT abdomen/pelvis on admission revealing evidence of stercoral colitis with a large amount of stool within dilated rectum and circumferential wall thickening in addition to stable extensive abdominal pelvic ascites and peritoneal carcinomatosis similar to CT on January 14, 2025. Patient will likely need to undergo a flexible sigmoidoscopy versus a full colonoscopy to make sure that there is not any metastatic involvement of the large bowel. Her blood pressure seems to be stabilizing at this time. She also had some nausea vomiting and I think she should undergo an upper endoscopy to look for signs of portal hypertension and other etiologies of possible GI bleed and increased BUN to creatinine ratio. Charges/Coding Visit Charges Inpatient E&M: 43100 Init Hosp L3
--- NOTE | 2025-02-03 19:09 | PN.HOSP_ITS ---
Reason for Visit Reason for Visit: Diagnoses Unspecified severe protein-calorie malnutrition (02/02/25) Hypo-osmolality and hyponatremia (02/02/25) Hyperkalemia (02/02/25) Other specified noninfective gastroenteritis and colitis (02/02/25) Gastrointestinal hemorrhage, unspecified (02/02/25) Acute kidney failure, unspecified (02/02/25) Other shock (02/02/25) Subjective Subjective Patient reports feeling some general abdominal discomfort/full feeling similar to when she has needed paracenteses in the past, has had some nausea and vomiting now without overt hematemesis, has had loose stool but per nursing report has not had significant bright red blood in the shift Objective Data Objective Data Vital Signs: Vital Signs Temp Pulse Resp BP Pulse Ox O2 Del Method O2 Flow Rate 97.7 F L 105 H 18 106/74 98 Room Air 98 02/03/25 15:00 02/03/25 15:00 02/03/25 15:00 02/03/25 15:00 02/03/25 15:00 02/03/25 15:00 02/03/25 07:54 Oxygen Flow Rate (L/min) 98 Oxygen Delivery Method Room Air Weight: 63.7 kg Body Mass Index (BMI) 24.8 Intake & Output: Intake and Output for Last 24 Hours 02/01/25 02/02/25 02/03/25 23:59 23:59 23:59 Intake Total 350 / 350 4372.84 / 4372.84 Output Total 150 / 150 Balance 350 / 350 4222.84 / 4222.84 Medical Nutrition Assessment Dietitian: Malnutrition Criteria Met Start: 02/03/25 11:03 Freq: Status: Active Protocol: Document 02/03/25 11:03 MONA (Rec: 02/03/25 11:03 [id number]) Nutrition Malnutrition Evidence of Yes Malnutrition Exists Malnutrition (severe Chronic ): Evidenced By Suboptimal Energy Intake (Severe),Physical Changes ( Severe) Clinical Problem Chronic Disease or Condition Related Malnutrition Etiology severe related to breast cancer with mets to peritoneum and liver Signs/Symptoms as evidenced by PO intakes <75% of estimated nutrition needs for >1 month and severe temporal/orbital fat and muscle loss Status Active Problem Recommendation Dietitian Advance diet as tolerated to Regular as medically able Recommendations/ to optimize oral intakes. Changes Recommend 120ml ensure plus high protein 4x daily when diet advances. Lab / Micro Data 02/03/25 12:25 02/03/25 07:36 Labs: Laboratory Results - last 24 hr 02/02/25 17:23: Magnesium 2.2, Vitamin B12 1043 H, Serum Folate 17.90, TSH 0.678 02/02/25 19:00: Lactic Acid 1.8 02/02/25 19:30: Urine Color Yellow, Urine Clarity Clear, Urine pH 6.0, Ur Specific [place] 1.015, Urine Protein 15 H, Urine Glucose (UA) Normal, Urine Ketones Negative, Urine Occult Blood Negative, Urine Nitrite Negative, Urine Bilirubin 1 H, Urine Urobilinogen Normal, Ur Leukocyte Esterase Negative, Urine RBC 0 SEEN, Urine WBC 0 SEEN, Ur Squamous Epith Cells 0 SEEN, Urine Bacteria 0 SEEN, Urine Mucus 0 SEEN 02/03/25 07:36: WBC 9.6, RBC 2.33 L, Hgb 8.4 L, Hct 25.3 L, MCV 108.6 H, MCH 36.1 H, MCHC 33.2, RDW Std Deviation 74.1 H, RDW Coeff of Dominic 18.8 H, Plt Count 115 L, MPV 10.0, Immature Gran % (Auto) 4.400 H, Neut % (Auto) 87.0 H, Lymph % (Auto) 3.5 L, [place] % (Auto) 4.6, Eos % (Auto) 0.1, Baso % (Auto) 0.4, Absolute Neuts (auto) 8.4 H, Absolute Lymphs (auto) 0.34 L, Nucleated RBC % 0.3, Differential Comment SCANNED, Polychromasia RARE, Anisocytosis 2+, PT 15.9 H, INR 1.2, APTT 31.9, Sodium 135, Potassium 4.6, Chloride 107, Carbon Dioxide 15.7 L, Anion Gap 13, BUN 62 H, Creatinine 2.46 H, Estim Creat Clear Calc 20.76 L, E st GFR (MDRD) Non-Af 21 L, BUN/Creatinine Ratio 25.2 H, Glucose 76, Calcium 7.6, Phosphorus 3.6, Total Bilirubin 1.23, AST 44 H, ALT 25, Alkaline Phosphatase 183 H, Total Protein 4.3 L, Albumin 2.7 L, Globulin 1.6 L, Albumin/Globulin Ratio 1.7, TSH 0.678 02/03/25 12:25: Hgb 7.7 L, Hct 23.5 L 02/03/25 16:15: Albumin 2.6 L Micro: Microbiology 02/02/25 19:30 Stool Stool Occult Blood (ED) - Final Occult Blood Positive Radiography Diagnostic Testing: Radiology Impression Abdomen/Pelvis CT 02/02/25 18:35 IMPRESSION: 1. Stable extensive abdominopelvic ascites and peritoneal carcinomatosis, similar to the CT from 01/14/2025. 2. Large amount of stool within dilated rectum with circumferential wall thickening. Findings suggestive of stercoral colitis. 3. Other stable findings as described above. Reading Location: [facility] Physical Exam Narrative General: Alert, oriented, no apparent distress HEENT: Atraumatic, normocephalic Eyes: Anicteric, normal conjunctiva, extraocular movements grossly intact Neck: Supple Respiratory: No significant wheezes or rhonchi, normal respiratory effort Cardiovascular: Low-grade sinus tachycardia GI: Full without rigidity, no rebound or guarding appreciated Extremities: No significant pitting edema Musculoskeletal: Moving all extremities Neuro: No overt focal neurological deficits Skin: No rashes appreciated Psych: Cooperative Assessment & Plan Assessment/Plan (1) GI bleed: QUALIFIERS: GI bleed type/associated pathology: unspecified gastrointestinal hemorrhage type Qualified Code(s): K92.2 - Gastrointestinal hemorrhage, unspecified PLAN: Plan # Concern for GI bleed - Patient with multiple bloody bowel movements prior to admission, has not had any during this shift but last month hemoglobins were mid 11 range then yesterday was 9.9, down trended to 7.7 however patient has been receiving IV fluids - BP soft and heart rate high, discussed with GI and patient n.p.o., patient will need upper and lower endoscopies - Trending H&H - Patient on midodrine, this has been increased and albumin ordered - Also continue PPI drip # Malignant ascites - Patient gets routine paracenteses, after discussing with GI this has been ordered for tomorrow as this may be part of her abdominal discomfort # NATHALY on CKD stage IV - Creatinine was 3 on admission and down to 2.46 which is closer to baseline - Nephrology evaluated, CT abdomen without hydronephrosis and UA relatively benign - Continue to monitor output #GERD -Continue PPI #Hypothyroidism - Resume PPI once patient able to tolerate p.o. #DVT ppx: SCDs Duyen Romero MD Time spent in the patient's overall evaluation, decision-making process, review of diagnostic data, adjustment of management, discussion with other providers, nursing and ancillary staff involved in patient's care documentation, 41 Minutes Charges/Coding Visit Charges Inpatient E&M: 24363 Subs Hosp L2
[2025-02-03 19:37] LABS: Hematocrit 28.6 % (37-47); Hemoglobin 9.2 g/dL (12.0-15.0)
[2025-02-04] VITALS (25 sets, daily range): BP systolic 75–112; BP diastolic 43–62; PULSE 88–111; RESP 14–19; TEMP 36.4–36.7; O2SAT 95–100; BMI 24.9
[2025-02-04] MEDS: Pantoprazole Sodium 80 MG in 0.9% Normal Saline (100mL Bag) 80 ML 10 MG CONT INF ×3 (03:36→23:58)
[2025-02-04] MEDS: Midodrine HCl 5 MG Tablet 10 MG PO ×3 (05:15→17:16)
[2025-02-04 05:52] LABS: Absolute Lymphocyte Count 0.36 X10^3/uL (0.83-4.51); Basophil# 0.03 X10^3/uL; Basophil% 0.3 % (0-1); Eosinophil# 0.02 X10^3/uL; Eosinophils% 0.2 % (0-5); Hemoglobin 9.4 g/dL (12.0-15.0); Lymphocyte # 0.36 X10^3/ul (0.83-4.51); Lymphocyte % 3.2 % (19-41); Mean Corp Hgb Conc 32.4 g/dL (32-36); Mean Corpuscular Hgb 35.2 pg (27.0-32.0); Mean Corpuscular Volume 108.6 fL (81-99); Mean Platelet Vol. 10.1 fl (6.2-12.0); Monocyte# 0.42 X10^3/uL; Monocyte% 3.8 % (0-10); NRBC Flagged by Analyzer 0 % (0-5); Neutrophil % 90.2 % (47-70); POSITIVE DIFFERENTIAL YES; POSITIVE MORPHOLOGY YES; Platelet Count 122 K/mm3 (150-450); RBC Distribution Width CV 19.2 % (11.6-14.6); RBC Distribution Width SD 76.1 fl (35.1-43.9); Red Blood Count 2.67 M/mm3 (4.2-5.4); White Blood Count 11.1 K/mm3 (4.4-11.0)
[2025-02-04 06:02] LABS: Differential Indicated SCAN CRITERIA MET
[2025-02-04 06:06] LABS: International Normalized Ratio 1.2; Prothrombin Time (Protime)PT. 15.6 SECONDS (11.7-14.9)
[2025-02-04 06:07] LABS: Partial Thromboplast Time 30.8 Seconds (24.1-36.2)
[2025-02-04 06:49] LABS: Anisocytosis 2+; Differential Comment SCANNED; Platelet Estimate SLT DEC (ADEQ)
[2025-02-04 06:50] LABS: Ovalocyte 1+
[2025-02-04 06:55] LABS: AST(SGOT) 47 U/L (<=31); Alanine Aminotransfer ALT/SGPT 23 U/L (<=34); Albumin, Serum 3.1 g/dL (3.4-4.8); Alkaline Phosphatase 178 U/L (35-104); Anion Gap 14 (5-15); BUN 57 mg/dL (4-19); BUN/Creat Ratio 24.7 RATIO (10-20); Calcium,Total 8.3 mg/dL (7.6-11.0); Carbon Dioxide 15.2 mmol/L (21.0-32.0); Chloride 109 mmol/L (98-108); Creatinine, Serum 2.32 mg/dL (0.70-1.20); EST Glomerular Filtration Rate 23 (>60); Estimated Creatinine Clearance 22.03 ml/min (50-250); Globulin 1.6 g/dL (2.2-4.2); Glucose 67 mg/dL (70-99); Phosphorus 3.3 mg/dL (2.7-4.5); Potassium 4.4 mmol/L (3.3-5.1); Protein, Total 4.7 g/dL (5.9-8.4); Sodium Level 138 mmol/L (133-145); Total Bilirubin 1.42 mg/dL (0.00-1.30)
[2025-02-04] MEDS: Menthol/Lanolin/Calamine/Znox 113 GM Tube 1 APPLIC TOPICAL ×2 (09:00→22:57)
--- NOTE | 2025-02-04 09:58 | CASEMGMT ---
Magen Blanco asked about patient's correction plan. ROSINA spoke with patient and ultimately she would like to go home, but she is taking it day by day. ROSINA updated Magen Blanco. Mariela EDDY
[2025-02-04] MEDS: Hydrocortisone 2.5% Ointment 20 gm tube 1 APPLIC TOPICAL (11:43)
[2025-02-04] MEDS: Lidocaine 2% (20 ml mdv) 20 ML Vial INFILT (13:12)
--- NOTE | 2025-02-04 13:13 | FLU_PTH ---
PATIENT: RADHA VAZQUEZ LOC: [facility] U#:[id number] AGE/SX: 64/F ROOM: ICU03 RE02/02/[address]: Dr. Sherita Martin MD : 1960 BED: 1 DIS: 02/13/2025 SPEC #: [id number] RECD: 02/05/25 08:26 STATUS: [place] REQ #: [id number] ANTONIA: 02/04/25 13:[address]: Duyen Romero DEPT: CYTOLOGY RECD BY: Brady Ibrahim ENTERED: 02/05/25 08:26 SP TYPE: Fluid OTHR DR: DO Dr. Valentín Tinajero MD Dr. Paul Nielsen, MD Tissues: A - PARACENTESIS FLUID Procedures: Special Stain Group II Surgery Specimen Level IV Cytospin Fluid HEADER OPERATION: Ultrasound guided paracentesis PRE-OP DIAGNOSIS: Ascites TISSUE SUBMITTED: A- Paracentesis fluid for cytology DIAGNOSIS CYTOLOGY A. Paracentesis fluid: * No malignant cells are identified CYTOLOGY STUDY Slides are reviewed. CYTOLOGY GROSS A. Received is 90 ml of yellow-cloudy fluid labeled with the patient's name and and designated per the requisition as Paracentesis fluid. Submitted for cytology and cell block preparation. 02/05/2025 CPT: 25423
[2025-02-04 14:14] LABS: Cytology, Body Fluid / CSF SEE PATHOLOGY REPORT; Pathologist Comment/Body Fluid May follow
--- NOTE | 2025-02-04 14:41 | PN.RENAL_ITS ---
Subjective Subjective no new events Objective Data Objective Data Vital Signs: Vital Signs Temp Pulse Resp BP Pulse Ox O2 Del Method O2 Flow Rate 97.6 F L 104 H 18 87/54 L 99 Room Air 98 02/04/25 13:54 02/04/25 14:00 02/04/25 14:00 02/04/25 14:00 02/04/25 13:54 02/04/25 13:54 02/03/25 07:54 Oxygen Flow Rate (L/min) 98 Oxygen Delivery Method Room Air Weight: 63.8 kg Body Mass Index (BMI) 24.9 Intake & Output: Intake and Output for Last 24 Hours 02/02/25 02/03/25 02/04/25 23:59 23:59 23:59 Intake Total 350 / 350 4372.84 / 4372.84 291.5 / 291.5 Output Total 150 / 150 2900 / 2900 Balance 350 / 350 4222.84 / 4222.84 -2608.5 / -2608.5 Medical Nutrition Assessment Dietitian: Malnutrition Criteria Met Start: 02/03/25 11:03 Freq: Status: Active Protocol: Document 02/03/25 11:03 (Rec: 02/03/25 11:03 [id number]) Nutrition Malnutrition Evidence of Yes Malnutrition Exists Malnutrition (severe Chronic ): Evidenced By Suboptimal Energy Intake (Severe),Physical Changes ( Severe) Clinical Problem Chronic Disease or Condition Related Malnutrition Etiology severe related to breast cancer with mets to peritoneum and liver Signs/Symptoms as evidenced by PO intakes <75% of estimated nutrition needs for >1 month and severe temporal/orbital fat and muscle loss Status Active Problem Recommendation Dietitian Advance diet as tolerated to Regular as medically able Recommendations/ to optimize oral intakes. Changes Recommend 120ml ensure plus high protein 4x daily when diet advances. Lab / Micro Data 02/04/25 05:17 02/04/25 05:17 Labs: Laboratory Results - last 24 hr 02/03/25 16:15: Albumin 2.6 L 02/03/25 19:25: Hgb 9.2 L, Hct 28.6 L 02/04/25 05:17: WBC 11.1 H, RBC 2.67 L, Hgb 9.4 L, Hct 29.0 L, MCV 108.6 H, MCH 35.2 H, MCHC 32.4, RDW Std Deviation 76.1 H, RDW Coeff of Dominic 19.2 H, Plt Count 122 L, MPV 10.1, Immature Gran % (Auto) 2.300 H, Neut % (Auto) 90.2 H, Lymph % (Auto) 3.2 L, [place] % (Auto) 3.8, Eos % (Auto) 0.2, Baso % (Auto) 0.3, Absolute Neuts (auto) 10.0 H, Absolute Lymphs (auto) 0.36 L, Nucleated RBC % 0, Differential Comment SCANNED, Platelet Estimate SLT DEC, Anisocytosis 2+, Ovalocytes 1+, PT 15.6 H, INR 1.2, APTT 30.8, Sodium 138, Potassium 4.4, C hloride 109 H, Carbon Dioxide 15.2 L, Anion Gap 14, BUN 57 H, Creatinine 2.32 H, Estim Creat Clear Calc 22.03 L, Est GFR (MDRD) Non-Af 23 L, BUN/Creatinine Ratio 24.7 H, Glucose 67 L, Calcium 8.3, Phosphorus 3.3, Total Bilirubin 1.42 H, AST 47 H, ALT 23, Alkaline Phosphatase 178 H, Total Protein 4.7 L, Albumin 3.1 L, G lobulin 1.6 L, Albumin/Globulin Ratio 2.0 Micro: Microbiology 02/02/25 19:30 Stool Stool Occult Blood (ED) - Final Occult Blood Positive Physical Exam Narrative Alert awake oriented x 3 no obvious distress no pallor no icterus no JVD s1s2 no murmurs lungs clear abdomen soft no organomegaly no edema Assessment & Plan Assessment/Plan (1) NATHALY (acute kidney injury): PLAN: baseline cr was normal previously. during last admit, cr fluctuated between 2-3 this admit came in with cr 3.0 better at 2.4 Bp is on lower side UA is relatively benign CT abd without hydronephrosis. changes in cr are likely hemodynamic. Ascitis. malignant. she gets paracentesis about every 2 weeks. last one was about 10 days ago as per her. can stop fluids
[2025-02-04] MEDS: 0.9% Saline Lock 10 ML Syringe IV (14:57)
[2025-02-04] MEDS: Albumin Human 25% (100 mL) 25 GM/100 ML BAG IV ×2 (14:58→22:57)
[2025-02-04 15:05] LABS: Body Fluid Mononuclear WBC # 0.014 10^3/uL; Body Fluid Mononuclear WBC % 63.7 %; Body Fluid Polynuclear WBC # 0.008 10^3/uL; Body Fluid Polynuclear WBC % 36.3 %; Body Fluid Total Cells Counted 0.025 10^3/ul; White Blood Count/Body Fluid 0.022 10^3/uL
--- NOTE | 2025-02-04 15:49 | CASEMGMT ---
SW notified patient that [facility] has stated they are not able to meet her needs. Patient said she and her son will have to look over the list. SW will check back with patient. Mariela EDDY
[2025-02-04 17:22] LABS: LDH,Body Fluid 767 Units/L (Not Establ.); Protein, Body Fluid 2.3 g/dL (Not Establ.)
[2025-02-04 17:25] LABS: Appearance/Body Fluid CLEAR; Auto B Fluid Analyzer BKGD Ct COUNTS W/IN LIMITS (W/IN LIMITS); Color/Body Fluid YELLOW; Lymphocytes 18 %; Neutrophil (Segs) 29 %; Source- Body Fluid PARACENTESIS
[2025-02-04 17:26] LABS: Mesothelial Cells 3 %; Monocytes 45 %; Other Cell Type/BF 5 %
[2025-02-04 18:00] LABS: Body Fluid QC Type(s) 0409 BF1
[2025-02-04 18:20] LABS: Red Cell Count/Body Fluid 154 /mm3
[2025-02-04 18:35] LABS: Glucose, Body Fluid 19 mg/dL (Not Establ.)
--- NOTE | 2025-02-04 19:37 | PN.HOSP_ITS ---
Reason for Visit Reason for Visit: Diagnoses Unspecified severe protein-calorie malnutrition (02/02/25) Hypo-osmolality and hyponatremia (02/02/25) Hyperkalemia (02/02/25) Other specified noninfective gastroenteritis and colitis (02/02/25) Gastrointestinal hemorrhage, unspecified (02/02/25) Acute kidney failure, unspecified (02/02/25) Other shock (02/02/25) Subjective Subjective Patient seen prior to paracentesis and reports still some abdominal fullness and discomfort but no worsening, at the time of the evaluation has not had any more emesis, has not had further bright red blood, no other new or acute complaints Objective Data Objective Data Vital Signs: Vital Signs Temp Pulse Resp BP Pulse Ox O2 Del Method O2 Flow Rate 97.6 F L 100 17 87/55 L 95 Room Air 98 02/04/25 13:54 02/04/25 19:00 02/04/25 18:00 02/04/25 19:00 02/04/25 18:00 02/04/25 18:00 02/03/25 07:54 Oxygen Flow Rate (L/min) 98 Oxygen Delivery Method Room Air Weight: 63.8 kg Body Mass Index (BMI) 24.9 Intake & Output: Intake and Output for Last 24 Hours 02/02/25 02/03/25 02/04/25 23:59 23:59 23:59 Intake Total 350 / 350 4372.84 / 4372.84 391.5 / 391.5 Output Total 150 / 150 2900 / 2900 Balance 350 / 350 4222.84 / 4222.84 -2508.5 / -2508.5 Medical Nutrition Assessment Dietitian: Malnutrition Criteria Met Start: 02/03/25 11:03 Freq: Status: Active Protocol: Document 02/03/25 11:03 MONA (Rec: 02/03/25 11:03 [id number]) Nutrition Malnutrition Evidence of Yes Malnutrition Exists Malnutrition (severe Chronic ): Evidenced By Suboptimal Energy Intake (Severe),Physical Changes ( Severe) Clinical Problem Chronic Disease or Condition Related Malnutrition Etiology severe related to breast cancer with mets to peritoneum and liver Signs/Symptoms as evidenced by PO intakes <75% of estimated nutrition needs for >1 month and severe temporal/orbital fat and muscle loss Status Active Problem Recommendation Dietitian Advance diet as tolerated to Regular as medically able Recommendations/ to optimize oral intakes. Changes Recommend 120ml ensure plus high protein 4x daily when diet advances. Lab / Micro Data 02/04/25 05:17 02/04/25 05:17 Labs: Laboratory Results - last 24 hr 02/03/25 13:13: Fluid Glucose 19, Fluid Total Protein 2.3, Fluid LDH 767 02/03/25 19:25: Hgb 9.2 L, Hct 28.6 L 02/04/25 05:17: WBC 11.1 H, RBC 2.67 L, Hgb 9.4 L, Hct 29.0 L, MCV 108.6 H, MCH 35.2 H, MCHC 32.4, RDW Std Deviation 76.1 H, RDW Coeff of Dominic 19.2 H, Plt Count 122 L, MPV 10.1, Immature Gran % (Auto) 2.300 H, Neut % (Auto) 90.2 H, Lymph % (Auto) 3.2 L, [place] % (Auto) 3.8, Eos % (Auto) 0.2, Baso % (Auto) 0.3, Absolute Neuts (auto) 10.0 H, Absolute Lymphs (auto) 0.36 L, Nucleated RBC % 0, Differential Comment SCANNED, Platelet Estimate SLT DEC, Anisocytosis 2+, Ovalocytes 1+, PT 15.6 H, INR 1.2, APTT 30.8, Sodium 138, Potassium 4.4, C hloride 109 H, Carbon Dioxide 15.2 L, Anion Gap 14, BUN 57 H, Creatinine 2.32 H, Estim Creat Clear Calc 22.03 L, Est GFR (MDRD) Non-Af 23 L, BUN/Creatinine Ratio 24.7 H, Glucose 67 L, Calcium 8.3, Phosphorus 3.3, Total Bilirubin 1.42 H, AST 47 H, ALT 23, Alkaline Phosphatase 178 H, Total Protein 4.7 L, Albumin 3.1 L, G lobulin 1.6 L, Albumin/Globulin Ratio 2.0 02/04/25 13:13: Fluid Source PARACENTESIS, Fluid Color YELLOW, Fluid Appearance CLEAR, Fluid WBC 0.022, Fluid RBC 154, Fluid Tot Cell Count 0.025 H, Fld Polynuclear WBCs # 0.008, Fld Polynuclear WBCs % 36.3, Fluid Mononuclear WBCs 0.014, Fld Mononuclear WBCs % 63.7, Fluid Neutrophils 29, Fluid Lymphocytes 18, Fluid Monocytes 45, Fld Mesothelial Cells 3, Fluid Other Cells 5, Fl Pathologist Comment May follow, Fluid Comment 2 SEE COMMENT Micro: Microbiology 02/02/25 19:30 Stool Stool Occult Blood (ED) - Final Occult Blood Positive Physical Exam Narrative General: Alert, oriented, no apparent distress HEENT: Atraumatic, normocephalic Eyes: Anicteric, normal conjunctiva, extraocular movements grossly intact Neck: Supple Respiratory: No significant wheezes or rhonchi, normal respiratory effort Cardiovascular: Low-grade sinus tachycardia GI: Full but soft, no rebound, guarding, rigidity Extremities: No significant pitting edema Musculoskeletal: Moving all extremities Neuro: No overt focal neurological deficits Skin: No rashes appreciated Psych: Cooperative Assessment & Plan Assessment/Plan (1) GI bleed: QUALIFIERS: GI bleed type/associated pathology: unspecified gastrointestinal hemorrhage type Qualified Code(s): K92.2 - Gastrointestinal hemorrhage, unspecified PLAN: Plan # Concern for GI bleed - Patient with multiple bloody bowel movements prior to admission, has not had any during this shift but last month hemoglobins were mid 11 range then yesterday was 9.9, down trended to 7.7 however patient has been receiving IV fluids - BP soft and heart rate high, discussed with GI and patient n.p.o., patient will need upper and lower endoscopies - Trending H&H - Patient on midodrine, this has been increased and albumin ordered - Also continue PPI drip -02/04: Hemoglobin is stabilizing however given patient's history, presentation, current status plan is for patient to have endoscopies tomorrow with GI # Malignant ascites - Patient gets routine paracenteses, after discussing with GI this has been ordered for tomorrow as this may be part of her abdominal discomfort -02/04: Patient underwent therapeutic paracentesis, given albumin due to her soft blood pressure, continue supportive care # NATHALY on CKD stage IV - Creatinine was 3 on admission and down to 2.46 which is closer to baseline - Nephrology evaluated, CT abdomen without hydronephrosis and UA relatively benign - Continue to monitor output -02/04: Creatinine 2.32 today, slightly improved Chronic medical problems and/or problems not being actively addressed during today's encounter: #GERD -Continue PPI #Hypothyroidism - Resume PPI once patient able to tolerate p.o. #DVT ppx: SCDs Duyen Romero MD Time spent in the patient's overall evaluation, decision-making process, review of diagnostic data, adjustment of management, discussion with other providers, nursing and ancillary staff involved in patient's care documentation, 36 Minutes Charges/Coding Visit Charges Inpatient E&M: 06055 Subs Hosp L2
--- NOTE | 2025-02-04 20:32 | PCM.PN.BLA ---
Progress Note Patient does feel better after undergoing large-volume paracentesis. Physical Exam Narrative General: Alert, oriented, no apparent distress HEENT: Atraumatic, normocephalic Eyes: Anicteric, normal conjunctiva, extraocular movements grossly intact Neck: Supple Respiratory: No significant wheezes or rhonchi, normal respiratory effort Cardiovascular: Low-grade sinus tachycardia GI: Full but soft, no rebound, guarding, rigidity Extremities: No significant pitting edema Musculoskeletal: Moving all extremities Neuro: No overt focal neurological deficits Skin: No rashes appreciated Psych: Cooperative Assessment & Plan Assessment/Plan (1) GI bleed: QUALIFIERS: GI bleed type/associated pathology: unspecified gastrointestinal hemorrhage type Qualified Code(s): K92.2 - Gastrointestinal hemorrhage, unspecified (2) Hemorrhagic shock: (3) Stercoral colitis: (4) NATHALY (acute kidney injury): (5) Hyponatremia: (6) Hyperkalemia: (7) Severe protein-calorie malnutrition: PLAN: Plan 64-year-old female with PMH of peritoneal cancer with metastasis on estrogen luh therapy, paracentesis for metastatic ascites, polycythemia, mitral valve prolapse presents from [facility] for increased rectal bleeding. Patient states she has had frequent soft stools multiple times a day and rectal bleeding for 4 to 6 weeks. The nursing staff are concerned the bright red/dark red rectal bleeding was heavier today and her heart rate was elevated prompting them to call EMS. Patient reports feeling intermittently lightheaded and did feel lightheaded with position changes today. No syncope. No chest pain or shortness of breath. She reports chronic abdominal pain from her peritoneal cancer. GI bleed; with Hemoccult positive stools and early hemorrhagic shock noted in ER with hemoglobin of 9.9 g/dL present on admission (down from 11.8 g deciliter on January 14, 2025) with macrocytic MCV of 107.9 fL present on admission with CT abdomen/pelvis on admission revealing evidence of stercoral colitis with a large amount of stool within dilated rectum and circumferential wall thickening in addition to stable extensive abdominal pelvic ascites and peritoneal carcinomatosis similar to CT on January 14, 2025. Patient will likely need to undergo a flexible sigmoidoscopy versus a full colonoscopy to make sure that there is not any metastatic involvement of the large bowel. Her blood pressure seems to be stabilizing at this time. She also had some nausea vomiting and I think she should undergo an upper endoscopy to look for signs of portal hypertension and other etiologies of possible GI bleed and increased BUN to creatinine ratio. 02/04/2025-the plan is for her to undergo endoscopy tomorrow to determine etiology of nausea vomiting and rectal bleeding. Visit Charges Inpatient E&M: 36502 [facility] Hosp L3
[2025-02-05] VITALS (28 sets, daily range): BP systolic 77–96; BP diastolic 49–64; PULSE 83–113; RESP 12–20; TEMP 36.2–36.8; O2SAT 96–100; BMI 24.9
[2025-02-05 04:14] LABS: Absolute Neutrophil Count 10.4 X10^3/uL (2.0-7.7); Basophil# 0.02 X10^3/uL; Basophil% 0.2 % (0-1); Eosinophil# 0.02 X10^3/uL; Eosinophils% 0.2 % (0-5); Hematocrit 24.5 % (37-47); Hemoglobin 7.8 g/dL (12.0-15.0); Lymphocyte % 2.6 % (19-41); Mean Corp Hgb Conc 31.8 g/dL (32-36); Mean Corpuscular Hgb 35.5 pg (27.0-32.0); Mean Corpuscular Volume 111.4 fL (81-99); Mean Platelet Vol. 10.2 fl (6.2-12.0); Monocyte# 0.38 X10^3/uL; Monocyte% 3.3 % (0-10); NRBC Flagged by Analyzer 0 % (0-5); Neutrophil # 10.44 X10^3/uL (2.7-7.7); POSITIVE DIFFERENTIAL YES; POSITIVE MORPHOLOGY YES; Platelet Count 104 K/mm3 (150-450); RBC Distribution Width CV 19.4 % (11.6-14.6); RBC Distribution Width SD 78.3 fl (35.1-43.9); White Blood Count 11.5 K/mm3 (4.4-11.0)
[2025-02-05 04:25] LABS: Differential Indicated SCAN CRITERIA MET
[2025-02-05] MEDS: Midodrine HCl 5 MG Tablet 10 MG PO ×3 (05:17→17:05)
[2025-02-05 05:55] LABS: Anisocytosis 2+; Macrocytosis 2+
[2025-02-05 06:12] LABS: ALB/GLOB Ratio 2.7 RATIO (0.9-2.4); AST(SGOT) 31 U/L (<=31); Alanine Aminotransfer ALT/SGPT 16 U/L (<=34); Albumin, Serum 3.2 g/dL (3.4-4.8); Alkaline Phosphatase 111 U/L (35-104); Anion Gap 18 (5-15); BUN 53 mg/dL (4-19); BUN/Creat Ratio 25.3 RATIO (10-20); Calcium,Total 8.5 mg/dL (7.6-11.0); Carbon Dioxide 12.3 mmol/L (21.0-32.0); Chloride 109 mmol/L (98-108); Creatinine, Serum 2.11 mg/dL (0.70-1.20); EST Glomerular Filtration Rate 26 (>60); Estimated Creatinine Clearance 24.22 ml/min (50-250); Globulin 1.2 g/dL (2.2-4.2); Glucose 60 mg/dL (70-99); Potassium 3.9 mmol/L (3.3-5.1); Protein, Total 4.4 g/dL (5.9-8.4); Sodium Level 139 mmol/L (133-145); Total Bilirubin 1.84 mg/dL (0.00-1.30)
[2025-02-05] MEDS: Dextrose 10%-Water 250 ML 999 ML IV (07:57)
[2025-02-05] MEDS: 0.9% Saline Lock 10 ML Syringe IV ×3 (07:57→18:12)
[2025-02-05 08:24] LABS: Lactic Acid < 1.0 mmol/L (0.0-2.0)
[2025-02-05] MEDS: Pantoprazole Sodium 80 MG in 0.9% Normal Saline (100mL Bag) 80 ML 10 MG CONT INF ×2 (09:38→19:49)
--- NOTE | 2025-02-05 09:42 | PN.HOSP_ITS ---
Reason for Visit Reason for Visit: Diagnoses Unspecified severe protein-calorie malnutrition (02/02/25) Hypo-osmolality and hyponatremia (02/02/25) Hyperkalemia (02/02/25) Other specified noninfective gastroenteritis and colitis (02/02/25) Gastrointestinal hemorrhage, unspecified (02/02/25) Acute kidney failure, unspecified (02/02/25) Other shock (02/02/25) Subjective Subjective Patient with difficulty tolerating colonoscopy prep blood pressure still remains soft without any significant improvement or any drastic worsening, patient on midodrine, patient denies feeling lightheaded at all, still has some abdominal discomfort. She is similar to previous and she reports it somewhat waxes and wanes, when asked about dysuria she said she does not remember Objective Data Objective Data Vital Signs: Vital Signs Temp Pulse Resp BP Pulse Ox O2 Del Method O2 Flow Rate 97.8 F 113 H 17 85/54 L 96 Room Air 98 02/05/25 09:00 02/05/25 09:00 02/05/25 09:00 02/05/25 09:00 02/05/25 09:00 02/05/25 09:00 02/03/25 07:54 Oxygen Flow Rate (L/min) 98 Oxygen Delivery Method Room Air Weight: 63.8 kg Body Mass Index (BMI) 24.9 Intake & Output: Intake and Output for Last 24 Hours 02/03/25 02/04/25 02/05/25 23:59 23:59 23:59 Intake Total 4372.84 / 4372.84 489.0 / 489.0 461.67 / 461.67 Output Total 150 / 150 2900 / 2900 650 / 650 Balance 4222.84 / 4222.84 -2411.0 / -2411.0 -188.33 / -188.33 Medical Nutrition Assessment Dietitian: Malnutrition Criteria Met Start: 02/03/25 11:03 Freq: Status: Active Protocol: Document 02/03/25 11:03 MONA (Rec: 02/03/25 11:03 MONA [id number]) Nutrition Malnutrition Evidence of Yes Malnutrition Exists Malnutrition (severe Chronic ): Evidenced By Suboptimal Energy Intake (Severe),Physical Changes ( Severe) Clinical Problem Chronic Disease or Condition Related Malnutrition Etiology severe related to breast cancer with mets to peritoneum and liver Signs/Symptoms as evidenced by PO intakes <75% of estimated nutrition needs for >1 month and severe temporal/orbital fat and muscle loss Status Active Problem Recommendation Dietitian Advance diet as tolerated to Regular as medically able Recommendations/ to optimize oral intakes. Changes Recommend 120ml ensure plus high protein 4x daily when diet advances. Lab / Micro Data 02/05/25 03:32 02/05/25 03:32 Labs: Laboratory Results - last 24 hr 02/03/25 13:13: Fluid Glucose 19, Fluid Total Protein 2.3, Fluid LDH 767 02/04/25 13:13: Fluid Source PARACENTESIS, Fluid Color YELLOW, Fluid Appearance CLEAR, Fluid WBC 0.022, Fluid RBC 154, Fluid Tot Cell Count 0.025 H, Fld Polynuclear WBCs # 0.008, Fld Polynuclear WBCs % 36.3, Fluid Mononuclear WBCs 0.014, Fld Mononuclear WBCs % 63.7, Fluid Neutrophils 29, Fluid Lymphocytes 18, Fluid Monocytes 45, Fld Mesothelial Cells 3, Fluid Other Cells 5, Fl Pathologist Comment May follow, Fluid Comment 2 SEE COMMENT 02/05/25 03:32: WBC 11.5 H, RBC 2.20 L, Hgb 7.8 L, Hct 24.5 L, MCV 111.4 H, MCH 35.5 H, MCHC 31.8 L, RDW Std Deviation 78.3 H, RDW Coeff of Dominic 19.4 H, Plt Count 104 L, MPV 10.2, Immature Gran % (Auto) 2.700 H, Neut % (Auto) 91.0 H, L ymph % (Auto) 2.6 L, [place] % (Auto) 3.3, Eos % (Auto) 0.2, Baso % (Auto) 0.2, A bsolute Neuts (auto) 10.4 H, Absolute Lymphs (auto) 0.30 L, Nucleated RBC % 0, Anisocytosis 2+, Macrocytosis 2+, Sodium 139, Potassium 3.9, Chloride 109 H, C arbon Dioxide 12.3 L, Anion Gap 18 H, BUN 53 H, Creatinine 2.11 H, Estim Creat Clear Calc 24.22 L, Est GFR (MDRD) Non-Af 26 L, BUN/Creatinine Ratio 25.3 H, G lucose 60 L, Calcium 8.5, Total Bilirubin 1.84 H, AST 31, ALT 16, Alkaline Phosphatase 111 H, Total Protein 4.4 L, Albumin 3.2 L, Globulin 1.2 L, A lbumin/Globulin Ratio 2.7 H 02/05/25 07:45: Lactic Acid < 1.0 Micro: Microbiology 02/02/25 19:00 Blood Culture (Wb) - Left Wrist Blood Culture - Preliminary No growth in 48 hours. 02/02/25 18:42 Blood Culture (Wb) - Left Wrist Blood Culture - Preliminary No growth in 48 hours. 02/02/25 19:30 Stool Stool Occult Blood (ED) - Final Occult Blood Positive Physical Exam Narrative General: Alert, oriented, no apparent distress HEENT: Atraumatic, normocephalic Eyes: Anicteric, normal conjunctiva, extraocular movements grossly intact Neck: Supple Respiratory: No significant wheezes or rhonchi, normal respiratory effort Cardiovascular: Low-grade sinus tachycardia GI: Full but soft, no rebound, guarding, rigidity Extremities: No significant pitting edema Musculoskeletal: Moving all extremities Neuro: No overt focal neurological deficits Skin: No rashes appreciated Psych: Cooperative Assessment & Plan Assessment/Plan (1) GI bleed: QUALIFIERS: GI bleed type/associated pathology: unspecified gastrointestinal hemorrhage type Qualified Code(s): K92.2 - Gastrointestinal hemorrhage, unspecified PLAN: Plan # Concern for GI bleed - Patient with multiple bloody bowel movements prior to admission, has not had any during this shift but last month hemoglobins were mid 11 range then yesterday was 9.9, down trended to 7.7 however patient has been receiving IV fluids - BP soft and heart rate high, discussed with GI and patient n.p.o., patient will need upper and lower endoscopies - Trending H&H - Patient on midodrine, this has been increased and albumin ordered - Also continue PPI drip -02/04: Hemoglobin is stabilizing however given patient's history, presentation, current status plan is for patient to have endoscopies tomorrow with GI -02/05: Patient with plan for endoscopies today, unclear if she will get colonoscopy. She had a hard time tolerating prep, hemoglobin did trend down again today, with monitoring closely # Hypotension -02/05: Patient has remained low during this admission, looking back it does appear she has been struggling with low blood pressure over the past month, presently asymptomatic, intermittently receiving fluids and albumin, had some more blood per rectum with slight drop in hemoglobin but not large-volume, patient on midodrine, no new focal complaints that would necessarily account for any changes in blood pressure. Patient does appear to have an elevated gap with a low bicarb however unclear if this is lab abnormality, lactic acid checked which was within normal limits, will consider repeat BMP this afternoon. Patient clinical progress # Malignant ascites - Patient gets routine paracenteses, after discussing with GI this has been ordered for tomorrow as this may be part of her abdominal discomfort -02/04: Patient underwent therapeutic paracentesis, given albumin due to her soft blood pressure, continue supportive care -02/05: Abdomen soft without any rebound, guarding, rigidity # NATHALY on CKD stage IV - Creatinine was 3 on admission and down to 2.46 which is closer to baseline - Nephrology evaluated, CT abdomen without hydronephrosis and UA relatively benign - Continue to monitor output -02/04: Creatinine 2.32 today, slightly improved -02/05: Creatinine has continued to improve with present measures Chronic medical problems and/or problems not being actively addressed during today's encounter: #GERD -Continue PPI #Hypothyroidism - Resume PPI once patient able to tolerate p.o. #DVT ppx: SCDs Duyen Romero MD Time spent in the patient's overall evaluation, decision-making process, review of diagnostic data, adjustment of management, discussion with other providers, nursing and ancillary staff involved in patient's care documentation, 39 Minutes Charges/Coding Visit Charges Inpatient E&M: 87540 Subs Hosp L2
[2025-02-05] MEDS: Lactated Ringers 500 ML 999 ML IV (10:45)
[2025-02-05 11:09] LABS: Bedside Glucose 87 mg/dL (74-106)
[2025-02-05] MEDS: Menthol/Lanolin/Calamine/Znox 113 GM Tube 1 APPLIC TOPICAL ×2 (11:21→22:11)
[2025-02-05] MEDS: Hydrocortisone 2.5% Ointment 20 gm tube 1 APPLIC TOPICAL (11:21)
--- NOTE | 2025-02-05 11:30 | PCM.PN.REN ---
Subjective Subjective Resting in bed. No overnight events. Objective Data Objective Data Vital Signs: Vital Signs Temp Pulse Resp BP Pulse Ox O2 Del Method O2 Flow Rate 97.8 F 106 H 18 88/58 L 98 Room Air 98 02/05/25 11:00 02/05/25 11:00 02/05/25 11:00 02/05/25 11:00 02/05/25 11:00 02/05/25 11:00 02/03/25 07:54 Oxygen Flow Rate (L/min) 98 Oxygen Delivery Method Room Air Weight: 63.8 kg Body Mass Index (BMI) 24.9 Intake & Output: Intake and Output for Last 24 Hours 02/03/25 02/04/25 02/05/25 23:59 23:59 23:59 Intake Total 4372.84 / 4372.84 489.0 / 489.0 961.67 / 961.67 Output Total 150 / 150 2900 / 2900 650 / 650 Balance 4222.84 / 4222.84 -2411.0 / -2411.0 311.67 / 311.67 Medical Nutrition Assessment Dietitian: Malnutrition Criteria Met Start: 02/03/25 11:03 Freq: Status: Active Protocol: Document 02/03/25 11:03 (Rec: 02/03/25 11:03 [id number]) Nutrition Malnutrition Evidence of Yes Malnutrition Exists Malnutrition (severe Chronic ): Evidenced By Suboptimal Energy Intake (Severe),Physical Changes ( Severe) Clinical Problem Chronic Disease or Condition Related Malnutrition Etiology severe related to breast cancer with mets to peritoneum and liver Signs/Symptoms as evidenced by PO intakes <75% of estimated nutrition needs for >1 month and severe temporal/orbital fat and muscle loss Status Active Problem Recommendation Dietitian Advance diet as tolerated to Regular as medically able Recommendations/ to optimize oral intakes. Changes Recommend 120ml ensure plus high protein 4x daily when diet advances. Lab / Micro Data 02/05/25 03:32 02/05/25 03:32 Labs: Laboratory Results - last 24 hr 02/03/25 13:13: Fluid Glucose 19, Fluid Total Protein 2.3, Fluid LDH 767 02/04/25 13:13: Fluid Source PARACENTESIS, Fluid Color YELLOW, Fluid Appearance CLEAR, Fluid WBC 0.022, Fluid RBC 154, Fluid Tot Cell Count 0.025 H, Fld Polynuclear WBCs # 0.008, Fld Polynuclear WBCs % 36.3, Fluid Mononuclear WBCs 0.014, Fld Mononuclear WBCs % 63.7, Fluid Neutrophils 29, Fluid Lymphocytes 18, Fluid Monocytes 45, Fld Mesothelial Cells 3, Fluid Other Cells 5, Fl Pathologist Comment May follow, Fluid Comment 2 SEE COMMENT 02/05/25 03:32: WBC 11.5 H, RBC 2.20 L, Hgb 7.8 L, Hct 24.5 L, MCV 111.4 H, MCH 35.5 H, MCHC 31.8 L, RDW Std Deviation 78.3 H, RDW Coeff of Dominic 19.4 H, Plt Count 104 L, MPV 10.2, Immature Gran % (Auto) 2.700 H, Neut % (Auto) 91.0 H, Lymph % (Auto) 2.6 L, [place] % (Auto) 3.3, Eos % (Auto) 0.2, Baso % (Auto) 0.2, Absolute Neuts (auto) 10.4 H, Absolute Lymphs (auto) 0.30 L, Nucleated RBC % 0, Anisocytosis 2+, Macrocytosis 2+, Sodium 139, Potassium 3.9, Chloride 109 H, Carbon Dioxide 12.3 L, Anion Gap 18 H, BUN 53 H, Creatinine 2.11 H, Estim Creat Clear Calc 24.22 L, Est GFR (MDRD) Non-Af 26 L, BUN/Creatinine Ratio 25.3 H, Glucose 60 L, Calcium 8.5, Total Bilirubin 1.84 H, AST 31, ALT 16, Alkaline Phosphatase 111 H, Total Protein 4.4 L, Albumin 3.2 L, Globulin 1.2 L, Albumin/Globulin Ratio 2.7 H 02/05/25 07:45: Lactic Acid < 1.0 02/05/25 10:43: POC Glucose 87 Micro: Microbiology 02/04/25 13:13 Fluid - Ascites Body Fluid Culture - Preliminary No growth-Final to follow 02/02/25 19:00 Blood Culture (Wb) - Left Wrist Blood Culture - Preliminary No growth in 48 hours. 02/02/25 18:42 Blood Culture (Wb) - Left Wrist Blood Culture - Preliminary No growth in 48 hours. 02/02/25 19:30 Stool Stool Occult Blood (ED) - Final Occult Blood Positive Physical Exam Narrative Alert awake oriented x 3 no obvious distress no JVD s1s2 no murmurs lungs clear no edema Assessment & Plan Assessment/Plan (1) NATHALY (acute kidney injury): PLAN: - Nonoliguric NATHALY on possible CKD. Baseline serum creatinine around 1.2 to 1.3 mg/dL. During last admit, cr fluctuated between 2-3 and for this admit came in with SCr 3.0 --> today SCr 2.11. NATHALY likely secondary to hemodynamics, hypotension. No acute indication for [employer]. Patient is nonoliguric. Bp is low, getting IV bolus today. Also on midodrine 3 times daily. UA is relatively benign. CT abd without hydronephrosis. - Concern for GI bleed; GI following. Possible EGD today. Malignant ascites. She gets paracentesis about every 2 weeks. Had paracentesis yesterday with 2.5 L removed, received dose of IV albumin. Assessment and plan reviewed with Dr. Bhandari.
--- NOTE | 2025-02-05 14:39 | PRE.ANES_ITS ---
ASA Classification* ASA Classification ASA Classification: 3 Assessment & Plan Anesthesia* Anesthesia Assessment Anesthesia Assessment: Discussed sedation and/or anesthesia options, risks, benefits, and alternatives with patient/parents/legal guardian/POA. Questions invited. The patient/parents/legal guardian/POA seems to understand and agrees to proceed with anesthesia plan. Reviewed the physical assessment, medical history, allergy history and patient home medications list prior to surgery/procedure/anesthetic and documented any changes. Performed airway and anesthesia risk assessments. Anesthesia Type Anesthesia Type: MAC History Source History Obtained from:: Patient and Chart Anesthesia Focused Assessment* Temperature: 97.8 F Pulse Rate: 102 Blood Pressure: 90/58 Respiratory Rate: 20 Pulse Ox: 98 Oxygen Delivery Method: Room Air Oxygen Flow Rate (L/min): 98 Airway Assessment Mouth opens: 2 cm Mallampati Score: IV Teeth Condition: Intact Neck Range of motion (ROM): Limited ROM (Somewhat decreased extension) Focused Labs Anesthesia Preop lab: CBC WBC 11.5 K/mm3 (4.4-11.0) H 02/05/25 03: 5 RBC 2.20 M/mm3 (4.2-5.4) L 02/05/25 03:32 02/05/25 Hgb 7.8 g/dL (12.0-15.0) L 02/05/25 03:32 02/05/25 Hct 24.5 % (37-47) L 02/05/25 03:32 02/05/25 Plt Count 104 K/mm3 (150-450) L 02/05/25 03:32 02/05/25 CHEMISTRY Potassium 3.9 mmol/L (3.3-5.1) 02/05/25 03:32 02/05/25 Sodium 139 mmol/L (133-145) 02/05/25 03:32 02/05/25 Magnesium 2.2 mg/dL (1.5-2.2) 02/02/25 17:23 02/02/25 Phosphorus 3.3 mg/dL (2.7-4.5) 02/04/25 05:17 02/04/25 BUN 53 mg/dL (4-19) H 02/05/25 03:32 02/05/25 Creatinine 2.11 mg/dL (0.70-1.20) H 02/05/25 03:32 Glucose 60 mg/dL (70-99) L 02/05/25 03:32 02/05/25 POC Glucose 87 mg/dL (74-106) 02/05/25 10:43 02/05/25 TSH 0.678 uIU/mL (0.300-4.200) 02/03/25 07:36 06/22 COAG PT 15.6 SECONDS (11.7-14.9) H 02/04/25 05:17 07/23 Pre-Assessment Diagnosis/Proposed Procedure Planned Operative Procedure(s): Esophagogastroduodenoscopy. Colonoscopy Anesthesia History Anesthesia History - reconstructive dentist: Anesthesia History - reconstructive dentist Hx Hospitalization No 02/12/24 14:15 Any Problems With Anesthesia Yes: pt vomitted once 02/05/25 07:00 Cholinesterase deficiency No 02/05/25 07:00 You/Your Family Experience No 02/05/25 07:00 fever (hyperthermia) with Relationship Recent Exposure to Contagious No 02/05/25 07:00 Disease Does patient have nerve No 02/05/25 07:00 stimulator Patient instructed to have No 02/05/25 07:00 device shut off --Does patient have Pacemaker No 02/05/25 14:05 or ICD? When Was Last Pacemaker Check QUESTION #4 FULL TEXT: You/Your Family Experience fever (hyperthermia) with Anesthesia Last Oral Intake Last Oral intake: Last Oral Intake NPO since 00:00 02/05/25 05:36 Meds taken in AM with sips of No 02/05/25 14:05 water? Meds patient instructed to midodrine 02/05/25 05:36 take am of surgery PONV PONV - reconstructive dentist: PONV - reconstructive dentist Female HX of Motion Sickness HX of N/V After Surgery Non-Smoker Duration of Surgery greater than 60 minutes Number of Risk Factors PONV Score Height & Weight Height & Weight: Anesthesia: Height & Weight Height 5 ft 3 in 02/05/25 14:05 Weight: 63.8 kg 02/05/25 14:05 Body Mass Index (BMI) 24.9 02/05/25 14:05 Respiratory Assessment Respiratory Assessment - reconstructive dentist: Respiratory Tract Infection Hx - reconstructive dentist Hx Respiratory Tract Infection No 02/05/25 07:00 STOP Sleep Apnea STOP Sleep Apnea - reconstructive dentist: STOP Sleep Apnea - reconstructive dentist Hx Hypertension No 02/03/25 13:13 Hx Sleep Apnea No 02/02/25 22:31 CPAP BIPAP Do you snore loudly (louder Yes 02/02/25 22:31 than talking or can be heard Do you often feel tired/ Yes 02/02/25 22:31 fatigued/ sleepy during daytime? Has anyone observed you stop Yes 02/02/25 22:31 breathing during sleep? STOP Results Positive 02/02/25 22:31 QUESTION #5 FULL TEXT : Do you snore loudly (louder than talking or can be heard through closed doors)? Tobacco Use History Tobacco Use History - reconstructive dentist: Tobacco Use History - reconstructive dentist Tobacco Use Smoking Status Former smoker 02/02/25 22:31 Hx Tobacco Use No 02/02/25 22:31 Years Smoking Packs Smoked per Day Smoking Cessation Date was Yes - quit smoking within 15 02/02/25 22:31 within the last 15 years years Hx Smoking Cessation Date 03/30/01 02/02/25 22:31 Hx Smoking Cessation Counseling Hematologic Medial History Hematologic Hx - reconstructive dentist: Hematologic Medical Hx - tutoring assistant Hx of Blood Transfusion No 02/02/25 22:31 Hx of Transfusion in last 3 No 02/02/25 22:31 Months Date of Last Transfusion (if within last 3 months) Ever experience any problems No 02/02/25 22:31 with transfusion(s)? Specify any problems Hx of Preganancy in last 3 No 02/02/25 22:31 Months Nurse Filling Out Transfusion AFLICKING 02/02/25 22:31 & Questions: Date: 02/02/25 02/02/25 22:31 Time: 22:37 02/02/25 22:31 Patient unable to answer at this time (ie. confused, unrespo /Reproduction History /Reproductive History - reconstructive dentist: /Reproductive Hx- reconstructive dentist Hx Now No 02/05/25 07:00 Gestational Age (in weeks): EDC: Hx Hx Para Hx Section SAB No 02/05/25 07:00 Active Medications Active Medications: Current Medications Generic Name Dose Route Start Last Admin Trade Name Freq PRN Reason Stop Dose Admin Acetaminophen 650 mg 02/02/25 22:30 Acetaminophen 650 Mg Suppository RC Q6H PRN PRN Pain 1-03/07 or Fever Calamine/Phenol 1 applic 02/03/25 10:30 02/05/25 11:21 Menthol/Lanolin/Calamine/Znox 113 Gm Tube TOPICAL 1 applic BID ULISSES Administration Protocol Hydrocortisone 1 applic 02/03/25 10:00 02/05/25 11:21 Hydrocortisone 2.5% Ointment 20 Gm Tube TOPICAL 1 applic DAILY ULISSES Administration Pantoprazole Sodium 80 mg/ 100 mls @ 10 mls/hr 02/02/25 21:28 02/05/25 09:38 Sodium Chloride CONT INF 10 mls/hr Q10H ULISSES Administration Sodium Chloride 100 mls @ 15 mls/hr 02/02/25 22:40 IV .Q6H40M PRN Saline Flush Sodium Chloride 100 mls @ 15 mls/hr 02/02/25 22:40 IV .Q6H40M PRN Additional IVPB Infusion Midodrine 10 mg 02/04/25 08:00 02/05/25 11:21 Midodrine Hcl 5 Mg Tablet PO 10 mg TIDCM ULISSES Administration Ondansetron HCl 4 mg 02/02/25 22:30 02/03/25 14:16 Ondansetron 4 Mg/2 Ml Vial IV 4 mg Q4H PRN PRN Administration NAUSEA/VOMITING Promethazine HCl 25 mg 02/02/25 22:30 Promethazine 25 Mg/Ml Syringe IM Q6H PRN PRN Breakthrough Nausea/Vomiting Sodium Chloride 10 - 40 ml 02/02/25 22:40 02/05/25 11:20 0.9% Saline Lock 10 Ml Syringe IV 10 ml UD PRN Administration SALINE FLUSH PFSH Medical History NATHALY (acute kidney injury) Carcinoma of peritoneum Abdominal ascites Localized swelling of both lower legs Dyspnea on exertion Prerenal acute renal failure High risk factor score for venous thromboembolism Bilateral lower extremity edema Rash Elevated serum creatinine Post-menopausal 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 Instructions: MD Ordered levothyroxine 125 mcg tablet 125 mcg PO DAILY 09/16/24 02/02/25 History fulvestrant 250 mg/5 mL 500 mg (10 mL) IM .COMPLEX # 10 mL 01/19/25 01/08/25 Rx intramuscular syringe (Faslodex) cholecalciferol (vitamin D3) 25 2,000 unit PO DAILY 02/02/25 History mcg (1,000 unit) capsule hydrocortisone 1 % topical cream 1 applic topical ALTAF Y 02/02/25 Unknown History (Preparation H Hydrocortisone) pantoprazole 40 mg tablet,delayed 40 mg PO DAILY 02/02 Unknown History release prochlorperazine maleate 10 mg 10 mg PO Q6H PRN anxiet y 02/02/25 Unknown History tablet Allergy/AdvReac Type Severity Reaction Status Date / Time No Known Allergies Allergy Verified 02/02/25 16:58 Family History Father Esophageal cancer Surgical History Hx of colonoscopy History of right mastectomy History of bone marrow biopsy Social History Smoking Status: Former smoker Review of Systems (Anesthesia) ROS Narrative System reviewed and no additional complaints, except as documented.
--- NOTE | 2025-02-05 15:00 | EGD_PTH ---
PATIENT: RADHA VAZQUEZ LOC: [facility] U#:[id number] AGE/SX: 64/F ROOM: ICU03 RE02/02/[address]: Dr. Sherita Martin MD : 1960 BED: 1 DIS: 02/13/2025 SPEC #: [id number] RECD: 02/06/25 07:52 STATUS: BONITA REQ #: [id number] ANTONIA: 02/05/25 15:[address]: Lincoln Rodriguez DEPT: SURGICAL PATHOLOGY RECD BY: Chaparrita Jaffe ENTERED: 02/06/25 08:03 SP TYPE: EGD BIOPSY OT DR: DO Dr. Valentín Tinajero MD Dr. Paul Nielsen, MD Dr. Paige Pierce, MD Tissues: A - Gastric mucous membrane Procedures: Immunohistochemical Stains Surgery Specimen Level IV HEADER OPERATION: EGD with biopsy PRE-OP DIAGNOSIS: GI bleed TISSUE SUBMITTED: A- Gastric body biopsy MICROSCOPIC DIAGNOSIS A. Stomach, body, biopsy: * Oxyntic mucosa with chronic inflammation. * IHC negative for H pylori organisms - see note. Note: If clinical suspicion for Helicobacter gastritis remains high suggest obtaining alternative testing for Helicobacter infection and/or including antral mucosa in the biopsy. MICROSCOPIC DESCRIPTION Slides are reviewed. All matched controls reacted appropriately. These tests were developed and their performance characteristics determined by [facility]. They may not have been cleared or approved by the U.S. Food and Drug Administration. The FDA has determined that such clearance or approval is not necessary. The above immunohistochemical/dualISH markers are ordered and reviewed by the Pathologist. GROSS DESCRIPTION A. Received in formalin in a container labeled with the patient's name, date of , and gastric body biopsy are 2 corbett-pink fragments of mucosal tissue measuring 0.3 x 0.2 x 0.2 cm and 0.7 x 0.3 x 0.2 cm. Submitted in toto in A1. [facility] 02/16/2025 CPT: 30741, 71933
--- NOTE | 2025-02-05 15:26 | PCM.PN.BLA ---
Progress Note Patient states she feels a little better but is still nauseous. Physical Exam Narrative Alert awake oriented x 3 no obvious distress no JVD s1s2 no murmurs lungs clear no edema Assessment & Plan Assessment/Plan (1) GI bleed: QUALIFIERS: GI bleed type/associated pathology: unspecified gastrointestinal hemorrhage type Qualified Code(s): K92.2 - Gastrointestinal hemorrhage, unspecified (2) Hemorrhagic shock: (3) Stercoral colitis: (4) NATHALY (acute kidney injury): (5) Hyponatremia: (6) Hyperkalemia: (7) Severe protein-calorie malnutrition: PLAN: Plan 64-year-old female with PMH of peritoneal cancer with metastasis on estrogen luh therapy, paracentesis for metastatic ascites, polycythemia, mitral valve prolapse presents from [facility] for increased rectal bleeding. Patient states she has had frequent soft stools multiple times a day and rectal bleeding for 4 to 6 weeks. The nursing staff are concerned the bright red/dark red rectal bleeding was heavier today and her heart rate was elevated prompting them to call EMS. Patient reports feeling intermittently lightheaded and did feel lightheaded with position changes today. No syncope. No chest pain or shortness of breath. She reports chronic abdominal pain from her peritoneal cancer. GI bleed; with Hemoccult positive stools and early hemorrhagic shock noted in ER with hemoglobin of 9.9 g/dL present on admission (down from 11.8 g deciliter on January 14, 2025) with macrocytic MCV of 107.9 fL present on admission with CT abdomen/pelvis on admission revealing evidence of stercoral colitis with a large amount of stool within dilated rectum and circumferential wall thickening in addition to stable extensive abdominal pelvic ascites and peritoneal carcinomatosis similar to CT on January 14, 2025. Patient will likely need to undergo a flexible sigmoidoscopy versus a full colonoscopy to make sure that there is not any metastatic involvement of the large bowel. Her blood pressure seems to be stabilizing at this time. She also had some nausea vomiting and I think she should undergo an upper endoscopy to look for signs of portal hypertension and other etiologies of possible GI bleed and increased BUN to creatinine ratio. 02/04/2025-the plan is for her to undergo endoscopy tomorrow to determine etiology of nausea vomiting and rectal bleeding. 02/05/2025-patient has agreed to undergo an upper endoscopy but not the colonoscopy. Visit Charges Inpatient E&M: 49897 Subs Hosp L3
--- NOTE | 2025-02-05 15:46 | OP.CCLET_ITS ---
02/05/2025 Eldon Proctor MD [address] [place] [address] Re : Upper GI endoscopy procedure for Fariba Gore Dear Dr. Proctor This procedure was performed on January. My impressions and recommendations are as follows: Impressions : - LA Grade D erosive esophagitis with no bleeding. - Small hiatal hernia. - Bile gastritis. Biopsied. - Erythematous duodenopathy. Recommendations : - Return patient to [facility] for ongoing care. - Resume previous diet. - Continue present medications. - Await pathology results. My findings are described in the full procedure note, which is enclosed. If I can be of further assistance, please feel free to contact me at . Sincerely, Lincoln Rodriguez, 02/05/2025 3:45:57 PM This report has been signed electronically.
--- NOTE | 2025-02-05 15:46 | OP.EGD_ITS ---
Patient Name: Fariba Gore Procedure Date: 02/05/2025 3:30 PM Date of : 1960 Age: 64 Procedure: Upper GI endoscopy Indications: Melena Providers: Lincoln Rodriguez DO Medicines: Monitored Anesthesia Care Patient Profile: This is a 64 year old female. Refer to note in patient chart for documentation of history and physical. Patient has symptoms of acute epigastric abdominal pain, acute nausea, acute throat burning and acute vomiting. Complications: No immediate complications. Procedure: Pre-Anesthesia Assessment: - Prior to the procedure, a History and Physical was performed, and patient medications and allergies were reviewed. The patient is competent. The risks and benefits of the procedure and the sedation options and risks were discussed with the patient. All questions were answered and informed consent was obtained. Patient identification and proposed procedure were verified by the physician in the pre-procedure area. Mental Status Examination: alert and oriented. Airway Examination: normal oropharyngeal airway and neck mobility. Respiratory Examination: clear to auscultation. CV Examination: normal. Prophylactic Antibiotics: The patient does not require prophylactic antibiotics. Prior Anticoagulants: The patient has taken no anticoagulant or antiplatelet agents except for NSAID medication. ASA Grade Assessment: II - A patient with mild systemic disease. After reviewing the risks and benefits, the patient was deemed in satisfactory condition to undergo the procedure. The anesthesia plan was to use monitored anesthesia care (MAC). Immediately prior to administration of medications, the patient was re-assessed for adequacy to receive sedatives. The heart rate, respiratory rate, oxygen saturations, blood pressure, adequacy of pulmonary ventilation, and response to care were monitored throughout the procedure. The physical status of the patient was re-assessed after the procedure. After obtaining informed consent, the endoscope was passed under direct vision. Throughout the procedure, the patient's blood pressure, pulse, and oxygen saturations were monitored continuously. The Endoscope was introduced through the mouth, and advanced to the fourth part of the duodenum. Small bowel enteroscopy was deemed necessary. The upper GI endoscopy was accomplished without difficulty. The patient tolerated the procedure well. Scope In: 3:38:56 PM Scope Out: 3:42:06 PM Total Procedure Duration Time 0 hours 3 minutes 10 seconds Findings: LA Grade D (one or more mucosal breaks involving at least 75% of esophageal circumference) esophagitis with no bleeding was found 30 to 40 cm from the incisors. A small hiatal hernia was present. Diffuse severe inflammation characterized by erythema, friability and granularity was found in the entire examined stomach. Biopsies were taken with a cold forceps for histology. Verification of patient identification for the specimen was done. Estimated blood loss was minimal. Biopsies were taken with a cold forceps for Helicobacter pylori testing. Verification of patient identification for the specimen was done. Estimated blood loss was minimal. Patchy mildly erythematous mucosa without active bleeding and with no stigmata of bleeding was found in the third portion of the duodenum. Impression: - LA Grade D erosive esophagitis with no bleeding. - Small hiatal hernia. - Bile gastritis. Biopsied. - Erythematous duodenopathy. Recommendation: - Return patient to [facility] for ongoing care. - Resume previous diet. - Continue present medications. - Await pathology results. Procedure Code(s): --- Professional --- 70560, Small intestinal endoscopy, enteroscopy beyond second portion of duodenum, not including ileum; with biopsy, single or multiple CPT copyright 2021 [employer]. All rights reserved. The codes documented in this report are preliminary and upon loft rigger review may be revised to meet current compliance requirements. Lincoln Rodriguez DO 02/05/2025 3:45:57 PM This report has been signed electronically. Number of Addenda: 0 Note Initiated On: 02/05/2025 3:30 PM
--- NOTE | 2025-02-05 15:50 | PCM.POST.ANE ---
Anesthesia: Postop Eval I Current Vital Signs Temperature: 97.1 F Pulse Rate: 96 Blood Pressure: 81/52 Respiratory Rate: 12 Pulse Ox: 99 Oxygen Delivery Method: Nasal Cannula Oxygen Flow Rate (L/min): 2 Assessment Airway patent: Yes Spontaneous unlabored respirations: Yes Mental status: Asleep nausea: No Vomiting: No Anesthesia Complication: No Fluid Hydration Crystalloid volume administer (ml): 0 Total IV fluid infused: 0 Progress Note Anesthesia document: Postop Eval 1 completed: Yes
[2025-02-05] MEDS: LACTATED RINGERS 250 ML 999 ML IV (17:50)
--- NOTE | 2025-02-05 19:18 | POSTOPAN2_ITS ---
Anesthesia Postop Eval I Sum Postop Eval Completion status Anesthesia document: Postop Eval 1 completed: Yes Anesthesia Postop Eval I Summary Anesthesia Postop Eval I Summary: Anesthesia Postop Eval I: Assessment Summary Airway patent Yes 02/05/25 15:51 MANAGER [email or web address] Spontaneous unlabored Yes 02/05/25 15:51 MANAGER [email or web address] respirations Mental status Asleep 02/05/25 15:51 MANAGER [email or web address] nausea No 02/05/25 15:51 MANAGER [email or web address] Vomiting No 02/05/25 15:51 MANAGER [email or web address] Anesthesia Postop Eval I: Fluid Summary Crystalloid volume administer 0 02/05/25 15:51 MANAGER [email or web address] (ml) Colloids volume administered ( ml) Blood Product volume administered (ml) Total IV fluid infused 0 02/05/25 15:51 MANAGER [email or web address] Anesthesia Postop Eval I: Summary Notes Anesthesia Complication No 02/05/25 15:51 MANAGER [email or web address] Anesthesia Complication Comment: Post-operative progress note Anesthesia: Postop Eval II Evaluation Mental status: Awake and Calm Pain Level: 0 nausea: No Vomiting: No Complications Anesthesia Complication: No
--- NOTE | 2025-02-05 19:18 | PCM.POSTANE2 ---
Anesthesia Postop Eval I Sum Postop Eval Completion status Anesthesia document: Postop Eval 1 completed: Yes Anesthesia Postop Eval I Summary Anesthesia Postop Eval I Summary: Anesthesia Postop Eval I: Assessment Summary Airway patent Yes 02/05/25 15:51 WATER REUSE PROGRAM [email or web address] Spontaneous unlabored Yes 02/05/25 15:51 WATER REUSE PROGRAM [email or web address] respirations Mental status Asleep 02/05/25 15:51 WATER REUSE PROGRAM [email or web address] nausea No 02/05/25 15:51 WATER REUSE PROGRAM [email or web address] Vomiting No 02/05/25 15:51 WATER REUSE PROGRAM [email or web address] Anesthesia Postop Eval I: Fluid Summary Crystalloid volume administer 0 02/05/25 15:51 WATER REUSE PROGRAM [email or web address] (ml) Colloids volume administered ( ml) Blood Product volume administered (ml) Total IV fluid infused 0 02/05/25 15:51 WATER REUSE PROGRAM [email or web address] Anesthesia Postop Eval I: Summary Notes Anesthesia Complication No 02/05/25 15:51 WATER REUSE PROGRAM [email or web address] Anesthesia Complication Comment: Post-operative progress note Anesthesia: Postop Eval II Evaluation Mental status: Awake and Calm Pain Level: 0 nausea: No Vomiting: No Complications Anesthesia Complication: No
[2025-02-05 20:00] LABS: Anion Gap 14 (5-15); BUN 48 mg/dL (4-19); BUN/Creat Ratio 26.4 RATIO (10-20); Calcium,Total 8.4 mg/dL (7.6-11.0); Carbon Dioxide 15.3 mmol/L (21.0-32.0); Chloride 114 mmol/L (98-108); EST Glomerular Filtration Rate 31 (>60); Estimated Creatinine Clearance 28.39 ml/min (50-250); Glucose 113 mg/dL (70-99); Potassium 4.3 mmol/L (3.3-5.1); Sodium Level 143 mmol/L (133-145)
[2025-02-06] VITALS (7 sets, daily range): BP systolic 93–107; BP diastolic 63–72; PULSE 98–117; RESP 14–20; TEMP 36.2–36.6; O2SAT 95–100; BMI 23.8
[2025-02-06] MEDS: Pantoprazole Sodium 80 MG in 0.9% Normal Saline (100mL Bag) 80 ML 10 MG CONT INF (05:51)
[2025-02-06 08:05] LABS: Absolute Lymphocyte Count 0.33 X10^3/uL (0.83-4.51); Absolute Neutrophil Count 12.2 X10^3/uL (2.0-7.7); Basophil# 0.03 X10^3/uL; Basophil% 0.2 % (0-1); Eosinophil# 0.02 X10^3/uL; Eosinophils% 0.1 % (0-5); Hematocrit 28.3 % (37-47); Hemoglobin 9.2 g/dL (12.0-15.0); Lymphocyte # 0.33 X10^3/ul (0.83-4.51); Lymphocyte % 2.4 % (19-41); Mean Corp Hgb Conc 32.5 g/dL (32-36); Mean Corpuscular Hgb 35.7 pg (27.0-32.0); Mean Corpuscular Volume 109.7 fL (81-99); Monocyte# 0.62 X10^3/uL; Monocyte% 4.6 % (0-10); NRBC Flagged by Analyzer 0 % (0-5); Neutrophil # 12.23 X10^3/uL (2.7-7.7); Neutrophil % 90.5 % (47-70); POSITIVE DIFFERENTIAL YES; POSITIVE MORPHOLOGY YES; Platelet Count 116 K/mm3 (150-450); RBC Distribution Width CV 19.3 % (11.6-14.6); RBC Distribution Width SD 76.6 fl (35.1-43.9); Red Blood Count 2.58 M/mm3 (4.2-5.4); White Blood Count 13.5 K/mm3 (4.4-11.0)
[2025-02-06 08:08] LABS: Differential Indicated SCAN CRITERIA MET
[2025-02-06] MEDS: Hydrocortisone 2.5% Ointment 20 gm tube 1 APPLIC TOPICAL (08:12)
[2025-02-06] MEDS: Midodrine HCl 5 MG Tablet 10 MG PO ×3 (08:12→16:17)
[2025-02-06] MEDS: Menthol/Lanolin/Calamine/Znox 113 GM Tube 1 APPLIC TOPICAL ×2 (08:12→21:04)
[2025-02-06 08:37] LABS: ALB/GLOB Ratio 1.7 RATIO (0.9-2.4); AST(SGOT) 34 U/L (<=31); Alanine Aminotransfer ALT/SGPT 19 U/L (<=34); Albumin, Serum 2.8 g/dL (3.4-4.8); Alkaline Phosphatase 130 U/L (35-104); Anion Gap 12 (5-15); BUN 45 mg/dL (4-19); BUN/Creat Ratio 26.3 RATIO (10-20); Calcium,Total 8.3 mg/dL (7.6-11.0); Carbon Dioxide 15.9 mmol/L (21.0-32.0); Chloride 114 mmol/L (98-108); Creatinine, Serum 1.72 mg/dL (0.70-1.20); EST Glomerular Filtration Rate 33 (>60); Estimated Creatinine Clearance 27.33 ml/min (50-250); Globulin 1.7 g/dL (2.2-4.2); Glucose 118 mg/dL (70-99); Potassium 3.6 mmol/L (3.3-5.1); Protein, Total 4.5 g/dL (5.9-8.4); Sodium Level 142 mmol/L (133-145); Total Bilirubin 1.53 mg/dL (0.00-1.30)
[2025-02-06] MEDS: Ondansetron 4 MG/2 ML Vial IV ×2 (09:39→21:04)
[2025-02-06] MEDS: 0.9% Saline Lock 10 ML Syringe IV ×2 (09:39→21:04)
--- NOTE | 2025-02-06 09:39 | CASEMGMT ---
SW received an email with patient's preferences. Preferences are...[facility] (they have already declined patient), [facility], and [facility]. SW spoke with patient and let her know SW received her preferences and will work on referrals. Mariela EDDY
--- NOTE | 2025-02-06 09:50 | CASEMGMT ---
Discharge Planning Referral sent to [place] and [facility]. Jana Downs DC Planning Asst
--- NOTE | 2025-02-06 10:33 | CASEMGMT ---
ROSINA called [facility] Cancer Navigator, Bridget and inquired about patient's current treatment. Patient is currently only getting a Faslodex injection monthly. ROSINA updated Bridget that patient is looking to change to a different alf. ROSINA will update Bridget at d/c. Mariela EDDY
--- NOTE | 2025-02-06 14:42 | PN.HOSP_ITS ---
Reason for Visit Reason for Visit: Diagnoses Unspecified severe protein-calorie malnutrition (02/02/25) Hypo-osmolality and hyponatremia (02/02/25) Hyperkalemia (02/02/25) Other specified noninfective gastroenteritis and colitis (02/02/25) Gastrointestinal hemorrhage, unspecified (02/02/25) Acute kidney failure, unspecified (02/02/25) Other shock (02/02/25) Subjective Subjective Patient did have another bowel movement with blood and has been nauseous even with minimal diet. Evaluated bedside, stomach intermittently will have some discomfort but not severely so, does report that she gets nauseous even not in the hospital that presently nausea is beginning to improve with antiemetic she was given, she does note that she has had very poor p.o. intake even at home due to the nausea and just not feeling well. Does have some discomfort in her feet and ankles due to swelling in her lower extremities but she reports that this has been present for months and is not new but still bothersome. Objective Data Objective Data Vital Signs: Vital Signs Temp Pulse Resp BP Pulse Ox O2 Del Method O2 Flow Rate 97.1 F L 114 H 16 107/72 95 Room Air 2 02/06/25 11:20 02/06/25 11:20 02/06/25 11:20 02/06/25 11:20 02/06/25 11:20 02/06/25 14:00 02/05/25 16:00 Oxygen Flow Rate (L/min) 2 Oxygen Delivery Method Room Air Weight: 61.2 kg Body Mass Index (BMI) 23.8 Intake & Output: Intake and Output for Last 24 Hours 02/04/25 02/05/25 02/06/25 23:59 23:59 23:59 Intake Total 489.0 / 489.0 1311.67 / 1311.67 190 / 190 Output Total 2900 / 2900 650 / 650 300 / 300 Balance -2411.0 / -2411.0 661.67 / 661.67 -110 / -110 Medical Nutrition Assessment Dietitian: Malnutrition Criteria Met Start: 02/03/25 11:03 Freq: Status: Active Protocol: Document 02/03/25 11:03 LO (Rec: 02/03/25 11:03 [id number]) Nutrition Malnutrition Evidence of Yes Malnutrition Exists Malnutrition (severe Chronic ): Evidenced By Suboptimal Energy Intake (Severe),Physical Changes ( Severe) Clinical Problem Chronic Disease or Condition Related Malnutrition Etiology severe related to breast cancer with mets to peritoneum and liver Signs/Symptoms as evidenced by PO intakes <75% of estimated nutrition needs for >1 month and severe temporal/orbital fat and muscle loss Status Active Problem Recommendation Dietitian Advance diet as tolerated to Regular as medically able Recommendations/ to optimize oral intakes. Changes Recommend 120ml ensure plus high protein 4x daily when diet advances. Lab / Micro Data 02/06/25 07:28 02/06/25 07:28 Labs: Laboratory Results - last 24 hr 02/05/25 19:25: Sodium 143, Potassium 4.3, Chloride 114 H, Carbon Dioxide 15.3 L , Anion Gap 14, BUN 48 H, Creatinine 1.80 H, Estim Creat Clear Calc 28.39 L, Est GFR (MDRD) Non-Af 31 L, BUN/Creatinine Ratio 26.4 H, Glucose 113 H, Calcium 8.4 02/06/25 07:28: WBC 13.5 H, RBC 2.58 L, Hgb 9.2 L, Hct 28.3 L, MCV 109.7 H, MCH 35.7 H, MCHC 32.5, RDW Std Deviation 76.6 H, RDW Coeff of Dominic 19.3 H, Plt Count 116 L, MPV 10.0, Immature Gran % (Auto) 2.200 H, Neut % (Auto) 90.5 H, Lymph % (Auto) 2.4 L, [place] % (Auto) 4.6, Eos % (Auto) 0.1, Baso % (Auto) 0.2, Absolute Neuts (auto) 12.2 H, Absolute Lymphs (auto) 0.33 L, Nucleated RBC % 0, Sodium 142, Potassium 3.6, Chloride 114 H, Carbon Dioxide 15.9 L, Anion Gap 12, BUN 45 H, Creatinine 1.72 H, Estim Creat Clear Calc 27.33 L, Est GFR (MDRD) Non-Af 33 L , BUN/Creatinine Ratio 26.3 H, Glucose 118 H, Calcium 8.3, Total Bilirubin 1.53 H, AST 34 H, ALT 19, Alkaline Phosphatase 130 H, Total Protein 4.5 L, Albumin 2.8 L, Globulin 1.7 L, Albumin/Globulin Ratio 1.7 Micro: Microbiology 02/04/25 13:13 Fluid - Ascites Gram Stain - Final 02/04/25 13:13 Fluid - Ascites Body Fluid Culture - Preliminary No growth-Final to follow 02/04/25 13:13 Fluid - Ascites Anaerobic Culture - Preliminary No growth in 48 hours. 02/02/25 19:00 Blood Culture (Wb) - Left Wrist Blood Culture - Preliminary No growth in 48 hours. 02/02/25 18:42 Blood Culture (Wb) - Left Wrist Blood Culture - Preliminary No growth in 48 hours. 02/02/25 19:30 Stool Stool Occult Blood (ED) - Final Occult Blood Positive Physical Exam Narrative General: Alert, no acute distress HEENT: Atraumatic, normocephalic Eyes: Anicteric, normal conjunctiva, extraocular movements grossly intact Neck: Supple Respiratory: No significant wheezes or rhonchi, normal respiratory effort Cardiovascular: Low-grade sinus tachycardia GI: Full but soft, no rebound, guarding, rigidity Extremities: No significant pitting edema but does have some possibly known pitting edema Musculoskeletal: Moving all extremities Neuro: No overt focal neurological deficits Skin: No rashes appreciated Psych: Cooperative but affect somewhat flat Assessment & Plan Assessment/Plan (1) GI bleed: QUALIFIERS: GI bleed type/associated pathology: unspecified gastrointestinal hemorrhage type Qualified Code(s): K92.2 - Gastrointestinal hemorrhage, unspecified PLAN: Plan # Concern for GI bleed - Patient with multiple bloody bowel movements prior to admission, has not had any during this shift but last month hemoglobins were mid 11 range then yesterday was 9.9, down trended to 7.7 however patient has been receiving IV fluids - BP soft and heart rate high, discussed with GI and patient n.p.o., patient will need upper and lower endoscopies - Trending H&H - Patient on midodrine, this has been increased and albumin ordered - Also continue PPI drip -02/04: Hemoglobin is stabilizing however given patient's history, presentation, current status plan is for patient to have endoscopies tomorrow with GI -02/05: Patient with plan for endoscopies today, unclear if she will get colonoscopy. She had a hard time tolerating prep, hemoglobin did trend down again today, with monitoring closely -02/06: Hemoglobin 9.2 this a.m., patient cannot tolerate colon prep so she underwent EGD which showed LA grade D erosive esophagitis no bleeding, bile gastritis, erythematous duodenopathy, small hiatal hernia, continue PPI. Patient did have mild blood in her stool, appreciate GI recommendations moving forward, patient still with nausea difficulty tolerating p.o. # Hypotension -02/05: Patient has remained low during this admission, looking back it does appear she has been struggling with low blood pressure over the past month, presently asymptomatic, intermittently receiving fluids and albumin, had some more blood per rectum with slight drop in hemoglobin but not large-volume, patient on midodrine, no new focal complaints that would necessarily account for any changes in blood pressure. Patient does appear to have an elevated gap with a low bicarb however unclear if this is lab abnormality, lactic acid checked which was within normal limits, will consider repeat BMP this afternoon. Patient clinical progress -02/06: Blood pressure is a little bit better today, suspect the patient runs low at baseline, continuing supportive care Chronic medical problems and/or problems not being actively addressed during today's encounter: # Malignant ascites - Patient gets routine paracenteses, after discussing with GI this has been ordered for tomorrow as this may be part of her abdominal discomfort -02/04: Patient underwent therapeutic paracentesis, given albumin due to her soft blood pressure, continue supportive care -02/05: Abdomen soft without any rebound, guarding, rigidity # NATHALY on CKD stage IV - Creatinine was 3 on admission and down to 2.46 which is closer to baseline - Nephrology evaluated, CT abdomen without hydronephrosis and UA relatively benign - Continue to monitor output -02/04: Creatinine 2.32 today, slightly improved -02/05: Creatinine has continued to improve with present measures#GERD -Continue PPI #Hypothyroidism - Resume PPI once patient able to tolerate p.o. #DVT ppx: SCDs Duyen Romero MD Time spent in the patient's overall evaluation, decision-making process, review of diagnostic data, adjustment of management, discussion with other providers, nursing and ancillary staff involved in patient's care documentation, 36 Minutes Charges/Coding Visit Charges Inpatient E&M: 85186 Subs Hosp L2
--- NOTE | 2025-02-06 16:07 | PCM.PN.REN ---
Subjective Subjective no new events Objective Data Objective Data Vital Signs: Vital Signs Temp Pulse Resp BP Pulse Ox O2 Del Method O2 Flow Rate 97.1 F L 108 H 16 107/72 95 Room Air 2 02/06/25 11:20 02/06/25 15:09 02/06/25 11:20 02/06/25 11:20 02/06/25 11:20 02/06/25 14:00 02/05/25 16:00 Oxygen Flow Rate (L/min) 2 Oxygen Delivery Method Room Air Weight: 61.2 kg Body Mass Index (BMI) 23.8 Intake & Output: Intake and Output for Last 24 Hours 02/04/25 02/05/25 02/06/25 23:59 23:59 23:59 Intake Total 489.0 / 489.0 1311.67 / 1311.67 283 / 283 Output Total 2900 / 2900 650 / 650 300 / 300 Balance -2411.0 / -2411.0 661.67 / 661.67 -17 / -17 Medical Nutrition Assessment Dietitian: Malnutrition Criteria Met Start: 02/03/25 11:03 Freq: Status: Active Protocol: Document 02/03/25 11:03 (Rec: 02/03/25 11:03 [id number]) Nutrition Malnutrition Evidence of Yes Malnutrition Exists Malnutrition (severe Chronic ): Evidenced By Suboptimal Energy Intake (Severe),Physical Changes ( Severe) Clinical Problem Chronic Disease or Condition Related Malnutrition Etiology severe related to breast cancer with mets to peritoneum and liver Signs/Symptoms as evidenced by PO intakes <75% of estimated nutrition needs for >1 month and severe temporal/orbital fat and muscle loss Status Active Problem Recommendation Dietitian Advance diet as tolerated to Regular as medically able Recommendations/ to optimize oral intakes. Changes Recommend 120ml ensure plus high protein 4x daily when diet advances. Lab / Micro Data 02/06/25 07:28 02/06/25 07:28 Labs: Laboratory Results - last 24 hr 02/05/25 19:25: Sodium 143, Potassium 4.3, Chloride 114 H, Carbon Dioxide 15.3 L, Anion Gap 14, BUN 48 H, Creatinine 1.80 H, Estim Creat Clear Calc 28.39 L, Est GFR (MDRD) Non-Af 31 L, BUN/Creatinine Ratio 26.4 H, Glucose 113 H, Calcium 8.4 02/06/25 07:28: WBC 13.5 H, RBC 2.58 L, Hgb 9.2 L, Hct 28.3 L, MCV 109.7 H, MCH 35.7 H, MCHC 32.5, RDW Std Deviation 76.6 H, RDW Coeff of Dominic 19.3 H, Plt Count 116 L, MPV 10.0, Immature Gran % (Auto) 2.200 H, Neut % (Auto) 90.5 H, Lymph % (Auto) 2.4 L, [place] % (Auto) 4.6, Eos % (Auto) 0.1, Baso % (Auto) 0.2, Absolute Neuts (auto) 12.2 H, Absolute Lymphs (auto) 0.33 L, Nucleated RBC % 0, Sodium 142, Potassium 3.6, Chloride 114 H, Carbon Dioxide 15.9 L, Anion Gap 12, BUN 45 H, Creatinine 1.72 H, Estim Creat Clear Calc 27.33 L, Est GFR (MDRD) Non-Af 33 L, BUN/Creatinine Ratio 26.3 H, Glucose 118 H, Calcium 8.3, Total Bilirubin 1.53 H, AST 34 H, ALT 19, Alkaline Phosphatase 130 H, Total Protein 4.5 L, Albumin 2.8 L, Globulin 1.7 L, Albumin/Globulin Ratio 1.7 Micro: Microbiology 02/04/25 13:13 Fluid - Ascites Gram Stain - Final 02/04/25 13:13 Fluid - Ascites Body Fluid Culture - Preliminary No growth-Final to follow 02/04/25 13:13 Fluid - Ascites Anaerobic Culture - Preliminary No growth in 48 hours. 02/02/25 19:00 Blood Culture (Wb) - Left Wrist Blood Culture - Preliminary No growth in 48 hours. 02/02/25 18:42 Blood Culture (Wb) - Left Wrist Blood Culture - Preliminary No growth in 48 hours. 02/02/25 19:30 Stool Stool Occult Blood (ED) - Final Occult Blood Positive Physical Exam Narrative Alert awake oriented x 3 no obvious distress no JVD s1s2 no murmurs lungs clear no edema Assessment & Plan Assessment/Plan (1) NATHALY (acute kidney injury): PLAN: - Nonoliguric NATHALY on possible CKD. Baseline serum creatinine around 1.2 to 1.3 mg/dL. During last admit, cr fluctuated between 2-3 and for this admit came in with SCr 3.0 --> today SCr 2.11. NATHALY likely secondary to hemodynamics, hypotension. 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 Patient is nonoliguric. Bp is low, getting IV bolus today. Also on midodrine 3 times daily. UA is relatively benign. CT abd without hydronephrosis. - Concern for GI bleed; GI following. Possible EGD today. Malignant ascites. She gets paracentesis about every 2 weeks. Had paracentesis yesterday with 2.5 L removed, received dose of IV albumin. Assessment and plan reviewed with Dr. Bhandari. 02/06/25. cr is better down to 1.7 today. electrolytes are ok
--- NOTE | 2025-02-06 19:37 | PCM.PN.BLA ---
Progress Note I had a long talk with the patient discussing the options regarding eating and determining her etiology of her lower GI bleeding. She does not want any alternative feeding at this time. She also does not want to undergo any colonoscopy to determine the etiology of her lower GI bleeding. Physical Exam Narrative Alert awake oriented x 3 no obvious distress no JVD s1s2 no murmurs lungs clear no edema Assessment & Plan Assessment/Plan (1) GI bleed: QUALIFIERS: GI bleed type/associated pathology: unspecified gastrointestinal hemorrhage type Qualified Code(s): K92.2 - Gastrointestinal hemorrhage, unspecified (2) Hemorrhagic shock: (3) Stercoral colitis: (4) NATHALY (acute kidney injury): (5) Hyponatremia: (6) Hyperkalemia: (7) Severe protein-calorie malnutrition: PLAN: Plan 64-year-old female with PMH of peritoneal cancer with metastasis on estrogen luh therapy, paracentesis for metastatic ascites, polycythemia, mitral valve prolapse presents from [facility] for increased rectal bleeding. Patient states she has had frequent soft stools multiple times a day and rectal bleeding for 4 to 6 weeks. The nursing staff are concerned the bright red/dark red rectal bleeding was heavier today and her heart rate was elevated prompting them to call EMS. Patient reports feeling intermittently lightheaded and did feel lightheaded with position changes today. No syncope. No chest pain or shortness of breath. She reports chronic abdominal pain from her peritoneal cancer. GI bleed; with Hemoccult positive stools and early hemorrhagic shock noted in ER with hemoglobin of 9.9 g/dL present on admission (down from 11.8 g deciliter on January 14, 2025) with macrocytic MCV of 107.9 fL present on admission with CT abdomen/pelvis on admission revealing evidence of stercoral colitis with a large amount of stool within dilated rectum and circumferential wall thickening in addition to stable extensive abdominal pelvic ascites and peritoneal carcinomatosis similar to CT on January 14, 2025. Patient will likely need to undergo a flexible sigmoidoscopy versus a full colonoscopy to make sure that there is not any metastatic involvement of the large bowel. Her blood pressure seems to be stabilizing at this time. She also had some nausea vomiting and I think she should undergo an upper endoscopy to look for signs of portal hypertension and other etiologies of possible GI bleed and increased BUN to creatinine ratio. 02/04/2025-the plan is for her to undergo endoscopy tomorrow to determine etiology of nausea vomiting and rectal bleeding. 02/05/2025-patient has agreed to undergo an upper endoscopy but not the colonoscopy. 02/06/2025-patient needs alternatives for feeding as she is not tolerating a significant amount of oral intake at this time. This is likely secondary to peritoneal carcinomatosis with ascites and functional gastroparesis with ileus. If she changes her mind regarding colonoscopy we can pursue this while she is in the hospital. Visit Charges Inpatient E&M: 29440 Subs Hosp L3
[2025-02-06] MEDS: Pantoprazole Sodium 40 MG in 0.9% Normal Saline (100mL MB+) 100 ML 330 MG IV (21:03)
[2025-02-07 02:10] VITALS: BMI 22.6
[2025-02-07 02:30] VITALS: BP 92/60; PULSE 95; RESP 20; TEMP 36.7; O2SAT 97
[2025-02-07 07:27] LABS: Absolute Lymphocyte Count 0.43 X10^3/uL (0.83-4.51); Absolute Neutrophil Count 9.6 X10^3/uL (2.0-7.7); Basophil# 0.04 X10^3/uL; Basophil% 0.4 % (0-1); Eosinophil# 0.04 X10^3/uL; Eosinophils% 0.4 % (0-5); Hematocrit 27.1 % (37-47); Hemoglobin 8.9 g/dL (12.0-15.0); Lymphocyte # 0.43 X10^3/ul (0.83-4.51); Lymphocyte % 3.9 % (19-41); Mean Corp Hgb Conc 32.8 g/dL (32-36); Mean Corpuscular Hgb 35.7 pg (27.0-32.0); Mean Corpuscular Volume 108.8 fL (81-99); Mean Platelet Vol. 10.2 fl (6.2-12.0); Monocyte# 0.68 X10^3/uL; Monocyte% 6.2 % (0-10); NRBC Flagged by Analyzer 0.2 % (0-5); Neutrophil # 9.62 X10^3/uL (2.7-7.7); POSITIVE DIFFERENTIAL YES; POSITIVE MORPHOLOGY YES; Platelet Count 104 K/mm3 (150-450); RBC Distribution Width CV 18.6 % (11.6-14.6); RBC Distribution Width SD 75.4 fl (35.1-43.9); Red Blood Count 2.49 M/mm3 (4.2-5.4)
[2025-02-07 07:33] LABS: Differential Indicated SCAN CRITERIA MET
[2025-02-07 07:44] LABS: ALB/GLOB Ratio 1.6 RATIO (0.9-2.4); AST(SGOT) 33 U/L (<=31); Alanine Aminotransfer ALT/SGPT 23 U/L (<=34); Albumin, Serum 2.5 g/dL (3.4-4.8); Alkaline Phosphatase 128 U/L (35-104); Anion Gap 10 (5-15); BUN 44 mg/dL (4-19); BUN/Creat Ratio 28.3 RATIO (10-20); Calcium,Total 8.2 mg/dL (7.6-11.0); Carbon Dioxide 17.9 mmol/L (21.0-32.0); Chloride 114 mmol/L (98-108); Creatinine, Serum 1.54 mg/dL (0.70-1.20); EST Glomerular Filtration Rate 37 (>60); Estimated Creatinine Clearance 30.53 ml/min (50-250); Globulin 1.5 g/dL (2.2-4.2); Glucose 102 mg/dL (70-99); Potassium 3.6 mmol/L (3.3-5.1); Sodium Level 141 mmol/L (133-145); Total Bilirubin 1.14 mg/dL (0.00-1.30)
[2025-02-07 08:26] LABS: Anisocytosis 2+; Differential Comment SCANNED
[2025-02-07 09:28] VITALS: BP 94/69; PULSE 130; RESP 15; TEMP 36.6; O2SAT 100
[2025-02-07] MEDS: Menthol/Lanolin/Calamine/Znox 113 GM Tube 1 APPLIC TOPICAL ×2 (09:33→21:27)
[2025-02-07] MEDS: Midodrine HCl 5 MG Tablet 10 MG PO ×3 (09:34→17:29)
[2025-02-07] MEDS: Hydrocortisone 2.5% Ointment 20 gm tube 1 APPLIC TOPICAL (09:34)
[2025-02-07] MEDS: Pantoprazole Sodium 40 MG in 0.9% Normal Saline (100mL MB+) 100 ML 330 MG IV ×2 (09:59→21:28)
--- NOTE | 2025-02-07 10:12 | CASEMGMT ---
Social Work Pt was accepted at both [facility] and [place]. SW spoke w/[place], this is her next choice. SW to follow up Sunday w/SNFs and ask to start precert when appropriate. SW was able to access PAS/RR and results in the [facility] system from pt's recent admit to [facility], these were printed and can be forwarded to [place] when appropriate. ROSINA will continue to follow. JENNIFER Phillips
[2025-02-07 14:09] VITALS: PULSE 80
[2025-02-07 15:33] VITALS: BP 100/68; PULSE 92; RESP 18; TEMP 36.6; O2SAT 99
--- NOTE | 2025-02-07 17:40 | PN.HOSP_ITS ---
Reason for Visit Reason for Visit: Diagnoses Unspecified severe protein-calorie malnutrition (02/02/25) Hypo-osmolality and hyponatremia (02/02/25) Hyperkalemia (02/02/25) Other specified noninfective gastroenteritis and colitis (02/02/25) Gastrointestinal hemorrhage, unspecified (02/02/25) Acute kidney failure, unspecified (02/02/25) Other shock (02/02/25) Subjective Subjective Patient sitting up in bed, still gets the gas bubble feeling he is occasionally nauseous, no significant abdominal pain Objective Data Objective Data Vital Signs: Vital Signs Temp Pulse Resp BP Pulse Ox O2 Del Method O2 Flow Rate 97.8 F 92 18 100/68 99 Room Air 2 02/07/25 15:33 02/07/25 15:33 02/07/25 15:33 02/07/25 15:33 02/07/25 15:33 02/07/25 15:33 02/05/25 16:00 Oxygen Flow Rate (L/min) 2 Oxygen Delivery Method Room Air Weight: 57.8 kg Body Mass Index (BMI) 22.6 Intake & Output: Intake and Output for Last 24 Hours 02/05/25 02/06/25 02/07/25 23:59 23:59 23:59 Intake Total 1311.67 / 1311.67 513 / 513 1785 / 1785 Output Total 650 / 650 500 / 500 Balance 661.67 / 661.67 1785 / 1785 Medical Nutrition Assessment Dietitian: Malnutrition Criteria Met Start: 02/03/25 11:03 Freq: Status: Active Protocol: Document 02/03/25 11:03 MONA (Rec: 02/03/25 11:03 [id number]) Nutrition Malnutrition Evidence of Yes Malnutrition Exists Malnutrition (severe Chronic ): Evidenced By Suboptimal Energy Intake (Severe),Physical Changes ( Severe) Clinical Problem Chronic Disease or Condition Related Malnutrition Etiology severe related to breast cancer with mets to peritoneum and liver Signs/Symptoms as evidenced by PO intakes <75% of estimated nutrition needs for >1 month and severe temporal/orbital fat and muscle loss Status Active Problem Recommendation Dietitian Advance diet as tolerated to Regular as medically able Recommendations/ to optimize oral intakes. Changes Recommend 120ml ensure plus high protein 4x daily when diet advances. Lab / Micro Data 02/07/25 06:12 02/07/25 06:12 Labs: Laboratory Results - last 24 hr 02/07/25 06:12: WBC 11.0, RBC 2.49 L, Hgb 8.9 L, Hct 27.1 L, MCV 108.8 H, MCH 35.7 H, MCHC 32.8, RDW Std Deviation 75.4 H, RDW Coeff of Dominic 18.6 H, Plt Count 104 L, MPV 10.2, Immature Gran % (Auto) 2.100 H, Neut % (Auto) 87.0 H, Lymph % (Auto) 3.9 L, [place] % (Auto) 6.2, Eos % (Auto) 0.4, Baso % (Auto) 0.4, Absolute Neuts (auto) 9.6 H, Absolute Lymphs (auto) 0.43 L, Nucleated RBC % 0.2, Differential Comment SCANNED, Anisocytosis 2+, Sodium 141, Potassium 3.6, C hloride 114 H, Carbon Dioxide 17.9 L, Anion Gap 10, BUN 44 H, Creatinine 1.54 H, Estim Creat Clear Calc 30.53 L, Est GFR (MDRD) Non-Af 37 L, BUN/Creatinine Ratio 28.3 H, Glucose 102 H, Calcium 8.2, Total Bilirubin 1.14, AST 33 H, ALT 23, A lkaline Phosphatase 128 H, Total Protein 4.0 L, Albumin 2.5 L, Globulin 1.5 L, Albumin/Globulin Ratio 1.6 Micro: Microbiology 02/04/25 13:13 Fluid - Ascites Gram Stain - Final 02/04/25 13:13 Fluid - Ascites Body Fluid Culture - Final No growth aerobically. 02/04/25 13:13 Fluid - Ascites Anaerobic Culture - Preliminary No growth in 48 hours. 02/02/25 19:00 Blood Culture (Wb) - Left Wrist Blood Culture - Preliminary No growth in 48 hours. 02/02/25 18:42 Blood Culture (Wb) - Left Wrist Blood Culture - Preliminary No growth in 48 hours. 02/02/25 19:30 Stool Stool Occult Blood (ED) - Final Occult Blood Positive Physical Exam Narrative General: Alert, no acute distress HEENT: Atraumatic, normocephalic Eyes: Anicteric, normal conjunctiva, extraocular movements grossly intact Neck: Supple Respiratory: No significant wheezes or rhonchi, normal respiratory effort Cardiovascular: Low-grade sinus tachycardia when moving but improved when not GI: Nontender, no rebound, guarding, rigidity Extremities: No significant pitting edema but does have some possibly known pitting edema Musculoskeletal: Moving all extremities Neuro: No overt focal neurological deficits Skin: No rashes appreciated Psych: Little more energetic Assessment & Plan Assessment/Plan (1) GI bleed: QUALIFIERS: GI bleed type/associated pathology: unspecified gastrointestinal hemorrhage type Qualified Code(s): K92.2 - Gastrointestinal hemorrhage, unspecified PLAN: Plan # Concern for GI bleed - Patient with multiple bloody bowel movements prior to admission, has not had any during this shift but last month hemoglobins were mid 11 range then yesterday was 9.9, down trended to 7.7 however patient has been receiving IV fluids - BP soft and heart rate high, discussed with GI and patient n.p.o., patient will need upper and lower endoscopies - Trending H&H - Patient on midodrine, this has been increased and albumin ordered - Also continue PPI drip -02/04: Hemoglobin is stabilizing however given patient's history, presentation, current status plan is for patient to have endoscopies tomorrow with GI -02/05: Patient with plan for endoscopies today, unclear if she will get colonoscopy. She had a hard time tolerating prep, hemoglobin did trend down again today, with monitoring closely -02/06: Hemoglobin 9.2 this a.m., patient cannot tolerate colon prep so she underwent EGD which showed LA grade D erosive esophagitis no bleeding, bile gastritis, erythematous duodenopathy, small hiatal hernia, continue PPI. Patient did have mild blood in her stool, appreciate GI recommendations moving forward, patient still with nausea difficulty tolerating p.o. -02/07: Patient did report she was okay with proceeding with lower evaluation based on our conversation today, will renotify GI at this # Hypotension -02/05: Patient has remained low during this admission, looking back it does appear she has been struggling with low blood pressure over the past month, presently asymptomatic, intermittently receiving fluids and albumin, had some more blood per rectum with slight drop in hemoglobin but not large-volume, patient on midodrine, no new focal complaints that would necessarily account for any changes in blood pressure. Patient does appear to have an elevated gap with a low bicarb however unclear if this is lab abnormality, lactic acid checked which was within normal limits, will consider repeat BMP this afternoon. Patient clinical progress -02/06: Blood pressure is a little bit better today, suspect the patient runs low at baseline, continuing supportive care -02/07: Blood pressure seems to be stabilizing Chronic medical problems and/or problems not being actively addressed during today's encounter: # Malignant ascites - Patient gets routine paracenteses, after discussing with GI this has been ordered for tomorrow as this may be part of her abdominal discomfort -02/04: Patient underwent therapeutic paracentesis, given albumin due to her soft blood pressure, continue supportive care -02/05: Abdomen soft without any rebound, guarding, rigidity # NATHALY on CKD stage IV - Creatinine was 3 on admission and down to 2.46 which is closer to baseline - Nephrology evaluated, CT abdomen without hydronephrosis and UA relatively benign - Continue to monitor output -02/04: Creatinine 2.32 today, slightly improved -02/05: Creatinine has continued to improve with present measures#GERD -Continue PPI #Hypothyroidism - Resume PPI once patient able to tolerate p.o. #DVT ppx: SCDs Duyen Romero MD Time spent in the patient's overall evaluation, decision-making process, review of diagnostic data, adjustment of management, discussion with other providers, nursing and ancillary staff involved in patient's care documentation, 37 Minutes Charges/Coding Visit Charges Inpatient E&M: 10566 Subs Hosp L2
[2025-02-07] MEDS: Ondansetron 4 MG/2 ML Vial IV (20:20)
[2025-02-07] MEDS: 0.9% Saline Lock 10 ML Syringe IV (20:20)
[2025-02-07 21:31] VITALS: BP 106/78; PULSE 85; RESP 20; TEMP 36.9; O2SAT 96
[2025-02-08 03:37] VITALS: BP 97/73; PULSE 97; RESP 20; TEMP 36.6; O2SAT 96
[2025-02-08 04:48] VITALS: BMI 24.0
[2025-02-08 06:06] LABS: Absolute Neutrophil Count 8.5 X10^3/uL (2.0-7.7); Basophil# 0.04 X10^3/uL; Basophil% 0.4 % (0-1); Eosinophil# 0.01 X10^3/uL; Eosinophils% 0.1 % (0-5); Hematocrit 25.8 % (37-47); Hemoglobin 8.5 g/dL (12.0-15.0); Mean Corp Hgb Conc 32.9 g/dL (32-36); Mean Corpuscular Hgb 35.9 pg (27.0-32.0); Mean Corpuscular Volume 108.9 fL (81-99); Mean Platelet Vol. 10.9 fl (6.2-12.0); Monocyte# 0.67 X10^3/uL; Monocyte% 6.8 % (0-10); NRBC Flagged by Analyzer 0.4 % (0-5); Neutrophil # 8.47 X10^3/uL (2.7-7.7); Neutrophil % 85.5 % (47-70); POSITIVE COUNT YES; POSITIVE DIFFERENTIAL YES; POSITIVE MORPHOLOGY YES; Platelet Count 96 K/mm3 (150-450); RBC Distribution Width CV 18.6 % (11.6-14.6); Red Blood Count 2.37 M/mm3 (4.2-5.4); White Blood Count 9.9 K/mm3 (4.4-11.0)
[2025-02-08 06:14] LABS: Differential Indicated SCAN CRITERIA MET
[2025-02-08 06:52] LABS: Differential Comment SCANNED; Platelet Estimate MOD DEC (ADEQ)
[2025-02-08 07:17] LABS: ALB/GLOB Ratio 1.4 RATIO (0.9-2.4); AST(SGOT) 38 U/L (<=31); Alanine Aminotransfer ALT/SGPT 24 U/L (<=34); Albumin, Serum 2.4 g/dL (3.4-4.8); Alkaline Phosphatase 138 U/L (35-104); Anion Gap 9 (5-15); BUN 46 mg/dL (4-19); BUN/Creat Ratio 28.7 RATIO (10-20); Calcium,Total 7.9 mg/dL (7.6-11.0); Carbon Dioxide 17.7 mmol/L (21.0-32.0); Chloride 112 mmol/L (98-108); EST Glomerular Filtration Rate 36 (>60); Estimated Creatinine Clearance 29.38 ml/min (50-250); Globulin 1.7 g/dL (2.2-4.2); Glucose 101 mg/dL (70-99); Protein, Total 4.1 g/dL (5.9-8.4); Sodium Level 139 mmol/L (133-145); Total Bilirubin 1.04 mg/dL (0.00-1.30)
[2025-02-08 08:30] VITALS: BP 97/62; PULSE 107; RESP 18; TEMP 36.4; O2SAT 99
[2025-02-08] MEDS: Midodrine HCl 5 MG Tablet 10 MG PO ×3 (09:02→19:51)
[2025-02-08] MEDS: Hydrocortisone 2.5% Ointment 20 gm tube 1 APPLIC TOPICAL (09:03)
[2025-02-08] MEDS: Menthol/Lanolin/Calamine/Znox 113 GM Tube 1 APPLIC TOPICAL ×2 (09:04→21:26)
--- NOTE | 2025-02-08 09:12 | PN.HOSP_ITS ---
Reason for Visit Reason for Visit: Diagnoses Unspecified severe protein-calorie malnutrition (02/02/25) Hypo-osmolality and hyponatremia (02/02/25) Hyperkalemia (02/02/25) Other specified noninfective gastroenteritis and colitis (02/02/25) Gastrointestinal hemorrhage, unspecified (02/02/25) Acute kidney failure, unspecified (02/02/25) Other shock (02/02/25) Subjective Subjective Still intermittently nauseous, no significant abdominal pain at this time, seems to be tolerating clear slightly better, possibly feeling a little bit better overall Objective Data Objective Data Vital Signs: Vital Signs Temp Pulse Resp BP Pulse Ox O2 Del Method O2 Flow Rate 97.5 F L 107 H 18 97/62 99 Room Air 2 02/08/25 08:30 02/08/25 08:30 02/08/25 08:30 02/08/25 08:30 02/08/25 08:30 02/08/25 08:30 02/05/25 16:00 Oxygen Flow Rate (L/min) 2 Oxygen Delivery Method Room Air Weight: 61.5 kg Body Mass Index (BMI) 24.0 Intake & Output: Intake and Output for Last 24 Hours 02/06/25 02/07/25 02/08/25 23:59 23:59 23:59 Intake Total 513 / 513 1894 Output Total 500 / 500 Balance 1894 / 1894 Medical Nutrition Assessment Dietitian: Malnutrition Criteria Met Start: 02/03/25 11:03 Freq: Status: Active Protocol: Document 02/03/25 11:03 MONA (Rec: 02/03/25 11:03 [id number]) Nutrition Malnutrition Evidence of Yes Malnutrition Exists Malnutrition (severe Chronic ): Evidenced By Suboptimal Energy Intake (Severe),Physical Changes ( Severe) Clinical Problem Chronic Disease or Condition Related Malnutrition Etiology severe related to breast cancer with mets to peritoneum and liver Signs/Symptoms as evidenced by PO intakes <75% of estimated nutrition needs for >1 month and severe temporal/orbital fat and muscle loss Status Active Problem Recommendation Dietitian Advance diet as tolerated to Regular as medically able Recommendations/ to optimize oral intakes. Changes Recommend 120ml ensure plus high protein 4x daily when diet advances. Lab / Micro Data 02/08/25 05:45 02/08/25 05:45 Labs: Laboratory Results - last 24 hr 02/08/25 05:45: WBC 9.9, RBC 2.37 L, Hgb 8.5 L, Hct 25.8 L, MCV 108.9 H, MCH 35.9 H, MCHC 32.9, RDW Std Deviation 74.0 H, RDW Coeff of Dominic 18.6 H, Plt Count 96 L, MPV 10.9, Immature Gran % (Auto) 2.200 H, Neut % (Auto) 85.5 H, Lymph % (Auto) 5.0 L, [place] % (Auto) 6.8, Eos % (Auto) 0.1, Baso % (Auto) 0.4, Absolute Neuts (auto) 8.5 H, Absolute Lymphs (auto) 0.50 L, Nucleated RBC % 0.4, Differential Comment SCANNED, Platelet Estimate MOD DEC, Sodium 139, Potassium 4.0, Chloride 112 H, Carbon Dioxide 17.7 L, Anion Gap 9, BUN 46 H, Creatinine 1.60 H, Estim Creat Clear Calc 29.38 L, Est GFR (MDRD) Non-Af 36 L, B UN/Creatinine Ratio 28.7 H, Glucose 101 H, Calcium 7.9, Total Bilirubin 1.04, A ST 38 H, ALT 24, Alkaline Phosphatase 138 H, Total Protein 4.1 L, Albumin 2.4 L, Globulin 1.7 L, Albumin/Globulin Ratio 1.4 Micro: Microbiology 02/02/25 19:00 Blood Culture (Wb) - Left Wrist Blood Culture - Final No growth in 5 days. 02/02/25 18:42 Blood Culture (Wb) - Left Wrist Blood Culture - Final No growth in 5 days. 02/04/25 13:13 Fluid - Ascites Gram Stain - Final 02/04/25 13:13 Fluid - Ascites Body Fluid Culture - Final No growth aerobically. 02/04/25 13:13 Fluid - Ascites Anaerobic Culture - Preliminary No growth in 48 hours. 02/02/25 19:30 Stool Stool Occult Blood (ED) - Final Occult Blood Positive Physical Exam Narrative General: Alert, no acute distress HEENT: Atraumatic, normocephalic Eyes: Anicteric, normal conjunctiva, extraocular movements grossly intact Neck: Supple Respiratory: No significant wheezes or rhonchi, normal respiratory effort Cardiovascular: Regular rate and rhythm GI: Nontender, no rebound, guarding, rigidity Extremities: No significant pitting edema but does have some possibly known pitting edema Musculoskeletal: Moving all extremities Neuro: No overt focal neurological deficits Skin: No rashes appreciated Psych: Little more energetic and interactive, visitors at bedside Assessment & Plan Assessment/Plan (1) GI bleed: QUALIFIERS: GI bleed type/associated pathology: unspecified gastrointestinal hemorrhage type Qualified Code(s): K92.2 - Gastrointestinal hemorrhage, unspecified PLAN: Plan # Concern for GI bleed - Patient with multiple bloody bowel movements prior to admission, has not had any during this shift but last month hemoglobins were mid 11 range then yesterday was 9.9, down trended to 7.7 however patient has been receiving IV fluids - BP soft and heart rate high, discussed with GI and patient n.p.o., patient will need upper and lower endoscopies - Trending H&H - Patient on midodrine, this has been increased and albumin ordered - Also continue PPI drip -02/04: Hemoglobin is stabilizing however given patient's history, presentation, current status plan is for patient to have endoscopies tomorrow with GI -02/05: Patient with plan for endoscopies today, unclear if she will get colonoscopy. She had a hard time tolerating prep, hemoglobin did trend down again today, with monitoring closely -02/06: Hemoglobin 9.2 this a.m., patient cannot tolerate colon prep so she underwent EGD which showed LA grade D erosive esophagitis no bleeding, bile gastritis, erythematous duodenopathy, small hiatal hernia, continue PPI. Patient did have mild blood in her stool, appreciate GI recommendations moving forward, patient still with nausea difficulty tolerating p.o. -02/07: Patient did report she was okay with proceeding with lower evaluation based on our conversation today, will renotify GI at this -02/08: Discussed with GI that patient is agreeable, order for tapwater enema placed per discussion, n.p.o. at midnight in the event they would want to proceed with colonoscopy or flex sig tomorrow # Hypotension -02/05: Patient has remained low during this admission, looking back it does appear she has been struggling with low blood pressure over the past month, presently asymptomatic, intermittently receiving fluids and albumin, had some more blood per rectum with slight drop in hemoglobin but not large-volume, patient on midodrine, no new focal complaints that would necessarily account for any changes in blood pressure. Patient does appear to have an elevated gap with a low bicarb however unclear if this is lab abnormality, lactic acid checked which was within normal limits, will consider repeat BMP this afternoon. Patient clinical progress -02/06: Blood pressure is a little bit better today, suspect the patient runs low at baseline, continuing supportive care -02/07: Blood pressure seems to be stabilizing -02/08: Continue midodrine and supportive care Chronic medical problems and/or problems not being actively addressed during today's encounter: # Malignant ascites - Patient gets routine paracenteses, after discussing with GI this has been ordered for tomorrow as this may be part of her abdominal discomfort -02/04: Patient underwent therapeutic paracentesis, given albumin due to her soft blood pressure, continue supportive care -02/05: Abdomen soft without any rebound, guarding, rigidity # NATHALY on CKD stage IV - Creatinine was 3 on admission and down to 2.46 which is closer to baseline - Nephrology evaluated, CT abdomen without hydronephrosis and UA relatively benign - Continue to monitor output -02/04: Creatinine 2.32 today, slightly improved -02/05: Creatinine has continued to improve with present measures#GERD -Continue PPI #Hypothyroidism - Resume PPI once patient able to tolerate p.o. #DVT ppx: SCDs Duyen Romero MD Time spent in the patient's overall evaluation, decision-making process, review of diagnostic data, adjustment of management, discussion with other providers, nursing and ancillary staff involved in patient's care documentation, 35 Minutes Charges/Coding Visit Charges Inpatient E&M: 41922 Subs Hosp L2
[2025-02-08] MEDS: Pantoprazole Sodium 40 MG in 0.9% Normal Saline (100mL MB+) 100 ML 330 MG IV ×2 (10:10→21:24)
[2025-02-08] MEDS: 0.9% Saline Lock 10 ML Syringe IV ×2 (10:22→21:24)
[2025-02-08] MEDS: 0.9% Normal Saline (100mL Bag) 100 ML 15 ML IV (10:23)
[2025-02-08 15:00] VITALS: BP 91/65; PULSE 102; RESP 18; TEMP 36.6; O2SAT 99
[2025-02-08 21:20] VITALS: BP 94/64; PULSE 78; RESP 18; TEMP 36.7; O2SAT 99
[2025-02-08 23:16] VITALS: BP 102/74; PULSE 94; RESP 18; TEMP 36.3; O2SAT 96
[2025-02-09 04:26] VITALS: BP 93/60; PULSE 94; RESP 18; TEMP 36.1; O2SAT 99
[2025-02-09 04:41] VITALS: BMI 24.8
[2025-02-09 05:26] LABS: ALB/GLOB Ratio 1.4 RATIO (0.9-2.4); AST(SGOT) 33 U/L (<=31); Alanine Aminotransfer ALT/SGPT 26 U/L (<=34); Albumin, Serum 2.7 g/dL (3.4-4.8); Alkaline Phosphatase 166 U/L (35-104); Anion Gap 12 (5-15); BUN 54 mg/dL (4-19); BUN/Creat Ratio 25.6 RATIO (10-20); Calcium,Total 8.5 mg/dL (7.6-11.0); Chloride 110 mmol/L (98-108); Creatinine, Serum 2.09 mg/dL (0.70-1.20); EST Glomerular Filtration Rate 26 (>60); Estimated Creatinine Clearance 24.44 ml/min (50-250); Globulin 1.9 g/dL (2.2-4.2); Glucose 93 mg/dL (70-99); Protein, Total 4.6 g/dL (5.9-8.4); Sodium Level 139 mmol/L (133-145); Total Bilirubin 1.47 mg/dL (0.00-1.30)
[2025-02-09 05:32] LABS: Absolute Lymphocyte Count 0.58 X10^3/uL (0.83-4.51); Absolute Neutrophil Count 9.9 X10^3/uL (2.0-7.7); Basophil# 0.07 X10^3/uL; Basophil% 0.6 % (0-1); Eosinophil# 0.01 X10^3/uL; Eosinophils% 0.1 % (0-5); Hematocrit 30.7 % (37-47); Hemoglobin 9.9 g/dL (12.0-15.0); Lymphocyte # 0.58 X10^3/ul (0.83-4.51); Mean Corp Hgb Conc 32.2 g/dL (32-36); Mean Corpuscular Hgb 35.5 pg (27.0-32.0); Mean Platelet Vol. 10.2 fl (6.2-12.0); Monocyte# 0.73 X10^3/uL; Monocyte% 6.3 % (0-10); NRBC Flagged by Analyzer 0.5 % (0-5); Neutrophil # 9.91 X10^3/uL (2.7-7.7); Neutrophil % 86.2 % (47-70); POSITIVE DIFFERENTIAL YES; POSITIVE MORPHOLOGY YES; Platelet Count 120 K/mm3 (150-450); RBC Distribution Width CV 18.9 % (11.6-14.6); RBC Distribution Width SD 75.3 fl (35.1-43.9); Red Blood Count 2.79 M/mm3 (4.2-5.4); White Blood Count 11.5 K/mm3 (4.4-11.0)
[2025-02-09 05:47] LABS: Differential Indicated SCAN CRITERIA MET
[2025-02-09 06:10] VITALS: BP 103/64; PULSE 88; RESP 18; TEMP 36.4; O2SAT 100
[2025-02-09 06:22] LABS: Differential Comment SCANNED
[2025-02-09 06:23] LABS: Anisocytosis 2+; Ovalocyte 1+; Platelet Estimate SLT DEC (ADEQ); Polychromasia 1+
[2025-02-09] MEDS: Pantoprazole Sodium 40 MG in 0.9% Normal Saline (100mL MB+) 100 ML 200 MG IV (08:34)
[2025-02-09] MEDS: Midodrine HCl 5 MG Tablet 10 MG PO ×3 (08:35→17:28)
[2025-02-09 08:45] VITALS: BP 101/71; PULSE 88; RESP 14; TEMP 36.7; O2SAT 95
--- NOTE | 2025-02-09 10:25 | PN_ITS ---
Subjective Subjective Patient seen and examined. She had no active complaints and was lying calmly in bed. She looked very frail and weak. She denied any coffee ground emesis or dark stools. Review of systems is otherwise negative. Objective Data Objective Data Vital Signs: Vital Signs Temp Pulse Resp BP Pulse Ox O2 Del Method O2 Flow Rate 98.0 F 88 14 101/71 95 Room Air 2 02/09/25 08:45 02/09/25 08:45 02/09/25 08:45 02/09/25 08:45 02/09/25 08:45 02/09/25 09:19 02/05/25 16:00 Oxygen Flow Rate (L/min) 2 Oxygen Delivery Method Room Air Weight: 140 lb 6.951 oz Body Mass Index (BMI) 24.8 Intake & Output: Intake and Output for Last 24 Hours 02/07/25 02/08/25 02/09/25 23:59 23:59 23:59 Intake Total 1895 / 1895 570 / 570 110 / 110 Balance 1895 / 1895 570 / 570 110 / 110 Medical Nutrition Assessment Dietitian: Malnutrition Criteria Met Start: 02/03/25 11:03 Freq: Status: Active Protocol: Document 02/03/25 11:03 LO (Rec: 02/03/25 11:03 [id number]) Nutrition Malnutrition Evidence of Yes Malnutrition Exists Malnutrition (severe Chronic ): Evidenced By Suboptimal Energy Intake (Severe),Physical Changes ( Severe) Clinical Problem Chronic Disease or Condition Related Malnutrition Etiology severe related to breast cancer with mets to peritoneum and liver Signs/Symptoms as evidenced by PO intakes <75% of estimated nutrition needs for >1 month and severe temporal/orbital fat and muscle loss Status Active Problem Recommendation Dietitian Advance diet as tolerated to Regular as medically able Recommendations/ to optimize oral intakes. Changes Recommend 120ml ensure plus high protein 4x daily when diet advances. Lab / Micro Data 02/09/25 05:02 02/09/25 05:02 Labs: Laboratory Results - last 24 hr 02/09/25 05:02: WBC 11.5 H, RBC 2.79 L, Hgb 9.9 L, Hct 30.7 L, MCV 110.0 H, MCH 35.5 H, MCHC 32.2, RDW Std Deviation 75.3 H, RDW Coeff of Dominic 18.9 H, Plt Count 120 L, MPV 10.2, Immature Gran % (Auto) 1.800 H, Neut % (Auto) 86.2 H, Lymph % (Auto) 5.0 L, [place] % (Auto) 6.3, Eos % (Auto) 0.1, Baso % (Auto) 0.6, Absolute Neuts (auto) 9.9 H, Absolute Lymphs (auto) 0.58 L, Nucleated RBC % 0.5, Differential Comment SCANNED, Platelet Estimate SLT DEC, Polychromasia 1+, Anisocytosis 2+, Ovalocytes 1+, Sodium 139, Potassium 4.0, Chloride 110 H, C arbon Dioxide 18.0 L, Anion Gap 12, BUN 54 H, Creatinine 2.09 H, Estim Creat Clear Calc 24.44 L, Est GFR (MDRD) Non-Af 26 L, BUN/Creatinine Ratio 25.6 H, Glucose 93, Calcium 8.5, Total Bilirubin 1.47 H, AST 33 H, ALT 26, Alkaline Phosphatase 166 H, Total Protein 4.6 L, Albumin 2.7 L, Globulin 1.9 L, Albumin/Globulin Ratio 1.4 Micro: Microbiology 02/04/25 13:13 Fluid - Ascites Gram Stain - Final 02/04/25 13:13 Fluid - Ascites Body Fluid Culture - Final No growth aerobically. 02/04/25 13:13 Fluid - Ascites Anaerobic Culture - Final No anaerobic bacteria isolated. 02/02/25 19:00 Blood Culture (Wb) - Left Wrist Blood Culture - Final No growth in 5 days. 02/02/25 18:42 Blood Culture (Wb) - Left Wrist Blood Culture - Final No growth in 5 days. 02/02/25 19:30 Stool Stool Occult Blood (ED) - Final Occult Blood Positive Physical Exam Const alert, oriented x3 and no apparent distress Constitutional Narrative: frail, weak General Appearance: cooperative HEENT normocephalic, head/scalp atraumatic, moist oral mucous membranes and oropharynx normal Eyes PERRL and EOMs intact bilaterally Neck no lymphadenopathy and supple Lymph Lymphatic: no lymphadenopathy noted and no lymphedema noted Resp normal respiratory effort, normal air movement and clear to auscultation bilaterally Cardio regular rate, regular rhythm, S1 normal heart sound, S2 normal heart sound and no murmurs GI normal to inspection, nondistended, normoactive bowel sounds, soft to palpation, non-tender and non-distended Extremity normal capillary refill and no calf tenderness General Extremity: no tenderness to palpation of joints or extremities Skin General Skin Exam: no breakdown Neuro CN's II-XII intact bilaterally, no focal motor deficits and no sensory deficits noted Coordination / Balance: [id number] test normal Motor Exam: strength 5/5 throughout and general weakness Psych thought process normal and cooperative Appearance: appropriate Assessment & Plan Assessment/Plan (1) Severe protein-calorie malnutrition: (2) GI bleed: QUALIFIERS: GI bleed type/associated pathology: unspecified gastrointestinal hemorrhage type Qualified Code(s): K92.2 - Gastrointestinal hemorrhage, unspecified PLAN: Plan #Acute GI bleed * had multiple bloody bowel movements prior to admission but has not had any since admission * gastroenterology on board * had EGD which showed erosive esophagitis, no bleeding, erythematous duodenopathy and gastritis. * on PPI * for colonoscopy today * #Hypotension * on midodrine. Seems she has been having low blood pressure for a while * will monitor BP * #malignant ascites * gets regular paracentesis. Last paracentesis was on 02/04/2025 * #NATHALY on CKD IV * Cr today is 2.09. Cr was 1.60 yesterday. * base;ome Cr is ~ 1.8. * will hydrate gently with IVF and trend Cr * #Hypothyroidism: on synthroid DVT prophylaxis: SCDs Charges/Coding Visit Charges Inpatient E&M: 63774 Subs Hosp L2
[2025-02-09] MEDS: 0.9% Normal Saline (1000mL) 1,000 ML 100 ML IV ×2 (11:41→21:32)
--- NOTE | 2025-02-09 11:58 | PN.RENAL_ITS ---
Subjective Subjective No new events. Sitting in chair. Objective Data Objective Data Vital Signs: Vital Signs Temp Pulse Resp BP Pulse Ox O2 Del Method O2 Flow Rate 98.0 F 88 14 101/71 95 Room Air 2 02/09/25 08:45 02/09/25 08:45 02/09/25 08:45 02/09/25 08:45 02/09/25 08:45 02/09/25 09:19 02/05/25 16:00 Oxygen Flow Rate (L/min) 2 Oxygen Delivery Method Room Air Weight: 63.7 kg Body Mass Index (BMI) 24.8 Intake & Output: Intake and Output for Last 24 Hours 02/07/25 02/08/25 02/09/25 23:59 23:59 23:59 Intake Total 1894 / 1894 570 / 570 110 / 110 Balance 1894 189 570 / 570 110 / 110 Medical Nutrition Assessment Dietitian: Malnutrition Criteria Met Start: 02/03/25 11:03 Freq: Status: Active Protocol: Document 02/03/25 11:03 MONA (Rec: 02/03/25 11:03 [id number]) Nutrition Malnutrition Evidence of Yes Malnutrition Exists Malnutrition (severe Chronic ): Evidenced By Suboptimal Energy Intake (Severe),Physical Changes ( Severe) Clinical Problem Chronic Disease or Condition Related Malnutrition Etiology severe related to breast cancer with mets to peritoneum and liver Signs/Symptoms as evidenced by PO intakes <75% of estimated nutrition needs for >1 month and severe temporal/orbital fat and muscle loss Status Active Problem Recommendation Dietitian Advance diet as tolerated to Regular as medically able Recommendations/ to optimize oral intakes. Changes Recommend 120ml ensure plus high protein 4x daily when diet advances. Lab / Micro Data 02/09/25 05:02 02/09/25 05:02 Labs: Laboratory Results - last 24 hr 02/09/25 05:02: WBC 11.5 H, RBC 2.79 L, Hgb 9.9 L, Hct 30.7 L, MCV 110.0 H, MCH 35.5 H, MCHC 32.2, RDW Std Deviation 75.3 H, RDW Coeff of Dominic 18.9 H, Plt Count 120 L, MPV 10.2, Immature Gran % (Auto) 1.800 H, Neut % (Auto) 86.2 H, Lymph % (Auto) 5.0 L, [place] % (Auto) 6.3, Eos % (Auto) 0.1, Baso % (Auto) 0.6, Absolute Neuts (auto) 9.9 H, Absolute Lymphs (auto) 0.58 L, Nucleated RBC % 0.5, Differential Comment SCANNED, Platelet Estimate SLT DEC, Polychromasia 1+, Anisocytosis 2+, Ovalocytes 1+, Sodium 139, Potassium 4.0, Chloride 110 H, C arbon Dioxide 18.0 L, Anion Gap 12, BUN 54 H, Creatinine 2.09 H, Estim Creat Clear Calc 24.44 L, Est GFR (MDRD) Non-Af 26 L, BUN/Creatinine Ratio 25.6 H, Glucose 93, Calcium 8.5, Total Bilirubin 1.47 H, AST 33 H, ALT 26, Alkaline Phosphatase 166 H, Total Protein 4.6 L, Albumin 2.7 L, Globulin 1.9 L, Albumin/Globulin Ratio 1.4 Micro: Microbiology 02/04/25 13:13 Fluid - Ascites Gram Stain - Final 02/04/25 13:13 Fluid - Ascites Body Fluid Culture - Final No growth aerobically. 02/04/25 13:13 Fluid - Ascites Anaerobic Culture - Final No anaerobic bacteria isolated. 02/02/25 19:00 Blood Culture (Wb) - Left Wrist Blood Culture - Final No growth in 5 days. 02/02/25 18:42 Blood Culture (Wb) - Left Wrist Blood Culture - Final No growth in 5 days. 02/02/25 19:30 Stool Stool Occult Blood (ED) - Final Occult Blood Positive Physical Exam Narrative Alert, awake, oriented x 3 no obvious distress no JVD s1s2 no murmurs lungs clear Trace pedal edema Assessment & Plan Assessment/Plan (1) NATHALY (acute kidney injury): PLAN: - Nonoliguric NATHALY on possible CKD. Baseline serum creatinine around 1.2 to 1.3 mg/dL. During last admit, cr fluctuated between 2-3 and for this admit came in with SCr 3.0 --> creatinine has been mildly fluctuating and today creatinine 2.09. Bicarb improved. Potassium normal. NATHALY likely secondary to hemodynamics, hypotension. 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 Restarted back on IV fluids. Patient is nonoliguric. Bp is low on midodrine. UA is relatively benign. CT abd without hydronephrosis. - lower GI bleed, Peritoneal cancer with metastasis. GI following. Possible colonoscopy today. Malignant ascites. She gets paracentesis about every 2 weeks. Had paracentesis last week with 2.5 L removed, received dose of IV albumin. Assessment and plan reviewed with Dr. Bhandari.
--- NOTE | 2025-02-09 13:40 | CASEMGMT ---
[facility] is not going to be able to accept patient as they do not have a bed available. SW spoke with patient and let her know this information. SW did tell patient that [facility] has accepted her also. Patient was in agreement with going to [facility] unless something would happen and [facility] would have a bed. Plan: d/c to [facility] pending patient being medically ready and insurance approval. Mariela Coronado [employer]CR[employer]
--- NOTE | 2025-02-09 15:02 | CHAPLAIN ---
Type of Pastoral Visit _x__ Initial Visit ___ Follow-up Visit ___ On-call Visit ___ General Patient Visit ___ Spiritual Assessment ___ Family Conference ___ Bereavement ___ Rapid Response ___ Code Blue ___ Other (describe below) Pastoral Care Referral From _x__ Patient ___ Family ___ Nurse ___ Physician ___ Lock Expert ___ Audit Clerk ___ Other (describe below) Sacrament/Intervention _x__ Active listening ___ Anointing ___ Caodaism ___ Bereavement ___ Communion _x__ Tejal exploration ___ ___ Life review _x__ Prayer ___ Reconciliation ___ Sacrament of Sick _x__ Supportive presence ___ Wedding ___ Other (describe below) Pastoral Comments patient is aware of her illness and the possibility of to come; pt speaks of her tejal in God that gives her the trust to let Him do what he knows is best, and just trust Him; pt says that her concern is for family members who are not saved and for a dear friend who is also suffering with cancer; pt welcomes prayers and presence; a brother and [id number] were in the room but excused themselves so the patient could talk privately with this professor of chemical engineering; pt is a member of a local congregational
[2025-02-09 16:03] VITALS: BP 102/73; PULSE 97; RESP 16; TEMP 36.4; O2SAT 97
--- NOTE | 2025-02-09 18:40 | PN_ITS ---
Progress Note Patient was mostly get flexible sigmoidoscopy today to figure out the etiology of her lower GI bleeding. However the case was canceled by anesthesia due to staffing issues. Physical Exam Narrative Alert, awake, oriented x 3 no obvious distress no JVD s1s2 no murmurs lungs clear Trace pedal edema Assessment & Plan Assessment/Plan (1) GI bleed: QUALIFIERS: GI bleed type/associated pathology: unspecified gastrointestinal hemorrhage type Qualified Code(s): K92.2 - Gastrointestinal hemorrhage, unspecified (2) Hemorrhagic shock: (3) Stercoral colitis: (4) NATHALY (acute kidney injury): (5) Hyponatremia: (6) Hyperkalemia: (7) Severe protein-calorie malnutrition: PLAN: Plan 64-year-old female with PMH of peritoneal cancer with metastasis on estrogen luh therapy, paracentesis for metastatic ascites, polycythemia, mitral valve prolapse presents from [facility] for increased rectal bleeding. Patient states she has had frequent soft stools multiple times a day and rectal bleeding for 4 to 6 weeks. The nursing staff are concerned the bright red/dark red rectal bleeding was heavier today and her heart rate was elevated prompting them to call EMS. Patient reports feeling intermittently lightheaded and did feel lightheaded with position changes today. No syncope. No chest pain or shortness of breath. She reports chronic abdominal pain from her peritoneal cancer. GI bleed; with Hemoccult positive stools and early hemorrhagic shock noted in ER with hemoglobin of 9.9 g/dL present on admission (down from 11.8 g deciliter on January 14, 2025) with macrocytic MCV of 107.9 fL present on admission with CT abdomen/pelvis on admission revealing evidence of stercoral colitis with a large amount of stool within dilated rectum and circumferential wall thickening in addition to stable extensive abdominal pelvic ascites and peritoneal c arcinomatosis similar to CT on January 14, 2025. Patient will likely need to undergo a flexible sigmoidoscopy versus a full colonoscopy to make sure that there is not any metastatic involvement of the large bowel. Her blood pressure seems to be stabilizing at this time. She also had some nausea vomiting and I think she should undergo an upper endoscopy to look for signs of portal hypertension and other etiologies of possible GI bleed and increased BUN to creatinine ratio. 02/04/2025-the plan is for her to undergo endoscopy tomorrow to determine etiology of nausea vomiting and rectal bleeding. 02/05/2025-patient has agreed to undergo an upper endoscopy but not the colonoscopy. 02/06/2025-patient needs alternatives for feeding as she is not tolerating a significant amount of oral intake at this time. This is likely secondary to peritoneal carcinomatosis with ascites and functional gastroparesis with ileus. If she changes her mind regarding colonoscopy we can pursue this while she is in the hospital. 02/09/2025-I will order a soapsuds enema for the patient. She cannot tolerate oral prep at this time. N.p.o. past midnight. Visit Charges Inpatient E&M: 53068 [facility] Hosp L3
[2025-02-09 21:27] VITALS: BP 91/55; PULSE 77; RESP 16; TEMP 36.6; O2SAT 98
[2025-02-09] MEDS: Pantoprazole Sodium 40 MG in 0.9% Normal Saline (100mL MB+) 100 ML 330 MG IV (21:32)
[2025-02-09] MEDS: Menthol/Lanolin/Calamine/Znox 113 GM Tube 1 APPLIC TOPICAL (21:32)
[2025-02-10] VITALS (14 sets, daily range): BP systolic 82–101; BP diastolic 55–68; PULSE 71–92; RESP 14–18; TEMP 36.1–37.2; O2SAT 93–100; BMI 24.3
[2025-02-10 05:37] LABS: Absolute Lymphocyte Count 0.53 X10^3/uL (0.83-4.51); Absolute Neutrophil Count 9.4 X10^3/uL (2.0-7.7); Basophil# 0.03 X10^3/uL; Basophil% 0.3 % (0-1); Hematocrit 27.8 % (37-47); Hemoglobin 8.9 g/dL (12.0-15.0); Lymphocyte # 0.53 X10^3/ul (0.83-4.51); Lymphocyte % 4.8 % (19-41); Mean Corpuscular Hgb 35.6 pg (27.0-32.0); Mean Corpuscular Volume 111.2 fL (81-99); Mean Platelet Vol. 10.6 fl (6.2-12.0); Monocyte# 0.77 X10^3/uL; NRBC Flagged by Analyzer 0.5 % (0-5); Neutrophil # 9.44 X10^3/uL (2.7-7.7); Neutrophil % 86.3 % (47-70); POSITIVE DIFFERENTIAL YES; POSITIVE MORPHOLOGY YES; Platelet Count 116 K/mm3 (150-450); RBC Distribution Width CV 19.3 % (11.6-14.6); RBC Distribution Width SD 79.3 fl (35.1-43.9); White Blood Count 10.9 K/mm3 (4.4-11.0)
[2025-02-10 05:42] LABS: Differential Indicated SCAN CRITERIA MET
[2025-02-10 06:28] LABS: Anisocytosis 2+; Hypochromasia 1+; Ovalocyte 1+; Platelet Estimate SLT DEC (ADEQ); Polychromasia 1+
[2025-02-10 06:29] LABS: Macrocytosis 1+; Schistocytes RARE
[2025-02-10 06:51] LABS: ALB/GLOB Ratio 1.2 RATIO (0.9-2.4); AST(SGOT) 34 U/L (<=31); Alanine Aminotransfer ALT/SGPT 23 U/L (<=34); Albumin, Serum 2.4 g/dL (3.4-4.8); Alkaline Phosphatase 173 U/L (35-104); Anion Gap 15 (5-15); BUN 56 mg/dL (4-19); BUN/Creat Ratio 25.1 RATIO (10-20); Calcium,Total 7.9 mg/dL (7.6-11.0); Carbon Dioxide 13.4 mmol/L (21.0-32.0); Chloride 114 mmol/L (98-108); Creatinine, Serum 2.22 mg/dL (0.70-1.20); EST Glomerular Filtration Rate 24 (>60); Estimated Creatinine Clearance 21.18 ml/min (50-250); Globulin 1.9 g/dL (2.2-4.2); Glucose 79 mg/dL (70-99); Potassium 4.2 mmol/L (3.3-5.1); Protein, Total 4.3 g/dL (5.9-8.4); Sodium Level 142 mmol/L (133-145); Total Bilirubin 1.34 mg/dL (0.00-1.30)
--- NOTE | 2025-02-10 07:16 | PN_ITS ---
Progress Note Patient got soapsuds enemas last night. Physical Exam Narrative Alert, awake, oriented x 3 no obvious distress no JVD s1s2 no murmurs lungs clear Trace pedal edema Assessment & Plan Assessment/Plan (1) GI bleed: QUALIFIERS: GI bleed type/associated pathology: unspecified gastrointestinal hemorrhage type Qualified Code(s): K92.2 - Gastrointestinal hemorrhage, unspecified (2) Hemorrhagic shock: (3) Stercoral colitis: (4) NATHALY (acute kidney injury): (5) Hyponatremia: (6) Hyperkalemia: (7) Severe protein-calorie malnutrition: PLAN: Plan 64-year-old female with PMH of peritoneal cancer with metastasis on estrogen luh therapy, paracentesis for metastatic ascites, polycythemia, mitral valve prolapse presents from [facility] for increased rectal bleeding. Patient states she has had frequent soft stools multiple times a day and rectal bleeding for 4 to 6 weeks. The nursing staff are concerned the bright red/dark red rectal bleeding was heavier today and her heart rate was elevated prompting them to call EMS. Patient reports feeling intermittently lightheaded and did feel lightheaded with position changes today. No syncope. No chest pain or shortness of breath. She reports chronic abdominal pain from her peritoneal cancer. GI bleed; with Hemoccult positive stools and early hemorrhagic shock noted in ER with hemoglobin of 9.9 g/dL present on admission (down from 11.8 g deciliter on January 14, 2025) with macrocytic MCV of 107.9 fL present on admission with CT abdomen/pelvis on admission revealing evidence of stercoral colitis with a large amount of stool within dilated rectum and circumferential wall thickening in addition to stable extensive abdominal pelvic ascites and peritoneal carcinomatosis similar to CT on January 14, 2025. Patient will likely need to undergo a flexible sigmoidoscopy versus a full colonoscopy to make sure that there is not any metastatic involvement of the large bowel. Her blood pressure seems to be stabilizing at this time. She also had some nausea vomiting and I think she should undergo an upper endoscopy to look for signs of portal hypertension and other etiologies of possible GI bleed and increased BUN to creatinine ratio. 02/04/2025-the plan is for her to undergo endoscopy tomorrow to determine etiology of nausea vomiting and rectal bleeding. 02/05/2025-patient has agreed to undergo an upper endoscopy but not the colonoscopy. 02/06/2025-patient needs alternatives for feeding as she is not tolerating a significant amount of oral intake at this time. This is likely secondary to peritoneal carcinomatosis with ascites and functional gastroparesis with ileus. If she changes her mind regarding colonoscopy we can pursue this while she is in the hospital. 02/09/2025-I will order a soapsuds enema for the patient. She cannot tolerate oral prep at this time. N.p.o. past midnight. 02/10/2025-patient for flexible sigmoidoscopy today. Further recommendations after procedure. Visit Charges Inpatient E&M: [id number] [facility] L3
--- NOTE | 2025-02-10 07:24 | PCM.PRE.AN2 ---
ASA Classification* ASA Classification ASA Classification: 3 Assessment & Plan Anesthesia* Anesthesia Assessment Anesthesia Assessment: Discussed sedation and/or anesthesia options, risks, benefits, and alternatives with patient/parents/legal guardian/POA. Questions invited. The patient/parents/legal guardian/POA seems to understand and agrees to proceed with anesthesia plan. Reviewed the physical assessment, medical history, allergy history and patient home medications list prior to surgery/procedure/anesthetic and documented any changes. Performed airway and anesthesia risk assessments. Anesthesia Type Anesthesia Type: MAC History Source History Obtained from:: Patient and Chart Anesthesia Focused Assessment* Temperature: 98.9 F Pulse Rate: 86 Blood Pressure: 101/66 Respiratory Rate: 16 Pulse Ox: 97 Oxygen Delivery Method: Room Air Oxygen Flow Rate (L/min): 2 Airway Assessment Mouth opens: 2 cm Mallampati Score: IV Teeth Condition: Intact Neck Range of motion (ROM): Limited ROM Focused Labs Anesthesia Preop lab: CBC WBC 10.9 K/mm3 (4.4-11.0) 02/10/25 04:50 02/10/25 RBC 2.50 M/mm3 (4.2-5.4) L 02/10/25 04:50 02/10/25 Hgb 8.9 g/dL (12.0-15.0) L 02/10/25 04:50 02/10/25 Hct 27.8 % (37-47) L 02/10/25 04:50 02/10/25 Plt Count 116 K/mm3 (150-450) L 02/10/25 04:50 02/10/25 CHEMISTRY Potassium 4.2 mmol/L (3.3-5.1) 02/10/25 04:50 02/10/25 Sodium 142 mmol/L (133-145) 02/10/25 04:50 02/10/25 Magnesium 2.2 mg/dL (1.5-2.2) 02/02/25 17:23 02/02/25 Phosphorus 3.3 mg/dL (2.7-4.5) 02/04/25 05:17 02/04/25 BUN 56 mg/dL (4-19) H 02/10/25 04:50 02/10/25 Creatinine 2.22 mg/dL (0.70-1.20) H 02/10/25 04:50 02/10/25 Glucose 79 mg/dL (70-99) 02/10/25 04:50 02/10/25 POC Glucose 87 mg/dL (74-106) 02/05/25 10:43 02/05/25 TSH 0.678 uIU/mL (0.300-4.200) 02/03/25 07:36 02/03/25 COAG PT 15.6 SECONDS (11.7-14.9) H 02/04/25 05:17 02/04/25 Pre-Assessment Diagnosis/Proposed Procedure Planned Operative Procedure(s): Flexible sigmoidoscopy. Anesthesia History Anesthesia History - [place]: Anesthesia History - [place] Hx Hospitalization No 02/12/24 14:15 Any Problems With Anesthesia Yes: pt vomitted once 02/09/25 20:00 Cholinesterase deficiency No 02/09/25 20:00 You/Your Family Experience No 02/09/25 20:00 fever (hyperthermia) with Relationship Recent Exposure to Contagious No 02/09/25 20:00 Disease Does patient have nerve No 02/09/25 20:00 stimulator Patient instructed to have No 02/09/25 20:00 device shut off --Does patient have Pacemaker No 02/10/25 06:30 or ICD? When Was Last Pacemaker Check QUESTION #4 FULL TEXT: You/Your Family Experience fever (hyperthermia) with Anesthesia Last Oral Intake Last Oral intake: Last Oral Intake NPO since 00:00 02/10/25 06:30 Meds taken in AM with sips of No 02/05/25 14:05 water? Meds patient instructed to midodrine 02/05/25 05:36 take am of surgery PONV PONV - [place]: PONV - [place] Female HX of Motion Sickness HX of N/V After Surgery Non-Smoker Duration of Surgery greater than 60 minutes Number of Risk Factors PONV Score Height & Weight Height & Weight: Anesthesia: Height & Weight Height 5 ft 3 in 02/10/25 06:30 Weight: 62.4 kg 02/10/25 06:30 Body Mass Index (BMI) 24.3 02/10/25 06:30 Respiratory Assessment Respiratory Assessment - [place]: Respiratory Tract Infection Hx - [place] Hx Respiratory Tract Infection No 02/09/25 20:00 STOP Sleep Apnea STOP Sleep Apnea - [place]: STOP Sleep Apnea - [place] Hx Hypertension No 02/03/25 13:13 Hx Sleep Apnea No 02/02/25 22:31 CPAP BIPAP Do you snore loudly (louder Yes 02/02/25 22:31 than talking or can be heard Do you often feel tired/ Yes 02/02/25 22:31 fatigued/ sleepy during daytime? Has anyone observed you stop Yes 02/02/25 22:31 breathing during sleep? STOP Results Positive 02/05/25 15:47 QUESTION #5 FULL TEXT : Do you snore loudly (louder than talking or can be heard through closed doors)? Tobacco Use History Tobacco Use History - [place]: Tobacco Use History - [place] Tobacco Use Smoking Status Former smoker 02/02/25 22:31 Hx Tobacco Use No 02/02/25 22:31 Years Smoking Packs Smoked per Day Smoking Cessation Date was Yes - quit smoking within 15 02/02/25 22:31 within the last 15 years years Hx Smoking Cessation Date 03/30/01 02/02/25 22:31 Hx Smoking Cessation Counseling Hematologic Medial History Hematologic Hx - [place]: Hematologic Medical Hx - performance improvement specialist Hx of Blood Transfusion No 02/02/25 22:31 Hx of Transfusion in last 3 No 02/02/25 22:31 Months Date of Last Transfusion (if within last 3 months) Ever experience any problems No 02/02/25 22:31 with transfusion(s)? Specify any problems Hx of Preganancy in last 3 No 02/02/25 22:31 Months Nurse Filling Out Transfusion AFLICKING 02/02/25 22:31 & Questions: Date: 02/02/25 02/02/25 22:31 Time: 22:37 02/02/25 22:31 Patient unable to answer at this time (ie. confused, unrespo /Reproduction History /Reproductive History - [place]: /Reproductive Hx- [place] Hx Now No 02/09/25 20:00 Gestational Age (in weeks): EDC: Hx Hx Para Hx Section SAB No 02/09/25 20:00 Active Medications Active Medications: Current Medications Generic Name Dose Route Start Last Admin Trade Name Freq PRN Reason Stop Dose Admin Acetaminophen 650 mg 02/02/25 22:30 Acetaminophen 650 Mg Suppository RC Q6H PRN PRN Pain 1-5 or Fever Calamine/Phenol 1 applic 02/03/25 10:30 02/09/25 21:32 Menthol/Lanolin/Calamine/Znox 113 Gm Tube TOPICAL 1 applic BID ULISSES Administration Protocol Hydrocortisone 1 applic 02/03/25 10:00 02/09/25 12:20 Hydrocortisone 2.5% Ointment 20 Gm Tube TOPICAL Not Given DAILY ULISSES Sodium Chloride 100 mls @ 15 mls/hr 02/02/25 22:40 02/08/25 10:23 IV 0 mls/hr .Q6H40M PRN Infusion Saline Flush Sodium Chloride 100 mls @ 15 mls/hr 02/02/25 22:40 IV .Q6H40M PRN Additional IVPB Infusion Pantoprazole Sodium 40 mg/ 110 mls @ 330 mls/hr 02/06/25 22:00 02/09/25 21:52 Sodium Chloride IV Infused Q12 ULISSES Infusion Midodrine 10 mg 02/04/25 08:00 02/09/25 17:28 Midodrine Hcl 5 Mg Tablet PO 10 mg TIDCM ULISSES Administration Ondansetron HCl 4 mg 02/02/25 22:30 02/07/25 20:20 Ondansetron 4 Mg/2 Ml Vial IV 4 mg Q4H PRN PRN Administration NAUSEA/VOMITING Promethazine HCl 25 mg 02/02/25 22:30 Promethazine 25 Mg/Ml Syringe IM Q6H PRN PRN Breakthrough Nausea/Vomiting Sodium Chloride 10 - 40 ml 02/02/25 22:40 02/08/25 21:24 0.9% Saline Lock 10 Ml Syringe IV 10 ml UD PRN Administration SALINE FLUSH PFSH Medical History NATHALY (acute kidney injury) Carcinoma of peritoneum Abdominal ascites Localized swelling of both lower legs Dyspnea on exertion Prerenal acute renal failure High risk factor score for venous thromboembolism Bilateral lower extremity edema Rash Elevated serum creatinine Post-menopausal 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 Metastasis to liver Breast cancer Wears glasses Thyroid disease Former smoker History of stress test History of echocardiogram Cancer screening MVP (mitral valve prolapse) Polycythemia Home Medications ?Medication ?Instructions ?Recorded ?Last Taken ?Type multivitamin 1 tab PO DAILY 01/03/24 02/02/25 History ondansetron 4 mg disintegrating 4 mg PO Q8H PRN nausea and 05/28/24 Unknown Rx tablet vomiting #30 tabs abemaciclib 150 mg tablet 150 mg PO BID 30 days #60 tabs 06/17/24 01/13/25 Rx Held on 02/02/25. Instructions: MD Ordered levothyroxine 125 mcg tablet 125 mcg PO DAILY 09/16/24 02/02/25 History fulvestrant 250 mg/5 mL 500 mg (10 mL) IM .COMPLEX #10 mL 01/19/25 01/08/25 Rx intramuscular syringe (Faslodex) cholecalciferol (vitamin D3) 25 2,000 unit PO DAILY 02/02/25 02/02/25 History mcg (1,000 unit) capsule hydrocortisone 1 % topical cream 1 applic topical DAILY 02/02/25 Unknown History (Preparation H Hydrocortisone) pantoprazole 40 mg tablet,delayed 40 mg PO DAILY 02/02/25 Unknown History release prochlorperazine maleate 10 mg 10 mg PO Q6H PRN anxiety 02/02/25 Unknown History tablet Allergy/AdvReac Type Severity Reaction Status Date / Time No Known Allergies Allergy Verified 02/02/25 16:58 Family History Father Esophageal cancer Surgical History Hx of colonoscopy History of right mastectomy History of bone marrow biopsy Social History Smoking Status: Former smoker Review of Systems (Anesthesia) ROS Narrative System reviewed and no additional complaints, except as documented.
--- NOTE | 2025-02-10 07:47 | PCM.POST.ANE ---
Anesthesia: Postop Eval I Current Vital Signs Temperature: 97.3 F Pulse Rate: 72 Blood Pressure: 91/68 Respiratory Rate: 16 Pulse Ox: 100 Oxygen Delivery Method: Room Air Assessment Airway patent: Yes Spontaneous unlabored respirations: Yes Mental status: Asleep nausea: No Vomiting: No Anesthesia Complication: No Fluid Hydration Crystalloid volume administer (ml): 50 Total IV fluid infused: 50 Progress Note Anesthesia document: Postop Eval 1 completed: Yes
--- NOTE | 2025-02-10 07:47 | OP.CCLET_ITS ---
02/10/2025 Eldon Proctor MD [address] [place], [place] [id number] Re : Flexible Sigmoidoscopy procedure for Fariba Gore Dear Dr. Proctor This procedure was performed on Monday, February 10, 2025. My impressions and recommendations are as follows: Impressions : - The procedure was aborted due to the difficulty of the procedure and poor bowel prep. - No specimens collected. Recommendations : - Repeat flexible sigmoidoscopy because the bowel preparation was poor. My findings are described in the full procedure note, which is enclosed. If I can be of further assistance, please feel free to contact me at . Sincerely, Lincoln Rodriguez, 02/10/2025 7:46:11 AM This report has been signed electronically.
--- NOTE | 2025-02-10 07:47 | OP.FLEXSIG_ITS ---
Patient Name: Fariba Gore Procedure Date: 02/10/2025 7:17 AM Date of : 1960 Age: 64 Procedure: Flexible Sigmoidoscopy Indications: Rectal hemorrhage Providers: Lincoln Rodriguez DO Medicines: Monitored Anesthesia Care Patient Profile: This is a 64 year old female. Refer to note in patient chart for documentation of history and physical. Patient has symptoms of chronic abdominal distention and chronic episodes of bloody stool. Last Colonoscopy: date unknown. Unable to locate last colonoscopy report. Complications: No immediate complications. Procedure: Pre-Anesthesia Assessment: - Prior to the procedure, a History and Physical was performed, and patient medications and allergies were reviewed. The patient is competent. The risks and benefits of the procedure and the sedation options and risks were discussed with the patient. All questions were answered and informed consent was obtained. Patient identification and proposed procedure were verified by the physician in the pre-procedure area. Mental Status Examination: alert and oriented. Airway Examination: normal oropharyngeal airway and neck mobility. Respiratory Examination: clear to auscultation. CV Examination: normal. Prophylactic Antibiotics: The patient does not require prophylactic antibiotics. Prior Anticoagulants: The patient has taken no anticoagulant or antiplatelet agents except for NSAID medication. ASA Grade Assessment: II - A patient with mild systemic disease. After reviewing the risks and benefits, the patient was deemed in satisfactory condition to undergo the procedure. The anesthesia plan was to use monitored anesthesia care (MAC). Immediately prior to administration of medications, the patient was re-assessed for adequacy to receive sedatives. The heart rate, respiratory rate, oxygen saturations, blood pressure, adequacy of pulmonary ventilation, and response to care were monitored throughout the procedure. The physical status of the patient was re-assessed after the procedure. After obtaining informed consent, the endoscope was passed under direct vision. Throughout the procedure, the patient's blood pressure, pulse, and oxygen saturations were monitored continuously. The procedure was aborted. The scope was not inserted. Medications were given. The flexible sigmoidoscopy was accomplished without difficulty. The patient tolerated the procedure well. The flexible sigmoidoscopy was aborted due to the difficulty of the procedure and poor bowel prep. The flexible sigmoidoscopy was performed with difficulty due to inadequate bowel prep. The patient tolerated the procedure well. The quality of the bowel preparation was 100 percent obscured. Scope In: Scope Out: Findings: The perianal and digital rectal examinations were normal. Impression: - The procedure was aborted due to the difficulty of the procedure and poor bowel prep. - No specimens collected. Recommendation: - Repeat flexible sigmoidoscopy because the bowel preparation was poor. Lincoln Rodriguez DO 02/10/2025 7:46:11 AM This report has been signed electronically. Number of Addenda: 0 Note Initiated On: 02/10/2025 7:17 AM
--- NOTE | 2025-02-10 08:48 | PCM.POSTANE2 ---
Anesthesia Postop Eval I Sum Postop Eval Completion status Anesthesia document: Postop Eval 1 completed: Yes Anesthesia Postop Eval I Summary Anesthesia Postop Eval I Summary: Anesthesia Postop Eval I: Assessment Summary Airway patent Yes 02/10/25 08:05 [email or web address] Spontaneous unlabored Yes 02/10/25 08:05 [email or web address] respirations Mental status Asleep 02/10/25 08:05 [email or web address] nausea No 02/10/25 08:05 [email or web address] Vomiting No 02/10/25 08:05 [email or web address] Anesthesia Postop Eval I: Fluid Summary Crystalloid volume administer 50 02/10/25 08:05 [email or web address] (ml) Colloids volume administered ( ml) Blood Product volume administered (ml) Total IV fluid infused 50 02/10/25 08:05 [email or web address] Anesthesia Postop Eval I: Summary Notes Anesthesia Complication No 02/10/25 08:05 [email or web address] Anesthesia Complication Comment: Post-operative progress note Anesthesia: Postop Eval II Evaluation Mental status: Awake and Calm Pain Level: 0 nausea: No Vomiting: No Complications Anesthesia Complication: No
[2025-02-10] MEDS: Midodrine HCl 5 MG Tablet 10 MG PO ×3 (08:51→16:55)
[2025-02-10] MEDS: Pantoprazole Sodium 40 MG in 0.9% Normal Saline (100mL MB+) 100 ML 330 MG IV ×2 (08:53→20:38)
--- NOTE | 2025-02-10 08:57 | ANES.CONFIRM ---
Anesthesia: Confirm Documents Multiple Procedures on Account (2) Confirmed Documents: Yes
--- NOTE | 2025-02-10 09:48 | CASEMGMT ---
Updates sent to [facility] with note to submit for precert. Jana Downs DC Planning Asst.
--- NOTE | 2025-02-10 11:13 | PN.RENAL_ITS ---
Subjective Subjective Resting in bed. No new events. Objective Data Objective Data Vital Signs: Vital Signs Temp Pulse Resp BP Pulse Ox O2 Del Method O2 Flow Rate 97.5 F L 79 18 88/60 L 98 Room Air 2 02/10/25 08:45 02/10/25 08:45 02/10/25 08:45 02/10/25 08:45 02/10/25 08:45 02/10/25 09:45 02/10/25 07:27 Oxygen Flow Rate (L/min) 2 Oxygen Delivery Method Room Air Weight: 62.4 kg Body Mass Index (BMI) 24.3 Intake & Output: Intake and Output for Last 24 Hours 02/08/25 02/09/25 02/10/25 23:59 23:59 23:59 Intake Total 570 / 570 1305 / 1305 1110 / 1110 Balance 570 / 570 1305 / 1305 1110 / 1110 Medical Nutrition Assessment Dietitian: Malnutrition Criteria Met Start: 02/03/25 11:03 Freq: Status: Active Protocol: Document 02/03/25 11:03 (Rec: 02/03/25 11:03 [id number]) Nutrition Malnutrition Evidence of Yes Malnutrition Exists Malnutrition (severe Chronic ): Evidenced By Suboptimal Energy Intake (Severe),Physical Changes ( Severe) Clinical Problem Chronic Disease or Condition Related Malnutrition Etiology severe related to breast cancer with mets to peritoneum and liver Signs/Symptoms as evidenced by PO intakes <75% of estimated nutrition needs for >1 month and severe temporal/orbital fat and muscle loss Status Active Problem Recommendation Dietitian Advance diet as tolerated to Regular as medically able Recommendations/ to optimize oral intakes. Changes Recommend 120ml ensure plus high protein 4x daily when diet advances. Lab / Micro Data 02/10/25 04:50 02/10/25 04:50 Labs: Laboratory Results - last 24 hr 02/04/25 13:13: Miscellaneous Cytology SEE PATHOLOGY REPORT 02/10/25 04:50: WBC 10.9, RBC 2.50 L, Hgb 8.9 L, Hct 27.8 L, MCV 111.2 H, MCH 35.6 H, MCHC 32.0, RDW Std Deviation 79.3 H, RDW Coeff of Dominic 19.3 H, Plt Count 116 L, MPV 10.6, Immature Gran % (Auto) 1.600 H, Neut % (Auto) 86.3 H, Lymph % (Auto) 4.8 L, [place] % (Auto) 7.0, Eos % (Auto) 0.0, Baso % (Auto) 0.3, Absolute Neuts (auto) 9.4 H, Absolute Lymphs (auto) 0.53 L, Nucleated RBC % 0.5, Differential Comment , Platelet Estimate SLT DEC, Polychromasia 1+, Hypochromasia 1+, Anisocytosis 2+, Macrocytosis 1+, Ovalocytes 1+, Schistocytes RARE, Sodium 142, Potassium 4.2, Chloride 114 H, Carbon Dioxide 13.4 L, Anion Gap 15, BUN 56 H, Creatinine 2.22 H, Estim Creat Clear Calc 21.18 L, Est GFR (MDRD) Non-Af 24 L, BUN/Creatinine Ratio 25.1 H, Glucose 79, Calcium 7.9, Total Bilirubin 1.34 H, AST 34 H, ALT 23, Alkaline Phosphatase 173 H, Total Protein 4.3 L, Albumin 2.4 L, Globulin 1.9 L, Albumin/Globulin Ratio 1.2 Micro: Microbiology 02/04/25 13:13 Fluid - Ascites Gram Stain - Final 02/04/25 13:13 Fluid - Ascites Body Fluid Culture - Final No growth aerobically. 02/04/25 13:13 Fluid - Ascites Anaerobic Culture - Final No anaerobic bacteria isolated. 02/02/25 19:00 Blood Culture (Wb) - Left Wrist Blood Culture - Final No growth in 5 days. 02/02/25 18:42 Blood Culture (Wb) - Left Wrist Blood Culture - Final No growth in 5 days. 02/02/25 19:30 Stool Stool Occult Blood (ED) - Final Occult Blood Positive Physical Exam Narrative Alert, awake, oriented x 3 no obvious distress no JVD s1s2 no murmurs lungs clear b/l pedal edema Assessment & Plan Assessment/Plan (1) NATHALY (acute kidney injury): PLAN: - Nonoliguric NATHALY on possible CKD. Baseline serum creatinine around 1.2 to 1.3 mg/dL as of mid November 2024, since then SCr fluctuating 2-3mg/dL. During last admit, cr fluctuated between 2-3mg/dL and for this admit came in with SCr 3.0 --> creatinine has been mildly fluctuating and today creatinine 2.22. NATHALY likely secondary to hemodynamics, hypotension. No acute indication for [employer]. Patient was restarted back on IV fluids yesterday, received 2 L. Will give albumin 50gm today. Patient is nonoliguric. Bp is low on midodrine. UA is relatively benign. CT abd without hydronephrosis. - lower GI bleed, Peritoneal cancer with metastasis. GI following. Attempted colonoscopy today but unable to be completed due to poor prep. History of malignant ascites, gets paracentesis about every 2 weeks with volume removal ranging ~3.5-4 L. Had paracentesis last week with 2.5 L removed, received dose of IV albumin. Will give dose of albumin today. Assessment and plan reviewed with Dr. Bhandari.
[2025-02-10] MEDS: Menthol/Lanolin/Calamine/Znox 113 GM Tube 1 APPLIC TOPICAL ×2 (11:21→20:38)
[2025-02-10] MEDS: Hydrocortisone 2.5% Ointment 20 gm tube 1 APPLIC TOPICAL (11:21)
--- NOTE | 2025-02-10 13:03 | PN_ITS ---
Subjective Subjective Patient seen and examined. She had no active complaints. The flexible sigmoidoscopy was aborted yesterday due to heavy stool burden. Review of systems is otherwise negative. Objective Data Objective Data Vital Signs: Vital Signs Temp Pulse Resp BP Pulse Ox O2 Del Method O2 Flow Rate 97.5 F L 79 18 85/64 L 98 Room Air 2 02/10/25 08:45 02/10/25 08:45 02/10/25 08:45 02/10/25 11:00 02/10/25 08:45 02/10/25 09:45 02/10/25 07:27 Oxygen Flow Rate (L/min) 2 Oxygen Delivery Method Room Air Weight: 137 lb 9.095 oz Body Mass Index (BMI) 24.3 Intake & Output: Intake and Output for Last 24 Hours 02/08/25 02/09/25 02/10/25 23:59 23:59 23:59 Intake Total 570 / 570 1305 / 1305 1110 / 1110 Balance 570 / 570 1305 / 1305 1110 / 1110 Medical Nutrition Assessment Dietitian: Malnutrition Criteria Met Start: 02/03/25 11:03 Freq: Status: Active Protocol: Document 02/03/25 11:03 LO (Rec: 02/03/25 11:03 [id number]) Nutrition Malnutrition Evidence of Yes Malnutrition Exists Malnutrition (severe Chronic ): Evidenced By Suboptimal Energy Intake (Severe),Physical Changes ( Severe) Clinical Problem Chronic Disease or Condition Related Malnutrition Etiology severe related to breast cancer with mets to peritoneum and liver Signs/Symptoms as evidenced by PO intakes <75% of estimated nutrition needs for >1 month and severe temporal/orbital fat and muscle loss Status Active Problem Recommendation Dietitian Advance diet as tolerated to Regular as medically able Recommendations/ to optimize oral intakes. Changes Recommend 120ml ensure plus high protein 4x daily when diet advances. Lab / Micro Data 02/10/25 04:50 02/10/25 04:50 Labs: Laboratory Results - last 24 hr 02/04/25 13:13: Miscellaneous Cytology SEE PATHOLOGY REPORT 02/10/25 04:50: WBC 10.9, RBC 2.50 L, Hgb 8.9 L, Hct 27.8 L, MCV 111.2 H, MCH 35.6 H, MCHC 32.0, RDW Std Deviation 79.3 H, RDW Coeff of Dominic 19.3 H, Plt Count 116 L, MPV 10.6, Immature Gran % (Auto) 1.600 H, Neut % (Auto) 86.3 H, Lymph % (Auto) 4.8 L, [place] % (Auto) 7.0, Eos % (Auto) 0.0, Baso % (Auto) 0.3, Absolute Neuts (auto) 9.4 H, Absolute Lymphs (auto) 0.53 L, Nucleated RBC % 0.5, Differential Comment , Platelet Estimate SLT DEC, Polychromasia 1+, Hypochromasia 1+, Anisocytosis 2+, Macrocytosis 1+, Ovalocytes 1+, Schistocytes RARE, Sodium 142, Potassium 4.2, Chloride 114 H, Carbon Dioxide 13.4 L, Anion Gap 15, BUN 56 H, Creatinine 2.22 H, Estim Creat Clear Calc 21.18 L, Est GFR (MDRD) Non-Af 24 L, BUN/Creatinine Ratio 25.1 H, Glucose 79, Calcium 7.9, Total Bilirubin 1.34 H, AST 34 H, ALT 23, Alkaline Phosphatase 173 H, Total Protein 4.3 L, Albumin 2.4 L, Globulin 1.9 L, Albumin/Globulin Ratio 1.2 Micro: Microbiology 02/04/25 13:13 Fluid - Ascites Gram Stain - Final 02/04/25 13:13 Fluid - Ascites Body Fluid Culture - Final No growth aerobically. 02/04/25 13:13 Fluid - Ascites Anaerobic Culture - Final No anaerobic bacteria isolated. 02/02/25 19:00 Blood Culture (Wb) - Left Wrist Blood Culture - Final No growth in 5 days. 02/02/25 18:42 Blood Culture (Wb) - Left Wrist Blood Culture - Final No growth in 5 days. 02/02/25 19:30 Stool Stool Occult Blood (ED) - Final Occult Blood Positive Physical Exam Const alert, oriented x3 and no apparent distress Constitutional Narrative: frail, weak General Appearance: cooperative HEENT normocephalic, head/scalp atraumatic, hearing grossly normal bilaterally, moist oral mucous membranes and oropharynx normal Eyes PERRL and EOMs intact bilaterally Neck no lymphadenopathy, supple and no JVD Lymph Lymphatic: no lymphadenopathy noted and no lymphedema noted Resp normal respiratory effort, normal air movement, no retractions, no use of accessory muscles and clear to auscultation bilaterally Cardio regular rate, regular rhythm, S1 normal heart sound, S2 normal heart sound and no murmurs GI GI Narrative: Mild distention with positive fluid wave consistent with ascites in addition to generalized tenderness to palpation. There was no evidence of guarding or rebound. Extremity normal to inspection, full ROM, normal capillary refill, no clubbing, cyanosis or edema and no calf tenderness General Extremity: no tenderness to palpation of joints or extremities Skin General Skin Exam: no breakdown Neuro oriented x3, CN's II-XII intact bilaterally, moves all extremities, no focal motor deficits and no sensory deficits noted Sensorium / Orientation: awake, alert, oriented to person, oriented to place and oriented to time Coordination / Balance: [id number] test normal Speech: speech normal Motor Exam: strength 5/5 throughout and general weakness Psych thought process normal, cooperative and affect normal Appearance: appropriate Assessment & Plan Assessment/Plan (1) Severe protein-calorie malnutrition: (2) GI bleed: QUALIFIERS: GI bleed type/associated pathology: unspecified gastrointestinal hemorrhage type Qualified Code(s): K92.2 - Gastrointestinal hemorrhage, unspecified PLAN: Plan #Acute GI bleed * had multiple bloody bowel movements prior to admission but has not had any since admission * gastroenterology on board * had EGD which showed erosive esophagitis, no bleeding, erythematous duodenopathy and gastritis. * on PPI * flexible sigmoidoscopy showed heavy stool burden and so it was canceled. * #Hypotension * on midodrine. Seems she has been having low blood pressure for a while * will monitor BP * #malignant ascites * gets regular paracentesis. Last paracentesis was on 02/04/2025 * #NATHALY on CKD IV * Cr today is 2.22 * Cr is trending upwards. Was 2.09 yesterday. * Baesline Cr is ~ 1.8 * nephrology is on board. BP is also running low, likely due to ascites * patient given a dose of IV albumin today to help with the hypotension. #Hypothyroidism: on synthroid DVT prophylaxis: SCDs Charges/Coding Visit Charges Inpatient E&M: 32271 Subs Hosp L2
[2025-02-10] MEDS: Albumin Human 25% (100 mL) 25 GM/100 ML BAG IV ×2 (13:18→15:11)
[2025-02-10] MEDS: Ondansetron 4 MG/2 ML Vial IV (20:17)
[2025-02-10] MEDS: 0.9% Saline Lock 10 ML Syringe IV (20:17)
[2025-02-10] MEDS: Glycerin/Hypromellose/PEG400 15 ml Bottle 1 DRP EACH EYE (23:25)
[2025-02-10] MEDS: proMETHazine 25 MG/ML Syringe IM (23:25)
[2025-02-11] VITALS (8 sets, daily range): BP systolic 91–106; BP diastolic 63–70; PULSE 78–99; RESP 16–18; TEMP 36.1–36.6; O2SAT 98–99; BMI 24.5
[2025-02-11] MEDS: Acetaminophen 325 MG Tablet 650 MG PO (03:22)
[2025-02-11] MEDS: Glycerin/Hypromellose/PEG400 15 ml Bottle 1 DRP EACH EYE (03:22)
[2025-02-11] MEDS: 0.9% Saline Lock 10 ML Syringe IV ×2 (08:43→17:33)
[2025-02-11] MEDS: Midodrine HCl 5 MG Tablet 10 MG PO ×3 (08:43→17:30)
[2025-02-11] MEDS: Menthol/Lanolin/Calamine/Znox 113 GM Tube 1 APPLIC TOPICAL ×2 (08:44→22:30)
[2025-02-11] MEDS: Pantoprazole Sodium 40 MG in 0.9% Normal Saline (100mL MB+) 100 ML 330 MG IV ×2 (08:44→22:35)
[2025-02-11 08:57] LABS: Anion Gap 16 (5-15); BUN 60 mg/dL (4-19); BUN/Creat Ratio 25.5 RATIO (10-20); Calcium,Total 8.3 mg/dL (7.6-11.0); Carbon Dioxide 11.7 mmol/L (21.0-32.0); Chloride 114 mmol/L (98-108); Creatinine, Serum 2.34 mg/dL (0.70-1.20); EST Glomerular Filtration Rate 23 (>60); Estimated Creatinine Clearance 20.09 ml/min (50-250); Glucose 79 mg/dL (70-99); Potassium 4.4 mmol/L (3.3-5.1); Sodium Level 142 mmol/L (133-145)
[2025-02-11 09:23] LABS: Absolute Lymphocyte Count 0.42 X10^3/uL (0.83-4.51); Absolute Neutrophil Count 9.4 X10^3/uL (2.0-7.7); Basophil# 0.05 X10^3/uL; Basophil% 0.5 % (0-1); Eosinophil# 0.01 X10^3/uL; Eosinophils% 0.1 % (0-5); Hemoglobin 8.1 g/dL (12.0-15.0); Lymphocyte # 0.42 X10^3/ul (0.83-4.51); Mean Corp Hgb Conc 32.4 g/dL (32-36); Mean Corpuscular Hgb 35.7 pg (27.0-32.0); Mean Corpuscular Volume 110.1 fL (81-99); Mean Platelet Vol. 10.4 fl (6.2-12.0); Monocyte# 0.63 X10^3/uL; Monocyte% 5.9 % (0-10); NRBC Flagged by Analyzer 0.6 % (0-5); Neutrophil # 9.35 X10^3/uL (2.7-7.7); Neutrophil % 88.1 % (47-70); POSITIVE DIFFERENTIAL YES; POSITIVE MORPHOLOGY YES; Platelet Count 126 K/mm3 (150-450); RBC Distribution Width CV 19.3 % (11.6-14.6); RBC Distribution Width SD 78.3 fl (35.1-43.9); Red Blood Count 2.27 M/mm3 (4.2-5.4); White Blood Count 10.6 K/mm3 (4.4-11.0)
[2025-02-11 09:24] LABS: Differential Indicated SCAN CRITERIA MET
[2025-02-11 09:52] LABS: Anisocytosis 1+
--- NOTE | 2025-02-11 11:39 | PN.RENAL_ITS ---
Subjective Subjective No new complaints. Creatinine slightly higher. Bicarbonate is lower at 11. Objective Data Objective Data Vital Signs: Vital Signs Temp Pulse Resp BP Pulse Ox O2 Del Method O2 Flow Rate 97.5 F L 99 18 91/63 98 Room Air 2 02/11/25 08:31 02/11/25 11:00 02/11/25 08:31 02/11/25 08:31 02/11/25 08:31 02/11/25 08:31 02/10/25 07:27 Oxygen Flow Rate (L/min) 2 Oxygen Delivery Method Room Air Weight: 62.8 kg Body Mass Index (BMI) 24.5 Intake & Output: Intake and Output for Last 24 Hours 02/09/25 02/10/25 02/11/25 23:59 23:59 23:59 Intake Total 1305 / 1305 1620 / 1620 110 / 110 Output Total 150 / 150 Balance 1305 / 1305 1620 / 1620 -40 / -40 Medical Nutrition Assessment Dietitian: Malnutrition Criteria Met Start: 02/03/25 11:03 Freq: Status: Active Protocol: Document 02/03/25 11:03 (Rec: 02/03/25 11:03 [id number]) Nutrition Malnutrition Evidence of Yes Malnutrition Exists Malnutrition (severe Chronic ): Evidenced By Suboptimal Energy Intake (Severe),Physical Changes ( Severe) Clinical Problem Chronic Disease or Condition Related Malnutrition Etiology severe related to breast cancer with mets to peritoneum and liver Signs/Symptoms as evidenced by PO intakes <75% of estimated nutrition needs for >1 month and severe temporal/orbital fat and muscle loss Status Active Problem Recommendation Dietitian Advance diet as tolerated to Regular as medically able Recommendations/ to optimize oral intakes. Changes Recommend 120ml ensure plus high protein 4x daily when diet advances. Lab / Micro Data 02/11/25 09:12 02/11/25 07:30 Labs: Laboratory Results - last 24 hr 02/11/25 07:30: Sodium 142, Potassium 4.4, Chloride 114 H, Carbon Dioxide 11.7 L , Anion Gap 16 H, BUN 60 H, Creatinine 2.34 H, Estim Creat Clear Calc 20.09 L, E st GFR (MDRD) Non-Af 23 L, BUN/Creatinine Ratio 25.5 H, Glucose 79, Calcium 8.3 02/11/25 09:12: WBC 10.6, RBC 2.27 L, Hgb 8.1 L, Hct 25.0 L, MCV 110.1 H, MCH 35.7 H, MCHC 32.4, RDW Std Deviation 78.3 H, RDW Coeff of Dominic 19.3 H, Plt Count 126 L, MPV 10.4, Immature Gran % (Auto) 1.400 H, Neut % (Auto) 88.1 H, Lymph % (Auto) 4.0 L, [place] % (Auto) 5.9, Eos % (Auto) 0.1, Baso % (Auto) 0.5, Absolute Neuts (auto) 9.4 H, Absolute Lymphs (auto) 0.42 L, Nucleated RBC % 0.6, Differential Comment COMMENT, Anisocytosis 1+ Micro: Microbiology 02/04/25 13:13 Fluid - Ascites Gram Stain - Final 02/04/25 13:13 Fluid - Ascites Body Fluid Culture - Final No growth aerobically. 02/04/25 13:13 Fluid - Ascites Anaerobic Culture - Final No anaerobic bacteria isolated. 02/02/25 19:00 Blood Culture (Wb) - Left Wrist Blood Culture - Final No growth in 5 days. 02/02/25 18:42 Blood Culture (Wb) - Left Wrist Blood Culture - Final No growth in 5 days. 02/02/25 19:30 Stool Stool Occult Blood (ED) - Final Occult Blood Positive Radiography Diagnostic Testing: Radiology Impression Paracentesis Ultrasound 02/03/25 14:42 IMPRESSION: Successful paracentesis. The patient tolerated the procedure well. No immediate complication was noted. Reading Location: [facility] Physical Exam Narrative Alert, awake, oriented x 3 no obvious distress no JVD s1s2 no murmurs lungs clear b/l pedal edema Assessment & Plan Assessment/Plan (1) NATHALY (acute kidney injury): PLAN: - Nonoliguric NATHALY on possible CKD. Baseline serum creatinine around 1.2 to 1.3 mg/dL as of mid November 2024, since then SCr fluctuating 2-3mg/dL. During last admit, cr fluctuated between 2-3mg/dL and for this admit came in with SCr 3.0 --> creatinine has been mildly fluctuating and today creatinine 2.22. NATHALY likely secondary to hemodynamics, hypotension. 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 Patient is nonoliguric. Bp is low on midodrine. UA is relatively benign. CT abd without hydronephrosis. Received albumin yesterday. - lower GI bleed, Peritoneal cancer with metastasis. GI following. Attempted colonoscopy today but unable to be completed due to poor prep. History of malignant ascites, gets paracentesis about every 2 weeks with volume removal ranging ~3.5-4 L. Had paracentesis last week with 2.5 L removed, received dose of IV albumin. Acidosis. Bicarbonate is lower. She says she is not having much diarrhea but some. Will start IV fluid bicarb tonight.
[2025-02-11] MEDS: Sodium Bicarbonate 150 MEQ in Dextrose 5%-Water (1000mL Bag) 1,000 ML 100 MEQ IV ×2 (12:15→23:49)
--- NOTE | 2025-02-11 13:50 | PN_ITS ---
Subjective Subjective Patient seen and examined. She had no active complaints. She has not had any more rectal bleeding overnight. Review of systems is otherwise negative. Hb is 8.1. Objective Data Objective Data Vital Signs: Vital Signs Temp Pulse Resp BP Pulse Ox O2 Del Method O2 Flow Rate 97.5 F L 99 18 91/63 98 Room Air 2 02/11/25 08:31 02/11/25 11:00 02/11/25 08:31 02/11/25 08:31 02/11/25 08:31 02/11/25 08:31 02/10/25 07:27 Oxygen Flow Rate (L/min) 2 Oxygen Delivery Method Room Air Weight: 138 lb 7.205 oz Body Mass Index (BMI) 24.5 Intake & Output: Intake and Output for Last 24 Hours 02/09/25 02/10/25 02/11/25 23:59 23:59 23:59 Intake Total 1305 / 1305 1620 / 1620 110 / 110 Output Total 150 / 150 Balance 1305 / 1305 1620 / 1620 -40 / -40 Medical Nutrition Assessment Dietitian: Malnutrition Criteria Met Start: 02/03/25 11:03 Freq: Status: Active Protocol: Document 02/03/25 11:03 LO (Rec: 02/03/25 11:03 [id number]) Nutrition Malnutrition Evidence of Yes Malnutrition Exists Malnutrition (severe Chronic ): Evidenced By Suboptimal Energy Intake (Severe),Physical Changes ( Severe) Clinical Problem Chronic Disease or Condition Related Malnutrition Etiology severe related to breast cancer with mets to peritoneum and liver Signs/Symptoms as evidenced by PO intakes <75% of estimated nutrition needs for >1 month and severe temporal/orbital fat and muscle loss Status Active Problem Recommendation Dietitian Advance diet as tolerated to Regular as medically able Recommendations/ to optimize oral intakes. Changes Recommend 120ml ensure plus high protein 4x daily when diet advances. Lab / Micro Data 02/11/25 09:12 02/11/25 07:30 Labs: Laboratory Results - last 24 hr 02/11/25 07:30: Sodium 142, Potassium 4.4, Chloride 114 H, Carbon Dioxide 11.7 L , Anion Gap 16 H, BUN 60 H, Creatinine 2.34 H, Estim Creat Clear Calc 20.09 L, E st GFR (MDRD) Non-Af 23 L, BUN/Creatinine Ratio 25.5 H, Glucose 79, Calcium 8.3 02/11/25 09:12: WBC 10.6, RBC 2.27 L, Hgb 8.1 L, Hct 25.0 L, MCV 110.1 H, MCH 35.7 H, MCHC 32.4, RDW Std Deviation 78.3 H, RDW Coeff of Dominic 19.3 H, Plt Count 126 L, MPV 10.4, Immature Gran % (Auto) 1.400 H, Neut % (Auto) 88.1 H, Lymph % (Auto) 4.0 L, [place] % (Auto) 5.9, Eos % (Auto) 0.1, Baso % (Auto) 0.5, Absolute Neuts (auto) 9.4 H, Absolute Lymphs (auto) 0.42 L, Nucleated RBC % 0.6, Differential Comment COMMENT, Anisocytosis 1+ Micro: Microbiology 02/04/25 13:13 Fluid - Ascites Gram Stain - Final 02/04/25 13:13 Fluid - Ascites Body Fluid Culture - Final No growth aerobically. 02/04/25 13:13 Fluid - Ascites Anaerobic Culture - Final No anaerobic bacteria isolated. 02/02/25 19:00 Blood Culture (Wb) - Left Wrist Blood Culture - Final No growth in 5 days. 02/02/25 18:42 Blood Culture (Wb) - Left Wrist Blood Culture - Final No growth in 5 days. 02/02/25 19:30 Stool Stool Occult Blood (ED) - Final Occult Blood Positive Radiography Diagnostic Testing: Radiology Impression Paracentesis Ultrasound 02/03/25 14:42 IMPRESSION: Successful paracentesis. The patient tolerated the procedure well. No immediate complication was noted. Reading Location: [facility]-1 Physical Exam Const alert, oriented x3, no apparent distress and average body habitus Constitutional Narrative: frail, weak General Appearance: cooperative HEENT normocephalic, head/scalp atraumatic, hearing grossly normal bilaterally, moist oral mucous membranes and oropharynx normal Eyes PERRL and EOMs intact bilaterally Neck no lymphadenopathy, supple and no JVD Lymph Lymphatic: no lymphadenopathy noted and no lymphedema noted Resp normal respiratory effort, normal air movement, no retractions, no use of accessory muscles and clear to auscultation bilaterally Cardio regular rate, regular rhythm, S1 normal heart sound, S2 normal heart sound and no murmurs GI normal to inspection, nondistended, normoactive bowel sounds, soft to palpation, non-tender and non-distended Extremity normal to inspection, full ROM, normal capillary refill, no clubbing, cyanosis or edema and no calf tenderness General Extremity: no tenderness to palpation of joints or extremities Skin General Skin Exam: no breakdown Neuro oriented x3, CN's II-XII intact bilaterally, moves all extremities, no focal motor deficits and no sensory deficits noted Sensorium / Orientation: awake, alert, oriented to person, oriented to place and oriented to time Coordination / Balance: [id number] test normal Speech: speech normal Motor Exam: strength 5/5 throughout and general weakness Psych thought process normal, cooperative and affect normal Appearance: appropriate Assessment & Plan Assessment/Plan (1) Severe protein-calorie malnutrition: (2) GI bleed: QUALIFIERS: GI bleed type/associated pathology: unspecified gastrointestinal hemorrhage type Qualified Code(s): K92.2 - Gastrointestinal hemorrhage, unspecified PLAN: Plan #Acute GI bleed * had multiple bloody bowel movements prior to admission but has not had any since admission * gastroenterology on board * had EGD which showed erosive esophagitis, no bleeding, erythematous duodenopathy and gastritis. * on PPI * flexible sigmoidoscopy showed heavy stool burden and so it was canceled. GI not planning on doing any more scopes. * #Hypotension * on midodrine. Seems she has been having low blood pressure for a while * will monitor BP * #Ascites * gets regular paracentesis. Last paracentesis was on 02/04/2025 * #NATHALY on CKD IV with mild anion gap metabolic acidosis today * Cr today is further up to 2.34 today * Cr is trending upwards. * Baesline Cr is ~ 1.8 * nephrology is on board. BP is also running low, likely due to ascites * patient given a dose of IV albumin today to help with the hypotension. * management as per nephrology. Per nephro, to start on bicarb drip #Hypothyroidism: on synthroid DVT prophylaxis: SCDs Charges/Coding Visit Charges Inpatient E&M: 54696 Subs Hosp L2
[2025-02-11] MEDS: Ondansetron 4 MG/2 ML Vial IV ×2 (17:33→22:41)
--- NOTE | 2025-02-11 23:12 | EKG12_ITS ---
Test Reason : NAUSEA/DISRHYMIA Blood Pressure : */* mmHG Vent. Rate : 89 BPM Atrial Rate : 89 BPM P-R Int : 148 ms QRS Dur : 74 ms QT Int : 334 ms P-R-T Axes : 69 70 73 degrees QTcB Int : 406 ms Normal sinus rhythm Low voltage QRS Borderline ECG When compared with ECG of 14-Jan-2025 11:07, Criteria for Septal infarct are no longer Present Confirmed by Kam Mckeon ([id number]), international editorial producer MERLINE GUERRA ([id number]) on 02/13/2025 7:08:37 AM Referred By: Confirmed By: Kam Mckeon
[2025-02-12] VITALS (25 sets, daily range): BP systolic 54–108; BP diastolic 36–78; PULSE 99–123; RESP 13–27; TEMP 35.7–36.9; O2SAT 93–100; BMI 25.9
[2025-02-12] MEDS: proCHLORPERazine 10 MG/2 ML Vial 5 MG IV
[2025-02-12] MEDS: HYDROmorphone 0.5 MG/0.5 ML SYRINGE IV (00:54)
[2025-02-12] MEDS: 0.9% Saline Lock 10 ML Syringe IV ×2 (06:51→10:59)
[2025-02-12] MEDS: Ondansetron 4 MG/2 ML Vial IV (06:51)
[2025-02-12] MEDS: Midodrine HCl 5 MG Tablet 10 MG PO ×3 (08:09→16:27)
--- NOTE | 2025-02-12 10:11 | PCM.PN.REN ---
Subjective Subjective Sitting up in bed, trying to eat breakfast. No overnight events. Objective Data Objective Data Vital Signs: Vital Signs Temp Pulse Resp BP Pulse Ox O2 Del Method O2 Flow Rate 97.8 F 108 H 18 108/78 95 Room Air 2 02/12/25 06:37 02/12/25 06:55 02/12/25 08:27 02/12/25 06:37 02/12/25 06:55 02/12/25 08:27 02/10/25 07:27 Oxygen Flow Rate (L/min) 2 Oxygen Delivery Method Room Air Weight: 66.4 kg Body Mass Index (BMI) 25.9 Intake & Output: Intake and Output for Last 24 Hours 02/10/25 02/11/25 02/12/25 23:59 23:59 23:59 Intake Total 1620 / 1620 1260 / 1260 110 / 110 Output Total 150 / 150 Balance 1620 / 1620 1110 / 1110 110 / 110 Medical Nutrition Assessment Dietitian: Malnutrition Criteria Met Start: 02/03/25 11:03 Freq: Status: Active Protocol: Document 02/03/25 11:03 (Rec: 02/03/25 11:03 [id number]) Nutrition Malnutrition Evidence of Yes Malnutrition Exists Malnutrition (severe Chronic ): Evidenced By Suboptimal Energy Intake (Severe),Physical Changes ( Severe) Clinical Problem Chronic Disease or Condition Related Malnutrition Etiology severe related to breast cancer with mets to peritoneum and liver Signs/Symptoms as evidenced by PO intakes <75% of estimated nutrition needs for >1 month and severe temporal/orbital fat and muscle loss Status Active Problem Recommendation Dietitian Advance diet as tolerated to Regular as medically able Recommendations/ to optimize oral intakes. Changes Recommend 120ml ensure plus high protein 4x daily when diet advances. Lab / Micro Data 02/11/25 09:12 02/11/25 07:30 Micro: Microbiology 02/04/25 13:13 Fluid - Ascites Gram Stain - Final 02/04/25 13:13 Fluid - Ascites Body Fluid Culture - Final No growth aerobically. 02/04/25 13:13 Fluid - Ascites Anaerobic Culture - Final No anaerobic bacteria isolated. 02/02/25 19:00 Blood Culture (Wb) - Left Wrist Blood Culture - Final No growth in 5 days. 02/02/25 18:42 Blood Culture (Wb) - Left Wrist Blood Culture - Final No growth in 5 days. 02/02/25 19:30 Stool Stool Occult Blood (ED) - Final Occult Blood Positive Radiography Diagnostic Testing: Radiology Impression Paracentesis Ultrasound 02/03/25 14:42 IMPRESSION: Successful paracentesis. The patient tolerated the procedure well. No immediate complication was noted. Reading Location: [facility] Physical Exam Narrative Alert, awake, oriented x 3 no obvious distress no JVD s1s2 no murmurs lungs clear b/l pedal edema Assessment & Plan Assessment/Plan (1) NATHALY (acute kidney injury): PLAN: - Nonoliguric NATHALY on possible CKD. Baseline serum creatinine around 1.2 to 1.3 mg/dL as of mid November 2024, since then SCr fluctuating 2-3mg/dL. During last admit, SCr fluctuated between 2-3mg/dL and for this admit came in with SCr 3.0 --> creatinine has been mildly fluctuating. Labs pending today. NATHALY likely secondary to hemodynamics, hypotension. 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 Patient is nonoliguric. Bp is low on midodrine. UA is relatively benign. CT abd without hydronephrosis. Received albumin 02/10 - lower GI bleed, Peritoneal cancer with metastasis. GI following. Attempted colonoscopy today but unable to be completed due to poor prep. History of malignant ascites, gets paracentesis about every 2 weeks with volume removal ranging ~3.5-4 L. Had paracentesis last week with 2.5 L removed. - Acidosis. Patient was started on bicarb drip yesterday. Labs pending today. Will follow labs once resulted today for further orders regarding bicarb drip. Labs ordered for morning. Assessment and plan reviewed with Dr. Bhandari.
--- NOTE | 2025-02-12 10:24 | US_ITS ---
EXAM: Ultrasound-guided paracentesis. CLINICAL HISTORY: Ascites. COMPARISON: Comparison is made with prior study dated February 04, 2025. TECHNIQUE: The procedure as well as the benefits and possible complications were explained to the patient. Informed consent was obtained. The skin overlying the left lower quadrant was prepped and draped in the usual sterile fashion. Following local anesthetic application, a 5 [place] drainage catheter was placed into the left lower quadrant. A total of 2900 mL of marc colored fluid was aspirated. The patient tolerated the procedure well. No immediate complication noted. FINDINGS: Successful ultrasound-guided paracentesis in the left lower quadrant. US/Paracentesis with US IMPRESSION: Successful ultrasound-guided paracentesis in the left lower quadrant. The maisha ent tolerated the procedure well. No immediate postprocedure complication noted. Reading Location: [place] [id number]
[2025-02-12 10:44] LABS: Anion Gap 12 (5-15); BUN 54 mg/dL (4-19); BUN/Creat Ratio 23.7 RATIO (10-20); Calcium,Total 7.8 mg/dL (7.6-11.0); Carbon Dioxide 21.4 mmol/L (21.0-32.0); Chloride 112 mmol/L (98-108); Creatinine, Serum 2.29 mg/dL (0.70-1.20); EST Glomerular Filtration Rate 23 (>60); Estimated Creatinine Clearance 22.72 ml/min (50-250); Glucose 145 mg/dL (70-99); Potassium 3.8 mmol/L (3.3-5.1); Sodium Level 146 mmol/L (133-145)
[2025-02-12] MEDS: Pantoprazole Sodium 40 MG in 0.9% Normal Saline (100mL MB+) 100 ML 330 MG IV (10:45)
[2025-02-12] MEDS: Menthol/Lanolin/Calamine/Znox 113 GM Tube 1 APPLIC TOPICAL (10:45)
--- NOTE | 2025-02-12 12:19 | PN_ITS ---
Subjective Subjective Patient seen and examined. She complained of back pain. She also has some abdominal distension. Review of systems is otherwise negative. BP is at 88/67 this morning. Review of systems was otherwise negative. Objective Data Objective Data Vital Signs: Vital Signs Temp Pulse Resp BP Pulse Ox O2 Del Method O2 Flow Rate 98.5 F 101 H 18 88/67 L 93 Room Air 2 02/12/25 11:48 02/12/25 11:48 02/12/25 11:48 02/12/25 11:48 02/12/25 11:48 02/12/25 11:48 02/10/25 07:27 Oxygen Flow Rate (L/min) 2 Oxygen Delivery Method Room Air Weight: 146 lb 6.191 oz Body Mass Index (BMI) 25.9 Intake & Output: Intake and Output for Last 24 Hours 02/10/25 02/11/25 02/12/25 23:59 23:59 23:59 Intake Total 1620 / 1620 1260 / 1260 295 / 295 Output Total 150 / 150 Balance 1620 / 1620 1110 / 1110 295 / 295 Medical Nutrition Assessment Dietitian: Malnutrition Criteria Met Start: 02/03/25 11:03 Freq: Status: Active Protocol: Document 02/03/25 11:03 (Rec: 02/03/25 11:03 [id number]) Nutrition Malnutrition Evidence of Yes Malnutrition Exists Malnutrition (severe Chronic ): Evidenced By Suboptimal Energy Intake (Severe),Physical Changes ( Severe) Clinical Problem Chronic Disease or Condition Related Malnutrition Etiology severe related to breast cancer with mets to peritoneum and liver Signs/Symptoms as evidenced by PO intakes <75% of estimated nutrition needs for >1 month and severe temporal/orbital fat and muscle loss Status Active Problem Recommendation Dietitian Advance diet as tolerated to Regular as medically able Recommendations/ to optimize oral intakes. Changes Recommend 120ml ensure plus high protein 4x daily when diet advances. Lab / Micro Data 02/11/25 09:12 02/12/25 09:55 Labs: Laboratory Results - last 24 hr 02/12/25 09:55: Sodium 146 H, Potassium 3.8, Chloride 112 H, Carbon Dioxide 21.4, Anion Gap 12, BUN 54 H, Creatinine 2.29 H, Estim Creat Clear Calc 22.72 L, Est GFR (MDRD) Non-Af 23 L, BUN/Creatinine Ratio 23.7 H, Glucose 145 H, Calcium 7.8 Micro: Microbiology 02/04/25 13:13 Fluid - Ascites Gram Stain - Final 02/04/25 13:13 Fluid - Ascites Body Fluid Culture - Final No growth aerobically. 02/04/25 13:13 Fluid - Ascites Anaerobic Culture - Final No anaerobic bacteria isolated. 02/02/25 19:00 Blood Culture (Wb) - Left Wrist Blood Culture - Final No growth in 5 days. 02/02/25 18:42 Blood Culture (Wb) - Left Wrist Blood Culture - Final No growth in 5 days. 02/02/25 19:30 Stool Stool Occult Blood (ED) - Final Occult Blood Positive Physical Exam Const alert, oriented x3, no apparent distress and average body habitus Constitutional Narrative: frail, weak General Appearance: cooperative HEENT normocephalic, head/scalp atraumatic, hearing grossly normal bilaterally, moist oral mucous membranes and oropharynx normal Eyes PERRL and EOMs intact bilaterally Neck no lymphadenopathy, supple and no JVD Lymph Lymphatic: no lymphadenopathy noted and no lymphedema noted Resp normal respiratory effort, normal air movement, no retractions, no use of accessory muscles and clear to auscultation bilaterally Cardio regular rate, regular rhythm, S1 normal heart sound, S2 normal heart sound and no murmurs GI GI Narrative: Moderate distention with positive fluid wave consistent with ascites in addition to generalized tenderness to palpation. There was no evidence of guarding or rebound. Extremity normal to inspection, full ROM, normal capillary refill, no clubbing, cyanosis or edema and no calf tenderness General Extremity: no tenderness to palpation of joints or extremities Skin General Skin Exam: no breakdown Neuro oriented x3, CN's II-XII intact bilaterally, moves all extremities, no focal motor deficits and no sensory deficits noted Sensorium / Orientation: awake, alert, oriented to person, oriented to place and oriented to time Coordination / Balance: [id number] test normal Speech: speech normal Motor Exam: strength 5/5 throughout and general weakness Psych thought process normal, cooperative and affect normal Appearance: appropriate Assessment & Plan Assessment/Plan (1) Severe protein-calorie malnutrition: (2) GI bleed: QUALIFIERS: GI bleed type/associated pathology: unspecified gastrointestinal hemorrhage type Qualified Code(s): K92.2 - Gastrointestinal hemorrhage, unspecified PLAN: Plan #Acute GI bleed * had multiple bloody bowel movements prior to admission but has not had any since admission * gastroenterology on board * had EGD which showed erosive esophagitis, no bleeding, erythematous duodenopathy and gastritis. * on PPI * flexible sigmoidoscopy showed heavy stool burden and so it was canceled. GI not planning on doing any more scopes. * #Hypotension * on midodrine. Seems she has been having low blood pressure for a while * will monitor BP. BP is 88/67 today. * #malignant Ascites due to history of colon cancer with mets to the liver and peritoneum * gets regular paracentesis. Last paracentesis was on 02/04/2025 * paracentesis ordered today as abdomen is distended. * #NATHALY on CKD IV with mild anion gap metabolic acidosis today * Cr today has trended down to 2.29. * Baseline Cr is ~ 1.8 * nephrology is on board. BP is also running low, likely due to ascites * received albumin yesterday. management as per nephrology * on bicarb drip. bicarb today is 21.4 and anion gap is 12. #Hypothyroidism: on synthroid DVT prophylaxis: SCDs Charges/Coding Visit Charges Inpatient E&M: 96671 Subs Hosp L2
[2025-02-12] MEDS: Lidocaine 2% (20 ml mdv) 20 ML Vial INFILT (13:37)
--- NOTE | 2025-02-12 14:37 | CASEMGMT ---
SW spoke with patient and let her know [facility] has no openings. However, insurance has approved her to go to [facility]. Physician mentioned she may d/c patient today. SW told patient when we know for sure we will let her know. Mariela EDDY
--- NOTE | 2025-02-12 15:30 | WOUNDNOTE ---
wound photo: left foot
[2025-02-12] MEDS: Albumin Human 25% (100 mL) 25 GM/100 ML BAG IV (16:26)
[2025-02-12 16:31] LABS: Magnesium 1.9 mg/dL (1.5-2.2)
[2025-02-12] MEDS: Ensure Plus High Protein 120 ML LIQUID PO (17:11)
[2025-02-12] MEDS: oxyCODONE 5 MG Tablet PO (17:11)
--- NOTE | 2025-02-12 20:00 | NURSING ---
This RN was made of aware by the mesh cutter that pt was having bright red blood coming from rectum. This RN went to assess pt. Initial BP was 76/41. Rapid response was then called 02/12/[address] Pimentel came to bedside. Pt transferred to ICU.
[2025-02-12] MEDS: 0.9% Normal Saline (1000mL) 1,000 ML 999 ML IV (20:07)
[2025-02-12 20:15] LABS: Bedside Glucose 149 mg/dL (74-106)
--- NOTE | 2025-02-12 20:18 | NURSING ---
MYRNA VAZQUEZ PATIENT'S SON CALLED WITH UPDATE ON TRANSFER.
[2025-02-12 20:41] LABS: Absolute Lymphocyte Count 0.75 X10^3/uL (0.83-4.51); Absolute Neutrophil Count 6.2 X10^3/uL (2.0-7.7); Basophil# 0.01 X10^3/uL; Basophil% 0.1 % (0-1); Lymphocyte # 0.75 X10^3/ul (0.83-4.51); Lymphocyte % 9.7 % (19-41); Mean Corp Hgb Conc 32.3 g/dL (32-36); Mean Corpuscular Hgb 36.5 pg (27.0-32.0); Monocyte# 0.57 X10^3/uL; Monocyte% 7.4 % (0-10); NRBC Flagged by Analyzer 1.6 % (0-5); Neutrophil # 6.23 X10^3/uL (2.7-7.7); POSITIVE COUNT YES; POSITIVE MORPHOLOGY YES; Platelet Count 82 K/mm3 (150-450); RBC Distribution Width CV 19.5 % (11.6-14.6); RBC Distribution Width SD 79.4 fl (35.1-43.9); Red Blood Count 1.15 M/mm3 (4.2-5.4); White Blood Count 7.7 K/mm3 (4.4-11.0)
[2025-02-12 20:48] LABS: Differential Indicated SCAN CRITERIA MET; Hemoglobin 4.2 g/dL (12.0-15.0)
[2025-02-12 21:04] LABS: Anion Gap 14 (5-15); BUN 55 mg/dL (4-19); BUN/Creat Ratio 22.4 RATIO (10-20); Calcium,Total 7.2 mg/dL (7.6-11.0); Carbon Dioxide 17.6 mmol/L (21.0-32.0); Chloride 114 mmol/L (98-108); Creatinine, Serum 2.47 mg/dL (0.70-1.20); EST Glomerular Filtration Rate 21 (>60); Estimated Creatinine Clearance 21.07 ml/min (50-250); Glucose 139 mg/dL (70-99); Potassium 3.9 mmol/L (3.3-5.1); Sodium Level 145 mmol/L (133-145)
[2025-02-12] MEDS: Norepinephrine 8 MG in 0.9% Normal Saline (250mL Bag) 242 ML 9.4 MG CONT INF (21:07)
[2025-02-12 21:18] LABS: Lactic Acid 6.7 mmol/L (0.0-2.0)
[2025-02-12 21:31] LABS: Anisocytosis 2+; Differential Comment SCANNED
--- NOTE | 2025-02-12 22:14 | PCM.PRE.AN2 ---
ASA Classification* ASA Classification ASA Classification: 4 and E Assessment & Plan Anesthesia* Anesthesia Assessment Anesthesia Assessment: Discussed sedation and/or anesthesia options, risks, benefits, and alternatives with patient/parents/legal guardian/POA. Questions invited. The patient/parents/legal guardian/POA seems to understand and agrees to proceed with anesthesia plan. Reviewed the physical assessment, medical history, allergy history and patient home medications list prior to surgery/procedure/anesthetic and documented any changes. Performed airway and anesthesia risk assessments. Anesthesia Type Anesthesia Type: MAC (Pt is not responsive to verbal questions. She had requested previously to be a full code. So will proceed with emergency procedure.) History Source History Obtained from:: Patient and Chart Anesthesia Focused Assessment* Temperature: 96.2 F Pulse Rate: 110 Blood Pressure: 73/47 Respiratory Rate: 15 Pulse Ox: 100 Oxygen Flow Rate (L/min): 2 Airway Assessment Mouth opens: 2 cm Mallampati Score: IV Teeth Condition: Intact Neck Range of motion (ROM): Limited ROM Focused Labs Anesthesia Preop lab: CBC WBC 7.7 K/mm3 (4.4-11.0) 02/12/25 20:18 02/12/25 RBC 1.15 M/mm3 (4.2-5.4) L 02/12/25 20:18 02/12/25 Hgb 4.2 g/dL (12.0-15.0) L* 02/12/25 20:18 02/12/25 Hct 13.0 % (37-47) L 02/12/25 20:18 02/12/25 Plt Count 82 K/mm3 (150-450) L 02/12/25 20:18 02/12/25 CHEMISTRY Potassium 3.9 mmol/L (3.3-5.1) 02/12/25 20:18 02/12/25 Sodium 145 mmol/L (133-145) 02/12/25 20:18 02/12/25 Magnesium 1.9 mg/dL (1.5-2.2) 02/12/25 09:55 02/12/25 Phosphorus 3.3 mg/dL (2.7-4.5) 02/04/25 05:17 02/04/25 BUN 55 mg/dL (4-19) H 02/12/25 20:18 02/12/25 Creatinine 2.47 mg/dL (0.70-1.20) H 02/12/25 20:18 02/12/25 Glucose 139 mg/dL (70-99) H 02/12/25 20:18 02/12/25 POC Glucose 149 mg/dL (74-106) H 02/12/25 19:49 02/12/25 TSH 0.678 uIU/mL (0.300-4.200) 02/03/25 07:36 02/03/25 COAG PT 15.6 SECONDS (11.7-14.9) H 02/04/25 05:17 02/04/25 Pre-Assessment Diagnosis/Proposed Procedure Planned Operative Procedure(s): Colonoscopy Anesthesia History Anesthesia History - sales force administrator: Anesthesia History - sales force administrator Hx Hospitalization No 02/12/24 14:15 Any Problems With Anesthesia Yes: pt vomitted once 02/09/25 20:00 Cholinesterase deficiency No 02/09/25 20:00 You/Your Family Experience No 02/09/25 20:00 fever (hyperthermia) with Relationship Recent Exposure to Contagious No 02/09/25 20:00 Disease Does patient have nerve No 02/09/25 20:00 stimulator Patient instructed to have No 02/09/25 20:00 device shut off --Does patient have Pacemaker No 02/10/25 06:30 or ICD? When Was Last Pacemaker Check QUESTION #4 FULL TEXT: You/Your Family Experience fever (hyperthermia) with Anesthesia Last Oral Intake Last Oral intake: Last Oral Intake NPO since 00:00 02/10/25 06:30 Meds taken in AM with sips of No 02/05/25 14:05 water? Meds patient instructed to midodrine 02/05/25 05:36 take am of surgery PONV PONV - sales force administrator: PONV - sales force administrator Female HX of Motion Sickness HX of N/V After Surgery Non-Smoker Duration of Surgery greater than 60 minutes Number of Risk Factors PONV Score Height & Weight Height & Weight: Anesthesia: Height & Weight Height 5 ft 3 in 02/12/25 11:19 Weight: 66.4 kg 02/12/25 11:19 Body Mass Index (BMI) 25.9 02/12/25 05:18 Respiratory Assessment Respiratory Assessment - sales force administrator: Respiratory Tract Infection Hx - sales force administrator Hx Respiratory Tract Infection No 02/09/25 20:00 STOP Sleep Apnea STOP Sleep Apnea - sales force administrator: STOP Sleep Apnea - sales force administrator Hx Hypertension No 02/03/25 13:13 Hx Sleep Apnea No 02/10/25 07:57 CPAP BIPAP Do you snore loudly (louder Yes 02/02/25 22:31 than talking or can be heard Do you often feel tired/ Yes 02/02/25 22:31 fatigued/ sleepy during daytime? Has anyone observed you stop Yes 02/02/25 22:31 breathing during sleep? STOP Results Positive 02/10/25 07:45 QUESTION #5 FULL TEXT : Do you snore loudly (louder than talking or can be heard through closed doors)? Tobacco Use History Tobacco Use History - sales force administrator: Tobacco Use History - sales force administrator Tobacco Use Smoking Status Former smoker 02/02/25 22:31 Hx Tobacco Use No 02/02/25 22:31 Years Smoking Packs Smoked per Day Smoking Cessation Date was Yes - quit smoking within 15 02/02/25 22:31 within the last 15 years years Hx Smoking Cessation Date 03/30/01 02/02/25 22:31 Hx Smoking Cessation Counseling Hematologic Medial History Hematologic Hx - sales force administrator: Hematologic Medical Hx - construction estimator Hx of Blood Transfusion No 02/02/25 22:31 Hx of Transfusion in last 3 No 02/02/25 22:31 Months Date of Last Transfusion (if within last 3 months) Ever experience any problems No 02/02/25 22:31 with transfusion(s)? Specify any problems Hx of Preganancy in last 3 No 02/02/25 22:31 Months Nurse Filling Out Transfusion AFLICKING 02/02/25 22:31 & Questions: Date: 02/02/25 02/02/25 22:31 Time: 22:37 02/02/25 22:31 Patient unable to answer at this time (ie. confused, unrespo /Reproduction History /Reproductive History - sales force administrator: /Reproductive Hx- sales force administrator Hx Now No 02/09/25 20:00 Gestational Age (in weeks): EDC: Hx Hx Para Hx Section SAB No 02/09/25 20:00 Active Medications Active Medications: Current Medications Generic Name Dose Route Start Last Admin Trade Name Freq PRN Reason Stop Dose Admin Acetaminophen 650 mg 02/02/25 22:30 Acetaminophen 650 Mg Suppository RC Q6H PRN PRN Pain 1-10 or Fever Acetaminophen 650 mg 02/10/25 23:47 02/11/25 03:22 Acetaminophen 325 Mg Tablet PO 650 mg Q6H PRN PRN Administration Pain 1-10 or Fever Glycerin/Hypromellose/Polyethylene 1 drp 02/10/25 22:59 02/11/25 03:22 Glycerin/Hypromellose/[id number] 15 Ml Bottle EACH EYE 1 drp Q1H PRN PRN Administration DRY EYES Sodium Chloride 100 mls @ 15 mls/hr 02/02/25 22:40 02/08/25 10:23 IV 0 mls/hr .Q6H40M PRN Infusion Saline Flush Sodium Chloride 100 mls @ 15 mls/hr 02/02/25 22:40 IV .Q6H40M PRN Additional IVPB Infusion Pantoprazole Sodium 40 mg/ 110 mls @ 330 mls/hr 02/06/25 22:00 02/12/25 11:47 Sodium Chloride IV Infused Q12 ULISSES Infusion Norepinephrine Bitartrate 8 mg 250 mls @ 9.375 mls/hr 02/12/25 20:45 02/12/25 21:30 / Sodium Chloride CONT INF 10 mcg/min .[id number] ULISSES 18.8 mls/hr Titration Protocol 5 MCG/MIN Midodrine 10 mg 02/04/25 08:00 02/12/25 16:27 Midodrine Hcl 5 Mg Tablet PO 10 mg TIDCM ULISSES Administration Nutritional Formula (Lactose Free) 120 ml 02/12/25 18:00 02/12/25 17:11 Ensure Plus High Protein 120 Ml Liquid PO 120 ml 4X/DAY ULISSES Administration Ondansetron HCl 4 mg 02/02/25 22:30 02/12/25 06:51 Ondansetron 4 Mg/2 Ml Vial IV 4 mg Q4H PRN PRN Administration NAUSEA/VOMITING Oxycodone HCl 5 mg 02/12/25 16:45 02/12/25 17:11 Oxycodone 5 Mg Tablet PO 5 mg Q6H PRN PRN Administration Pain Score 6-10 Prochlorperazine Edisylate 5 mg 02/11/25 23:30 02/12/25 00:00 Prochlorperazine 10 Mg/2 Ml Vial IV 5 mg Q6H PRN PRN Administration NAUSEA/VOMITING Promethazine HCl 25 mg 02/02/25 22:30 02/10/25 23:25 Promethazine 25 Mg/Ml Syringe IM 25 mg Q6H PRN PRN Administration Breakthrough Nausea/Vomiting Sodium Chloride 10 - 40 ml 02/02/25 22:40 02/12/25 10:59 0.9% Saline Lock 10 Ml Syringe IV 10 ml UD PRN Administration SALINE FLUSH PFSH Medical History NATHALY (acute kidney injury) Carcinoma of peritoneum Abdominal ascites Localized swelling of both lower legs Dyspnea on exertion Prerenal acute renal failure High risk factor score for venous thromboembolism Bilateral lower extremity edema Rash Elevated serum creatinine Post-menopausal 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 Metastasis to liver Breast cancer Wears glasses Thyroid disease Former smoker History of stress test History of echocardiogram Cancer screening MVP (mitral valve prolapse) Polycythemia Home Medications ?Medication ?Instructions ?Recorded ?Last Taken ?Type multivitamin 1 tab PO DAILY 01/03/24 02/02/25 History ondansetron 4 mg disintegrating 4 mg PO Q8H PRN nausea and 05/28/24 Unknown Rx tablet vomiting #30 tabs abemaciclib 150 mg tablet 150 mg PO BID 30 days #60 tabs 06/17/24 01/13/25 Rx Held on 02/02/25. Instructions: Ordered levothyroxine 125 mcg tablet 125 mcg PO DAILY 09/16/24 02/02/25 History fulvestrant 250 mg/5 mL 500 mg (10 mL) IM .COMPLEX #10 mL 01/19/25 01/08/25 Rx intramuscular syringe (Faslodex) cholecalciferol (vitamin D3) 25 2,000 unit PO DAILY 02/02/25 02/02/25 History mcg (1,000 unit) capsule pantoprazole 40 mg tablet,delayed 40 mg PO DAILY 02/02/25 Unknown History release prochlorperazine maleate 10 mg 10 mg PO Q6H PRN anxiety 02/02/25 Unknown History tablet Allergy/AdvReac Type Severity Reaction Status Date / Time No Known Allergies Allergy Verified 02/02/25 16:58 Family History Father Esophageal cancer Surgical History Hx of colonoscopy History of right mastectomy History of bone marrow biopsy Social History Smoking Status: Former smoker Review of Systems (Anesthesia) ROS Narrative System reviewed and no additional complaints, except as documented.
--- NOTE | 2025-02-12 22:16 | PN_ITS ---
Progress Note I was called to evaluate the patient at the bedside. She is having lower gi bleeding complicated by being hypotensive and on levophed. Her hgb is 4. She wants to be fullcode. Physical Exam Const alert, oriented x3, no apparent distress and healthy appearing General Appearance: cooperative GI normal to inspection, nondistended, normoactive bowel sounds, soft to palpation, non-tender and non-distended Percussion: normal to percussion Rectal Exam: deferred Assessment & Plan Assessment/Plan (1) GI bleed: QUALIFIERS: GI bleed type/associated pathology: unspecified gastrointestinal hemorrhage type Qualified Code(s): K92.2 - Gastrointestinal hemorrhage, unspecified (2) Hemorrhagic shock: (3) Stercoral colitis: (4) NATHALY (acute kidney injury): (5) Hyponatremia: (6) Hyperkalemia: (7) Severe protein-calorie malnutrition: PLAN: Plan 64-year-old female with PMH of peritoneal cancer with metastasis on estrogen luh therapy, paracentesis for metastatic ascites, polycythemia, mitral valve prolapse presents from [facility] for increased rectal bleeding. Patient states she has had frequent soft stools multiple times a day and rectal bleeding for 4 to 6 weeks. The nursing staff are concerned the bright red/dark red rectal bleeding was heavier today and her heart rate was elevated prompting them to call EMS. Patient reports feeling intermittently lightheaded and did feel lightheaded with position changes today. No syncope. No chest pain or shortness of breath. She reports chronic abdominal pain from her peritoneal cancer. GI bleed; with Hemoccult positive stools and early hemorrhagic shock noted in ER with hemoglobin of 9.9 g/dL present on admission (down from 11.8 g deciliter on January 14, 2025) with macrocytic MCV of 107.9 fL present on admission with CT abdomen/pelvis on admission revealing evidence of stercoral colitis with a large amount of stool within dilated rectum and circumferential wall thickening in addition to stable extensive abdominal pelvic ascites and peritoneal carcinomatosis similar to CT on January 14, 2025. Patient will likely need to undergo a flexible sigmoidoscopy versus a full colonoscopy to make sure that there is not any metastatic involvement of the large bowel. Her blood pressure seems to be stabilizing at this time. She also had some nausea vomiting and I think she should undergo an upper endoscopy to look for signs of portal hypertension and other etiologies of possible GI bleed and increased BUN to creatinine ratio. 02/04/2025-the plan is for her to undergo endoscopy tomorrow to determine etiology of nausea vomiting and rectal bleeding. 02/05/2025-patient has agreed to undergo an upper endoscopy but not the colonoscopy. 02/06/2025-patient needs alternatives for feeding as she is not tolerating a significant amount of oral intake at this time. This is likely secondary to peritoneal carcinomatosis with ascites and functional gastroparesis with ileus. If she changes her mind regarding colonoscopy we can pursue this while she is in the hospital. 02/09/2025-I will order a soapsuds enema for the patient. She cannot tolerate oral prep at this time. N.p.o. past midnight. 02/10/2025-patient for flexible sigmoidoscopy today. Further recommendations after procedure. 02/12/2025- We will attempt to locate the source of her LGIB with an unpreped colonoscopy. She was explained the risk and benefits of the procedure. Visit Charges Inpatient E&M: 09359 Subs Hosp L3
--- NOTE | 2025-02-12 22:26 | PN.HOSP_ITS ---
Hospitalist Note Rapid response called overhead for patient around 745. I saw the patient at bedside a few minutes later. Patient had been having bright red blood per rectum over the past hour or so. Blood pressures were noted to be very low in the 50s to 70s systolic. Heart rate was in the 110s. Patient was weak and pale appearing but was alert and able to answer questions with short appropriate responses. Given her low pressures and observed significant BRBPR, started 1 L of IV fluids wide open for patient and transferred up to the ICU for further m anagement. Stat labs were obtained and showed hemoglobin dropped to 4.2 (was 8.1 this morning) and lactic acid 6.7. 4 units of blood were ordered. 1 L of fluids was completed but patient's blood pressures remained low so peripheral Levophed was started. Dr. Rodriguez was called and came in to see the patient, and plan is for patient to go down to endoscopy tonight for urgent lower scope. Importantly, patient did clearly state that she wished to remain full code at this time. Patient has only a left arm midline at this time and is difficult to access. Will plan to place central line urgently now prior to lower scope.
[2025-02-12] MEDS: Lorazepam 2 MG/ML WCH Syringe 0.25 MG IV (23:05)
--- NOTE | 2025-02-12 23:13 | RAD_ITS ---
PROCEDURE: CXR FOR LINE PLACEMENT 02/12/2025 REASON FOR EXAM: CENTRAL LINE PLACEMENT TECHNIQUE: Frontal view of the chest. COMPARISON: None FINDINGS: Hardware: Right-sided central line terminating within the SVC. Heart: The heart size is normal. Lungs: Small bilateral pleural effusion with atelectasis. No pneumothorax. Bones: The bones are unremarkable. Other: RAD/CXR for Line Placement IMPRESSION: Right-sided central line terminates within the SVC. Reading Location: [facility]
[2025-02-13] VITALS (33 sets, daily range): BP systolic 86–116; BP diastolic 46–92; PULSE 83–117; RESP 12–22; TEMP 36.2–36.6; O2SAT 96–100; BMI 22.2
--- NOTE | 2025-02-13 00:15 | OP.COLON_ITS ---
Patient Name: Fariba Gore Procedure Date: 02/12/2025 10:55 PM Date of : 1960 Age: 64 Procedure: Colonoscopy Indications: Hematochezia Providers: Lincoln Rodriguez DO Medicines: See the Anesthesia note for documentation of the administered medications Patient Profile: This is a 64 year old female. Refer to note in patient chart for documentation of history and physical. Last Colonoscopy: date unknown. Unable to locate last colonoscopy report. Complications: No immediate complications. Procedure: Pre-Anesthesia Assessment: - Prior to the procedure, a History and Physical was performed, and patient medications and allergies were reviewed. The patient is competent. The risks and benefits of the procedure and the sedation options and risks were discussed with the patient. All questions were answered and informed consent was obtained. Patient identification and proposed procedure were verified by the physician in the pre-procedure area. Mental Status Examination: alert and oriented. Airway Examination: normal oropharyngeal airway and neck mobility. Respiratory Examination: clear to auscultation. CV Examination: normal. Prophylactic Antibiotics: The patient does not require prophylactic antibiotics. Prior Anticoagulants: The patient has taken no anticoagulant or antiplatelet agents except for NSAID medication. ASA Grade Assessment: II - A patient with mild systemic disease. After reviewing the risks and benefits, the patient was deemed in satisfactory condition to undergo the procedure. The anesthesia plan was to use minimal sedation / analgesia (anxiolysis). Immediately prior to administration of medications, the patient was re-assessed for adequacy to receive sedatives. The heart rate, respiratory rate, oxygen saturations, blood pressure, adequacy of pulmonary ventilation, and response to care were monitored throughout the procedure. The physical status of the patient was re-assessed after the procedure. After I obtained informed consent, the scope was passed under direct vision. Throughout the procedure, the patient's blood pressure, pulse, and oxygen saturations were monitored continuously. The Colonoscope was introduced through the anus and advanced to the sigmoid colon. The colonoscopy was performed without difficulty. The patient tolerated the procedure well. The quality of the bowel preparation was 90 percent obscured. Scope In: 11:53:18 PM Scope Out: 12:05:46 AM Total Procedure Duration Time 0 hours 12 minutes 28 seconds Findings: The perianal and digital rectal examinations were normal. A perforation was found in the recto-sigmoid colon. This defect was large. Adjacent mucosal findings include ulceration. To stop active bleeding, two hemostatic clips were successfully placed. Clip administrative professional: [employer]. There was no bleeding at the end of the procedure. A large amount of stool was found in the rectum, in the recto-sigmoid colon and in the sigmoid colon, precluding visualization. Lavage of the area was performed using copious amounts, resulting in incomplete clearance with continued poor visualization. Impression: - A perforation was found in the recto-sigmoid colon. The adjacent mucosa showed ulceration. Clips were placed. Clip administrative professional: [employer]. - Stool in the rectum, in the recto-sigmoid colon and in the sigmoid colon. - No specimens collected. Recommendation: - Return patient to ICU for ongoing care. - NPO. - Continue present medications. - No repeat colonoscopy. Procedure Code(s): --- Professional --- 26762, 52, Colonoscopy, flexible; with control of bleeding, any method CPT copyright 2021 [employer]. All rights reserved. The codes documented in this report are preliminary and upon back line cook review may be revised to meet current compliance requirements. Lincoln Rodriguez DO 02/13/2025 12:15:15 AM This report has been signed electronically. Number of Addenda: 0 Note Initiated On: 02/12/2025 10:55 PM
--- NOTE | 2025-02-13 00:15 | OP.CCLET_ITS ---
02/13/2025 Eldon Proctor MD [address] [id number] Re : Colonoscopy procedure for Fariba Gore Dear Dr. Proctor This procedure was performed on January. My impressions and recommendations are as follows: Impressions : - A perforation was found in the recto-sigmoid colon. The adjacent mucosa showed ulceration. Clips were placed. Clip manager talent acquisition: [employer]. - Stool in the rectum, in the recto-sigmoid colon and in the sigmoid colon. - No specimens collected. Recommendations : - Return patient to ICU for ongoing care. - NPO. - Continue present medications. - No repeat colonoscopy. My findings are described in the full procedure note, which is enclosed. If I can be of further assistance, please feel free to contact me at . Sincerely, Lincoln Rodriguez, 02/13/2025 12:15:15 AM This report has been signed electronically.
--- NOTE | 2025-02-13 00:37 | PCM.HOSP.N ---
Hospitalist Note Procedure note: Right IJ CVC placement Patient with ongoing hypotension despite IV fluid resuscitation and blood transfusion. MAP remaining around 65 despite high peripheral Levophed requirements. Decision made to move forward with central line placement. Region prepped and patient draped in standard fashion. Ultrasound guidance was used to obtain access, guidewire threaded without issue, central line catheter placed over guidewire and wire removed with Placed. Lines drawn again and flushed without issue. Central line sutured in place. Chest x-ray confirmed appropriate positioning of central line. Procedures Hospitalists Procedures: 98109 Insert Non-tunnel CV Cath
[2025-02-13 00:41] LABS: Reflex Lactate? Y
[2025-02-13] MEDS: Pantoprazole Sodium 40 MG in 0.9% Normal Saline (100mL MB+) 100 ML 330 MG IV (01:09)
[2025-02-13 02:15] LABS: Lactic Acid 9.7 mmol/L (0.0-2.0)
--- NOTE | 2025-02-13 02:33 | PCM.HOSP.N ---
Hospitalist Note Spoke with Dr. Rodriguez shortly after her colonoscopy and he noted that a large perforation was found in the rectosigmoid colon with adjacent mucosal findings including ulceration. Active bleeding was noted as well and 2 hemostatic clips were successfully placed to stop this bleeding. In discussing with Dr. Rodriguez, he suspects that the bowel perforation is secondary to bowel invasion of patient's known peritoneal carcinomatosis. Given her very tenuous condition and suspected etiology for perforation, he notes that it is very unlikely she would be a surgical candidate. I called the patient's son Colin and asked him and family to come in for further goals of care discussion. Discussed with them at the bedside around 130-2am. Colin, patient's brother and sister were at the bedside for the discussion. A few other family members were also present but outside the room. Patient at this time does have slightly improved energy, and her Levophed requirements are improving. She has gotten about 2 units of blood at this point. However, her repeat lactate was noted to be 9.7. I discussed with them that given she is not a surgical candidate at this point, this perforated bowel will ultimately cause her . I noted that it is unclear if she may pass in the next several hours or could potentially survive for days to short weeks. With this discussion, patient was agreeable to transitioning her status to DNR CCA, DNI and hospice consult will be placed. Will continue current management until hospice sees the patient and family in the morning.
[2025-02-13 03:17] LABS: Absolute Lymphocyte Count 0.62 X10^3/uL (0.83-4.51); Basophil# 0.02 X10^3/uL; Basophil% 0.1 % (0-1); Eosinophil# 0.02 X10^3/uL; Eosinophils% 0.1 % (0-5); Hematocrit 30.6 % (37-47); Hemoglobin 10.3 g/dL (12.0-15.0); Lymphocyte # 0.62 X10^3/ul (0.83-4.51); Lymphocyte % 4.3 % (19-41); Mean Corp Hgb Conc 33.7 g/dL (32-36); Mean Corpuscular Volume 92.2 fL (81-99); Mean Platelet Vol. 10.9 fl (6.2-12.0); Monocyte# 0.61 X10^3/uL; Monocyte% 4.2 % (0-10); NRBC Flagged by Analyzer 2.4 % (0-5); Neutrophil # 13.01 X10^3/uL (2.7-7.7); Neutrophil % 89.4 % (47-70); POSITIVE COUNT YES; POSITIVE MORPHOLOGY YES; Platelet Count 57 K/mm3 (150-450); RBC Distribution Width CV 16.2 % (11.6-14.6); RBC Distribution Width SD 49.3 fl (35.1-43.9); Red Blood Count 3.32 M/mm3 (4.2-5.4); White Blood Count 14.6 K/mm3 (4.4-11.0)
[2025-02-13 03:26] LABS: Blood Gas Specimen Type VEN; O2 Delivery Device Room Air; SITE Not entered; VBG BASE EXCESS -9 mmol/L (-1.0-3.5); VBG Bicarbonate 17 mmol/L (22-26); VBG PO2 25 mmHg (25-40); VBG SO2 42 % (50-70); VBG TCO2 18 mmol/L (23-33); VBG pCO2 32.6 mmHg (41-51); VBG pH 7.32 (7.32-7.42)
[2025-02-13 03:31] LABS: Anion Gap 14 (5-15); BUN 55 mg/dL (4-19); BUN/Creat Ratio 22.5 RATIO (10-20); Calcium,Total 6.8 mg/dL (7.6-11.0); Carbon Dioxide 15.7 mmol/L (21.0-32.0); Chloride 115 mmol/L (98-108); Creatinine, Serum 2.46 mg/dL (0.70-1.20); EST Glomerular Filtration Rate 21 (>60); Estimated Creatinine Clearance 21.15 ml/min (50-250); Glucose 158 mg/dL (70-99); Potassium 4.1 mmol/L (3.3-5.1); Sodium Level 144 mmol/L (133-145)
[2025-02-13 03:46] LABS: Differential Indicated SCAN CRITERIA MET
[2025-02-13 03:47] LABS: Differential Comment SCANNED; Platelet Estimate MKD DEC (ADEQ)
[2025-02-13 04:32] LABS: Hematocrit 31.9 % (37-47); Hemoglobin 10.8 g/dL (12.0-15.0)
--- NOTE | 2025-02-13 08:24 | PN.RENAL_ITS ---
Subjective Subjective Following for NATHALY on CKD. The patient denies chest pain, dyspnea, or nausea. Objective Data Objective Data Vital Signs: Vital Signs Temp Pulse Resp BP Pulse Ox O2 Del Method O2 Flow Rate 97.1 F L 86 16 97/77 96 Room Air 2 02/13/25 06:40 02/13/25 07:00 02/13/25 07:00 02/13/25 07:00 02/13/25 07:00 02/13/25 07:00 02/13/25 05:12 Oxygen Flow Rate (L/min) 2 Oxygen Delivery Method Room Air Weight: 57.017 kg Body Mass Index (BMI) 22.2 Intake & Output: Intake and Output for Last 24 Hours 02/11/25 02/12/25 02/13/25 23:59 23:59 23:59 Intake Total 1260 / 1260 2107.20 / 2107.20 206.83 / 2063.83 Output Total 150 / 150 2900 / 2900 Balance 1110 / 1110 -792.80 / -792.80 2063. / 2063. Medical Nutrition Assessment Dietitian: Malnutrition Criteria Met Start: 02/03/25 11:03 Freq: Status: Active Protocol: Document 02/03/25 11:03 (Rec: 02/03/25 11:03 [email or web address]) Nutrition Malnutrition Evidence of Yes Malnutrition Exists Malnutrition (severe Chronic ): Evidenced By Suboptimal Energy Intake (Severe),Physical Changes ( Severe) Clinical Problem Chronic Disease or Condition Related Malnutrition Etiology severe related to breast cancer with mets to peritoneum and liver Signs/Symptoms as evidenced by PO intakes <75% of estimated nutrition needs for >1 month and severe temporal/orbital fat and muscle loss Status Active Problem Recommendation Dietitian Advance diet as tolerated to Regular as medically able Recommendations/ to optimize oral intakes. Changes Recommend 120ml ensure plus high protein 4x daily when diet advances. Lab / Micro Data 02/13/25 04:20 02/13/25 03:00 Labs: Laboratory Results - last 24 hr 02/12/25 09:55: Sodium 146 H, Potassium 3.8, Chloride 112 H, Carbon Dioxide 21.4, Anion Gap 12, BUN 54 H, Creatinine 2.29 H, Estim Creat Clear Calc 22.72 L, Est GFR (MDRD) Non-Af 23 L, BUN/Creatinine Ratio 23.7 H, Glucose 145 H, Calcium 7.8, Magnesium 1.9 02/12/25 19:49: POC Glucose 149 H 02/12/25 20:18: WBC 7.7, RBC 1.15 L, Hgb 4.2 L*, Hct 13.0 L, MCV 113.0 H, MCH 36.5 H, MCHC 32.3, RDW Std Deviation 79.4 H, RDW Coeff of Dominic 19.5 H, Plt Count 82 L, MPV 11.0, Immature Gran % (Auto) 1.800 H, Neut % (Auto) 81.0 H, Lymph % (Auto) 9.7 L, Real % (Auto) 7.4, Eos % (Auto) 0.0, Baso % (Auto) 0.1, Absolute Neuts (auto) 6.2, Absolute Lymphs (auto) 0.75 L, Nucleated RBC % 1.6, Differential Comment SCANNED, Diff Path Review February, Anisocytosis 2+, Sodium 145, Potassium 3.9, Chloride 114 H, Carbon Dioxide 17.6 L, Anion Gap 14, BUN 55 H, Creatinine 2.47 H, Estim Creat Clear Calc 21.07 L, Est GFR (MDRD) Non-Af 21 L , BUN/Creatinine Ratio 22.4 H, Glucose 139 H, Lactic Acid 6.7 H*, Calcium 7.2 L, Blood Type B POSITIVE, Antibody Screen NEGATIVE, Crossmatch See Detail 02/12/25 20:18: Crossmatch See Detail 02/13/25 00:50: Lactic Acid 9.7 H* 02/13/25 03:00: WBC 14.6 H, RBC 3.32 L, Hgb 10.3 L, Hct 30.6 L, MCV 92.2 D, MCH 31.0, MCHC 33.7, RDW Std Deviation 49.3 H, RDW Coeff of Dominic 16.2 H, Plt Count 57 L, MPV 10.9, Immature Gran % (Auto) 1.900 H, Neut % (Auto) 89.4 H, Lymph % (Auto) 4.3 L, Real % (Auto) 4.2, Eos % (Auto) 0.1, Baso % (Auto) 0.1, Absolute Neuts (auto) 13.0 H, Absolute Lymphs (auto) 0.62 L, Nucleated RBC % 2.4, Differential Comment SCANNED, Platelet Estimate MKD DEC, Sodium 144, Potassium 4.1, Chloride 115 H, Carbon Dioxide 15.7 L, Anion Gap 14, BUN 55 H, Creatinine 2.46 H, Estim Creat Clear Calc 21.15 L, Est GFR (MDRD) Non-Af 21 L, B UN/Creatinine Ratio 22.5 H, Glucose 158 H, Calcium 6.8 L 02/13/25 04:20: Hgb 10.8 L, Hct 31.9 L Micro: Microbiology 02/04/25 13:13 Fluid - Ascites Gram Stain - Final 02/04/25 13:13 Fluid - Ascites Body Fluid Culture - Final No growth aerobically. 02/04/25 13:13 Fluid - Ascites Anaerobic Culture - Final No anaerobic bacteria isolated. 02/02/25 19:00 Blood Culture (Wb) - Left Wrist Blood Culture - Final No growth in 5 days. 02/02/25 18:42 Blood Culture (Wb) - Left Wrist Blood Culture - Final No growth in 5 days. 02/02/25 19:30 Stool Stool Occult Blood (ED) - Final Occult Blood Positive ABG Data ABG results: ABG 02/13/25 03:23 Specimen Type ADAM Sample Site Not entered VBG pH 7.32 VBG pO2 25 VBG HCO3 17 L VBG Total CO2 18 L VBG O2 Sat (Calc) 42 L VBG Base Excess -9 L POC Mix VBG pCO2 Pt Tmp 32.6 L O2 Delivery Device Room Air Radiography Diagnostic Testing: Radiology Impression Paracentesis Ultrasound 02/12/25 10:24 IMPRESSION: Successful ultrasound-guided paracentesis in the left lower quadrant. The patient tolerated the procedure well. No immediate postprocedure complication noted. Reading Location: [facility] Chest X-Ray 02/12/25 23:13 IMPRESSION: Right-sided central line terminates within the SVC. Reading Location: [facility] Physical Exam Narrative Alert, awake, oriented x 3 no obvious distress no JVD s1s2 no murmurs lungs clear 1+ lower extremity edema Assessment & Plan Assessment/Plan (1) NATHALY (acute kidney injury): PLAN: - Nonoliguric NATHALY on possible CKD. Baseline serum creatinine around 1.2 to 1.3 mg/dL as of mid November 2024, since then SCr fluctuating 2-3mg/dL. During last admit, SCr fluctuated between 2-3mg/dL. Renal function has remained stable today with serum creatinine of 2.46 mg/dL. Patient is not oliguric. There is no need for kidney replacement therapy. Continue to keep MAP above 65 mmHg. - lower GI bleed, Peritoneal cancer with metastasis. GI following. Attempted colonoscopy today but unable to be completed due to poor prep. History of malignant ascites, gets paracentesis about every 2 weeks with volume removal ranging ~3.5-4 L. Had paracentesis last week with 2.5 L removed. - Acute metabolic acidosis. Patient was started on bicarb drip on 02/11/2025. Serum bicarbonate level remains low at 16 mmol/L today. There is no urgent need for hemodialysis for just degree of metabolic acidosis.
--- NOTE | 2025-02-13 08:42 | CASEMGMT ---
Social Work SW called hospice to follow up, there is a meeting this morning at 9:30am. JENNIFER Pihllips
[2025-02-13] MEDS: Midodrine HCl 5 MG Tablet 10 MG PO (08:52)
[2025-02-13] MEDS: Norepinephrine 8 MG in 0.9% Normal Saline (250mL Bag) 242 ML 9.4 MG CONT INF (10:53)
--- NOTE | 2025-02-13 11:02 | CASEMGMT ---
Discharge Planning [facility] updated that pt has been accepted by [facility]. Jana Downs DC Planning Asst.
--- NOTE | 2025-02-13 12:56 | NURSING ---
Report called to [place] at inpatient hospice at [phone]
--- NOTE | 2025-02-13 15:05 | CHAPLAIN ---
Type of Pastoral Visit ___ Initial Visit ___ Follow-up Visit ___ On-call Visit ___ General Patient Visit ___ Spiritual Assessment ___ Family Conference ___ Bereavement ___ Rapid Response ___ Code Blue ___ Other (describe below) Pastoral Care Referral From ___ Patient ___ Family ___ Nurse ___ Physician ___ Leadership Coach ___ Linux Engineer ___ Other (describe below) Sacrament/Intervention ___ Active listening ___ Anointing ___ Religion ___ Bereavement ___ Communion ___ Tejal exploration ___ ___ Life review ___ Prayer ___ Reconciliation ___ Sacrament of Sick ___ Supportive presence ___ Wedding ___ Other (describe below) Pastoral Comments patient was transferred to hospice before she was seen today by this drug and alcohol counselor; pt had been seen earlier this week but before a decision for hospice inpatient unit
--- NOTE | 2025-02-13 15:33 | DS.PCM_ITS ---
Providers Date of Admission: 02/02/25 Date of Discharge: 02/13/25 Primary Care Physician: Dr. Eldon Proctor MD Consultations 02/02/25 22:30 Consult: Gastroenterology Routine Consulting Provider: [facility] Reason for Consult: GI bleed. EMERGENT Consult: No Notified: Yes Date Notified: 02/03/25 Time Notified: 05:01 Method of Notification: Text Consult: Nephrology Routine Consulting Provider: Valentín Bhandari Reason for Consult: NATHALY with Hyperkalemia. EMERGENT Consult: No Notified: Yes Date Notified: 02/02/25 Time Notified: 21:25 Method of Notification: Answering Service 02/12/25 08:35 Consult: Onc/Wound/district administrative assistant Routine Comment: Reason for Consult:: Left foot wound. 02/13/25 02:41 Consult: Hospice / Palliative Care Routine Consulting Provider: [facility] Reason for Consult: hemorrhagic/septic shock w/ bowel perforation, cancer w/ peritoneal mets EMERGENT Consult: No Notified: Yes Date Notified: 02/13/25 Time Notified: 02:41 Method of Notification: Answering Service Consult: Creamery Worker / Pulmonary Medicine Routine Consulting Provider: Gil Wilson Reason for Consult: multifactorial shock EMERGENT Consult: No Notified: Yes Date Notified: 02/13/25 Time Notified: 02:41 Method of Notification: Verbal Reason For Visit: GI BLEED Diagnosis Discharge Diagnosis (1) NATHALY (acute kidney injury): Status: Acute Code(s): N17.9 - Acute kidney failure, unspecified Plan #Acute GI bleed * had multiple bloody bowel movements prior to admission but has not had any since admission * gastroenterology on board * had EGD which showed erosive esophagitis, no bleeding, erythematous duodenopathy and gastritis. * on PPI * flexible sigmoidoscopy showed heavy stool burden and so it was canceled. GI not planning on doing any more scopes. * #Hypotension * on midodrine. Seems she has been having low blood pressure for a while * will monitor BP. BP is 88/67 today. * #malignant Ascites due to history of colon cancer with mets to the liver and peritoneum * gets regular paracentesis. Last paracentesis was on 02/04/2025 * paracentesis ordered today as abdomen is distended. * #NATHALY on CKD IV with mild anion gap metabolic acidosis today * Cr today has trended down to 2.29. * Baseline Cr is ~ 1.8 * nephrology is on board. BP is also running low, likely due to ascites * received albumin yesterday. management as per nephrology * on bicarb drip. bicarb today is 21.4 and anion gap is 12. #Hypothyroidism: on synthroid DVT prophylaxis: SCDs Medications at Discharge Home Medications multivitamin 1 tab PO DAILY 01/03/24 ondansetron 4 mg disintegrating tablet 4 mg PO Q8H PRN nausea and vomiting #30 tabs 05/28/24 abemaciclib 150 mg tablet 150 mg PO BID 30 days #60 tabs 06/17/24 Held on 02/02/25. Instructions: Ordered levothyroxine 125 mcg tablet 125 mcg PO DAILY 09/16/24 fulvestrant 250 mg/5 mL intramuscular syringe (Faslodex) 500 mg (10 mL) IM .COMPLEX #10 mL 01/19/25 cholecalciferol (vitamin D3) 25 mcg (1,000 unit) capsule 2,000 unit PO DAILY 02/02/25 pantoprazole 40 mg tablet,delayed release 40 mg PO DAILY 02/02/25 prochlorperazine maleate 10 mg tablet 10 mg PO Q6H PRN anxiety 02/02/25 Hospital Course Operations None Procedures Colonoscopy Summary of Care Provided Minutes Spent on Discharge: 45 Hospital Course: Patient is a 64-year-old female with an extensive past medical history as outlined including 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 She had had about 4 to 6 weeks course of occasional rectal bleeding. However the staff at [facility] noted on the day of admission that the rectal bleeding was heavier than usual and she also had moderate generalized abdominal pain with associated lightheadedness. She was therefore brought into the ED. In the ED, stool for occult blood was positive. Hemoglobin was 9.9. CT of the abdomen and pelvis showed stercoral colitis with a large amount of stool within the dilated rectum and circumferential wall thickening and additions to stable extensive abdominal pelvic ascites and peritoneal carcinomatosis. She also had mild hyponatremia with sodium of 129. She was admitted to be managed for rectal bleeding in the setting of known breast cancer with mets to the peritoneum. Gastroenterology was consulted. Nephrology was also consulted. Patient did have initial paracentesis done on 02/03/2025 with removal of 2.65 L of fluid. Gastroenterology recommended the patient was to have a flexible sigmoidoscopy versus a full colonoscopy to make sure there was no metastatic involvement of the large bowel. Her blood pressure did stabilize. She was placed on midodrine also. Gastroenterology patient would also benefit from an upper endoscopy to look for signs of portal hypertension and other etiologies of GI bleed. Patient had GI bleed on 02/05/2025 which showed grade D erosive esophagitis with mild gastritis which was biopsied and erythematous duodenopathy. Patient's blood pressure was running low throughout admission but she was asymptomatic. It appeared that patient had been having low blood pressure over the last month and has been intermittently receiving fluids and albumin. On 02/10/2025, gastroenterology attempted a flexible sigmoidoscopy but the procedure was aborted due to difficulty with the procedure and poor bowel prep. Hospital course was complicated by NATHALY on CKD stage IV with creatinine trending upwards. Nephrology was on board during the admission. Her ascites worsened and so she had a repeat paracentesis done. Hospital course was also complicated by anion gap metabolic acidosis for which she required a bicarb drip per nephrology. In the left afternoon of 02/12/2025, hospitalist was informed at 16:18pm that patient had started having rectal bleeding. Patient's nurse was instructed to inform gastroenterology immediately which she did. This hospitalist also informed gastroenterology at 16:20 and gastroenterology responded at 16:41 that they were going to call the floor and follow-up with the patient. Rapid response was however later called because patient's bleeding profusely worsened. Labs done showed that her blood pressure had dropped to the 50s and 70s systolic and she was also tachycardic. She was hydrated with IV fluids and transferred emergently to the ICU. She did require Levophed to maintain hemodynamic status. Hemoglobin checked had dropped to 4.2 and her lactic acid was 6.7. Four units of PRBC were ordered stat. Gastroenterology was again informed and patient was sent down emergently to the endoscopy suite for urgent lower endoscopy. At that time patient stated that she wanted to remain full code. A central line was placed due to difficult access. Colonoscopy done on 02/13/2025 showed a perforation in the rectosigmoid colon with adjacent mucosa showing ulceration and clips were placed. Patient's blood pressure improved. The night hospitalist discussed the colonoscopy findings extensively with patient and her son and were informed that gastroenterology felt that the bowel perforation was secondary to the bowel invasion of patient's known peritoneal carcinomatosis and given her very tenuous condition and suspected etiology for perforation, it was unlikely patient would be a surgical candidate. Patient and her family were subsequently agreeable to hospice evaluation. Hospice reviewed patient on 02/13/2025 and patient and her family were agreeable to going to hospice facility. Patient was therefore discharged to hospice facility on 02/13/2025. Patient was seen and examined on the day of discharge. Her 2 sons were by her bedside. She says she felt better and had no active complaints. Review of systems is otherwise negative. Patient was again counseled about CODE STATUS and hospice and patient was agreeable to going to hospice and subsequently changed her CODE STATUS to DNR CC. Physical Exam Const alert, oriented x3, no apparent distress and average body habitus Constitutional Narrative: frail, weak, pale General Appearance: cooperative HEENT normocephalic, head/scalp atraumatic, hearing grossly normal bilaterally, moist oral mucous membranes and oropharynx normal Eyes PERRL and EOMs intact bilaterally Neck no lymphadenopathy, supple and no JVD Lymph Lymphatic: no lymphadenopathy noted and no lymphedema noted Resp normal respiratory effort, normal air movement, no retractions, no use of accessory muscles and clear to auscultation bilaterally Cardio regular rate, regular rhythm, S1 normal heart sound, S2 normal heart sound and no murmurs GI normal to inspection, nondistended, normoactive bowel sounds, soft to palpation, non-tender and non-distended GI Narrative: abdominal distension had improved Extremity normal to inspection, full ROM, normal capillary refill, no clubbing, cyanosis or edema and no calf tenderness General Extremity: no tenderness to palpation of joints or extremities Skin Skin Narrative: Patient has no evidence of rash, abscess, wounds or jaundice. General Skin Exam: no breakdown Neuro oriented x3, CN's II-XII intact bilaterally, moves all extremities, no focal motor deficits and no sensory deficits noted Sensorium / Orientation: awake, alert, oriented to person, oriented to place and oriented to time Coordination / Balance: [id number] test normal Speech: speech normal Motor Exam: strength 5/5 throughout and general weakness Psych thought process normal, cooperative and affect normal Appearance: appropriate Weight / BMI Weight Weight: 125 lb 11.2 oz Body Mass Index (BMI) 22.2 ABG / Lab / Microbiology Data 02/13/25 04:20 02/13/25 03:00 Laboratory: Laboratory Results - last 24 hr 02/12/25 09:55: Magnesium 1.9 02/12/25 19:49: POC Glucose 149 H 02/12/25 20:18: WBC 7.7, RBC 1.15 L, Hgb 4.2 L*, Hct 13.0 L, MCV 113.0 H, MCH 36.5 H, MCHC 32.3, RDW Std Deviation 79.4 H, RDW Coeff of Dominic 19.5 H, Plt Count 82 L, MPV 11.0, Immature Gran % (Auto) 1.800 H, Neut % (Auto) 81.0 H, Lymph % (Auto) 9.7 L, Ballard % (Auto) 7.4, Eos % (Auto) 0.0, Baso % (Auto) 0.1, Absolute Neuts (auto) 6.2, Absolute Lymphs (auto) 0.75 L, Nucleated RBC % 1.6, Differential Comment SCANNED, Diff Path Review February, Anisocytosis 2+, Sodium 145, Potassium 3.9, Chloride 114 H, Carbon Dioxide 17.6 L, Anion Gap 14, BUN 55 H, Creatinine 2.47 H, Estim Creat Clear Calc 21.07 L, Est GFR (MDRD) Non-Af 21 L , BUN/Creatinine Ratio 22.4 H, Glucose 139 H, Lactic Acid 6.7 H*, Calcium 7.2 L, Blood Type B POSITIVE, Antibody Screen NEGATIVE, Crossmatch See Detail 02/12/25 20:18: Crossmatch See Detail 02/13/25 00:50: Lactic Acid 9.7 H* 02/13/25 03:00: WBC 14.6 H, RBC 3.32 L, Hgb 10.3 L, Hct 30.6 L, MCV 92.2 D, MCH 31.0, MCHC 33.7, RDW Std Deviation 49.3 H, RDW Coeff of Dominic 16.2 H, Plt Count 57 L, MPV 10.9, Immature Gran % (Auto) 1.900 H, Neut % (Auto) 89.4 H, Lymph % (Auto) 4.3 L, Ballard % (Auto) 4.2, Eos % (Auto) 0.1, Baso % (Auto) 0.1, Absolute Neuts (auto) 13.0 H, Absolute Lymphs (auto) 0.62 L, Nucleated RBC % 2.4, Differential Comment SCANNED, Platelet Estimate MKD DEC, Sodium 144, Potassium 4.1, Chloride 115 H, Carbon Dioxide 15.7 L, Anion Gap 14, BUN 55 H, Creatinine 2.46 H, Estim Creat Clear Calc 21.15 L, Est GFR (MDRD) Non-Af 21 L, B UN/Creatinine Ratio 22.5 H, Glucose 158 H, Calcium 6.8 L 02/13/25 04:20: Hgb 10.8 L, Hct 31.9 L Microbiology: Microbiology 02/04/25 13:13 Fluid - Ascites Gram Stain - Final 02/04/25 13:13 Fluid - Ascites Body Fluid Culture - Final No growth aerobically. 02/04/25 13:13 Fluid - Ascites Anaerobic Culture - Final No anaerobic bacteria isolated. 02/02/25 19:00 Blood Culture (Wb) - Left Wrist Blood Culture - Final No growth in 5 days. 02/02/25 18:42 Blood Culture (Wb) - Left Wrist Blood Culture - Final No growth in 5 days. 02/02/25 19:30 Stool Stool Occult Blood (ED) - Final Occult Blood Positive ABG: ABG 02/13/25 03:23 Specimen Type ADAM Sample Site Not entered VBG pH 7.32 VBG pO2 25 VBG HCO3 17 L VBG Total CO2 18 L VBG O2 Sat (Calc) 42 L VBG Base Excess -9 L POC Mix VBG pCO2 Pt Tmp 32.6 L O2 Delivery Device Room Air Radiography Diagnostic Testing: Radiology Impression Chest X-Ray 02/12/25 23:13 IMPRESSION: Right-sided central line terminates within the SVC. [facility] Instructions DC O2, CPAP, BIPAP Needs Home O2 Discharge instructions: No Meaningful Use Info Meaningful Use Meaningful Use Diagnoses (Choose all that apply): None applicable Ischemic Stroke Statin Dosing Therapy Reference: STATIN DOSE THERAPY REFERENCE: * Patients > 75 years receive moderate or high dose statin therapy. * Patients 75 years or YOUNGER should receive HIGH intensity statin dose unless contraindicated. You will be required to document reason for non-treatment if statin daily dose does not meet guidelines. HIGH DOSE STATIN THERAPY DAILY Atorvastatin > than or = to 40 mg Rosuvastatin > than or = to 20 mg Amlodipine + Atorvastatin > than or = to 2.5/40 mg Ezetimibe + Simvastatin 10/80 mg Simvastatin 80mg Discharge Plan Admission Admit Date/Time: 02/02/25 21:23 Primary Reason for Your Visit: acute lower GI bleed Attending Provider: Sherita Martin Primary Care Provider: Eldon Proctor Consulting Providers: Ricky Monahan; Duyen Romero; Valentín Bhandari; Ricky Raymond; Suellen Zelaya; Leila Haque; Lainey Jarquin; Keli Cordero STRUCTURAL DESIGN ENGINEER; Chyna Vance Discharge Orders/Prescriptions Prescriptions: No Action multivitamin Tablet 1 tab PO DAILY ondansetron 4 mg tablet,disintegrating 4 mg PO Q8H PRN (Reason: nausea and vomiting) Qty: 30 1RF levothyroxine 125 mcg tablet 125 mcg PO DAILY fulvestrant [Faslodex] 250 mg/5 mL syringe 500 mg IM .COMPLEX Qty: 10 12RF Patient Comments: pt takes on Rx Instructions: Check with the patient's oncologist (Dr. Hyde) when the patient is to receive this medication again cholecalciferol (vitamin D3) 25 mcg (1,000 unit) capsule 2,000 unit PO DAILY pantoprazole 40 mg tablet,delayed release (DR/EC) 40 mg PO DAILY prochlorperazine maleate 10 mg tablet 10 mg PO Q6H PRN (Reason: anxiety) abemaciclib 150 mg tablet 150 mg PO BID 30 Days Qty: 60 12RF Referrals / Follow Up: Eldon Proctor MD [Primary Care Provider] - Disposition Disposition (needs filled in before D/C Order can be placed): Hospice in Medical Facility Charges/Coding Visit Charges Inpatient E&M: 05907 Disch Hosp >30min
[2025-02-17 15:23] LABS: Pathologist Review Reviewed
== END 2025-02-13 12:45 | disposition hospice, inpatient (51) | DRG 377 ==
LOC: ED 18:32 → PCU 22:02 → ICU 02-12 20:33
PROVIDERS: Anesthesiology; Hospitalist; Internal Medicine; Internal Medicine Gastroenterology; Nurse Practitioner Adult Health; Physician Assistant; Admitting Provider Internal Medicine; Emergency Provider Emergency Medicine; PCP Family Medicine; Visit Provider Student in an Organized Health Care Education/Training Program
PROC: 0DJD8ZZ Inspection of Lower Intestinal Tract, Via Natural or Artificial Opening Endoscopic (ICD-10-PCS; CPT 45378; principal; 2025-02-05 14:55)
DX: K29.01 Acute gastritis with bleeding (principal); K63.1 Perforation of intestine (nontraumatic); R57.8 Other shock; E43 Unspecified severe protein-calorie malnutrition; C78.6 Secondary malignant neoplasm of retroperitoneum and peritoneum; C78.7 Secondary malignant neoplasm of liver and intrahepatic bile duct; N18.4 Chronic kidney disease, stage 4 (severe); E87.21 Acute metabolic acidosis; E87.1 Hypo-osmolality and hyponatremia; N17.9 Acute kidney failure, unspecified; K22.10 Ulcer of esophagus without bleeding; R18.0 Malignant ascites; E88.09 Other disorders of plasma-protein metabolism, not elsewhere classified; E03.9 Hypothyroidism, unspecified; K62.5 Hemorrhage of anus and rectum; E87.5 Hyperkalemia; E87.6 Hypokalemia; K44.9 Diaphragmatic hernia without obstruction or gangrene; K31.89 Other diseases of stomach and duodenum; I95.89 Other hypotension; K52.89 Other specified noninfective gastroenteritis and colitis; K21.9 Gastro-esophageal reflux disease without esophagitis; Z66 Do not resuscitate; Z68.22 Body mass index [BMI] 22.0-22.9, adult; Z79.818 Long term (current) use of other agents affecting estrogen receptors and estrogen levels; Z79.899 Other long term (current) drug therapy; Z85.3 Personal history of malignant neoplasm of breast; Z87.891 Personal history of nicotine dependence
CPT/HCPCS: 36415; 49083; 71045; 74176; 80048; 80053; 81001; 82040; 82274; 82607; 82746; 82803; 82945; 82962; 83605; 83615; 83690; 83735; 84100; 84157; 84443; 85014; 85018; 85025; 85610; 85730; 86644; 86850; 86900; 86901; 87040; 87070; 87075; 87205; 88108; 88305; 88313; 88342; 89050; 93005; 94668; 97116; 97162; 97166; 97530; 97535; 97802; 97803; 99285; P9016; P9047; P9612; A4216; J2405